=== PATIENT | female | born 1945 | race Caucasian/White ===

== ENCOUNTER 2019-07-16 14:45 | Outpatient (CLI) | payer MEDICARE, OTHER, SELFPAY ==
--- NOTE | 2019-07-16 14:48 | MM_ITS ---
WS: [id number] BILATERAL SCREENING DIGITAL MAMMOGRAM WITH CAD HISTORY: SCREENING COMPARISON: 05/27/2018 and 12/17/2008 Bilateral CC and MLO views submitted. Computer aided detection analyzed. Breast composition: The breasts are heterogeneously dense, which may obscure small masses. No suspici ous masses, microcalcifications or architectural distortion. Biopsy clip lateral LEFT breast. Benign calcifications in each breast. MM/[place] [id number] IMPRESSION: BI-RADS: 2-Benign FOLLOW UP: 1 Year Follow-up
== END 2019-07-16 14:46 | disposition home or self-care (01) ==
LOC: RADSHAW 14:45
PROVIDERS: Family Provider Family Medicine; PCP Family Medicine; Visit Provider Family Medicine
DX: Z12.31 Encounter for screening mammogram for malignant neoplasm of breast (principal)
CPT/HCPCS: 77067

== ENCOUNTER 2019-09-08 14:31 | Outpatient (CLI) | payer MEDICARE, OTHER, SELFPAY ==
--- NOTE | 2019-09-09 20:02 | ONC CON_ITS ---
Dr. Chand New Patient Note Patient: Shazia Vaca Unit #: [id number]: 1945 Dicatated By: Luke Chand M.D.Date of Visit: Sep 08, 2019 Onc MED New Patient/Consult Referring Physician: Dr. Navid Bourne M.D. Chief Complaint: Anemia. History of Present Illness: This is a 74 year-old woman with iron deficiency anemia. She has been in good general health. She had presented to Dr. Bourne last month with fatigue and shortness of breath. Her CBC on 08/28/2019 showed hemoglobin low at 7.8 g with hematocrit 25%. The red cell indices were mildly macrocytic with MCV 104 and MCH 31. The white blood cell count was 7500 and the platelet count was 407,000. Her comprehensive metabolic profile was unrevealing. Her serum iron studies showed low transferrin saturation of 5% with ferritin low at 8 ng/mL, consistent with iron deficiency. Her B12 level is normal at 375 pg/mL and the folate was greater than 24 ng/mL. S her stool Hemoccult was found to be positive. He began on an oral iron supplement. A repeat CBC on 09/04/2019 showed similar findings with hemoglobin 7.8 g and hematocrit 24.6%. The MCV was slightly higher at 107 with MCH 33. In reviewing her records, she had undergone a left total knee arthroplasty in August 2018. Her preop CBC showed hemoglobin 13.2 g with MCV slightly high at 101. As of 09/25/2018 the postoperative hemoglobin was still low at 9.0 g. She did not require transfusion. Her B12 and folate levels were also normal at that time. She has been feeling pretty good generally. She says her energy has been down for a couple of weeks, but she is still doing light work and most of her activities. Her appetite has been good and her weight has been stable. She has no fever or night sweats. She does get short of breath with activity. She has cough when she lies down and when she first gets up. She has occasional twinges of chest pain. She has nausea off and on, and she does complain of having some heartburn, though generally has been controlled pretty well with medication. Her stools have been black since she started the iron supplement, but she otherwise has not been aware of any blood in the stool. She says she had a colonoscopy 3 years ago. Bladder function has been okay. She has some chronic back pain. She has occasional numbness in her hands, but it is positional. She has no other focal neurologic symptoms. Past Medical History: Her medical history includes degenerative arthritis, gastroesophageal reflux disease, hypercholesterolemia, hypertension, and hypothyroidism. 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 Medications: amLODIPine Besylate 1 Tablet (of 10 mg) Oral daily, Aspirin 1 Tablet (of 81 mg) Oral daily, Atorvastatin Calcium 1 Tablet (of 20 mg) Oral daily, Calcium Citrate + D 1 Tablet (of 600-400 mg - Units) Oral b.i.d., D-1000 Extra Strength 1 Tablet (of 400 Units) Oral daily, Donepezil HCl 1 Tablet (of 10 mg) Oral daily, Ferrous Sulfate 1 Tablet (of 325 (65 fe) mg) Oral daily, Glucosamine Sulfate 1 Capsule (of 1000 mg) Oral daily, Levothyroxine Sodium 1 Tablet (of 125 mcg) Oral daily, Omeprazole 1 Tablet (of 20 mg) Tablet, enteric coated Oral daily, traMADol HCl 1 Tablet (of 50 mg) Oral daily, Vitamin C 1 Capsule (of 500 mg) Oral daily, Vitamin E Blend 1 Capsule (of 200 Units) Oral daily Allergies: Adhesive Tape, Metals, and Penicillins. Social History: Ms. Vaca is . She has a history of smoking 1 pack of cigarettes daily for 50 years. She quit smoking in 2012. She does not drink alcohol. Family History: She does not know what happened to her father. Her mother at age 75 with emphysema. She also had bladder cancer. She has a total of 11 siblings, at least 6 of whom also had lung problems, but they were all smokers. In addition, 1 sister had lung and bladder cancer and a brother had throat cancer. Review Of Symptoms: Constitutional - Her energy is good. She is able to do all her normal activities. Her appetite is good and weight is stable. No fever, chills, hot flashes, or night sweats. ECOG score is 0, Eyes - No change in vision, ENMT - No hearing loss or tinnitus. She does complain that her nose runs. No mouth sores. No sore throat or difficulty swallowing, Hematologic/Lymphatic - She bruises easily, Respiratory - At times she has shortness of breath during activity. She has an occasional cough. No pleuritic pain or hemoptysis, Cardiovascular - No angina pain. No palpitations, Gastrointestinal - No nausea or vomiting. She heartburn, but it is well controlled with Prilosec. No diarrhea or constipation. A recent stool hemoccult was reportedly positive. She denies seeing any blood in the stool. She has had black stools after starting an oral iron supplement, Genitourinary (F) - No dysuria or hematuria. No urinary frequency. No urgency or incontinence, Musculoskeletal - She has lower back pain, Integumentary - No skin complications, Neurologic - No headache. She gets dizzy at time. No numbness/paresthesias or other focal neurologic symptoms, Psychiatric - No anxiety or depression. She has difficulty sleeping. She states that she is only able to sleep a few hours at night. Vital Signs: Performed on Sep 08, 2019 15:58: 6, 30.58 (HIGH), 1.77 sq.m, 62.00 in, 99 %, 79 /min, 18 /min, 131/54 mm(hg), 98.2 F (LOW), and 167.2 lbs (HIGH). Physical Examination: Constitutional - She appears to be in good general health, Eyes - Sclerae nonicteric. Conjunctivae clear, ENMT - No lesions noted in the oral cavity, Neck - No mass or thyromegaly, Hematologic/Lymphatic - No cervical, clavicular, or axillary adenopathy, Respiratory - Lungs sound clear, Cardiovascular - Heart rhythm is regular. There is no murmur, gallop, or rub noted, Abdomen - Soft and non-tender. Liver and spleen are not enlarged. There is no abdominal mass or ascites noted and there is no inguinal adenopathy, Back/Spine - No spine or CVA tenderness noted, Extremities - No edema. Pedal pulses are palpable bilaterally, Integumentary - No rashes. No suspicious skin lesions noted, Neurologic - No focal neurologic deficits noted. Impression: 1. Patient with moderately severe anemia. Her serum iron studies and ferritin are clearly consistent with iron deficiency, though her red cell indices are macrocytic. 2. She had positive stool hemoccult. Her other medical illnesses include: 3. Hypertension. 4. Hyperlipidemia. 5. Hypothyroidism. 6. GERD. 7. Degenerative arthritis. Plan: The laboratory studies were reviewed and we discussed the clinical implications. She has iron deficiency anemia, though with macrocytic red cell indices. At least some component is due to GI blood loss, as she does have a positive stool hemoccult. It is uncertain to what extent inadequate oral iron absorption may also be contributing. At least for now she will just continue her oral iron supplement. She will have a follow CBC with Dr. Bourne in 2 weeks, and I will plan a followup visit with additional lab studies in 4 weeks. If the iron deficiency is not correcting with oral iron or she is not able to tolerate it, she will be given parenteral iron replacement with Injectafer. In the meantime, she also will be having further evaluation with EGD. Signed By: Luke Chand M.D. <<Signature on File>>
== END 2019-09-08 14:32 | disposition home or self-care (01) ==
LOC: ONCMED 14:31
PROVIDERS: Family Provider Family Medicine; PCP Family Medicine; Visit Provider Internal Medicine Medical Oncology
DX: D50.0 Iron deficiency anemia secondary to blood loss (chronic) (principal); G89.29 Other chronic pain; M54.9 Dorsalgia, unspecified; M19.90 Unspecified osteoarthritis, unspecified site; K21.9 Gastro-esophageal reflux disease without esophagitis; E78.00 Pure hypercholesterolemia, unspecified; I10 Essential (primary) hypertension; E03.9 Hypothyroidism, unspecified; Z79.82 Long term (current) use of aspirin; Z79.891 Long term (current) use of opiate analgesic; Z96.652 Presence of left artificial knee joint; Z87.891 Personal history of nicotine dependence; Z80.1 Family history of malignant neoplasm of trachea, bronchus and lung; Z80.52 Family history of malignant neoplasm of bladder; Z80.8 Family history of malignant neoplasm of other organs or systems
CPT/HCPCS: 99204

== ENCOUNTER 2019-10-13 08:31 | Outpatient (CLI) | payer MEDICARE, OTHER, SELFPAY ==
--- NOTE | 2019-10-13 18:56 | ONC FU_ITS ---
Dr. Chand Patient Follow-Up Note Patient: Shazia Vaca Unit #: [id number]: 1945 Dicatated By: Luke Chand M.D.Date of Visit:Oct 13, 2019 Telehealth Progress Note The patient has been informed that the visit may not be secure and acknowledged the information. I have explained the option of participating in a telephone or video visit during the [facility] emergency to the patient. After being given an opportunity to ask questions about and discuss this type of visit, the patient verbally consented to proceeding with the telephone/video visit. the patient understands that this service replaces an office visit and they may be billed and /or responsible for any applicable copayments Chief Complaint: Anemia. History of Present Illness: This is a 74 year-old woman with macrocytic anemia. She had presented to Dr. Bourne in August with fatigue and shortness of breath. Her CBC on 08/28/2019 showed hemoglobin low at 7.8 g with hematocrit 25%. The red cell indices were mildly macrocytic with MCV 104 and MCH 31. The white blood cell count was 7500 and the platelet count was 407,000. Her comprehensive metabolic profile was unrevealing. Her serum iron studies showed low transferrin saturation of 5% with ferritin low at 8 ng/mL, consistent with iron deficiency. Her B12 level is normal at 375 pg/mL and the folate was greater than 24 ng/mL. Her stool Hemoccult was found to be positive. She was started on an oral iron supplement. A repeat CBC on 09/04/2019 showed similar findings with hemoglobin 7.8 g and hematocrit 24.6%. The MCV was slightly higher at 107 with MCH 33. I had seen her initially on 09/08/2019. In reviewing her records, she had undergone a left total knee arthroplasty in August 2018. Her preop CBC showed hemoglobin 13.2 g with MCV slightly high at 101. As of 09/25/2018 the postoperative hemoglobin was still low at 9.0 g. She did not require transfusion. Her B12 and folate levels were also normal at that time. As her laboratory studies were consistent with iron deficiency, I had recommended that she continue with a trial of oral iron replacement. With her stool Hemoccult having been reported positive, I also recommended that she have a repeat EGD. She had undergone colonoscopy 3 years earlier. Her other medical illnesses include hypertension, hyperlipidemia, hypothyroidism, GERD, and degenerative arthritis. She has a history of smoking 1 pack of cigarettes daily for 50 years. She quit smoking in 2012. INTERIM HISTORY: Her repeat laboratory studies on 10/08/2019 included CBC showing hemoglobin 10.9 g with hematocrit 35.9%. The red cell indices were macrocytic with MCV 109 and MCH 33. The white blood cell count was 7100 and the platelet count was 418,000. The uncorrected reticulocyte count was 2.6%. LDH was normal at 180 2U/L and the haptoglobin was normal at 163 mg/dL. Comprehensive metabolic profile was unremarkable. The serum iron studies showed low normal transferrin saturation at 22% with ferritin relatively low at 21 ng/mL. The B12 level was normal at 323 pg/mL. The homocystine level was slightly elevated at 11.7 ???mol/L and the methylmalonic acid level was normal at 227 nmol/L. In the interim she did have a repeat EGD which reportedly was unrevealing. She is seen for a follow-up visit by Telehealth. She says she is feeling good. She has good energy and she has normal activity. ECOG score 0. She has good appetite. She has no fever or night sweats. She reports having some sinus drainage and she has cough off and on. She has some shortness of breath. She is on Symbicort, which she uses at night. She does not complain of chest pain. She has had some nausea with the iron supplement. Her acid reflux symptoms have been adequately managed after increasing her omeprazole dosage to 40 mg daily. She has no complaints with bowel or bladder function. She has some joint pain, mainly in the shoulders. She has no focal neurologic symptoms. Medications: amLODIPine Besylate 1 Tablet (of 10 mg) Oral daily, Aspirin 1 Tablet (of 81 mg) Oral daily, Atorvastatin Calcium 1 Tablet (of 20 mg) Oral daily, Calcium Citrate + D 1 Tablet (of 600-400 mg - Units) Oral b.i.d., D-1000 Extra Strength 1 Tablet (of 400 Units) Oral daily, Donepezil HCl 1 Tablet (of 10 mg) Oral daily, Ferrous Sulfate 1 Tablet (of 325 (65 fe) mg) Oral daily, Glucosamine Sulfate 1 Capsule (of 1000 mg) Oral daily, Levothyroxine Sodium 1 Tablet (of 125 mcg) Oral daily, Omeprazole 1 Tablet (of 20 mg) Tablet, enteric coated Oral daily, traMADol HCl 1 Tablet (of 50 mg) Oral daily, Vitamin C 1 Capsule (of 500 mg) Oral daily, Vitamin E Blend 1 Capsule (of 200 Units) Oral daily Allergies: Adhesive Tape, Metals, and Penicillins. Review of Systems: Constitutional - Her energy level is generally good. She is doing all her normal activities. Her appetite is very good and weight is stable. No fever, chills, hot flashes, or night sweats. ECOG score is 0, ENMT - She has chronic sinus drainage. No mouth sores. No sore throat or difficulty swallowing, Hematologic/Lymphatic - She bruises easily, Respiratory - She has some shortness of breath. She is using Symbicort. She has a cough, mainly at night. No pleuritic pain or hemoptysis, Cardiovascular - No angina pain. No palpitations, Gastrointestinal - No nausea or vomiting. She has acid reflux that has improved after increasing to 40mg of Prilosec. No diarrhea or constipation. No blood in the stool or black stools, Genitourinary (F) - No dysuria or hematuria. No urinary frequency. No urgency or incontinence, Musculoskeletal - She has some joint pain at times, mainly in the shoulders, Integumentary - No skin complications, Neurologic - No headache or dizziness. No numbness/paresthesias or other focal neurologic symptoms, Psychiatric - No anxiety or depression. She does not sleep well at night. Physical Examination: Constitutional - She looks good generally. Lab/Imaging: Test performed on Oct 08, 2019 09:21 Ferritin 21 ng/mL Homocysteine 11.7 umol/L Methylmalonic Acid 227 nmol/L Vitamin B12 323 pg/mL % Iron Saturation 22 % LDH, Total 182 IU/L Iron, Total 93 mcg/dL TIBC 428 mcg/dL Haptoglobin 163 mg/dL Reticulocyte Count 2.6 % Test performed on Oct 08, 2019 09:17 Glucose 97 mg/dL BUN 19 mg/dL Creatinine 0.9 mg/dL Cr Clearance (Est) 66.65 mL/min Sodium 139 mmol/L Potassium 4.2 mmol/L Chloride 103 mmol/L CO2 28 mmol/L Calcium 10.3 mg/dL Protein, Total 7.8 g/dL Albumin 4.2 g/dL Globulin 3.6 g/dL A/G Ratio 1.2 Absolute Value Bilirubin, Total 0.4 mg/dL Alkaline Phosphatase 88 IU/L AST (SGOT) 37 IU/L ALT (SGPT) 12 IU/L WBC 7.1 10^9/L RBC 3.29 10^12/L HGB 10.9 g/dL HCT 35.9 % MCV 109.1 fl MCH 33.3 pg MCHC 30.5 g/dL RDW 19.8 % Platelet Count 418 10^9/L Lymphocytes 2.4637 10^9/L Monocytes 0.497 10^9/L Impression: 1. Patient with macrocytic anemia. Her initial studies were consistent with iron deficiency. She appears to have had some response to oral iron supplementation, but she remains mildly anemic with significantly macrocytic red blood cell indices. In the absence of any evidence of B12 deficiency, this is suggestive of underlying myelodysplasia. 2. She had positive stool hemoccult. A specific source of GI blood loss has not been determined, but it appears very unlikely that she would have any associated GI malignancy. Her other medical illnesses include: 3. Hypertension. 4. Hyperlipidemia. 5. Hypothyroidism. 6. GERD. 7. Degenerative arthritis. Plan: As her transferrin saturation and ferritin are both still relatively low and she is having GI side effects with the ferrous sulfate, I am going to schedule her to come in for parenteral iron replacement with a single infusion of Injectafer. She will have 1-month interval follow-up lab studies. If she remains anemic, I will recommend that she undergo bone marrow aspiration/biopsy. Signed By: Luke Chand M.D. <<Signature on File>>
== END 2019-10-13 08:32 | disposition home or self-care (01) ==
LOC: ONCMED 08:31
PROVIDERS: Family Provider Family Medicine; PCP Family Medicine; Visit Provider Internal Medicine Medical Oncology
DX: D50.8 Other iron deficiency anemias (principal)

== ENCOUNTER 2019-10-27 08:21 | Outpatient (CLI) | payer MEDICARE, OTHER, SELFPAY ==
[2019-10-27] MEDS: sodium chloride 0.9% 100 ML 400 ML (08:35)
== END 2019-10-27 08:22 | disposition home or self-care (01) ==
LOC: ONCMED 08:22
PROVIDERS: Family Provider Family Medicine; PCP Family Medicine; Visit Provider Internal Medicine Medical Oncology
DX: D50.8 Other iron deficiency anemias (principal)
CPT/HCPCS: 96365; J1439

== ENCOUNTER → 2019-12-21 11:13 | Outpatient (BNVA) | payer MEDICARE, OTHER, SELFPAY | PROVIDERS: Family Provider Family Medicine; PCP Family Medicine; Visit Provider Specialist | DX: M25.511 Pain in right shoulder (principal) | CPT/HCPCS: 73030 ==

== ENCOUNTER → 2019-12-31 09:53 | Outpatient (BNVA) | payer MEDICARE, OTHER, SELFPAY | PROVIDERS: Family Provider Family Medicine; PCP Family Medicine; Visit Provider Specialist | DX: M19.011 Primary osteoarthritis, right shoulder (principal); M75.81 Other shoulder lesions, right shoulder; Z96.652 Presence of left artificial knee joint | CPT/HCPCS: 73560; 73565 ==

== ENCOUNTER → 2020-11-30 11:04 | Outpatient (BNVA) | payer MEDICARE, OTHER, SELFPAY | PROVIDERS: Family Provider Family Medicine; PCP Family Medicine; Visit Provider Specialist | DX: Z47.1 Aftercare following joint replacement surgery (principal); Z96.652 Presence of left artificial knee joint | CPT/HCPCS: 73560; 73565 ==

== ENCOUNTER 2020-12-19 14:28 | Emergency (ER) | payer MEDICARE, OTHER, SELFPAY ==
[2020-12-19 14:30] VITALS: BP 125/55; PULSE 75; RESP 18; O2SAT 93; BMI 28.9
--- NOTE | 2020-12-19 14:47 | CTR_ITS ---
PROCEDURE INFORMATION: Exam: CT Head Without Contrast Exam date and time: 12/19/2020 2:47 PM Age: 75 years old Clinical indication: Injury or trauma; Fall; Blunt trauma (contusions or hematomas); With loss of consciousness; Not specified; Additional info: Fall/loc TECHNIQUE: Imaging protocol: Computed tomography of the head without contrast. Radiation optimization: All CT scans at this facility use at least one of these dose optimization techniques: automated exposure control; mA and/or kV adjustment per patient size (includes targeted exams where dose is matched to clinical indication); or iterative reconstruction. COMPARISON: CT head wo con* [id number] 11/15/2015 8:14 AM RADIATION DOSE METRICS: Total DLP (mGy-cm): 746.27 FINDINGS: Brain: Normal. No hemorrhage. Unremarkable white matter. No mass effect. Cerebral ventricles: No ventriculomegaly. Paranasal sinuses: Visualized sinuses are unremarkable. No fluid levels. Mastoid air cells: Visualized mastoid air cells are well aerated. Bones/joints: Unremarkable. No acute fracture. Soft tissues: Unremarkable. CT/CT head wo con* [id number] IMPRESSION: Negative for intracranial hemorrhage or mass effect. Radiation Dose CTDIVOL = (mGy): DLP = 746.27 (mGy-cm)
--- NOTE | 2020-12-19 14:47 | XR_ITS ---
WS: [id number] PORTABLE CHEST HISTORY: dyspnea/cough COMPARISON: 09/09/2018 Mild pulmonary hyperexpansion with mild interstitial thickening. Similar to the study of 09/28/2015. N o dense consolidation or pneumonia. No pleural effusion or pneumothorax. Cardiac size: Normal. Mediastinum/Aorta: Mild atherosclerosis aorta. No osseous abnormality seen. XR/XR chest 1V portable [id number] IMPRESSION: No acute cardiopulmonary disease.
--- NOTE | 2020-12-19 14:47 | ECG_ITS ---
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 Measurements Intervals Tofte Rate: 84 P: 73 NM: 163 QRS: 16 QRSD: 90 T: 54 QT: 360 QTc: 427 Interpretive Statements SINUS RHYTHM Compared to ECG 09/09/2018 13:47:27 No significant changes Electronically Signed On 12-19-2020 18:51:39 CDT by Anisa Landry M.D. [id number]
--- NOTE | 2020-12-19 14:49 | W.ED.SYNCOPE ---
HPI - Syncope General: Chief Complaint: Syncope Stated Complaint: SYNCOPE, WEAKNESS Time Seen by Provider: 12/19/20 14:30 History of Present Illness: HPI narrative: 75-year-old female presents emergency room with complaints of syncopal episode while at shopping at [employer]. He has had similar episodes in the past once while she was cutting her son's hair in her kitchen. Today she was standing her son was loading some things into the cart she got lightheaded and dizzy she had the sense that she was about to passed out and said she needed to set she passed out 2 more times after that episode she denies striking her head but did lose consciousness for a brief period of time there was no seizure-like activity she denies any chest pain. She has not had any postevent confusion she did not have any nausea vomiting afterwards no loss of bowel or bladder control. MD complaint: loss of consciousness, felt faint and collapsed Onset (ago): minute(s) Prodromal symptoms: lightheaded and other (Flushing sensation) Witnessed: Yes - by Bystander Injuries sustained associated with event: back Associated symptoms: Reports weakness; Deny abdominal pain, chest pain, fever(s), headache(s), lightheadedness, nausea, short of breath or vertigo History: previous syncopal episode Treatments prior to arrival: none Review of Systems Const: Denies: fever(s) ENMT: Denies: throat pain, ear or mastoid pain, nasal discharge or nasal congestion Card: Denies: chest pain or lightheadedness Resp: Denies: dyspnea, productive cough or non-productive cough GI: Denies: abdominal pain or nausea : Denies: flank pain, difficulty voiding, dysuria, urinary frequency or urinary urgency Skin/Breast: Denies: rash or pruritus Neuro: Denies: headache(s) or vertigo PFSH ED PFSH: Medical History Chronic radicular low back pain Hypercholesterolemia Hypertension Primary osteoarthritis of left knee Primary osteoarthritis of right knee Primary osteoarthritis of right shoulder Surgical History Status post total knee replacement, left Social History Smoking and tobacco status: never smoked Alcohol intake: never Physical Exam Const: COMMON NORMALS: no acute distress GENERAL APPEARANCE: cooperative and comfortable ORIENTATION/CONSCIOUSNESS: Yes awake, Yes oriented to person, Yes oriented to place and Yes oriented to time HENMT: COMMON NORMALS: normocephalic, atraumatic, hearing grossly normal bilaterally and external ears normal HEAD & SCALP: normocephalic and atraumatic EXTERNAL EAR: Yes external ears normal Neck/C-Spine: COMMON NORMALS: no JVD Resp: COMMON NORMALS: normal respiratory effort, No retractions, No use of accessory muscles and clear to auscultation bilaterally AUSCULTATION: clear to auscultation bilaterally Cardio: COMMON NORMALS: no JVD, regular rate, regular rhythm and No murmurs present (Cardio) RATE: regular rate RHYTHM: regular rhythm GI: COMMON NORMALS: Soft to palpation and No hepatosplenomegaly present AUSCULTATION: Yes normoactive bowel sounds PALPATION: Yes Soft to palpation, No Tenderness to palpation present (GI), No Guarding due to palpation present (GI) and Yes No hepatosplenomegaly present Extremity: COMMON NORMALS: normal to inspection, capillary refill normal, no clubbing, cyanosis or edema, no calf tenderness and no pedal edema Neuro: SENSORIUM/ORIENTATION: Yes oriented to person, Yes oriented to place and Yes oriented to time Skin: COMMON NORMALS: no rashes or lesions noted GENERAL SKIN EXAM: no rashes or lesions noted Course Vital Signs: Vital signs: Vital Signs Pulse Rate 82 12/19/20 17:38 Respiratory Rate 18 12/19/20 14:30 Blood Pressure 135/66 12/19/20 17:38 Pulse Oximetry 94 12/19/20 17:38 MDM - Syncope MDM Narrative: Medical decision making narrative: Patient was orthostatic on arrival here we did decrease her amlodipine to 5mg daily she is feeling much better after the fluids we will discharge her home. Asked her to follow-up with her primary care doctor within the week. We will also get a get her set up for a Lexiscan sestamibi stress test. Lab Data: Labs: Lab Results 12/19/20 12/19/20 12/19/20 Range/Units 14:47 14:47 14:47 WBC 6.1 (4.0-10.0) 10^3/ uL RBC 2.89 L (4.1-5.3) 10^6/u L Hgb 11.1 L (11.5-15.3) g/dL Hct 34.0 L (37.0-47.0) % MCV 117.6 H (81-99) fL MCH 38.4 H (28.0-34.0) pg MCHC 32.6 (30.0-36.0) g/dL RDW 17.9 H (12.1-15.1) % Plt Count 312 (130-400) 10^3/c mm MPV 12.4 H (7.4-10.4) fL Neut % (Auto) 56.4 % Lymph % (Auto) 31.4 % [place] % (Auto) 6.1 % Eos % (Auto) 1.3 % Baso % (Auto) 0.3 % Neut # (Auto) 3.41 (1.8-7.7) 10^3/u L Lymph # (Auto) 1.9 (0.8-4.8) 10^3/u L [place] # (Auto) 0.4 (0.2-0.9) 10^3/u L Eos # (Auto) 0.1 (0.0-0.8) 10^3/u L Baso # (Auto) 0.0 (0.0-0.1) 10^3/u L Nucleated RBC % (a uto) 0 % Nucleated RBCs # 0.0 /100WBC Sodium 136 (136-145) mmol/L Potassium 4.3 (3.5-5.1) mmol/L Chloride 100 (98-107) mmol/L Carbon Dioxide 24 (22-29) mmol/L Anion Gap 16.3 (5-19) BUN 18 (8-23) mg/dL Creatinine 1.2 H (0.5-0.9) mg/dL GFR Calculation Not Reportable Glucose 139 H (65-115) mg/dL Calculated Osmolal ity 286 (285-295) mOsm/k g Calcium 9.7 (8.5-10.5) mg/dL Total Bilirubin 0.3 (0.15-1.2) mg/dL AST 13 (0-32) U/L ALT 8 (0-33) U/L Alkaline Phosphata se 66 (35-105) IU/L Creatine Kinase 58 (26-192) U/L Troponin T Baselin e 14 H (0-10) ng/L Troponin T 120 [address] [place] (0-10) ng/L Delta Troponin T (0-10) ABS# Total Protein 6.6 (6.6-8.7) g/dL Albumin 4.2 (3.5-5.2) g/dL Globulin 2.4 (1.3-4.6) g/dL Urine Color (Yellow) Urine Appearance (CLEAR) Urine pH (5-7) Ur Specific Gravit y (1.005-1.030) Urine Protein (Negative) Urine Glucose (UA) (Normal) Urine Ketones (Negative) Urine Blood (Negative) Urine Nitrate (Negative) Urine Bilirubin (Negative) Prot Sulfosalicyli c Acd (Negative) Urine Urobilinogen (Negative) mg/dL Ur Leukocyte Belia ase (Negative) 12/19/20 12/19/20 Range/Units 17:20 17:23 WBC (4.0-10.0) 10^3/ uL RBC (4.1-5.3) 10^6/u L Hgb (11.5-15.3) g/dL Hct (37.0-47.0) % MCV (81-99) fL MCH (28.0-34.0) pg MCHC (30.0-36.0) g/dL RDW (12.1-15.1) % Plt Count (130-400) 10^3/c mm MPV (7.4-10.4) fL Neut % (Auto) % Lymph % (Auto) % [place] % (Auto) % Eos % (Auto) % Baso % (Auto) % Neut # (Auto) (1.8-7.7) 10^3/u L Lymph # (Auto) (0.8-4.8) 10^3/u L [place] # (Auto) (0.2-0.9) 10^3/u L Eos # (Auto) (0.0-0.8) 10^3/u L Baso # (Auto) (0.0-0.1) 10^3/u L Nucleated RBC % (a uto) % Nucleated RBCs # /100WBC Sodium (136-145) mmol/L Potassium (3.5-5.1) mmol/L Chloride (98-107) mmol/L Carbon Dioxide (22-29) mmol/L Anion Gap (5-19) BUN (8-23) mg/dL Creatinine (0.5-0.9) mg/dL GFR Calculation Glucose (65-115) mg/dL Calculated Osmolal ity (285-295) mOsm/k g Calcium (8.5-10.5) mg/dL Total Bilirubin (0.15-1.2) mg/dL AST (0-32) U/L ALT (0-33) U/L Alkaline Phosphata se (35-105) IU/L Creatine Kinase (26-192) U/L Troponin T Baselin e (0-10) ng/L Troponin T 120 [address] [place] 10.70 H (0-10) ng/L Delta Troponin T -3.30 L (0-10) ABS# Total Protein (6.6-8.7) g/dL Albumin (3.5-5.2) g/dL Globulin (1.3-4.6) g/dL Urine Color Straw (Yellow) Urine Appearance Clear (CLEAR) Urine pH 8 H (5-7) Ur Specific Gravit y 1.010 (1.005-1.030) Urine Protein Neg (Negative) Urine Glucose (UA) Norm (Normal) Urine Ketones Negative (Negative) Urine Blood Neg (Negative) Urine Nitrate Negative (Negative) Urine Bilirubin Neg (Negative) Prot Sulfosalicyli c Acd Negative (Negative) Urine Urobilinogen Norm (Negative) mg/dL Ur Leukocyte Belia ase Negative (Negative) Discharge Plan Discharge Patient Disposition: Home Clinical Impression: Syncope due to orthostatic hypotension Condition: Stable Prescriptions: Changed amlodipine 10 mg tablet 5 mg PO DAILY Qty: 0 RF: 0 No Action tramadol 50 mg tablet 50 mg PO Q8H PRNRF: 0 multivitamin [Multiple Vitamins] Tablet 1 tab PO DAILY RF: 0 ascorbate calcium (vitamin C) 500 mg tablet 500 mg PO DAILY RF: 0 aspirin 81 mg tablet,delayed release (DR/EC) 81 mg PO DAILY RF: 0 triamcinolone acetonide 0.025 % cream 1 applic TOPICAL DAILY RF: 0 levothyroxine 112 mcg capsule 112 mcg PO DAILY RF: 0 omeprazole 20 mg capsule,delayed release(DR/EC) 20 mg PO DAILY RF: 0 atorvastatin 20 mg tablet 20 mg PO DAILY RF: 0 Discharge Orders: Discharge ED (Routine); Ordered 12/19/20 Ordered By: Ariel Frances Referrals: Navid Bourne MD [Primary Care Provider] - Discharge Diet: Usual diet Discharge Activity: Limit activity as instructed Patient Instructions: Opioid Safety Activity Restrictions/Additional Instructions: Case management will call to set you up for a cardiac stress test. Coding Level of Care Code ED Liquid Flavor Compounder for Xi Fwd Exam Comprehensive
[2020-12-19 14:57] LABS: Basophils % 0.3 %; Eosinophils # 0.1 10^3/uL (0.0-0.8); Eosinophils % 1.3 %; Hemoglobin 11.1 g/dL (11.5-15.3); Lymphocytes # 1.9 10^3/uL (0.8-4.8); Lymphocytes % 31.4 %; Mean Corpuscular HGB Conc 32.6 g/dL (30.0-36.0); Mean Corpuscular Hemoglobin 38.4 pg (28.0-34.0); Mean Corpuscular Volume 117.6 fL (81-99); Mean Platelet Volume 12.4 fL (7.4-10.4); Monocytes # 0.4 10^3/uL (0.2-0.9); Monocytes % 6.1 %; Neutrophils # 3.41 10^3/uL (1.8-7.7); Neutrophils % 56.4 %; Nucleated Red Blood Cells % 0 %; Platelet Count 312 10^3/cmm (130-400); Red Blood Count 2.89 10^6/uL (4.1-5.3); Red Cell Distribution Width 17.9 % (12.1-15.1); White Blood Count 6.1 10^3/uL (4.0-10.0)
[2020-12-19 15:13] LABS: Troponin(5th) Baseline 14 ng/L (0-10)
[2020-12-19 15:14] LABS: Alanine Aminotransferase 8 U/L (0-33); Albumin Level 4.2 g/dL (3.5-5.2); Alkaline Phosphatase 66 IU/L (35-105); Anion Gap 16.3 (5-19); Aspartate Amino Transferase 13 U/L (0-32); Blood Urea Nitrogen 18 mg/dL (8-23); Calcium 9.7 mg/dL (8.5-10.5); Carbon Dioxide 24 mmol/L (22-29); Chloride 100 mmol/L (98-107); Creatine Phosphokinase 58 U/L (26-192); Creatinine Clr Calc Pharmacy 38.1319; Globulin 2.4 g/dL (1.3-4.6); Glucose 139 mg/dL (65-115); Osmolality Calculated 286 mOsm/kg (285-295); Potassium 4.3 mmol/L (3.5-5.1); Sodium 136 mmol/L (136-145); Total Bilirubin 0.3 mg/dL (0.15-1.2); Total Protein 6.6 g/dL (6.6-8.7)
[2020-12-19 15:36] VITALS: BP 102/50; BP 118/79; BP 124/56; PULSE 86; PULSE 88; PULSE 93
[2020-12-19 15:37] VITALS: BP 118/79; PULSE 86; O2SAT 93
[2020-12-19 15:38] VITALS: PULSE 84
--- NOTE | 2020-12-19 16:47 | ECG_ITS ---
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 Measurements Intervals [place] Rate: 85 P: 69 [place]: 168 QRS: 7 QRSD: 90 T: 55 QT: 361 QTc: 430 Interpretive Statements SINUS RHYTHM Compared to ECG 12/19/2020 15:22:56 No significant changes Electronically Signed On 12-19-2020 18:59:49 CDT by Anisa Landry M.D. [id number]
[2020-12-19 17:38] VITALS: BP 135/66; PULSE 82; O2SAT 94
[2020-12-19 17:42] LABS: Add Urine Microscopic? NO; Charge for UA Resulting for Rev
[2020-12-19 17:55] LABS: Bilirubin Urine Neg (Negative); Blood Urine Neg (Negative); Glucose Urine UA Norm (Normal); Ketones Urine Negative (Negative); Leukocyte Esterase Urine Negative (Negative); Nitrate Urine Negative (Negative); Protein Urine Neg (Negative); Sulfosalicylic Acid Urine Negative (Negative); Urine Appearance Clear (CLEAR); Urine Color Straw (Yellow); Urobilinogen Urine Norm (Negative); pH Urine 8 (5-7)
--- NOTE | 2020-12-20 12:27 | PC.SOCIAL ---
Faxed stress test order form with facesheet to [facility] and verified with Makenzie in [facility] scheduling this was received.
--- NOTE | 2021-01-04 15:09 | DCPLANNER ---
Patient had a stress test scheduled for 12.26.21 - patient did attend appointment.
== END 2020-12-19 18:45 | disposition home or self-care (01) ==
PROVIDERS: Emergency Provider Family Medicine; PCP Family Medicine
DX: I95.1 Orthostatic hypotension (principal); Z79.82 Long term (current) use of aspirin; I10 Essential (primary) hypertension
CPT/HCPCS: 36415; 70450; 71045; 80053; 81003; 82550; 84484; 85025; 93005; 99284

== ENCOUNTER 2020-12-26 06:43 | Outpatient (CLI) | payer MEDICARE, OTHER, SELFPAY ==
[2020-12-26 07:08] VITALS: BMI 30.2
--- NOTE | 2020-12-26 07:12 | NMCV_ITS ---
NM devin perf SPECT r/s* [id number] Shazia Vaca Age: 75 Gender: F : 1945 Exam Date: 12/26/2020 07:59 Ordering Phys: Ariel Frances DO Technologist: ESTELA Arambula Exam Location: [facility] Indications: CHEST PAIN STRESS TEST Please see separate stress test report in [facility] for full findings IMAGE PROTOCOL Rest/Stress 1 Lexiscan Day Radiopharmaceutical Dose (mCi) Administration Site Administered by Rest: Tc-99m 10.9 IV ESTELA Manuel Sestamibi Stress:Tc-99m 32.8 IV ESTELA Manuel Sestamibi Rest: 60 Discovery 630 Stress: 30 Discovery 630 0.4mg Lexiscan. Images obtained in supine and prone position. SPECT RESULTS Technical Quality: Excellent Raw Data Analysis: Normal Image Corrections: No attenuation or motion correction applied Summed Stress Score: 0 Summed Rest Score: 0 Summed Difference Score: 0 PERFUSION FINDINGS Fairly uniform myocardial tracer uptake with no significant perfusion abnormalities FUNCTIONAL RESULTS (calculated via Gated SPECT) Stress Image LV EF (%): 73 Stress EDV (mL):82 TID: 1.15 Stress ESV (mL):22 FUNCTIONAL FINDINGS: Segmental wall motion analysis revealing no gross wall motion normalities IMPRESSIONS 1. Unremarkable myocardial perfusion imaging 2. LV ejection fraction estimated to be 73%. 3. Segmental wall motion analysis revealing no gross wall motion normalities. 4. Normal LV volume. 5. Elevated transient ischemic dilatation ratio, may suggest endocardial ischemia. Positive predictive value of this finding is limited. Clinical correlation is recommended. Dr Anisa Landry MD FACC (Electronically Signed) Final Date: 26 December 2020 17:14 S
--- NOTE | 2020-12-26 07:12 | ECG_ITS ---
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 Interpretive Statements NAME OF STUDY: LEXISCAN SESTAMIBI STRESS TEST INDICATION: Chest Pain, PROCEDURE: At the baseline, the EKG revealed normal sinus rhythm with a normal ST-T's. The baseline blood pressure was 131/56 mm Hg with a heart rate of 81 beats/min. Lexiscan was infused over a period of 20 seconds. A total of 0.4 milligrams of Lexiscan was infused. The stress phase was continued for a total of 5 minutes. Heart rate at the end of the stress phase was 92 with a blood pressure 135/45. The EKG at the peak infusion revealed no significant changes. Sestamibi was injected 20 seconds after the Lexiscan infusion. Blood pressure at the end of the recovery phase was 134/46 with a heart rate of 91 per minute. CONCLUSION: 1. No significant EKG changes with the LexiScan infusion 2. No LexiScan induced chest pain or cardiac arrhythmia 3. Normal blood pressure and heart rate response 4. Sestamibi/sestamibi perfusion scan pending; see separate report. Electronically Signed On 12-30-2020 10:02:42 CDT by Anisa Landry M.D. [id number]
[2020-12-26 08:39] VITALS: BP 149/65; PULSE 96
[2020-12-26] MEDS: regadenoson 0.4 Mg/5 ml Syringe IVP (08:39)
== END 2020-12-26 06:44 | disposition home or self-care (01) ==
LOC: CDL 06:45
PROVIDERS: PCP Family Medicine; Visit Provider Family Medicine
DX: R07.9 Chest pain, unspecified (principal)
CPT/HCPCS: 78452; 93017; A9500; J2785

== ENCOUNTER 2021-03-16 08:13 | Outpatient (CLI) | payer MEDICARE, OTHER, SELFPAY ==
[2021-03-16 10:01] LABS: Basophils % 0.3 %; Eosinophils # 0.1 10^3/uL (0.0-0.8); Eosinophils % 1.6 %; Hematocrit 27.9 % (37.0-47.0); Hemoglobin 9.1 g/dL (11.5-15.3); Lymphocytes # 1.5 10^3/uL (0.8-4.8); Lymphocytes % 23.8 %; Mean Corpuscular HGB Conc 32.6 g/dL (30.0-36.0); Mean Corpuscular Hemoglobin 40.6 pg (28.0-34.0); Mean Corpuscular Volume 124.6 fl (81-99); Mean Platelet Volume 12.2 fL (7.4-10.4); Monocytes # 0.4 10^3/uL (0.2-0.9); Monocytes % 6.1 %; Neutrophils # 4.17 10^3/uL (1.8-7.7); Neutrophils % 67.2 %; Nucleated Red Blood Cells % 0 %; Platelet Count 362 10^3/cmm (130-400); Red Blood Count 2.24 10^6/uL (4.1-5.3); Red Cell Distribution Width 15.7 % (12.1-15.1); White Blood Count 6.2 10^3/uL (4.0-10.0)
[2021-03-16 10:13] LABS: LAB Peripheral Smear Sent for Review
[2021-03-16 10:39] LABS: Alanine Aminotransferase 6 U/L (0-33); Alkaline Phosphatase 72 IU/L (35-105); Anion Gap 14.2 (5-19); Aspartate Amino Transferase 11 U/L (0-32); Blood Urea Nitrogen 10 mg/dL (8-23); Calcium 9.3 mg/dL (8.5-10.5); Carbon Dioxide 24 mmol/L (22-29); Chloride 103 mmol/L (98-107); Ferritin 61 ng/mL (15-150); Globulin 2.9 g/dL (1.3-4.6); Glucose 95 mg/dL (65-115); Iron 147 ug/dL (37-145); Lactate Dehydrogenase 261 U/L (135-214); Osmolality Calculated 283 mOsm/kg (285-295); Percent Saturation 44.9 % (20-50); Potassium 4.2 mmol/L (3.5-5.1); Sodium 137 mmol/L (136-145); Total Bilirubin 0.2 mg/dL (0.15-1.2); Total Iron Binding Capacity 327 mcg/dl; Total Protein 6.9 g/dL (6.6-8.7); Unsaturated Iron Binding 180 ug/dL (112-347)
[2021-03-16 10:53] LABS: Vitamin B12 262 pg/mL (232-1245)
[2021-03-16 11:05] LABS: Erythrocyte Sedimentation Rate 68 mm/hr (0-15)
--- NOTE | 2021-03-16 16:16 | ONC FU_ITS ---
Dr. Chand Patient Follow-Up Note Patient: Shazia Vaca Unit #: [id number]: 1945 Dicatated By: Luke Chand M.D.Date of Visit:Mar 16, 2021 Onc Med Follow-up/Prog Note Chief Complaint: Anemia. History of Present Illness: This is a 75 year-old woman with macrocytic anemia. She had presented to Dr. Bourne in August 2019 with fatigue and shortness of breath. Her CBC on 08/28/2019 showed hemoglobin low at 7.8 g with hematocrit 25%. The red cell indices were mildly macrocytic with MCV 104 and MCH 31. The white blood cell count was 7500 and the platelet count was 407,000. Her comprehensive metabolic profile was unrevealing. Her serum iron studies showed low transferrin saturation of 5% with ferritin low at 8 ng/mL, consistent with iron deficiency. Her B12 level is normal at 375 pg/mL and the folate was greater than 24 ng/mL. Her stool Hemoccult was found to be positive. She was started on an oral iron supplement. A repeat CBC on 09/04/2019 showed similar findings with hemoglobin 7.8 g and hematocrit 24.6%. The MCV was slightly higher at 107 with MCH 33. I had seen her initially on 09/08/2019. In reviewing her records, she had undergone a left total knee arthroplasty in August 2018. Her preop CBC showed hemoglobin 13.2 g with MCV slightly high at 101. As of 09/25/2018 the postoperative hemoglobin was still low at 9.0 g. She did not require transfusion. Her B12 and folate levels were also normal at that time. As her laboratory studies were consistent with iron deficiency, I had recommended that she continue with a trial of oral iron replacement. With her stool Hemoccult having been reported positive, I also recommended that she have a repeat EGD. She had undergone colonoscopy 3 years earlier. Her repeat laboratory studies on 10/08/2019 included CBC showing hemoglobin 10.9 g with hematocrit 35.9%. The red cell indices were macrocytic with MCV 109 and MCH 33. The white blood cell count was 7100 and the platelet count was 418,000. The uncorrected reticulocyte count was 2.6%. LDH was normal at 180 2U/L and the haptoglobin was normal at 163 mg/dL. Comprehensive metabolic profile was unremarkable. The serum iron studies showed low normal transferrin saturation at 22% with ferritin relatively low at 21 ng/mL. The B12 level was normal at 323 pg/mL. The homocystine level was slightly elevated at 11.7 ???mol/L and the methylmalonic acid level was normal at 227 nmol/L. In the interim she did have a repeat EGD which reportedly was unrevealing. With continued evidence of iron deficiency despite oral iron supplementation, I had recommended parenteral iron replacement, but she apparently did not follow through with that, and she then continued follow-up with Dr. Bourne. Her other medical illnesses include hypertension, hyperlipidemia, hypothyroidism, GERD, and degenerative arthritis. She has a history of smoking 1 pack of cigarettes daily for 50 years. She quit smoking in 2012. INTERIM HISTORY: On 12/19/2020 she was seen in the emergency room after she had passed out at [facility] 3 times. Her evaluation at that time was unrevealing. Her CBC showed hemoglobin just mildly decreased at 11.1 g, but she was significantly more macrocytic with MCV 117. The white blood cell count was 6100 and the platelet count was 312,000. A subsequent sestamibi stress test on 12/26/2020 showed no evidence of cardiac ischemia. The myocardial perfusion scan was unremarkable. Her ejection fraction was estimated at 73%. On her follow-up with Dr. Bourne on on 03/01/2021 her CBC showed hemoglobin down to 9.9 g with hematocrit 29.8%. The red cell indices were significantly macrocytic with MCV 125 and MCH 41. The white blood cell count was 7200 and the platelet count was 381,000. She is seen for a follow-up visit. She has been feeling good generally. Her energy is somewhat variable, but she has normal activity. ECOG score is 0. She has had good appetite. She says she has been losing a little weight, but that is attributable to dietary changes. She has not had fever. She sometimes has a little sweating in the evening. She sometimes has cough which is productive of yellowish sputum. She does not complain of shortness of breath or chest pain. She has no GI/ complaints other than some mild constipation. She has not been aware of any blood in the stool. She has some back pain, which is chronic. She does not complain of headache. She has just occasional lightheadedness. She has no numbness/paresthesia or other focal neurologic symptoms. She does bruise easily. She has no other bleeding manifestations. Medications: amLODIPine Besylate 1 Tablet (of 2.5 mg) Oral daily, Atorvastatin Calcium 1 Tablet (of 20 mg) Oral daily, Calcium Citrate + D 1 Tablet (of 600-400 mg - Units) Oral b.i.d., D-1000 Extra Strength 1 Tablet (of 400 Units) Oral daily, Donepezil HCl 1 Tablet (of 10 mg) Oral daily, Ferrous Sulfate 1 Tablet (of 325 (65 fe) mg) Oral daily, Glucosamine Sulfate 1 Capsule (of 1000 mg) Oral daily, Levothyroxine Sodium 1 Tablet (of 125 mcg) Oral daily, Omeprazole 1 (20 mg) Capsule Delayed Release Oral daily, traMADol HCl 1 Tablet (of 50 mg) Oral daily, Vitamin C 1 Capsule (of 500 mg) Oral daily, Vitamin E Blend 1 Capsule (of 200 Units) Oral daily Allergies: Adhesive Tape, Metals, and Penicillins. Vital Signs: Performed on Mar 16, 2021 08:46 Height - 62.00 in Weight - 149.6 lbs (LOW) BSA - 1.69 sq.m BMI - 27.36 Temperature - 97.9 F (LOW) Pulse - 91 /min Respiration - 18 /min BP - 118/62 mm(hg) O2 Sat - 93 % (LOW) Pain - 0 Fatigue - 0 Physical Examination: Constitutional - She looks pretty good generally, Eyes - Sclerae nonicteric. Conjunctivae clear, ENMT - No lesions noted in the oral cavity, Hematologic/Lymphatic - No cervical, clavicular, or axillary adenopathy, Respiratory - Lungs sound clear, Cardiovascular - Heart rhythm is regular. There is a II/ systolic murmur. There is no gallop or rub noted, Abdomen - Soft. Liver and spleen are not enlarged. There is no abdominal mass or ascites noted and there is no inguinal adenopathy, Extremities - No edema, Neurologic - No focal neurologic deficits noted. Problem List: 1. Macrocytic anemia. 2. Hypertension. 3. Hyperlipidemia. 4. Hypothyroidism. 5. GERD. 6. Degenerative arthritis. Problems Addressed with this Encounter and Plan: Patient with macrocytic anemia. Her initial studies were consistent with iron deficiency. She appeared to have had some response to oral iron supplementation, but she remained mildly anemic. During subsequent follow-up, the anemia has persisted and she has had increasing red blood cell macrocytosis. The findings are highly suspicious for myelodysplastic syndrome, though she does not appear to be overtly symptomatic. At this point I will obtain additional laboratory studies including CBC, comprehensive metabolic profile, reticulocyte count, LDH level, and sed rate. I will repeat B12 and folate levels along with methylmalonic acid and homocystine levels. I also will repeat her serum iron studies and I will review the blood smear. In all likelihood, she will need to undergo bone marrow aspiration/biopsy. Signed By: Luke Chand M.D. <<Signature on File>>
[2021-03-21 07:02] LABS: Methylmalonic Acid 241 nmol/L (87-318)
[2021-03-25 22:13] LABS: Copper Level 163 mcg/dL (70-175)
== END 2021-03-16 08:14 | disposition home or self-care (01) ==
LOC: ONCMED 08:19
PROVIDERS: PCP Family Medicine; Visit Provider Internal Medicine Medical Oncology
DX: D53.9 Nutritional anemia, unspecified (principal); I10 Essential (primary) hypertension; E78.5 Hyperlipidemia, unspecified; E03.9 Hypothyroidism, unspecified; K21.9 Gastro-esophageal reflux disease without esophagitis; M19.90 Unspecified osteoarthritis, unspecified site; Z79.899 Other long term (current) drug therapy; Z79.890 Hormone replacement therapy
CPT/HCPCS: 36415; 80053; 82525; 82607; 82728; 82746; 83010; 83090; 83540; 83550; 83615; 83921; 85025; 85045; 85651; 99215

== ENCOUNTER → 2021-03-30 12:11 | Outpatient (BNVA) | payer MEDICARE, OTHER, SELFPAY | PROVIDERS: PCP Family Medicine; Visit Provider Internal Medicine Medical Oncology | DX: Z01.812 Encounter for preprocedural laboratory examination (principal); Z20.822 Contact with and (suspected) exposure to COVID-19 | CPT/HCPCS: 87635 ==

== ENCOUNTER 2021-04-04 09:18 | Day surgery (SDC) | payer MEDICARE, OTHER, SELFPAY ==
[2021-03-31 14:44] VITALS: BMI 27.1
--- NOTE | 2021-04-04 09:48 | ANES.PREANE2 ---
Pre-Anesthetic Assessment Pre-Anesthetic Assessment: Height/Weight: Height 1.57 m Weight 67.132 kg Proposed Procedure: Operation Date: 04/04/21 11:00 Proposed Procedures p Bone Marrow Biospy With Aspiration(Not Applicable) - Sussy Mcfarlane MD Was Beta Toby taken within 24 hours: N/A Was Clonidine taken within 24 hours: N/A Social: Social History: Tobacco and No alcohol Exam: Pre-Anes Outpt Exam: alert, oriented x 3 and regular rate & rhythm Additional Exam Findings (including area of procedure): rhonchi Airway: Submandibular: WNL Cervical ROM: WNL MP: 2 Dentition: False Pulmonary: Pulmonary: COPD CV/HEM: CV/HEM: Anemia and HTN GI: GI: GERD Metabolic: Metabolic: Hyperlipidemia and Thyroid Anesthetic Plan: ASA status: 3 Anesthesia: MAC Risk of > 500 ml blood loss (7ml/kg in children): No PFSH Anesthesia PFSH: Medical History Chronic radicular low back pain Hypercholesterolemia Hypertension Primary osteoarthritis of left knee Primary osteoarthritis of right knee Primary osteoarthritis of right shoulder Surgical History Status post total knee replacement, left Social History Smoking and tobacco status: never smoked Alcohol intake: never Data Anesthesia Cardiac Studies: No Data to Display
[2021-04-04 10:07] VITALS: BP 125/62; PULSE 85; RESP 18; TEMP 37; O2SAT 94
[2021-04-04] MEDS: sodium chloride 0.9% 1,000 ML 30 ML IV (10:23)
[2021-04-04 10:40] LABS: Basophils % 0.4 %; Eosinophils # 0.1 10^3/uL (0.0-0.8); Eosinophils % 1.6 %; Hematocrit 28.5 % (37.0-47.0); Hemoglobin 9.3 g/dL (11.5-15.3); Lymphocytes # 1.9 10^3/uL (0.8-4.8); Lymphocytes % 27.8 %; Mean Corpuscular HGB Conc 32.6 g/dL (30.0-36.0); Mean Corpuscular Hemoglobin 41.3 pg (28.0-34.0); Mean Corpuscular Volume 126.7 fl (81-99); Mean Platelet Volume 12.6 fL (7.4-10.4); Monocytes # 0.4 10^3/uL (0.2-0.9); Monocytes % 5.5 %; Neutrophils # 4.37 10^3/uL (1.8-7.7); Neutrophils % 63.4 %; Nucleated Red Blood Cells % 0 %; Platelet Count 413 10^3/cmm (130-400); Red Blood Count 2.25 10^6/uL (4.1-5.3); Red Cell Distribution Width 15.9 % (12.1-15.1); White Blood Count 6.9 10^3/uL (4.0-10.0)
--- NOTE | 2021-04-04 11:28 | SUR.OPER ---
10 mL 1% Lidocaine used for local to right hip biopsy site.
--- NOTE | 2021-04-04 11:40 | PM.BMB ---
Bone Marrow Biopsy Bone Marrow Biopsy: I was consulted by [] office regarding bone marrow biopsy on [Shazia Kidd]. Briefly, the patient is a [76] year old [female] with [macrocytic anemia]. In the Outpatient Services Department, with nursing staff and laboratory technologists in attendance, the procedure was discussed with the patient. Appropriate consent form had been signed. Appropriate alternatives, benefits and risks of procedure were discussed with the patient and she was pre-operatively assessed with a history and physical by myself and cleared for the biopsy procedure. The patient did request IV sedation and that was provided by the Anesthesia Department. Right posterior iliac area was cleaned and prepped, local anesthesia was given about 15 cc of bone marrow aspirate and core biopsy was obtained, hemostasis obtained, patient tolerated procedure well and specimen was sent for routine histopathology, and MDS panel. Postprocedure nursing instructions were given Thank you for allowing me to participate in this patient's care and diagnosis. Coding Level of Care Code Acute Flight Attendant Inflight Services for Xi Kline
--- NOTE | 2021-04-04 11:42 | ANE.PACU2 ---
Inpatient post-anesthesia follow up: Airway intact: Yes Vital signs: Temperature 98.6 F Pulse Rate 85 Respiratory Rate 18 Blood Pressure 125/62 Pulse Oximetry 94 Oxygen Delivery Me thod Room Air Oxygen Flow Rate Fraction of Inspir ed Oxygen Hydration adequate: Yes Nausea and vomiting: No Pain level: 1 Mental status: Baseline
[2021-04-04 11:43] VITALS: BP 115/70; PULSE 80; RESP 16; TEMP 36.4; O2SAT 96
--- NOTE | 2021-04-04 11:45 | W.PM.OPSUD ---
Surgery/Procedure H&P Update DATE OF PROCEDURE: April 04, 2021 DATE H&P PERFORMED: 03/16/21 PLANNED PROCEDURE: Operation Date: 04/04/21 11:00 Proposed Procedures p Bone Marrow Biospy With Aspiration(Not Applicable) - MD Dr. Mannie Nunez's note was reviewed prior to the procedure and agreed and and discussed with the patient and patient agreed, proceeding with bone marrow aspiration and biopsy
[2021-04-04 11:54] VITALS: BP 126/60; PULSE 77; RESP 16; O2SAT 97
[2021-04-06 12:37] LABS: Miscellaneous Test See Scanned Lab Rpt
[2021-04-17 13:15] LABS: Miscellaneous Test See Scanned Lab Rpt
== END 2021-04-04 12:10 | disposition home or self-care (01) ==
PROVIDERS: PCP Family Medicine; Visit Provider Internal Medicine Hematology & Oncology
PROC: 07DT3ZX Extraction of Bone Marrow, Percutaneous Approach, Diagnostic (ICD-10-PCS; CPT 38222; principal; 2021-04-04 11:00)
DX: D64.9 Anemia, unspecified (principal); J44.9 Chronic obstructive pulmonary disease, unspecified; I10 Essential (primary) hypertension; K21.9 Gastro-esophageal reflux disease without esophagitis; E78.5 Hyperlipidemia, unspecified; E78.00 Pure hypercholesterolemia, unspecified; Z12.89 Encounter for screening for malignant neoplasm of other sites
CPT/HCPCS: 36415; 85025; 88237; 88264; 88305; 88311; 88367; 88374; 96360; 96361; J2704; J7030

== ENCOUNTER 2021-04-21 08:49 | Outpatient (CLI) | payer MEDICARE, OTHER, SELFPAY ==
--- NOTE | 2021-04-22 07:33 | ONC FU_ITS ---
Dr. Chand Patient Follow-Up Note Patient: Shazia Vaca Unit #: [id number]: 1945 Dicatated By: Luke Chand M.D.Date of Visit:Apr 21, 2021 Onc Med Follow-up/Prog Note Chief Complaint: Anemia. History of Present Illness: This is a 76 year-old woman with macrocytic anemia. She had presented to Dr. Bourne in August 2019 with fatigue and shortness of breath. Her CBC on 08/28/2019 showed hemoglobin low at 7.8 g with hematocrit 25%. The red cell indices were mildly macrocytic with MCV 104 and MCH 31. The white blood cell count was 7500 and the platelet count was 407,000. Her comprehensive metabolic profile was unrevealing. Her serum iron studies showed low transferrin saturation of 5% with ferritin low at 8 ng/mL, consistent with iron deficiency. Her B12 level is normal at 375 pg/mL and the folate was greater than 24 ng/mL. Her stool Hemoccult was found to be positive. She was started on an oral iron supplement. A repeat CBC on 09/04/2019 showed similar findings with hemoglobin 7.8 g and hematocrit 24.6%. The MCV was slightly higher at 107 with MCH 33. I had seen her initially on 09/08/2019. In reviewing her records, she had undergone a left total knee arthroplasty in August 2018. Her preop CBC showed hemoglobin 13.2 g with MCV slightly high at 101. As of 09/25/2018 the postoperative hemoglobin was still low at 9.0 g. She did not require transfusion. Her B12 and folate levels were also normal at that time. As her laboratory studies were consistent with iron deficiency, I had recommended that she continue with a trial of oral iron replacement. With her stool Hemoccult having been reported positive, I also recommended that she have a repeat EGD. She had undergone colonoscopy 3 years earlier. Her repeat laboratory studies on 10/08/2019 included CBC showing hemoglobin 10.9 g with hematocrit 35.9%. The red cell indices were macrocytic with MCV 109 and MCH 33. The white blood cell count was 7100 and the platelet count was 418,000. The uncorrected reticulocyte count was 2.6%. LDH was normal at 180 2U/L and the haptoglobin was normal at 163 mg/dL. Comprehensive metabolic profile was unremarkable. The serum iron studies showed low normal transferrin saturation at 22% with ferritin relatively low at 21 ng/mL. The B12 level was normal at 323 pg/mL. The homocystine level was slightly elevated at 11.7 ???mol/L and the methylmalonic acid level was normal at 227 nmol/L. In the interim she did have a repeat EGD which reportedly was unrevealing. With continued evidence of iron deficiency despite oral iron supplementation, I had recommended parenteral iron replacement, but she apparently did not follow through with that, and she then continued follow-up with Dr. Bourne. Her other medical illnesses include hypertension, hyperlipidemia, hypothyroidism, GERD, and degenerative arthritis. She has a history of smoking 1 pack of cigarettes daily for 50 years. She quit smoking in 2012. INTERIM HISTORY: On 12/19/2020 she was seen in the emergency room after she had passed out at [facility] 3 times. Her evaluation at that time was unrevealing. Her CBC showed hemoglobin just mildly decreased at 11.1 g, but she was significantly more macrocytic with MCV 117. The white blood cell count was 6100 and the platelet count was 312,000. A subsequent sestamibi stress test on 12/26/2020 showed no evidence of cardiac ischemia. The myocardial perfusion scan was unremarkable. Her ejection fraction was estimated at 73%. On her follow-up with Dr. Bourne on on 03/01/2021 her CBC showed hemoglobin down to 9.9 g with hematocrit 29.8%. The red cell indices were significantly macrocytic with MCV 125 and MCH 41. The white blood cell count was 7200 and the platelet count was 381,000. I had been seen her for a follow-up visit on 03/16/2021. Given the CBC findings, she did underwent bone marrow aspiration/biopsy on 04/04/2021. The bone marrow was mildly hypercellular estimated at 30 to 50%. Numerous abnormal megakaryocyte forms were noted. Blasts did not appear to be increased, but assessment was limited due to the bone marrow aspirate being aspicular. By flow cytometry blasts were estimated at 1% of the cellularity. Stainable iron was present with no ring sideroblasts identified. 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 Overall, these findings were consistent with myelodysplastic syndrome with isolated 5q deletion. She is seen today for review of the bone marrow results and to discuss further management. Medications: amLODIPine Besylate 1 Tablet (of 2.5 mg) Oral daily, Atorvastatin Calcium 1 Tablet (of 20 mg) Oral daily, Calcium Citrate + D 1 Tablet (of 600-400 mg - Units) Oral b.i.d., D-1000 Extra Strength 1 Tablet (of 400 Units) Oral daily, Donepezil HCl 1 Tablet (of 10 mg) Oral daily, Ferrous Sulfate 1 Tablet (of 325 (65 fe) mg) Oral daily, Glucosamine Sulfate 1 Capsule (of 1000 mg) Oral daily, Levothyroxine Sodium 1 Tablet (of 125 mcg) Oral daily, Omeprazole 1 (20 mg) Capsule Delayed Release Oral daily, traMADol HCl 1 Tablet (of 50 mg) Oral daily, Vitamin C 1 Capsule (of 500 mg) Oral daily, Vitamin E Blend 1 Capsule (of 200 Units) Oral daily Allergies: Adhesive Tape, Metals, and Penicillins. Vital Signs: Performed on Apr 21, 2021 08:59 Height - 62.00 in Weight - 147 lbs (LOW) BSA - 1.68 sq.m BMI - 26.89 Temperature - 98.8 F Pulse - 98 /min Respiration - 2 /min (LOW) BP - 125/72 mm(hg) O2 Sat - 92 % (LOW) Pain - 0 Fatigue - 0 Lab/Imaging: Test performed on Mar 16, 2021 09:24 Copper 163 mcg/dL Ferritin 61 ng/mL Folate, Serum 9.0 ng/mL Homocysteine 14.50 umol/L Iron 147 mcg/dL LDH (Total) 261 U/L Methylmalonic Acid 241 nmol/L Sodium 137 mmol/L Vitamin B12 262 pg/mL Iron Binding Capacity (TIBC) 327 mcg/dl Potassium 4.2 mmol/L % Iron Saturation 44.9 % Chloride 103 mmol/L CO2 24 mmol/L UIBC 180 mcg/dL Anion Gap 14.2 BUN 10 mg/dL Creatinine 0.6 mg/dL Cr Clearance (Est) 88.1200 mL/min Glucose 95 mg/dL Osmolality - Calculated 283 mOsm/kg Calcium 9.3 mg/dL Protein, Total 6.9 g/dL Albumin 4.0 g/dL Globulin 2.9 g/dL Bilirubin, Total 0.2 mg/dL ALT (SGPT) 6 U/L AST (SGOT) 11 U/L Alkaline Phosphatase 72 IU/L ESR (Sed Rate) 68 mm/hr Retic Count % 3.0 % WBC 6.2 10 3/uL RBC 2.24 10 6/uL HGB 9.1 g/dL HCT 27.9 % MCV 124.6 fl MCH 40.6 pg MCHC 32.6 g/dL RDW 15.7 % Platelet Count 362 10 3/cmm MPV 12.2 fL Neutrophils 4.17 10 3/uL Lymphocytes 1.5 10 3/uL Monocytes 0.4 10 3/uL Eosinophils 0.1 10 3/uL Basophils 0.0 10 3/uL Neutrophil % 67.2 % Lymphocyte % 23.8 % Monocyte % 6.1 % Eosinophil % 1.6 % Basophils % 0.3 % NRBC % 0 % Problem List: 1. 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 2. Hypertension. 3. Hyperlipidemia. 4. Hypothyroidism. 5. GERD. 6. Degenerative arthritis. Problems Addressed with this Encounter and Plan: Patient with myelodysplastic syndrome with isolated del(5q) chromosome abnormality, presenting with macrocytic anemia. Based on her hemoglobin less than 10 g and good cytogenetics, her IPSS-R calculates to 2.0, low risk. The bone marrow findings were reviewed with the patient and we discussed the clinic complications. She has myelodysplastic syndrome, low risk by IPSS-R. With the isolated 5q deletion, her disease is potentially responsive to treatment with lenalidomide. I reviewed anticipated side effects with lenalidomide which may include fatigue, nausea, diarrhea, and low blood counts, among others. We also discussed the fact that there is an associated risk of thromboembolism, for which she will need to be on prophylaxis with aspirin. Treatment will be initiated at a standard dosage of 10 mg daily for 28 days each month, pending verification of insurance coverage. Signed By: Luke Chand M.D. <<Signature on File>>
== END 2021-04-21 08:50 | disposition home or self-care (01) ==
LOC: ONCMED 08:51
PROVIDERS: PCP Family Medicine; Visit Provider Internal Medicine Medical Oncology
DX: D46.C 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 (principal); I10 Essential (primary) hypertension; E78.5 Hyperlipidemia, unspecified; E03.9 Hypothyroidism, unspecified; K21.9 Gastro-esophageal reflux disease without esophagitis; M19.90 Unspecified osteoarthritis, unspecified site; Z79.899 Other long term (current) drug therapy
CPT/HCPCS: 99214

== ENCOUNTER 2021-05-08 08:45 | Outpatient (CLI) | payer MEDICARE, OTHER, SELFPAY ==
[2021-05-08 10:24] LABS: Basophils % 0.4 %; Eosinophils # 0.1 10^3/uL (0.0-0.8); Eosinophils % 2.1 %; Lymphocytes # 1.8 10^3/uL (0.8-4.8); Lymphocytes % 34.8 %; Mean Corpuscular HGB Conc 31.6 g/dL (30.0-36.0); Mean Corpuscular Hemoglobin 40.9 pg (28.0-34.0); Mean Corpuscular Volume 129.6 fl (81-99); Mean Platelet Volume 12.4 fL (7.4-10.4); Monocytes # 0.3 10^3/uL (0.2-0.9); Monocytes % 6.2 %; Neutrophils # 2.87 10^3/uL (1.8-7.7); Neutrophils % 55.2 %; Nucleated Red Blood Cells % 0 %; Platelet Count 362 10^3/cmm (130-400); Red Blood Count 1.59 10^6/uL (4.1-5.3); Red Cell Distribution Width 17.1 % (12.1-15.1); White Blood Count 5.2 10^3/uL (4.0-10.0)
[2021-05-08 11:00] LABS: Alanine Aminotransferase 8 U/L (0-33); Alkaline Phosphatase 72 IU/L (35-105); Aspartate Amino Transferase 10 U/L (0-32); Blood Urea Nitrogen 13 mg/dL (8-23); Calcium 9.3 mg/dL (8.5-10.5); Carbon Dioxide 24 mmol/L (22-29); Chloride 103 mmol/L (98-107); Globulin 2.9 g/dL (1.3-4.6); Glucose 98 mg/dL (65-115); Osmolality Calculated 282 mOsm/kg (285-295); Sodium 136 mmol/L (136-145); Thyroid Stimulating Hormone 1.93 uIU/mL (0.27-4.20); Total Bilirubin 0.2 mg/dL (0.15-1.2); Total Protein 6.9 g/dL (6.6-8.7)
[2021-05-08 11:08] LABS: Hepatitis A Antibody IgM Non-Reactive (Nonreactive); Hepatitis B Core AB, Total Non-Reactive (Nonreactive); Hepatitis B Surface Antigen Non-Reactive (Nonreactive); Hepatitis C Virus Antibody Non-Reactive (Nonreactive)
[2021-05-08 11:13] LABS: Hepatitis B Surface AB < 3.5 (11.5-1000)
[2021-05-08 11:20] LABS: Hematocrit 20.6 % (37.0-47.0); Hemoglobin 6.5 g/dL (11.5-15.3)
== END 2021-05-08 08:46 | disposition home or self-care (01) ==
LOC: ONCMED 08:47
PROVIDERS: PCP Family Medicine; Visit Provider Nurse Practitioner Family
DX: D46.C 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 (principal); I10 Essential (primary) hypertension; E78.5 Hyperlipidemia, unspecified; E03.9 Hypothyroidism, unspecified; K21.9 Gastro-esophageal reflux disease without esophagitis; M19.90 Unspecified osteoarthritis, unspecified site; Z79.899 Other long term (current) drug therapy
CPT/HCPCS: 36415; 80053; 84443; 85025; 86705; 86706; 86709; 86803; 86850; 86900; 86920; 87340; 99211

== ENCOUNTER 2021-05-09 06:32 | Outpatient (CLI) | payer MEDICARE, OTHER, SELFPAY ==
[2021-05-09] MEDS: acetaminophen 325 mg Tablet 650 MG PO (08:45)
[2021-05-09] MEDS: sodium chloride 0.9% 250 ML 999 ML IV (08:45)
[2021-05-09] MEDS: diphenhydrAMINE 25 mg Capsule PO (08:45)
[2021-05-09] MEDS: FUROsemide 10 mg/mL SDV 2mL 20 MG IV (11:50)
== END 2021-05-09 06:33 | disposition home or self-care (01) ==
LOC: ONCMED 06:32
PROVIDERS: PCP Family Medicine; Visit Provider Internal Medicine Hematology & Oncology
DX: D46.C 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 (principal)
CPT/HCPCS: 86850; 86900; 86920; J1940; J7050; P9040

== ENCOUNTER 2021-05-29 06:34 | Outpatient (RCR) | payer MEDICARE, OTHER, SELFPAY ==
[2021-05-15 11:09] LABS: Basophils % 0.4 %; Eosinophils # 0.3 10^3/uL (0.0-0.8); Eosinophils % 5.8 %; Hematocrit 26.2 % (37.0-47.0); Hemoglobin 8.4 g/dL (11.5-15.3); Lymphocytes # 1.4 10^3/uL (0.8-4.8); Lymphocytes % 29.3 %; Mean Corpuscular HGB Conc 32.1 g/dL (30.0-36.0); Mean Corpuscular Hemoglobin 36.1 pg (28.0-34.0); Mean Corpuscular Volume 112.4 fl (81-99); Mean Platelet Volume 12.9 fL (7.4-10.4); Monocytes # 0.2 10^3/uL (0.2-0.9); Monocytes % 4.9 %; Neutrophils # 2.81 10^3/uL (1.8-7.7); Nucleated Red Blood Cells % 0 %; Platelet Count 287 10^3/cmm (130-400); Red Blood Count 2.33 10^6/uL (4.1-5.3); Red Cell Distribution Width 21.9 % (12.1-15.1); White Blood Count 4.9 10^3/uL (4.0-10.0)
[2021-05-15 11:31] LABS: Alanine Aminotransferase 7 U/L (0-33); Alkaline Phosphatase 68 IU/L (35-105); Aspartate Amino Transferase 10 U/L (0-32); Blood Urea Nitrogen 11 mg/dL (8-23); Calcium 9.7 mg/dL (8.5-10.5); Carbon Dioxide 25 mmol/L (22-29); Chloride 101 mmol/L (98-107); Globulin 2.7 g/dL (1.3-4.6); Glucose 81 mg/dL (65-115); Osmolality Calculated 278 mOsm/kg (285-295); Sodium 135 mmol/L (136-145); Total Bilirubin 0.2 mg/dL (0.15-1.2); Total Protein 6.7 g/dL (6.6-8.7)
[2021-05-22 11:11] LABS: Basophils % 0.3 %; Eosinophils # 0.3 10^3/uL (0.0-0.8); Eosinophils % 4.5 %; Hemoglobin 6.7 g/dL (11.5-15.3); Lymphocytes # 1.8 10^3/uL (0.8-4.8); Lymphocytes % 25.7 %; Mean Corpuscular HGB Conc 33.7 g/dL (30.0-36.0); Mean Corpuscular Hemoglobin 37.4 pg (28.0-34.0); Mean Corpuscular Volume 111.2 fl (81-99); Mean Platelet Volume 13.2 fL (7.4-10.4); Monocytes # 0.6 10^3/uL (0.2-0.9); Monocytes % 9.4 %; Neutrophils # 3.93 10^3/uL (1.8-7.7); Neutrophils % 57.5 %; Nucleated Red Blood Cells % 0.3 %; Platelet Count 364 10^3/cmm (130-400); Red Blood Count 1.79 10^6/uL (4.1-5.3); Red Cell Distribution Width 22.7 % (12.1-15.1); White Blood Count 6.8 10^3/uL (4.0-10.0)
[2021-05-22 11:15] LABS: Hematocrit 19.9 % (37.0-47.0)
[2021-05-22 11:44] LABS: Alanine Aminotransferase < 5 U/L (0-33); Albumin Level 3.9 g/dL (3.5-5.2); Alkaline Phosphatase 70 IU/L (35-105); Anion Gap 16.6 (5-19); Aspartate Amino Transferase 14 U/L (0-32); Blood Urea Nitrogen 11 mg/dL (8-23); Calcium 8.5 mg/dL (8.5-10.5); Carbon Dioxide 21 mmol/L (22-29); Chloride 97 mmol/L (98-107); Globulin 2.6 g/dL (1.3-4.6); Glucose 107 mg/dL (65-115); Osmolality Calculated 272 mOsm/kg (285-295); Potassium 3.6 mmol/L (3.5-5.1); Sodium 131 mmol/L (136-145); Total Bilirubin 0.2 mg/dL (0.15-1.2); Total Protein 6.5 g/dL (6.6-8.7)
[2021-05-23] MEDS: diphenhydrAMINE 25 mg Capsule PO (08:20)
[2021-05-23] MEDS: acetaminophen 325 mg Tablet 650 MG PO (08:20)
[2021-05-23] MEDS: sodium chloride 0.9% 250 ML 999 ML IV (08:20)
[2021-05-23] MEDS: FUROsemide 10 mg/mL SDV 2mL 20 MG IV (10:40)
--- NOTE | 2021-05-26 08:36 | ONC FU_ITS ---
Dr. Chand Patient Follow-Up Note Patient: Shazia Vaca Unit #: [id number]: 1945 Dicatated By: Luke Chand M.D.Date of Visit:May 22, 2021 Onc Med Follow-up/Prog Note Chief Complaint: Anemia. History of Present Illness: This is a 76 year-old woman with macrocytic anemia. She had presented to Dr. Bourne in August 2019 with fatigue and shortness of breath. Her CBC on 08/28/2019 showed hemoglobin low at 7.8 g with hematocrit 25%. The red cell indices were mildly macrocytic with MCV 104 and MCH 31. The white blood cell count was 7500 and the platelet count was 407,000. Her comprehensive metabolic profile was unrevealing. Her serum iron studies showed low transferrin saturation of 5% with ferritin low at 8 ng/mL, consistent with iron deficiency. Her B12 level is normal at 375 pg/mL and the folate was greater than 24 ng/mL. Her stool Hemoccult was found to be positive. She was started on an oral iron supplement. A repeat CBC on 09/04/2019 showed similar findings with hemoglobin 7.8 g and hematocrit 24.6%. The MCV was slightly higher at 107 with MCH 33. I had seen her initially on 09/08/2019. In reviewing her records, she had undergone a left total knee arthroplasty in August 2018. Her preop CBC showed hemoglobin 13.2 g with MCV slightly high at 101. As of 09/25/2018 the postoperative hemoglobin was still low at 9.0 g. She did not require transfusion. Her B12 and folate levels were also normal at that time. As her laboratory studies were consistent with iron deficiency, I had recommended that she continue with a trial of oral iron replacement. With her stool Hemoccult having been reported positive, I also recommended that she have a repeat EGD. She had undergone colonoscopy 3 years earlier. Her repeat laboratory studies on 10/08/2019 included CBC showing hemoglobin 10.9 g with hematocrit 35.9%. The red cell indices were macrocytic with MCV 109 and MCH 33. The white blood cell count was 7100 and the platelet count was 418,000. The uncorrected reticulocyte count was 2.6%. LDH was normal at 180 2U/L and the haptoglobin was normal at 163 mg/dL. Comprehensive metabolic profile was unremarkable. The serum iron studies showed low normal transferrin saturation at 22% with ferritin relatively low at 21 ng/mL. The B12 level was normal at 323 pg/mL. The homocystine level was slightly elevated at 11.7 ???mol/L and the methylmalonic acid level was normal at 227 nmol/L. In the interim she did have a repeat EGD which reportedly was unrevealing. With continued evidence of iron deficiency despite oral iron supplementation, I had recommended parenteral iron replacement, but she apparently did not follow through with that, and she then continued follow-up with Dr. Bourne. On 12/19/2020 she was seen in the emergency room after she had passed out at [facility] 3 times. Her evaluation at that time was unrevealing. Her CBC showed hemoglobin just mildly decreased at 11.1 g, but she was significantly more macrocytic with MCV 117. The white blood cell count was 6100 and the platelet count was 312,000. A subsequent sestamibi stress test on 12/26/2020 showed no evidence of cardiac ischemia. The myocardial perfusion scan was unremarkable. Her ejection fraction was estimated at 73%. On her follow-up with Dr. Bourne on on 03/01/2021 her CBC showed hemoglobin down to 9.9 g with hematocrit 29.8%. The red cell indices were significantly macrocytic with MCV 125 and MCH 41. The white blood cell count was 7200 and the platelet count was 381,000. She underwent bone marrow aspiration/biopsy on 04/04/2021. The bone marrow was mildly hypercellular estimated at 30 to 50%. Numerous abnormal megakaryocyte forms were noted. Blasts did not appear to be increased, but assessment was limited due to the bone marrow aspirate being aspicular. By flow cytometry blasts were estimated at 1% of the cellularity. Stainable iron was present with no ring sideroblasts identified. 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 Overall, these findings were consistent with myelodysplastic syndrome with isolated 5q deletion. With those findings, she was recommended to begin a trial of therapy with lenalidomide. Her other medical illnesses include hypertension, hyperlipidemia, hypothyroidism, GERD, and degenerative arthritis. She has a history of smoking 1 pack of cigarettes daily for 50 years. She quit smoking in 2012. INTERIM HISTORY: On 05/10/2021 she began treatment with lenalidomide 10 mg daily for 28 days each month. She also was recommended to take aspirin prophylaxis. She is seen for a follow-up visit. She has been feeling generally weaker, she has a decrease in her activity tolerance, though she is still able to do light work. ECOG score is 1. Her appetite is off and on. She says she is making herself eat. She has not had fever. She sometimes has a little bit of sweating at night. She has sinus drainage and cough, that has been going on for years. She does not complain of shortness of breath or chest pain. She has a little bit of nausea. She has been having acid reflux symptoms despite taking omeprazole 20 mg daily. She has had some constipation. Bladder function remains adequate. She has no significant joint or bone pain. She occasionally has dull headache and she sometimes gets lightheaded. She has no numbness/paresthesia or other focal neurologic symptoms. She has not had abnormal bruising or other bleeding manifestations. Medications: amLODIPine Besylate 1 Tablet (of 2.5 mg) Oral daily, Atorvastatin Calcium 1 Tablet (of 20 mg) Oral daily, Calcium Citrate + D 1 Tablet (of 600-400 mg - Units) Oral b.i.d., D-1000 Extra Strength 1 Tablet (of 400 Units) Oral daily, Donepezil HCl 1 Tablet (of 10 mg) Oral daily, Ferrous Sulfate 1 Tablet (of 325 (65 fe) mg) Oral daily, Glucosamine Sulfate 1 Capsule (of 1000 mg) Oral daily, Levothyroxine Sodium 1 Tablet (of 125 mcg) Oral daily, Omeprazole 1 (40 mg) Capsule Delayed Release Oral daily, traMADol HCl 1 Tablet (of 50 mg) Oral daily, Vitamin C 1 Capsule (of 500 mg) Oral daily, Vitamin E Blend 1 Capsule (of 200 Units) Oral daily Allergies: Adhesive Tape, Metals, and Penicillins. Vital Signs: Performed on May 22, 2021 12:41 Height - 62.00 in Weight - 145.8 lbs (LOW) BSA - 1.67 sq.m BMI - 26.67 Temperature - 97.4 F (LOW) Pulse - 96 /min Respiration - 18 /min BP - 140/69 mm(hg) O2 Sat - 92 % (LOW) Pain - 0 Fatigue - 6 Physical Examination: Constitutional - She looks pretty good generally, Eyes - Sclerae nonicteric. Conjunctivae clear, ENMT - No lesions noted in the oral cavity, Hematologic/Lymphatic - No cervical, clavicular, or axillary adenopathy, Respiratory - Lungs sound clear, Cardiovascular - Heart rhythm is regular. There is a II/ systolic murmur. There is no gallop or rub noted, Abdomen - Soft. Liver and spleen are not enlarged. There is no abdominal mass or ascites noted and there is no inguinal adenopathy, Extremities - No edema, Neurologic - No focal neurologic deficits noted. Lab/Imaging: Test performed on May 22, 2021 11:01 Sodium 131 mmol/L Potassium 3.6 mmol/L Chloride 97 mmol/L CO2 21 mmol/L Anion Gap 16.6 BUN 11 mg/dL Creatinine 0.7 mg/dL Cr Clearance (Est) 72.50 mL/min Glucose 107 mg/dL Osmolality - Calculated 272 mOsm/kg Calcium 8.5 mg/dL Protein, Total 6.5 g/dL Albumin 3.9 g/dL Globulin 2.6 g/dL Bilirubin, Total 0.2 mg/dL ALT (SGPT) < 5 U/L AST (SGOT) 14 U/L Alkaline Phosphatase 70 IU/L WBC 6.8 10 3/uL RBC 1.79 10 6/uL HGB 6.7 g/dL HCT 19.9 % MCV 111.2 fl MCH 37.4 pg MCHC 33.7 g/dL RDW 22.7 % Platelet Count 364 10 3/cmm MPV 13.2 fL Neutrophils 3.93 10 3/uL Lymphocytes 1.8 10 3/uL Monocytes 0.6 10 3/uL Eosinophils 0.3 10 3/uL Basophils 0.0 10 3/uL Neutrophil % 57.5 % Lymphocyte % 25.7 % Monocyte % 9.4 % Eosinophil % 4.5 % Basophils % 0.3 % NRBC % 0.3 % Problem List: 1. 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 2. Hypertension. 3. Hyperlipidemia. 4. Hypothyroidism. 5. GERD. 6. Degenerative arthritis. Problems Addressed with this Encounter and Plan: Patient with myelodysplastic syndrome with isolated del(5q) chromosome abnormality, presenting with macrocytic anemia. Based on her hemoglobin less than 10 g and good cytogenetics, her IPSS-R calculated to 2.0, low risk. With those findings, she was recommended to begin a trial of therapy with lenalidomide. On 05/10/2021 she began cycle 1 of lenalidomide 10 mg daily for 28 days each month. She also began on aspirin prophylaxis. At this point she appears to be tolerating it without significant side effects, but there has been a decline in her hemoglobin to 6.7 g. As such, she will be transfused 2 units PRBC. For now she will continue the lenalidomide at the same dosage. Her blood counts will be monitored weekly. In the meantime, her omeprazole dosage will be increased to 40 mg daily. Signed By: Luke Chand M.D. <<Signature on File>>
[2021-05-29 11:03] LABS: Basophils # 0.1 10^3/uL (0.0-0.1); Basophils % 1.5 %; Eosinophils # 0.3 10^3/uL (0.0-0.8); Eosinophils % 8.2 %; Hematocrit 25.3 % (37.0-47.0); Hemoglobin 8.1 g/dL (11.5-15.3); Lymphocytes # 1.4 10^3/uL (0.8-4.8); Lymphocytes % 42.1 %; Mean Corpuscular Hemoglobin 33.5 pg (28.0-34.0); Mean Corpuscular Volume 104.5 fl (81-99); Mean Platelet Volume 13.8 fL (7.4-10.4); Monocytes # 0.3 10^3/uL (0.2-0.9); Monocytes % 8.2 %; Neutrophils % 39.7 %; Nucleated Red Blood Cells % 0 %; Platelet Count 162 10^3/cmm (130-400); Red Blood Count 2.42 10^6/uL (4.1-5.3); Red Cell Distribution Width 26.7 % (12.1-15.1); White Blood Count 3.3 10^3/uL (4.0-10.0)
[2021-05-29 11:17] LABS: Alanine Aminotransferase 7 U/L (0-33); Albumin Level 3.7 g/dL (3.5-5.2); Alkaline Phosphatase 76 IU/L (35-105); Anion Gap 15.3 (5-19); Aspartate Amino Transferase 9 U/L (0-32); Blood Urea Nitrogen 9 mg/dL (8-23); Calcium 8.5 mg/dL (8.5-10.5); Carbon Dioxide 21 mmol/L (22-29); Chloride 103 mmol/L (98-107); Globulin 2.7 g/dL (1.3-4.6); Glucose 100 mg/dL (65-115); Osmolality Calculated 281 mOsm/kg (285-295); Potassium 3.3 mmol/L (3.5-5.1); Sodium 136 mmol/L (136-145); Total Bilirubin 0.2 mg/dL (0.15-1.2); Total Protein 6.4 g/dL (6.6-8.7)
[2021-05-29 11:33] LABS: Slide Review Slide Review Perform
== END 2021-05-30 23:59 | disposition home or self-care (01) ==
LOC: ONCMED 06:34
PROVIDERS: PCP Family Medicine; Visit Provider Internal Medicine Medical Oncology
DX: D46.C 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 (principal); I10 Essential (primary) hypertension; E78.5 Hyperlipidemia, unspecified; E03.9 Hypothyroidism, unspecified; K21.9 Gastro-esophageal reflux disease without esophagitis; M19.90 Unspecified osteoarthritis, unspecified site; Z79.899 Other long term (current) drug therapy
CPT/HCPCS: 36415; 80053; 85025; 86850; 86900; 86920; 99214; J1940; J7050; P9040

== ENCOUNTER 2021-06-26 06:28 | Outpatient (RCR) | payer MEDICARE, OTHER, SELFPAY ==
[2021-06-01 09:19] LABS: Basophils % 1.2 %; Eosinophils # 0.3 10^3/uL (0.0-0.8); Eosinophils % 11.5 %; Hematocrit 26.5 % (37.0-47.0); Hemoglobin 8.1 g/dL (11.5-15.3); Lymphocytes % 37.3 %; Mean Corpuscular HGB Conc 30.6 g/dL (30.0-36.0); Mean Corpuscular Hemoglobin 32.8 pg (28.0-34.0); Mean Corpuscular Volume 107.3 fl (81-99); Mean Platelet Volume 13.5 fL (7.4-10.4); Monocytes # 0.2 10^3/uL (0.2-0.9); Monocytes % 8.5 %; Neutrophils # 1.07 10^3/uL (1.8-7.7); Neutrophils % 41.1 %; Nucleated Red Blood Cells % 0 %; Platelet Count 118 10^3/cmm (130-400); Red Blood Count 2.47 10^6/uL (4.1-5.3); Red Cell Distribution Width 26.3 % (12.1-15.1); White Blood Count 2.6 10^3/uL (4.0-10.0)
[2021-06-01 09:54] LABS: Slide Review Slide Review Perform
[2021-06-05 08:48] LABS: Basophils # 0.1 10^3/uL (0.0-0.1); Basophils % 1.3 %; Eosinophils # 0.1 10^3/uL (0.0-0.8); Eosinophils % 2.9 %; Hemoglobin 8.2 g/dL (11.5-15.3); Lymphocytes # 1.5 10^3/uL (0.8-4.8); Lymphocytes % 39.8 %; Mean Corpuscular HGB Conc 30.4 g/dL (30.0-36.0); Mean Platelet Volume 13.3 fL (7.4-10.4); Monocytes # 0.3 10^3/uL (0.2-0.9); Monocytes % 8.6 %; Neutrophils % 47.1 %; Nucleated Red Blood Cells % 0 %; Platelet Count 120 10^3/cmm (130-400); Red Blood Count 2.41 10^6/uL (4.1-5.3); Red Cell Distribution Width 26.7 % (12.1-15.1); White Blood Count 3.8 10^3/uL (4.0-10.0)
[2021-06-05 09:08] LABS: Alanine Aminotransferase 10 U/L (0-33); Albumin Level 3.5 g/dL (3.5-5.2); Alkaline Phosphatase 88 IU/L (35-105); Anion Gap 18.1 (5-19); Aspartate Amino Transferase 13 U/L (0-32); Blood Urea Nitrogen 7 mg/dL (8-23); Carbon Dioxide 18 mmol/L (22-29); Chloride 106 mmol/L (98-107); Globulin 2.6 g/dL (1.3-4.6); Glucose 86 mg/dL (65-115); Osmolality Calculated 285 mOsm/kg (285-295); Potassium 3.1 mmol/L (3.5-5.1); Sodium 139 mmol/L (136-145); Total Bilirubin 0.2 mg/dL (0.15-1.2); Total Protein 6.1 g/dL (6.6-8.7)
[2021-06-05 09:57] LABS: Slide Review Slide Review Perform
[2021-06-12] VITALS (10 sets, daily range): BP systolic 126–169; BP diastolic 53–87; PULSE 66–85; RESP 18; TEMP 36.2–36.7; O2SAT 92–95
[2021-06-12 08:27] LABS: Basophils # 0.1 10^3/uL (0.0-0.1); Basophils % 1.7 %; Eosinophils # 0.2 10^3/uL (0.0-0.8); Eosinophils % 5.3 %; Hematocrit 23.4 % (37.0-47.0); Hemoglobin 7.2 g/dL (11.5-15.3); Lymphocytes # 1.4 10^3/uL (0.8-4.8); Lymphocytes % 32.6 %; Mean Corpuscular HGB Conc 30.8 g/dL (30.0-36.0); Mean Corpuscular Hemoglobin 34.6 pg (28.0-34.0); Mean Corpuscular Volume 112.5 fl (81-99); Mean Platelet Volume 12.7 fL (7.4-10.4); Monocytes # 0.3 10^3/uL (0.2-0.9); Neutrophils % 52.7 %; Nucleated Red Blood Cells % 0 %; Platelet Count 131 10^3/cmm (130-400); Red Blood Count 2.08 10^6/uL (4.1-5.3); White Blood Count 4.2 10^3/uL (4.0-10.0)
[2021-06-12 08:41] LABS: Alanine Aminotransferase 8 U/L (0-33); Albumin Level 3.6 g/dL (3.5-5.2); Alkaline Phosphatase 89 IU/L (35-105); Aspartate Amino Transferase 9 U/L (0-32); Blood Urea Nitrogen 10 mg/dL (8-23); Calcium 8.5 mg/dL (8.5-10.5); Carbon Dioxide 25 mmol/L (22-29); Chloride 100 mmol/L (98-107); Globulin 2.8 g/dL (1.3-4.6); Glucose 96 mg/dL (65-115); Osmolality Calculated 275 mOsm/kg (285-295); Sodium 133 mmol/L (136-145); Total Bilirubin 0.2 mg/dL (0.15-1.2); Total Protein 6.4 g/dL (6.6-8.7)
[2021-06-12 09:22] LABS: Slide Review Slide Review Perform
[2021-06-12] MEDS: diphenhydrAMINE 25 mg Capsule PO (10:40)
[2021-06-12] MEDS: acetaminophen 325 mg Tablet 650 MG PO (10:40)
[2021-06-12] MEDS: sodium chloride 0.9% 250 ML 999 ML IV (10:40)
[2021-06-12] MEDS: FUROsemide 10 mg/mL SDV 2mL 20 MG IV (12:50)
[2021-06-20 08:58] LABS: Basophils # 0.1 10^3/uL (0.0-0.1); Basophils % 1.4 %; Eosinophils # 0.4 10^3/uL (0.0-0.8); Eosinophils % 10.3 %; Hemoglobin 10.6 g/dL (11.5-15.3); Lymphocytes # 1.1 10^3/uL (0.8-4.8); Lymphocytes % 25.9 %; Mean Corpuscular HGB Conc 31.2 g/dL (30.0-36.0); Mean Corpuscular Hemoglobin 32.3 pg (28.0-34.0); Mean Corpuscular Volume 103.7 fl (81-99); Mean Platelet Volume 11.5 fL (7.4-10.4); Monocytes # 0.4 10^3/uL (0.2-0.9); Monocytes % 8.6 %; Neutrophils # 2.29 10^3/uL (1.8-7.7); Neutrophils % 53.6 %; Nucleated Red Blood Cells % 0 %; Platelet Count 126 10^3/cmm (130-400); Red Blood Count 3.28 10^6/uL (4.1-5.3); Red Cell Distribution Width 26.2 % (12.1-15.1); White Blood Count 4.3 10^3/uL (4.0-10.0)
[2021-06-26 13:04] LABS: Basophils # 0.1 10^3/uL (0.0-0.1); Basophils % 1.4 %; Eosinophils # 0.4 10^3/uL (0.0-0.8); Eosinophils % 11.3 %; Hematocrit 33.3 % (37.0-47.0); Hemoglobin 10.3 g/dL (11.5-15.3); Lymphocytes # 1.7 10^3/uL (0.8-4.8); Lymphocytes % 47.2 %; Mean Corpuscular HGB Conc 30.9 g/dL (30.0-36.0); Mean Corpuscular Hemoglobin 32.8 pg (28.0-34.0); Mean Corpuscular Volume 106.1 fl (81-99); Mean Platelet Volume 10.8 fL (7.4-10.4); Monocytes # 0.3 10^3/uL (0.2-0.9); Monocytes % 8.2 %; Neutrophils # 1.12 10^3/uL (1.8-7.7); Neutrophils % 31.6 %; Nucleated Red Blood Cells % 0 %; Platelet Count 131 10^3/cmm (130-400); Red Blood Count 3.14 10^6/uL (4.1-5.3); Red Cell Distribution Width 25.4 % (12.1-15.1); White Blood Count 3.5 10^3/uL (4.0-10.0)
[2021-06-26 13:23] LABS: Alanine Aminotransferase 10 U/L (0-33); Albumin Level 3.8 g/dL (3.5-5.2); Alkaline Phosphatase 93 IU/L (35-105); Anion Gap 14.2 (5-19); Aspartate Amino Transferase 14 U/L (0-32); Blood Urea Nitrogen 8 mg/dL (8-23); Calcium 8.7 mg/dL (8.5-10.5); Carbon Dioxide 24 mmol/L (22-29); Chloride 103 mmol/L (98-107); Globulin 3.3 g/dL (1.3-4.6); Glucose 98 mg/dL (65-115); Osmolality Calculated 282 mOsm/kg (285-295); Potassium 4.2 mmol/L (3.5-5.1); Sodium 137 mmol/L (136-145); Total Bilirubin 0.2 mg/dL (0.15-1.2); Total Protein 7.1 g/dL (6.6-8.7)
[2021-06-26 13:26] LABS: Slide Review Slide Review Perform
== END 2021-06-30 23:59 | disposition home or self-care (01) ==
LOC: ONCMED 06:28
PROVIDERS: PCP Family Medicine; Visit Provider Internal Medicine Medical Oncology
DX: D46.C 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 (principal); D50.9 Iron deficiency anemia, unspecified
CPT/HCPCS: 36415; 36430; 80053; 85025; 86850; 86900; 86920; J1940; J7050; P9016

== ENCOUNTER 2021-07-05 11:31 | Outpatient (RCR) | payer MEDICARE, OTHER, SELFPAY ==
[2021-07-05 12:00] LABS: Basophils # 0.1 10^3/uL (0.0-0.1); Basophils % 1.6 %; Eosinophils # 0.2 10^3/uL (0.0-0.8); Eosinophils % 3.6 %; Hematocrit 35.2 % (37.0-47.0); Lymphocytes # 1.9 10^3/uL (0.8-4.8); Lymphocytes % 43.2 %; Mean Corpuscular HGB Conc 31.3 g/dL (30.0-36.0); Mean Corpuscular Hemoglobin 32.4 pg (28.0-34.0); Mean Corpuscular Volume 103.8 fl (81-99); Mean Platelet Volume 9.8 fL (7.4-10.4); Monocytes # 0.6 10^3/uL (0.2-0.9); Monocytes % 13.9 %; Neutrophils # 1.68 10^3/uL (1.8-7.7); Neutrophils % 37.5 %; Nucleated Red Blood Cells % 0 %; Platelet Count 173 10^3/cmm (130-400); Red Blood Count 3.39 10^6/uL (4.1-5.3); Red Cell Distribution Width 22.5 % (12.1-15.1); White Blood Count 4.5 10^3/uL (4.0-10.0)
[2021-07-05 12:13] LABS: Alanine Aminotransferase 10 U/L (0-33); Albumin Level 3.8 g/dL (3.5-5.2); Alkaline Phosphatase 104 IU/L (35-105); Anion Gap 15.2 (5-19); Aspartate Amino Transferase 15 U/L (0-32); Blood Urea Nitrogen 12 mg/dL (8-23); Calcium 8.8 mg/dL (8.5-10.5); Carbon Dioxide 21 mmol/L (22-29); Chloride 100 mmol/L (98-107); Globulin 3.2 g/dL (1.3-4.6); Glucose 90 mg/dL (65-115); Osmolality Calculated 273 mOsm/kg (285-295); Potassium 4.2 mmol/L (3.5-5.1); Sodium 132 mmol/L (136-145); Total Bilirubin 0.2 mg/dL (0.15-1.2)
--- NOTE | 2021-07-06 13:30 | ONC FU_ITS ---
Dr. Chand Patient Follow-Up Note Patient: Shazia Vaca Unit #: [id number]: 1945 Dicatated By: Luke Chand M.D.Date of Visit:Jul 05, 2021 Onc Med Follow-up/Prog Note Chief Complaint: Myelodysplastic syndrome. 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 She had presented with macrocytic anemia. Her CBC on 08/28/2019 showed hemoglobin low at 7.8 g with hematocrit 25%. The red cell indices were mildly macrocytic with MCV 104 and MCH 31. The white blood cell count was 7500 and the platelet count was 407,000. Her comprehensive metabolic profile was unrevealing. Her serum iron studies showed low transferrin saturation of 5% with ferritin low at 8 ng/mL, consistent with iron deficiency. Her B12 level is normal at 375 pg/mL and the folate was greater than 24 ng/mL. Her stool Hemoccult was found to be positive. She was started on an oral iron supplement. A repeat CBC on 09/04/2019 showed similar findings with hemoglobin 7.8 g and hematocrit 24.6%. The MCV was slightly higher at 107 with MCH 33. I had seen her initially on 09/08/2019. In reviewing her records, she had undergone a left total knee arthroplasty in August 2018. Her preop CBC showed hemoglobin 13.2 g with MCV slightly high at 101. As of 09/25/2018 the postoperative hemoglobin was still low at 9.0 g. She did not require transfusion. Her B12 and folate levels were also normal at that time. As her laboratory studies were consistent with iron deficiency, I had recommended that she continue with a trial of oral iron replacement. Her repeat laboratory studies on 10/08/2019 included CBC showing hemoglobin 10.9 g with hematocrit 35.9%. The red cell indices were macrocytic with MCV 109 and MCH 33. The white blood cell count was 7100 and the platelet count was 418,000. The uncorrected reticulocyte count was 2.6%. LDH was normal at 180 2U/L and the haptoglobin was normal at 163 mg/dL. Comprehensive metabolic profile was unremarkable. The serum iron studies showed low normal transferrin saturation at 22% with ferritin relatively low at 21 ng/mL. The B12 level was normal at 323 pg/mL. The homocystine level was slightly elevated at 11.7 ???mol/L and the methylmalonic acid level was normal at 227 nmol/L. With continued evidence of iron deficiency despite oral iron supplementation, I had recommended parenteral iron replacement, but she apparently did not follow through with that, and she then continued follow-up with Dr. Bourne. On 12/19/2020 she was seen in the emergency room after she had passed out at [facility] 3 times. Her evaluation at that time was unrevealing. Her CBC showed hemoglobin just mildly decreased at 11.1 g, but she was significantly more macrocytic with MCV 117. The white blood cell count was 6100 and the platelet count was 312,000. A subsequent sestamibi stress test on 12/26/2020 showed no evidence of cardiac ischemia. The myocardial perfusion scan was unremarkable. Her ejection fraction was estimated at 73%. On her follow-up with Dr. Bourne on on 03/01/2021 her CBC showed hemoglobin down to 9.9 g with hematocrit 29.8%. The red cell indices were significantly macrocytic with MCV 125 and MCH 41. The white blood cell count was 7200 and the platelet count was 381,000. She underwent bone marrow aspiration/biopsy on 04/04/2021. The bone marrow was mildly hypercellular estimated at 30 to 50%. Numerous abnormal megakaryocyte forms were noted. Blasts did not appear to be increased, but assessment was limited due to the bone marrow aspirate being aspicular. By flow cytometry blasts were estimated at 1% of the cellularity. Stainable iron was present with no ring sideroblasts identified. 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 Overall, these findings were consistent with myelodysplastic syndrome with isolated 5q deletion. With those findings, she was recommended to begin a trial of therapy with lenalidomide. Her other medical illnesses include hypertension, hyperlipidemia, hypothyroidism, GERD, and degenerative arthritis. She has a history of smoking 1 pack of cigarettes daily for 50 years. She quit smoking in 2012. INTERIM HISTORY: On 05/10/2021 she began treatment with lenalidomide 10 mg daily for 28 days each month. She also was recommended to take aspirin prophylaxis. During initial follow-up she remained anemic, requiring PRBC transfusions again on 05/22/2021 and on 06/12/2021. At that point her lenalidomide dosage had been decreased to 5 mg daily on a 21/28-day schedule. She is seen for a follow-up visit. She has just completed her first 28-day cycle of lenalidomide at the reduced dosage. She has been feeling good generally. She has pretty good energy. She is able to do light work. ECOG score is 1. Her appetite is good. She has not had fever. She occasionally has sweating in the evening. She has had a lot of nasal drainage. She has not had sore mouth or throat. She has had some cough, especially when she is lying down at night. She does not complain of shortness of breath or chest pain. She has had some constipation with the lenalidomide. She has no other GI or complaints. She has no significant joint or bone pain. She does not complain of headache or dizziness, and she has no focal neurologic symptoms. Medications: Aspirin 1 Tablet (of 325 mg) Oral daily, Atorvastatin Calcium 1 Tablet (of 20 mg) Oral daily, Calcium Citrate + D 1 Tablet (of 600-400 mg - Units) Oral b.i.d., D-1000 Extra Strength 1 Tablet (of 400 Units) Oral daily, Donepezil HCl 1 Tablet (of 10 mg) Oral daily, Glucosamine Sulfate 1 Capsule (of 1000 mg) Oral daily, Levothyroxine Sodium 1 Tablet (of 125 mcg) Oral daily, Omeprazole 1 (40 mg) Capsule Delayed Release Oral daily, Revlimid (5 mg) Capsule Oral Take as Directed, traMADol HCl 1 Tablet (of 50 mg) Oral daily, Vitamin C 1 Capsule (of 500 mg) Oral daily, Vitamin E Blend 1 Capsule (of 200 Units) Oral daily Allergies: Adhesive Tape, Metals, and Penicillins. Vital Signs: Performed on Jul 05, 2021 14:30 Height - 62.00 in Weight - 143.0 lbs (LOW) BSA - 1.66 sq.m BMI - 26.16 Temperature - 97.7 F (LOW) Pulse - 78 /min Respiration - 18 /min BP - 146/66 mm(hg) (HIGH) O2 Sat - 98 % Pain - 0 Fatigue - 7 Physical Examination: Constitutional - She looks pretty good generally, Eyes - Sclerae nonicteric. Conjunctivae clear, ENMT - No lesions noted in the oral cavity, Hematologic/Lymphatic - No cervical, clavicular, or axillary adenopathy, Respiratory - Lungs sound clear, Cardiovascular - Heart rhythm is regular. There is a II/ systolic murmur. There is no gallop or rub noted, Abdomen - Soft. Liver and spleen are not enlarged. There is no abdominal mass or ascites noted and there is no inguinal adenopathy, Extremities - No edema, Neurologic - No focal neurologic deficits noted. Lab/Imaging: Test performed on Jul 05, 2021 11:45 Sodium 132 mmol/L Potassium 4.2 mmol/L Chloride 100 mmol/L CO2 21 mmol/L Anion Gap 15.2 BUN 12 mg/dL Creatinine 0.7 mg/dL Cr Clearance (Est) 71.11 mL/min Glucose 90 mg/dL Osmolality - Calculated 273 mOsm/kg Calcium 8.8 mg/dL Protein, Total 7.0 g/dL Albumin 3.8 g/dL Globulin 3.2 g/dL Bilirubin, Total 0.2 mg/dL ALT (SGPT) 10 U/L AST (SGOT) 15 U/L Alkaline Phosphatase 104 IU/L WBC 4.5 10 3/uL RBC 3.39 10 6/uL HGB 11.0 g/dL HCT 35.2 % MCV 103.8 fl MCH 32.4 pg MCHC 31.3 g/dL RDW 22.5 % Platelet Count 173 10 3/cmm MPV 9.8 fL Neutrophils 1.68 10 3/uL Lymphocytes 1.9 10 3/uL Monocytes 0.6 10 3/uL Eosinophils 0.2 10 3/uL Basophils 0.1 10 3/uL Neutrophil % 37.5 % Lymphocyte % 43.2 % Monocyte % 13.9 % Eosinophil % 3.6 % Basophils % 1.6 % NRBC % 0 % Problem List: 1. 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 2. Hypertension. 3. Hyperlipidemia. 4. Hypothyroidism. 5. GERD. 6. Degenerative arthritis. Problems Addressed with this Encounter and Plan: Patient with myelodysplastic syndrome with isolated del(5q) chromosome abnormality, presenting with macrocytic anemia. Based on her hemoglobin less than 10 g and good cytogenetics, her IPSS-R calculated to 2.0, low risk. With those findings, she was recommended to begin a trial of therapy with lenalidomide. On 05/10/2021 she began cycle 1 of lenalidomide 10 mg daily for 28 days each month. She also began on aspirin prophylaxis. During her initial follow-up she remained anemic, requiring PRBC transfusions again on 05/22/2021 and on 06/12/2021. At that point her lenalidomide dosage was decreased to 5 mg daily on a 21/28-day schedule. She has completed 1 cycle of treatment at the reduced dosage. She appears to be tolerating it well, and her hemoglobin has stabilized at 11 g. She will proceed with cycle 2 of lenalidomide. The dosage and schedule remains the same. She continues her aspirin prophylaxis. I will see her again in 1 month. Signed By: Luke Chand M.D. <<Signature on File>>
== END 2021-07-31 23:59 | disposition home or self-care (01) ==
LOC: ONCMED 11:31
PROVIDERS: PCP Family Medicine; Visit Provider Internal Medicine Medical Oncology
DX: D46.C 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 (principal); I10 Essential (primary) hypertension; E78.5 Hyperlipidemia, unspecified; E03.9 Hypothyroidism, unspecified; K21.9 Gastro-esophageal reflux disease without esophagitis; M19.90 Unspecified osteoarthritis, unspecified site; Z79.82 Long term (current) use of aspirin; Z79.899 Other long term (current) drug therapy
CPT/HCPCS: 36415; 80053; 85025; 99214

== ENCOUNTER 2021-08-08 06:50 | Outpatient (RCR) | payer MEDICARE, OTHER, SELFPAY ==
[2021-08-08 08:30] LABS: Basophils # 0.1 10^3/uL (0.0-0.1); Basophils % 1.6 %; Eosinophils # 0.2 10^3/uL (0.0-0.8); Eosinophils % 2.8 %; Hematocrit 38.5 % (37.0-47.0); Hemoglobin 11.9 g/dL (11.5-15.3); Lymphocytes # 1.6 10^3/uL (0.8-4.8); Lymphocytes % 24.6 %; Mean Corpuscular HGB Conc 30.9 g/dL (30.0-36.0); Mean Corpuscular Hemoglobin 30.5 pg (28.0-34.0); Mean Corpuscular Volume 98.7 fl (81-99); Mean Platelet Volume 8.8 fL (7.4-10.4); Monocytes # 0.7 10^3/uL (0.2-0.9); Monocytes % 10.6 %; Neutrophils # 3.85 10^3/uL (1.8-7.7); Neutrophils % 60.2 %; Nucleated Red Blood Cells % 0 %; Platelet Count 298 10^3/cmm (130-400); Red Cell Distribution Width 17.7 % (12.1-15.1); White Blood Count 6.4 10^3/uL (4.0-10.0)
[2021-08-08 08:59] LABS: Alanine Aminotransferase 7 U/L (0-33); Albumin Level 3.9 g/dL (3.5-5.2); Alkaline Phosphatase 117 IU/L (35-105); Anion Gap 15.3 (5-19); Aspartate Amino Transferase 15 U/L (0-32); Blood Urea Nitrogen 12 mg/dL (8-23); Carbon Dioxide 23 mmol/L (22-29); Chloride 103 mmol/L (98-107); Globulin 3.3 g/dL (1.3-4.6); Glucose 85 mg/dL (65-115); Lactate Dehydrogenase 277 U/L (135-214); Osmolality Calculated 283 mOsm/kg (285-295); Potassium 4.3 mmol/L (3.5-5.1); Sodium 137 mmol/L (136-145); Total Bilirubin 0.2 mg/dL (0.15-1.2); Total Protein 7.2 g/dL (6.6-8.7)
--- NOTE | 2021-08-12 10:18 | ONC FU_ITS ---
Dr. Chand Patient Follow-Up Note Patient: Shazia Vaca Unit #: [id number]: 1945 Dicatated By: Luke Chand M.D.Date of Visit:Aug 08, 2021 Onc Med Follow-up/Prog Note Chief Complaint: Myelodysplastic syndrome. 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 She had presented with macrocytic anemia. Her CBC on 08/28/2019 showed hemoglobin low at 7.8 g with hematocrit 25%. The red cell indices were mildly macrocytic with MCV 104 and MCH 31. The white blood cell count was 7500 and the platelet count was 407,000. Her comprehensive metabolic profile was unrevealing. Her serum iron studies showed low transferrin saturation of 5% with ferritin low at 8 ng/mL, consistent with iron deficiency. Her B12 level is normal at 375 pg/mL and the folate was greater than 24 ng/mL. Her stool Hemoccult was found to be positive. She was started on an oral iron supplement. A repeat CBC on 09/04/2019 showed similar findings with hemoglobin 7.8 g and hematocrit 24.6%. The MCV was slightly higher at 107 with MCH 33. I had seen her initially on 09/08/2019. In reviewing her records, she had undergone a left total knee arthroplasty in August 2018. Her preop CBC showed hemoglobin 13.2 g with MCV slightly high at 101. As of 09/25/2018 the postoperative hemoglobin was still low at 9.0 g. She did not require transfusion. Her B12 and folate levels were also normal at that time. As her laboratory studies were consistent with iron deficiency, I had recommended that she continue with a trial of oral iron replacement. Her repeat laboratory studies on 10/08/2019 included CBC showing hemoglobin 10.9 g with hematocrit 35.9%. The red cell indices were macrocytic with MCV 109 and MCH 33. The white blood cell count was 7100 and the platelet count was 418,000. The uncorrected reticulocyte count was 2.6%. LDH was normal at 180 2U/L and the haptoglobin was normal at 163 mg/dL. Comprehensive metabolic profile was unremarkable. The serum iron studies showed low normal transferrin saturation at 22% with ferritin relatively low at 21 ng/mL. The B12 level was normal at 323 pg/mL. The homocystine level was slightly elevated at 11.7 ???mol/L and the methylmalonic acid level was normal at 227 nmol/L. With continued evidence of iron deficiency despite oral iron supplementation, I had recommended parenteral iron replacement, but she apparently did not follow through with that, and she then continued follow-up with Dr. Bourne. On 12/19/2020 she was seen in the emergency room after she had passed out at [facility] 3 times. Her evaluation at that time was unrevealing. Her CBC showed hemoglobin just mildly decreased at 11.1 g, but she was significantly more macrocytic with MCV 117. The white blood cell count was 6100 and the platelet count was 312,000. A subsequent sestamibi stress test on 12/26/2020 showed no evidence of cardiac ischemia. The myocardial perfusion scan was unremarkable. Her ejection fraction was estimated at 73%. On her follow-up with Dr. Bourne on on 03/01/2021 her CBC showed hemoglobin down to 9.9 g with hematocrit 29.8%. The red cell indices were significantly macrocytic with MCV 125 and MCH 41. The white blood cell count was 7200 and the platelet count was 381,000. She underwent bone marrow aspiration/biopsy on 04/04/2021. The bone marrow was mildly hypercellular estimated at 30 to 50%. Numerous abnormal megakaryocyte forms were noted. Blasts did not appear to be increased, but assessment was limited due to the bone marrow aspirate being aspicular. By flow cytometry blasts were estimated at 1% of the cellularity. Stainable iron was present with no ring sideroblasts identified. 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 Overall, these findings were consistent with myelodysplastic syndrome with isolated 5q deletion. With those findings, she was recommended to begin a trial of therapy with lenalidomide. Her other medical illnesses include hypertension, hyperlipidemia, hypothyroidism, GERD, and degenerative arthritis. She has a history of smoking 1 pack of cigarettes daily for 50 years. She quit smoking in 2012. INTERIM HISTORY: On 05/10/2021 she began treatment with lenalidomide 10 mg daily for 28 days each month. She also was recommended to take aspirin prophylaxis. During initial follow-up she remained anemic, requiring PRBC transfusions again on 05/22/2021 and on 06/12/2021. Her lenalidomide dosage was decreased to 5 mg. Her hemoglobin then stabilized to 10 g, and as of 07/05/2021 it increased to 11.0 g. She continued treatment with lenalidomide 5 mg daily on a -day schedule. She is seen for a follow-up visit. She has been feeling pretty good generally. She has pretty good energy now, and she is pretty much back to normal activity. ECOG score is 0. She has good appetite. She has not had fever or night sweats. However, she has now developed generalized itching. She has been taking Benadryl with no significant benefit. She has some sinus drainage and she occasionally has cough at night. She does not complain of shortness of breath or chest pain. She has no GI complaints other than some mild constipation, but bowel function has been adequate with a stool softener and laxative. She has frequent urination. She has no significant joint or bone pain. She does not complain of headache or dizziness, and she has no focal neurologic symptoms. Medications: Aspirin 1 Tablet (of 325 mg) Oral daily, Atorvastatin Calcium 1 Tablet (of 20 mg) Oral daily, Calcium Citrate + D 1 Tablet (of 600-400 mg - Units) Oral b.i.d., D-1000 Extra Strength 1 Tablet (of 400 Units) Oral daily, Donepezil HCl 1 Tablet (of 10 mg) Oral daily, Glucosamine Sulfate 1 Capsule (of 1000 mg) Oral daily, Levothyroxine Sodium 1 Tablet (of 125 mcg) Oral daily, Omeprazole 1 (40 mg) Capsule Delayed Release Oral daily, Revlimid (5 mg) Capsule Oral Take as Directed, traMADol HCl 1 Tablet (of 50 mg) Oral daily, Vitamin C 1 Capsule (of 500 mg) Oral daily, Vitamin E Blend 1 Capsule (of 200 Units) Oral daily Allergies: Adhesive Tape, Metals, and Penicillins. Vital Signs: Performed on Aug 08, 2021 09:33 Height - 62.00 in Weight - 141.2 lbs (LOW) BSA - 1.65 sq.m BMI - 25.83 Temperature - 97.7 F (LOW) Pulse - 86 /min Respiration - 16 /min BP - 131/74 mm(hg) O2 Sat - 93 % (LOW) Pain - 0 Fatigue - 4 Physical Examination: Constitutional - She looks good generally, Eyes - Sclerae nonicteric. Conjunctivae clear, ENMT - No lesions noted in the oral cavity, Hematologic/Lymphatic - No cervical, clavicular, or axillary adenopathy, Respiratory - Lungs sound clear, Cardiovascular - Heart rhythm is regular. There is a II/ systolic murmur. There is no gallop or rub noted, Abdomen - Soft. Liver and spleen are not enlarged. There is no abdominal mass or ascites noted and there is no inguinal adenopathy, Extremities - No edema, Integumentary - There is faint erythema on her back and arms, Neurologic - No focal neurologic deficits noted. Lab/Imaging: Test performed on Aug 08, 2021 08:15 LDH (Total) 277 U/L Sodium 137 mmol/L Potassium 4.3 mmol/L Chloride 103 mmol/L CO2 23 mmol/L Anion Gap 15.3 BUN 12 mg/dL Creatinine 0.7 mg/dL Cr Clearance (Est) 70.21 mL/min Glucose 85 mg/dL Osmolality - Calculated 283 mOsm/kg Calcium 10.0 mg/dL Protein, Total 7.2 g/dL Albumin 3.9 g/dL Globulin 3.3 g/dL Bilirubin, Total 0.2 mg/dL ALT (SGPT) 7 U/L AST (SGOT) 15 U/L Alkaline Phosphatase 117 IU/L WBC 6.4 10 3/uL RBC 3.90 10 6/uL HGB 11.9 g/dL HCT 38.5 % MCV 98.7 fl MCH 30.5 pg MCHC 30.9 g/dL RDW 17.7 % Platelet Count 298 10 3/cmm MPV 8.8 fL Neutrophils 3.85 10 3/uL Lymphocytes 1.6 10 3/uL Monocytes 0.7 10 3/uL Eosinophils 0.2 10 3/uL Basophils 0.1 10 3/uL Neutrophil % 60.2 % Lymphocyte % 24.6 % Monocyte % 10.6 % Eosinophil % 2.8 % Basophils % 1.6 % NRBC % 0 % Problem List: 1. 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 2. Hypertension. 3. Hyperlipidemia. 4. Hypothyroidism. 5. GERD. 6. Degenerative arthritis. Problems Addressed with this Encounter and Plan: Patient with myelodysplastic syndrome with isolated del(5q) chromosome abnormality, presenting with macrocytic anemia. Based on her hemoglobin less than 10 g and good cytogenetics, her IPSS-R calculated to 2.0, low risk. With those findings, she was recommended to begin a trial of therapy with lenalidomide. On 05/10/2021 she began cycle 1 of lenalidomide 10 mg daily for 28 days each month. She also began on aspirin prophylaxis. During her initial follow-up she remained anemic, requiring PRBC transfusions again on 05/22/2021 and on 06/12/2021. At that point her lenalidomide dosage was decreased to 5 mg daily on a 21/28-day schedule. Her hemoglobin then stabilized at 10 g, and it has since then further increased, now to 11.9 g. During this time she has been showing improvement in her performance status, but she has now developed generalized itching, which I suspect is treatment related. As such, I will have her stop the lenalidomide, at least temporarily. She is advised to start cetirizine 10 mg daily in the morning, and I will have her try taking doxepin 25 mg at bedtime. She will be scheduled for a follow-up visit in 1 month. Signed By: Luke Chand M.D. <<Signature on File>>
== END 2021-08-28 23:59 | disposition home or self-care (01) ==
LOC: ONCMED 06:50
PROVIDERS: PCP Family Medicine; Visit Provider Internal Medicine Medical Oncology
DX: D46.C 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 (principal); D50.9 Iron deficiency anemia, unspecified; I10 Essential (primary) hypertension; E78.5 Hyperlipidemia, unspecified; E03.9 Hypothyroidism, unspecified; K21.9 Gastro-esophageal reflux disease without esophagitis; M19.90 Unspecified osteoarthritis, unspecified site; Z79.899 Other long term (current) drug therapy
CPT/HCPCS: 36415; 80053; 83615; 85025; 99214

== ENCOUNTER 2021-09-04 09:11 | Outpatient (RCR) | payer MEDICARE, OTHER, SELFPAY ==
[2021-09-04 09:48] LABS: Basophils % 0.3 %; Eosinophils # 0.2 10^3/uL (0.0-0.8); Eosinophils % 2.6 %; Hematocrit 40.2 % (37.0-47.0); Hemoglobin 12.4 g/dL (11.5-15.3); Lymphocytes % 29.8 %; Mean Corpuscular HGB Conc 30.8 g/dL (30.0-36.0); Mean Corpuscular Hemoglobin 28.9 pg (28.0-34.0); Mean Corpuscular Volume 93.7 fl (81-99); Mean Platelet Volume 8.7 fL (7.4-10.4); Monocytes # 0.5 10^3/uL (0.2-0.9); Monocytes % 7.6 %; Neutrophils # 4.07 10^3/uL (1.8-7.7); Neutrophils % 59.4 %; Nucleated Red Blood Cells % 0 %; Platelet Count 280 10^3/cmm (130-400); Red Blood Count 4.29 10^6/uL (4.1-5.3); Red Cell Distribution Width 17.3 % (12.1-15.1); White Blood Count 6.9 10^3/uL (4.0-10.0)
[2021-09-04 10:14] LABS: Alanine Aminotransferase 12 U/L (0-33); Alkaline Phosphatase 138 IU/L (35-105); Aspartate Amino Transferase 25 U/L (0-32); Blood Urea Nitrogen 14 mg/dL (8-23); Calcium 10.1 mg/dL (8.5-10.5); Carbon Dioxide 26 mmol/L (22-29); Chloride 101 mmol/L (98-107); Globulin 3.6 g/dL (1.3-4.6); Glucose 83 mg/dL (65-115); Osmolality Calculated 284 mOsm/kg (285-295); Sodium 137 mmol/L (136-145); Total Bilirubin 0.2 mg/dL (0.15-1.2); Total Protein 7.6 g/dL (6.6-8.7)
[2021-09-04 10:18] LABS: Anion Gap 14.5 (5-19); Potassium 4.5 mmol/L (3.5-5.1)
[2021-09-04 10:19] LABS: Lactate Dehydrogenase 349 U/L (135-214)
--- NOTE | 2021-09-04 11:58 | ONC FU_ITS ---
Dr. Chand Patient Follow-Up Note Patient: Shazia Vaca Unit #: [id number]: 1945 Dicatated By: Luke Chand M.D.Date of Visit:Sep 04, 2021 Onc Med Follow-up/Prog Note Chief Complaint: Myelodysplastic syndrome. 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 She had presented with macrocytic anemia. Her CBC on 08/28/2019 showed hemoglobin low at 7.8 g with hematocrit 25%. The red cell indices were mildly macrocytic with MCV 104 and MCH 31. The white blood cell count was 7500 and the platelet count was 407,000. Her comprehensive metabolic profile was unrevealing. Her serum iron studies showed low transferrin saturation of 5% with ferritin low at 8 ng/mL, consistent with iron deficiency. Her B12 level is normal at 375 pg/mL and the folate was greater than 24 ng/mL. Her stool Hemoccult was found to be positive. She was started on an oral iron supplement. A repeat CBC on 09/04/2019 showed similar findings with hemoglobin 7.8 g and hematocrit 24.6%. The MCV was slightly higher at 107 with MCH 33. I had seen her initially on 09/08/2019. In reviewing her records, she had undergone a left total knee arthroplasty in August 2018. Her preop CBC showed hemoglobin 13.2 g with MCV slightly high at 101. As of 09/25/2018 the postoperative hemoglobin was still low at 9.0 g. She did not require transfusion. Her B12 and folate levels were also normal at that time. As her laboratory studies were consistent with iron deficiency, I had recommended that she continue with a trial of oral iron replacement. Her repeat laboratory studies on 10/08/2019 included CBC showing hemoglobin 10.9 g with hematocrit 35.9%. The red cell indices were macrocytic with MCV 109 and MCH 33. The white blood cell count was 7100 and the platelet count was 418,000. The uncorrected reticulocyte count was 2.6%. LDH was normal at 180 2U/L and the haptoglobin was normal at 163 mg/dL. Comprehensive metabolic profile was unremarkable. The serum iron studies showed low normal transferrin saturation at 22% with ferritin relatively low at 21 ng/mL. The B12 level was normal at 323 pg/mL. The homocystine level was slightly elevated at 11.7 ???mol/L and the methylmalonic acid level was normal at 227 nmol/L. With continued evidence of iron deficiency despite oral iron supplementation, I had recommended parenteral iron replacement, but she apparently did not follow through with that, and she then continued follow-up with Dr. Bourne. On 12/19/2020 she was seen in the emergency room after she had passed out at [facility] 3 times. Her evaluation at that time was unrevealing. Her CBC showed hemoglobin just mildly decreased at 11.1 g, but she was significantly more macrocytic with MCV 117. The white blood cell count was 6100 and the platelet count was 312,000. A subsequent sestamibi stress test on 12/26/2020 showed no evidence of cardiac ischemia. The myocardial perfusion scan was unremarkable. Her ejection fraction was estimated at 73%. On her follow-up with Dr. Bourne on on 03/01/2021 her CBC showed hemoglobin down to 9.9 g with hematocrit 29.8%. The red cell indices were significantly macrocytic with MCV 125 and MCH 41. The white blood cell count was 7200 and the platelet count was 381,000. She underwent bone marrow aspiration/biopsy on 04/04/2021. The bone marrow was mildly hypercellular estimated at 30 to 50%. Numerous abnormal megakaryocyte forms were noted. Blasts did not appear to be increased, but assessment was limited due to the bone marrow aspirate being aspicular. By flow cytometry blasts were estimated at 1% of the cellularity. Stainable iron was present with no ring sideroblasts identified. 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 Overall, these findings were consistent with myelodysplastic syndrome with isolated 5q deletion. With those findings, she was recommended to begin a trial of therapy with lenalidomide. Her other medical illnesses include hypertension, hyperlipidemia, hypothyroidism, GERD, and degenerative arthritis. She has a history of smoking 1 pack of cigarettes daily for 50 years. She quit smoking in 2012. INTERIM HISTORY: On 05/10/2021 she began treatment with lenalidomide 10 mg daily for 28 days each month. She also was recommended to take aspirin prophylaxis. During initial follow-up she remained anemic, requiring PRBC transfusions again on 05/22/2021 and on 06/12/2021. Her lenalidomide dosage was decreased to 5 mg. Her hemoglobin then stabilized to 10 g, and as of 07/05/2021 it increased to 11.0 g. She continued treatment with lenalidomide 5 mg daily on a 21/-day schedule. As of her follow-up visit on 08/08/2021 she was showing significant response with hemoglobin up to 11.9 g. The MCV was down to 98.7. The white blood cell count was normal at 6400 and the platelet count was normal at 298,000. However, she had developed severe generalized itching, which I had assumed was treatment related, and I had her stop the lenalidomide. She was also treated symptomatically with cetirizine and doxepin, but within 1 week there was no improvement, and at that point she was given a Medrol dose pack. She is seen for a follow-up visit. She had significant improvement, though not complete resolution of the itching with the methylprednisolone, which she took for 6 days. Within the last few days the itching has started to get worse again, but it is still not nearly as bad as it had been. She has otherwise been feeling really good. She has been able to sleep better with the doxepin. Medications: Aspirin 1 Tablet (of 325 mg) Oral daily, Atorvastatin Calcium 1 Tablet (of 20 mg) Oral daily, Calcium Citrate + D 1 Tablet (of 600-400 mg - Units) Oral b.i.d., D-1000 Extra Strength 1 Tablet (of 400 Units) Oral daily, Donepezil HCl 1 Tablet (of 10 mg) Oral daily, Glucosamine Sulfate 1 Capsule (of 1000 mg) Oral daily, Levothyroxine Sodium 1 Tablet (of 125 mcg) Oral daily, Omeprazole 1 (40 mg) Capsule Delayed Release Oral daily, Revlimid (5 mg) Capsule Oral Take as Directed, traMADol HCl 1 Tablet (of 50 mg) Oral daily, Vitamin C 1 Capsule (of 500 mg) Oral daily, Vitamin E Blend 1 Capsule (of 200 Units) Oral daily Allergies: Adhesive Tape, Metals, and Penicillins. Vital Signs: Performed on Sep 04, 2021 11:37 Height - 62.00 in Weight - 143.8 lbs (HIGH) BSA - 1.66 sq.m BMI - 26.30 Temperature - 97.0 F (LOW) Pulse - 80 /min Respiration - 16 /min BP - 148/77 mm(hg) (HIGH) O2 Sat - 96 % Pain - 0 Fatigue - 3 Physical Examination: Constitutional - She looks good generally, Eyes - Sclerae nonicteric. Conjunctivae clear, ENMT - No lesions noted in the oral cavity, Hematologic/Lymphatic - No cervical, clavicular, or axillary adenopathy, Respiratory - Lungs sound clear, Cardiovascular - Heart rhythm is regular. There is a II/ systolic murmur. There is no gallop or rub noted, Abdomen - Soft. Liver and spleen are not enlarged. There is no abdominal mass or ascites noted and there is no inguinal adenopathy, Extremities - No edema, Integumentary - There is no apparent skin eruption, Neurologic - No focal neurologic deficits noted. Lab/Imaging: Test performed on Sep 04, 2021 09:33 LDH (Total) 349 U/L Sodium 137 mmol/L Potassium 4.5 mmol/L Chloride 101 mmol/L CO2 26 mmol/L Anion Gap 14.5 BUN 14 mg/dL Creatinine 0.9 mg/dL Cr Clearance (Est) 55.6100 mL/min Glucose 83 mg/dL Osmolality - Calculated 284 mOsm/kg Calcium 10.1 mg/dL Protein, Total 7.6 g/dL Albumin 4.0 g/dL Globulin 3.6 g/dL Bilirubin, Total 0.2 mg/dL ALT (SGPT) 12 U/L AST (SGOT) 25 U/L Alkaline Phosphatase 138 IU/L WBC 6.9 10 3/uL RBC 4.29 10 6/uL HGB 12.4 g/dL HCT 40.2 % MCV 93.7 fl MCH 28.9 pg MCHC 30.8 g/dL RDW 17.3 % Platelet Count 280 10 3/cmm MPV 8.7 fL Neutrophils 4.07 10 3/uL Lymphocytes 2.0 10 3/uL Monocytes 0.5 10 3/uL Eosinophils 0.2 10 3/uL Basophils 0.0 10 3/uL Neutrophil % 59.4 % Lymphocyte % 29.8 % Monocyte % 7.6 % Eosinophil % 2.6 % Basophils % 0.3 % NRBC % 0 % Problem List: 1. 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 2. Hypertension. 3. Hyperlipidemia. 4. Hypothyroidism. 5. GERD. 6. Degenerative arthritis. Problems Addressed with this Encounter and Plan: Patient with myelodysplastic syndrome with isolated del(5q) chromosome abnormality, presenting with macrocytic anemia. Based on her hemoglobin less than 10 g and good cytogenetics, her IPSS-R calculated to 2.0, low risk. With those findings, she was recommended to begin a trial of therapy with lenalidomide. On 05/10/2021 she began cycle 1 of lenalidomide 10 mg daily for 28 days each month. She also began on aspirin prophylaxis. During her initial follow-up she remained anemic, requiring PRBC transfusions again on 05/22/2021 and on 06/12/2021. At that point her lenalidomide dosage was decreased to 5 mg daily on a 21/28-day schedule, and during subsequent follow-up she did show evidence of response. As of 08/08/2021 the hemoglobin had increased to 11.9 g. However, at that point I did have her stop treatment due to development of severe generalized itching. The itching improved on steroid therapy, but it did not completely resolve, and it is starting to get worse again since completing the Medrol Dosepak. Since then, there has been further increase in the hemoglobin to 12.4 g. At least for now she will remain off the lenalidomide. I am going to resume steroid therapy with prednisone 10 mg twice daily for 7 days then continuing 10 mg daily. She will continue the doxepin at bedtime. I will see her again in 1 month. Signed By: Luke Chand M.D. <<Signature on File>>
== END 2021-09-28 23:59 | disposition home or self-care (01) ==
LOC: ONCMED 09:11
PROVIDERS: PCP Family Medicine; Visit Provider Internal Medicine Medical Oncology
DX: D46.C 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 (principal); D53.9 Nutritional anemia, unspecified; I10 Essential (primary) hypertension; E78.5 Hyperlipidemia, unspecified; E03.9 Hypothyroidism, unspecified; K21.9 Gastro-esophageal reflux disease without esophagitis; M19.90 Unspecified osteoarthritis, unspecified site; Z79.899 Other long term (current) drug therapy
CPT/HCPCS: 36415; 80053; 83615; 85025; 99214

== ENCOUNTER 2021-10-18 06:54 | Outpatient (RCR) | payer MEDICARE, OTHER, SELFPAY ==
[2021-10-05 09:58] LABS: Basophils % 0.5 %; Eosinophils # 0.1 10^3/uL (0.0-0.8); Eosinophils % 1.2 %; Hematocrit 38.8 % (37.0-47.0); Hemoglobin 12.3 g/dL (11.5-15.3); Lymphocytes % 30.7 %; Mean Corpuscular HGB Conc 31.7 g/dL (30.0-36.0); Mean Corpuscular Hemoglobin 28.7 pg (28.0-34.0); Mean Corpuscular Volume 90.4 fl (81-99); Mean Platelet Volume 8.8 fL (7.4-10.4); Monocytes # 0.7 10^3/uL (0.2-0.9); Monocytes % 10.3 %; Neutrophils # 3.72 10^3/uL (1.8-7.7); Nucleated Red Blood Cells % 0 %; Platelet Count 267 10^3/cmm (130-400); Red Blood Count 4.29 10^6/uL (4.1-5.3); Red Cell Distribution Width 18.2 % (12.1-15.1); White Blood Count 6.5 10^3/uL (4.0-10.0)
[2021-10-05 10:21] LABS: Alanine Aminotransferase 9 U/L (0-33); Albumin Level 3.9 g/dL (3.5-5.2); Alkaline Phosphatase 94 IU/L (35-105); Anion Gap 11.3 (5-19); Aspartate Amino Transferase 16 U/L (0-32); Blood Urea Nitrogen 12 mg/dL (8-23); Carbon Dioxide 27 mmol/L (22-29); Chloride 102 mmol/L (98-107); Globulin 3.4 g/dL (1.3-4.6); Glucose 65 mg/dL (65-115); Lactate Dehydrogenase 221 U/L (135-214); Osmolality Calculated 280 mOsm/kg (285-295); Potassium 4.3 mmol/L (3.5-5.1); Sodium 136 mmol/L (136-145); Total Bilirubin 0.2 mg/dL (0.15-1.2); Total Protein 7.3 g/dL (6.6-8.7)
--- NOTE | 2021-10-09 16:36 | ONC FU_ITS ---
Gwen Casiano Progress Note Patient: Shazai Vaca Unit #: [id number]: 1945 Dicatated By: Gwen Casiano N.P.Date of Visit:Oct 05, 2021 Onc MED Follow-up/Prog Note Chief Complaint: Myelodysplastic syndrome. 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 She had presented with macrocytic anemia. Her CBC on 08/28/2019 showed hemoglobin low at 7.8 g with hematocrit 25%. The red cell indices were mildly macrocytic with MCV 104 and MCH 31. The white blood cell count was 7500 and the platelet count was 407,000. Her comprehensive metabolic profile was unrevealing. Her serum iron studies showed low transferrin saturation of 5% with ferritin low at 8 ng/mL, consistent with iron deficiency. Her B12 level is normal at 375 pg/mL and the folate was greater than 24 ng/mL. Her stool Hemoccult was found to be positive. She was started on an oral iron supplement. A repeat CBC on 09/04/2019 showed similar findings with hemoglobin 7.8 g and hematocrit 24.6%. The MCV was slightly higher at 107 with MCH 33. I had seen her initially on 09/08/2019. In reviewing her records, she had undergone a left total knee arthroplasty in August 2018. Her preop CBC showed hemoglobin 13.2 g with MCV slightly high at 101. As of 09/25/2018 the postoperative hemoglobin was still low at 9.0 g. She did not require transfusion. Her B12 and folate levels were also normal at that time. As her laboratory studies were consistent with iron deficiency, I had recommended that she continue with a trial of oral iron replacement. Her repeat laboratory studies on 10/08/2019 included CBC showing hemoglobin 10.9 g with hematocrit 35.9%. The red cell indices were macrocytic with MCV 109 and MCH 33. The white blood cell count was 7100 and the platelet count was 418,000. The uncorrected reticulocyte count was 2.6%. LDH was normal at 180 2U/L and the haptoglobin was normal at 163 mg/dL. Comprehensive metabolic profile was unremarkable. The serum iron studies showed low normal transferrin saturation at 22% with ferritin relatively low at 21 ng/mL. The B12 level was normal at 323 pg/mL. The homocystine level was slightly elevated at 11.7 ???mol/L and the methylmalonic acid level was normal at 227 nmol/L. With continued evidence of iron deficiency despite oral iron supplementation, I had recommended parenteral iron replacement, but she apparently did not follow through with that, and she then continued follow-up with Dr. Bourne. On 12/19/2020 she was seen in the emergency room after she had passed out at [facility] 3 times. Her evaluation at that time was unrevealing. Her CBC showed hemoglobin just mildly decreased at 11.1 g, but she was significantly more macrocytic with MCV 117. The white blood cell count was 6100 and the platelet count was 312,000. A subsequent sestamibi stress test on 12/26/2020 showed no evidence of cardiac ischemia. The myocardial perfusion scan was unremarkable. Her ejection fraction was estimated at 73%. On her follow-up with Dr. Bourne on on 03/01/2021 her CBC showed hemoglobin down to 9.9 g with hematocrit 29.8%. The red cell indices were significantly macrocytic with MCV 125 and MCH 41. The white blood cell count was 7200 and the platelet count was 381,000. She underwent bone marrow aspiration/biopsy on 04/04/2021. The bone marrow was mildly hypercellular estimated at 30 to 50%. Numerous abnormal megakaryocyte forms were noted. Blasts did not appear to be increased, but assessment was limited due to the bone marrow aspirate being aspicular. By flow cytometry blasts were estimated at 1% of the cellularity. Stainable iron was present with no ring sideroblasts identified. 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 Overall, these findings were consistent with myelodysplastic syndrome with isolated 5q deletion. With those findings, she was recommended to begin a trial of therapy with lenalidomide. Her other medical illnesses include hypertension, hyperlipidemia, hypothyroidism, GERD, and degenerative arthritis. She has a history of smoking 1 pack of cigarettes daily for 50 years. She quit smoking in 2012. INTERIM HISTORY: On 05/10/2021 she began treatment with lenalidomide 10 mg daily for 28 days each month. She also was recommended to take aspirin prophylaxis. During initial follow-up she remained anemic, requiring PRBC transfusions again on 05/22/2021 and on 06/12/2021. Her lenalidomide dosage was decreased to 5 mg. Her hemoglobin then stabilized to 10 g, and as of 07/05/2021 it increased to 11.0 g. She continued treatment with lenalidomide 5 mg daily on a 21/28-day schedule. As of her follow-up visit on 08/08/2021 she was showing significant response with hemoglobin up to 11.9 g. The MCV was down to 98.7. The white blood cell count was normal at 6400 and the platelet count was normal at 298,000. However, she had developed severe generalized itching, which I had assumed was treatment related, and I had her stop the lenalidomide. She was also treated symptomatically with cetirizine and doxepin, but within 1 week there was no improvement, and at that point she was given a Medrol dose pack. Patient presents today for follow-up. She had a rash develop so her Revlimid was put on hold. She is doing much better today her rash is gone. She denies weakness or fatigue. No appetite problems. No fever, chills, night sweats. No sinus drainage or mouth sores. No shortness of breath, cough, chest pain. No nausea or vomiting. No diarrhea or constipation. No urinary symptoms. No joint or bone pain. No headache or dizziness. 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 Medications: Atorvastatin Calcium 1 Tablet (of 20 mg) Oral daily Calcium Citrate + D 1 Tablet (of 600-400 mg - Units) Oral b.i.d. D-1000 Extra Strength 1 Tablet (of 400 Units) Oral daily Donepezil HCl 1 Tablet (of 10 mg) Oral daily Glucosamine Sulfate 1 Capsule (of 1000 mg) Oral daily Levothyroxine Sodium 1 Tablet (of 125 mcg) Oral daily Omeprazole 1 (40 mg) Capsule Delayed Release Oral daily traMADol HCl 1 Tablet (of 50 mg) Oral daily Vitamin E Blend 1 Capsule (of 200 Units) Oral daily Family History: Ms. Vaca's mother at age 67: emphysema, and cervical cancer, and heart disease. Ms. Vaca does not know if her father is alive. Ms. Vaca's maternal grandmother is alive. Ms. Vaca has 1 brother who is alive: throat cancer. She has 2 sisters: 2 alive. Ms. Vaca's first sister's bladder cancer, and lung cancer. Another sister's colon cancer. She does not know what happened to her father. Her mother at age 75 with emphysema. She also had bladder cancer. She has a total of 11 siblings, at least 6 of whom also had lung problems, but they were all smokers. In addition, 1 sister had lung and bladder cancer and a brother had throat cancer. Social History: Ms. Vaca is . Ms. Vaca quit smoking 8 years ago but had smoked 1.0 pack/day for 50 years. She has no history of drinking. She has a history of smoking 1 pack of cigarettes daily for 50 years. She quit smoking in 2012. She does not drink alcohol. Physical Examination: Performed on Oct 05, 2021 11:44: Height - 62.00 in, BP - 137/72 mm(hg), Performed on Oct 05, 2021 11:43: Height - 62.00 in, Weight - 144.6 lbs (HIGH), BSA - 1.67 sq.m, BMI - 26.45, Temperature - 97.8 F (LOW), Pulse - 72 /min, Respiration - 16 /min, BP - 170/62 mm(hg) (HIGH), O2 Sat - 92 % (LOW), Pain - 0, and Fatigue - 5. Performance Status: 0 - Fully active, able to carry on all predisease activities without restrictions. (ECOG) Constitutional Alert, cooperative, oriented. Mood and affect appropriate. Appears close to chronological age. Well nourished. Well developed. Head Normocephalic; no scars. Hematologic/Lymphatic No petechiae or purpura. No tender or palpable lymph nodes in the cervical, supraclavicular, axillary or inguinal area. Respiratory Lungs are clear to auscultation without rhonchi or wheezing. Cardiovascular Regular rate and rhythm of heart without murmurs, gallops or rubs. Abdomen Non-tender, non-distended, no masses, ascites or hepatosplenomegaly. Good bowel sounds. No guarding or rebound tenderness. Musculoskeletal No tenderness or swelling, normal range of motion without obvious weakness. Psychiatric Alert and oriented times three. Coherent speech. Verbalizes understanding of our discussions today. Laboratory: Test performed on Oct 05, 2021 09:40 LDH (Total) 221 U/L Sodium 136 mmol/L Potassium 4.3 mmol/L Chloride 102 mmol/L CO2 27 mmol/L Anion Gap 11.3 BUN 12 mg/dL Creatinine 0.6 mg/dL Cr Clearance (Est) 83.89 mL/min Glucose 65 mg/dL Osmolality - Calculated 280 mOsm/kg Calcium 10.0 mg/dL Protein, Total 7.3 g/dL Albumin 3.9 g/dL Globulin 3.4 g/dL Bilirubin, Total 0.2 mg/dL ALT (SGPT) 9 U/L AST (SGOT) 16 U/L Alkaline Phosphatase 94 IU/L WBC 6.5 10 3/uL RBC 4.29 10 6/uL HGB 12.3 g/dL HCT 38.8 % MCV 90.4 fl MCH 28.7 pg MCHC 31.7 g/dL RDW 18.2 % Platelet Count 267 10 3/cmm MPV 8.8 fL Neutrophils 3.72 10 3/uL Lymphocytes 2.0 10 3/uL Monocytes 0.7 10 3/uL Eosinophils 0.1 10 3/uL Basophils 0.0 10 3/uL Neutrophil % 57.0 % Lymphocyte % 30.7 % Monocyte % 10.3 % Eosinophil % 1.2 % Basophils % 0.5 % NRBC % 0 % Test performed on Jun 26, 2021 12:50 CBC Slide Review Slide Review Perform REVIEW AGREES WITH AUTOMATED RESULTS Test performed on Jun 12, 2021 08:14 Anti-D Negative Blood Type ON Antibody Screen (Gel) NEGATIVE Test performed on May 22, 2021 12:50 Leukocyte Reduced RBC [id number] ON RCLR XM COMPATIBLE Impression: 1. 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 2. Hypertension. 3. Hyperlipidemia. 4. Hypothyroidism. 5. GERD. 6. Degenerative arthritis. Plan: Patient with myelodysplastic syndrome with isolated del(5q) chromosome abnormality, presenting with macrocytic anemia. Based on her hemoglobin less than 10 g and good cytogenetics, her IPSS-R calculated to 2.0, low risk. With those findings, she was recommended to begin a trial of therapy with lenalidomide. On 05/10/2021 she began cycle 1 of lenalidomide 10 mg daily for 28 days each month. She also began on aspirin prophylaxis. During her initial follow-up she remained anemic, requiring PRBC transfusions again on 05/22/2021 and on 06/12/2021. At that point her lenalidomide dosage was decreased to 5 mg daily on a 21/28-day schedule, and during subsequent follow-up she did show evidence of response. As of 08/08/2021 the hemoglobin had increased to 11.9 g. However, at that point I did have her stop treatment due to development of severe generalized itching. The itching improved on steroid therapy, but it did not completely resolve, and it is starting to get worse again since completing the Medrol Dosepak. Since then, there has been further increase in the hemoglobin to 12.4 g. Patient presents today for reevaluation. Her rash is completely resolved. She is on prednisone 10 mg p.o. daily. We will restart Revlimid at 2.5 mg p.o. daily. Patient to follow-up in 2 weeks with CBC and CMP. Signed By: Gwen Casiano N.P. <<Signature on File>>
[2021-10-18 10:38] LABS: Basophils % 0.4 %; Eosinophils # 0.1 10^3/uL (0.0-0.8); Eosinophils % 1.3 %; Hematocrit 39.7 % (37.0-47.0); Hemoglobin 12.3 g/dL (11.5-15.3); Lymphocytes # 1.4 10^3/uL (0.8-4.8); Lymphocytes % 20.6 %; Mean Corpuscular Hemoglobin 27.8 pg (28.0-34.0); Mean Corpuscular Volume 89.6 fl (81-99); Mean Platelet Volume 8.7 fL (7.4-10.4); Monocytes # 0.6 10^3/uL (0.2-0.9); Neutrophils # 4.78 10^3/uL (1.8-7.7); Neutrophils % 69.4 %; Nucleated Red Blood Cells % 0 %; Platelet Count 321 10^3/cmm (130-400); Red Blood Count 4.43 10^6/uL (4.1-5.3); Red Cell Distribution Width 19.2 % (12.1-15.1); White Blood Count 6.9 10^3/uL (4.0-10.0)
[2021-10-18 11:07] LABS: Alanine Aminotransferase 9 U/L (0-33); Albumin Level 3.8 g/dL (3.5-5.2); Alkaline Phosphatase 96 IU/L (35-105); Anion Gap 15.9 (5-19); Aspartate Amino Transferase 16 U/L (0-32); Blood Urea Nitrogen 11 mg/dL (8-23); Carbon Dioxide 24 mmol/L (22-29); Chloride 103 mmol/L (98-107); Globulin 3.5 g/dL (1.3-4.6); Glucose 77 mg/dL (65-115); Osmolality Calculated 286 mOsm/kg (285-295); Potassium 3.9 mmol/L (3.5-5.1); Sodium 139 mmol/L (136-145); Total Bilirubin 0.2 mg/dL (0.15-1.2); Total Protein 7.3 g/dL (6.6-8.7)
[2021-10-18 11:58] LABS: Lactate Dehydrogenase 205 U/L (135-214)
--- NOTE | 2021-10-24 12:59 | ONC FU_ITS ---
Gwen Casiano Progress Note Patient: Shazia Vcaa Unit #: [id number]: 1945 Dicatated By: Gwen Casiano N.P.Date of Visit:Oct 18, 2021 Onc MED Follow-up/Prog Note Chief Complaint: Myelodysplastic syndrome. 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 She had presented with macrocytic anemia. Her CBC on 08/28/2019 showed hemoglobin low at 7.8 g with hematocrit 25%. The red cell indices were mildly macrocytic with MCV 104 and MCH 31. The white blood cell count was 7500 and the platelet count was 407,000. Her comprehensive metabolic profile was unrevealing. Her serum iron studies showed low transferrin saturation of 5% with ferritin low at 8 ng/mL, consistent with iron deficiency. Her B12 level is normal at 375 pg/mL and the folate was greater than 24 ng/mL. Her stool Hemoccult was found to be positive. She was started on an oral iron supplement. A repeat CBC on 09/04/2019 showed similar findings with hemoglobin 7.8 g and hematocrit 24.6%. The MCV was slightly higher at 107 with MCH 33. I had seen her initially on 09/08/2019. In reviewing her records, she had undergone a left total knee arthroplasty in August 2018. Her preop CBC showed hemoglobin 13.2 g with MCV slightly high at 101. As of 09/25/2018 the postoperative hemoglobin was still low at 9.0 g. She did not require transfusion. Her B12 and folate levels were also normal at that time. As her laboratory studies were consistent with iron deficiency, I had recommended that she continue with a trial of oral iron replacement. Her repeat laboratory studies on 10/08/2019 included CBC showing hemoglobin 10.9 g with hematocrit 35.9%. The red cell indices were macrocytic with MCV 109 and MCH 33. The white blood cell count was 7100 and the platelet count was 418,000. The uncorrected reticulocyte count was 2.6%. LDH was normal at 180 2U/L and the haptoglobin was normal at 163 mg/dL. Comprehensive metabolic profile was unremarkable. The serum iron studies showed low normal transferrin saturation at 22% with ferritin relatively low at 21 ng/mL. The B12 level was normal at 323 pg/mL. The homocystine level was slightly elevated at 11.7 ???mol/L and the methylmalonic acid level was normal at 227 nmol/L. With continued evidence of iron deficiency despite oral iron supplementation, I had recommended parenteral iron replacement, but she apparently did not follow through with that, and she then continued follow-up with Dr. Bourne. On 12/19/2020 she was seen in the emergency room after she had passed out at [facility] 3 times. Her evaluation at that time was unrevealing. Her CBC showed hemoglobin just mildly decreased at 11.1 g, but she was significantly more macrocytic with MCV 117. The white blood cell count was 6100 and the platelet count was 312,000. A subsequent sestamibi stress test on 12/26/2020 showed no evidence of cardiac ischemia. The myocardial perfusion scan was unremarkable. Her ejection fraction was estimated at 73%. On her follow-up with Dr. Bourne on on 03/01/2021 her CBC showed hemoglobin down to 9.9 g with hematocrit 29.8%. The red cell indices were significantly macrocytic with MCV 125 and MCH 41. The white blood cell count was 7200 and the platelet count was 381,000. She underwent bone marrow aspiration/biopsy on 04/04/2021. The bone marrow was mildly hypercellular estimated at 30 to 50%. Numerous abnormal megakaryocyte forms were noted. Blasts did not appear to be increased, but assessment was limited due to the bone marrow aspirate being aspicular. By flow cytometry blasts were estimated at 1% of the cellularity. Stainable iron was present with no ring sideroblasts identified. 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 Overall, these findings were consistent with myelodysplastic syndrome with isolated 5q deletion. With those findings, she was recommended to begin a trial of therapy with lenalidomide. Her other medical illnesses include hypertension, hyperlipidemia, hypothyroidism, GERD, and degenerative arthritis. She has a history of smoking 1 pack of cigarettes daily for 50 years. She quit smoking in 2012. INTERIM HISTORY: On 05/10/2021 she began treatment with lenalidomide 10 mg daily for 28 days each month. She also was recommended to take aspirin prophylaxis. During initial follow-up she remained anemic, requiring PRBC transfusions again on 05/22/2021 and on 06/12/2021. Her lenalidomide dosage was decreased to 5 mg. Her hemoglobin then stabilized to 10 g, and as of 07/05/2021 it increased to 11.0 g. She continued treatment with lenalidomide 5 mg daily on a 21/28-day schedule. As of her follow-up visit on 08/08/2021 she was showing significant response with hemoglobin up to 11.9 g. The MCV was down to 98.7. The white blood cell count was normal at 6400 and the platelet count was normal at 298,000. However, she had developed severe generalized itching, which I had assumed was treatment related, and I had her stop the lenalidomide. She was also treated symptomatically with cetirizine and doxepin, but within 1 week there was no improvement, and at that point she was given a Medrol dose pack. Patient presents today for follow-up. She was taking Revlimid 5 mg and she developed a rash. So it was put on hold. The rash is resolved and she was restarted on Revlimid 2.5 mg while continuing prednisone 10 mg daily. She presents today for follow-up. She states that she has some moderate fatigue but still able to perform all activities. Her appetite has been good. No fever, chills, night sweats. No sinus drainage or mouth sores. No shortness of breath cough or chest pain. No GI or problems. No joint or bone pain. No rash or itching. Review Of Symptoms: See above. 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 Medications: Atorvastatin Calcium 1 Tablet (of 20 mg) Oral daily Calcium Citrate + D 1 Tablet (of 600-400 mg - Units) Oral b.i.d. Donepezil HCl 1 Tablet (of 10 mg) Oral daily Glucosamine Sulfate 1 Capsule (of 1000 mg) Oral daily Levothyroxine Sodium 1 Tablet (of 125 mcg) Oral daily Omeprazole 1 (40 mg) Capsule Delayed Release Oral daily traMADol HCl 1 Tablet (of 50 mg) Oral daily Vitamin E Blend 1 Capsule (of 200 Units) Oral daily Family History: Ms. Vaca's mother at age 67: emphysema, and cervical cancer, and heart disease. Ms. Vaca does not know if her father is alive. Ms. Vaca's maternal grandmother is alive. Ms. Vaca has 1 brother who is alive: throat cancer. She has 2 sisters: 2 alive. Ms. Vaca's first sister's bladder cancer, and lung cancer. Another sister's colon cancer. She does not know what happened to her father. Her mother at age 75 with emphysema. She also had bladder cancer. She has a total of 11 siblings, at least 6 of whom also had lung problems, but they were all smokers. In addition, 1 sister had lung and bladder cancer and a brother had throat cancer. Social History: Ms. Vaca is . Ms. Vaca quit smoking 8 years ago but had smoked 1.0 pack/day for 50 years. She has no history of drinking. She has a history of smoking 1 pack of cigarettes daily for 50 years. She quit smoking in 2012. She does not drink alcohol. Physical Examination: Performed on Oct 18, 2021 11:42: Height - 62.00 in, Weight - 144.2 lbs (LOW), BSA - 1.66 sq.m, BMI - 26.37, Temperature - 98.3 F (LOW), Pulse - 82 /min, Respiration - 18 /min, BP - 137/74 mm(hg), O2 Sat - 96 %, Pain - 0, and Fatigue - 7. Performance Status: 0 - Fully active, able to carry on all predisease activities without restrictions. (ECOG) Constitutional Alert, cooperative, oriented. Mood and affect appropriate. Appears close to chronological age. Well nourished. Well developed. Head Normocephalic; no scars. Eyes Conjunctivae and sclerae are clear and without icterus. Pupils are reactive and equal. Respiratory Lungs are clear to auscultation without rhonchi or wheezing. Cardiovascular Regular rate and rhythm of heart without murmurs, gallops or rubs. Abdomen Non-tender, non-distended, no masses, ascites or hepatosplenomegaly. Good bowel sounds. No guarding or rebound tenderness. Integumentary No rashes, scars, or lesions suggestive of malignancy. Psychiatric Alert and oriented times three. Coherent speech. Verbalizes understanding of our discussions today. Laboratory: Test performed on Oct 18, 2021 10:15 LDH (Total) 205 U/L Sodium 139 mmol/L Potassium 3.9 mmol/L Chloride 103 mmol/L CO2 24 mmol/L Anion Gap 15.9 BUN 11 mg/dL Creatinine 0.6 mg/dL Cr Clearance (Est) 83.6500 mL/min Glucose 77 mg/dL Osmolality - Calculated 286 mOsm/kg Calcium 10.0 mg/dL Protein, Total 7.3 g/dL Albumin 3.8 g/dL Globulin 3.5 g/dL Bilirubin, Total 0.2 mg/dL ALT (SGPT) 9 U/L AST (SGOT) 16 U/L Alkaline Phosphatase 96 IU/L WBC 6.9 10 3/uL RBC 4.43 10 6/uL HGB 12.3 g/dL HCT 39.7 % MCV 89.6 fl MCH 27.8 pg MCHC 31.0 g/dL RDW 19.2 % Platelet Count 321 10 3/cmm MPV 8.7 fL Neutrophils 4.78 10 3/uL Lymphocytes 1.4 10 3/uL Monocytes 0.6 10 3/uL Eosinophils 0.1 10 3/uL Basophils 0.0 10 3/uL Neutrophil % 69.4 % Lymphocyte % 20.6 % Monocyte % 8.0 % Eosinophil % 1.3 % Basophils % 0.4 % NRBC % 0 % Test performed on Jun 26, 2021 12:50 CBC Slide Review Slide Review Perform REVIEW AGREES WITH AUTOMATED RESULTS Test performed on Jun 12, 2021 08:14 Anti-D Negative Blood Type ON Antibody Screen (Gel) NEGATIVE Test performed on May 22, 2021 12:50 Leukocyte Reduced RBC [id number] ON RCLR XM COMPATIBLE Impression: 1. 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 2. Hypertension. 3. Hyperlipidemia. 4. Hypothyroidism. 5. GERD. 6. Degenerative arthritis. Plan: Patient with myelodysplastic syndrome with isolated del(5q) chromosome abnormality, presenting with macrocytic anemia. Based on her hemoglobin less than 10 g and good cytogenetics, her IPSS-R calculated to 2.0, low risk. With those findings, she was recommended to begin a trial of therapy with lenalidomide. On 05/10/2021 she began cycle 1 of lenalidomide 10 mg daily for 28 days each month. She also began on aspirin prophylaxis. During her initial follow-up she remained anemic, requiring PRBC transfusions again on 05/22/2021 and on 06/12/2021. At that point her lenalidomide dosage was decreased to 5 mg daily on a 21/28-day schedule, and during subsequent follow-up she did show evidence of response. As of 08/08/2021 the hemoglobin had increased to 11.9 g. However, at that point I did have her stop treatment due to development of severe generalized itching. The itching improved on steroid therapy, but it did not completely resolve, and it is starting to get worse again since completing the Medrol Dosepak. Since then, there has been further increase in the hemoglobin to 12.4 g. Patient presents today after restarting Revlimid at 2.5 mg p.o. daily. Thus far she is tolerating it well with no signs or symptoms of rash or itching. Her labs are stable. We will continue Revlimid at 2.5 mg she will follow-up in 3 weeks with labs. Signed By: Gwen Casiano N.P. <<Signature on File>>
== END 2021-10-28 23:59 | disposition home or self-care (01) ==
LOC: ONCMED 06:54
PROVIDERS: PCP Family Medicine; Visit Provider Nurse Practitioner Family
DX: D46.C 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 (principal); I10 Essential (primary) hypertension; E78.5 Hyperlipidemia, unspecified; E03.9 Hypothyroidism, unspecified; K21.9 Gastro-esophageal reflux disease without esophagitis; M19.90 Unspecified osteoarthritis, unspecified site; Z79.899 Other long term (current) drug therapy
CPT/HCPCS: 36415; 80053; 83615; 85025; 99214

== ENCOUNTER 2021-11-09 09:18 | Oncology outpatient (recurring) (ONCR) | payer MEDICARE, OTHER, SELFPAY ==
[2021-11-09 12:46] LABS: Uric Acid 4.7 mg/dL (2.4-5.7)
== END 2021-11-28 23:59 | disposition home or self-care (01) ==
PROVIDERS: PCP Family Medicine; Visit Provider Internal Medicine Medical Oncology
DX: D46.C 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 (principal); M79.671 Pain in right foot; Z79.899 Other long term (current) drug therapy; Z79.82 Long term (current) use of aspirin
CPT/HCPCS: 36415; 80053; 84550; 85025; 99214; 99999

== ENCOUNTER 2022-02-19 11:17 | Oncology outpatient (recurring) (ONCR) | payer MEDICARE, OTHER, SELFPAY ==
[2022-02-19 12:02] LABS: Basophils # 0.1 10^3/uL (0.0-0.1); Basophils % 1.2 %; Eosinophils # 0.1 10^3/uL (0.0-0.8); Eosinophils % 2.2 %; Hematocrit 39.7 % (37.0-47.0); Hemoglobin 12.1 g/dL (11.5-15.3); Lymphocytes # 2.1 10^3/uL (0.8-4.8); Lymphocytes % 34.9 %; Mean Corpuscular HGB Conc 30.5 g/dL (30.0-36.0); Mean Corpuscular Hemoglobin 27.5 pg (28.0-34.0); Mean Corpuscular Volume 90.2 fl (81-99); Mean Platelet Volume 9.3 fL (7.4-10.4); Monocytes # 0.5 10^3/uL (0.2-0.9); Monocytes % 7.8 %; Neutrophils # 3.23 10^3/uL (1.8-7.7); Neutrophils % 53.7 %; Nucleated Red Blood Cells % 0 %; Platelet Count 268 10^3/cmm (130-400)
[2022-02-19 12:38] LABS: Alanine Aminotransferase 9 U/L (0-33); Albumin Level 3.5 g/dL (3.5-5.2); Alkaline Phosphatase 102 U/L (35-105); Aspartate Amino Transferase 15 U/L (0-32); Blood Urea Nitrogen 10 mg/dL (8-23); Calcium 9.2 mg/dL (8.5-10.5); Carbon Dioxide 24 mmol/L (22-29); Chloride 102 mmol/L (98-107); Globulin 3.4 g/dL (1.3-4.6); Glucose 94 mg/dL (65-115); Osmolality Calculated 279 mOsm/kg (285-295); Sodium 135 mmol/L (136-145); Total Bilirubin 0.3 mg/dL (0.15-1.2); Total Protein 6.9 g/dL (6.6-8.7)
[2022-02-19 12:59] LABS: Anion Gap 13.4 (5-19); Lactate Dehydrogenase 223 U/L (135-214); Potassium 4.4 mmol/L (3.5-5.1)
== END 2022-02-28 23:59 | disposition home or self-care (01) ==
PROVIDERS: PCP Family Medicine; Visit Provider Internal Medicine Medical Oncology
DX: D46.C 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 (principal); Z79.899 Other long term (current) drug therapy
CPT/HCPCS: 36415; 80053; 83615; 85025; 99214

== ENCOUNTER 2022-04-20 09:27 | Outpatient (CLI) | payer MEDICARE, OTHER, SELFPAY ==
--- NOTE | 2022-04-20 | CT_ITS ---
WS: [id number] LDCT LUNG CANCER SCREENING HISTORY: TOBACCO USE TECHNIQUE: Axial imaging performed from the apices to 1 cm below the costophrenic angles. Coronal and sagittal reformats are submitted with axial MIP series. All CT scans at [facility] use at least one of these dose optimization techniques: automated exposure control; mA and/or kV adjustment per patient size (includes targeted exams where dose is matched to clinical indication); or iterativ e reconstruction. DLP: 82.19 mGy.cm DIvol: Mean CTDIvol: 1.60 (mGy) COMPARISON: 10/11/2015 Diagnostic quality: Satisfactory Lung Nodules: No nodules are identified. There is mild diffuse peripheral interstitial thickening but no nodularity. No mass. No endobronchial lesions. Lungs: Moderate changes of paraseptal emphysema. Heart: Normal size heart. Coronary artery calcifications. Other findings: Moderate atherosclerosis aorta. Small mediastinal and hilar lymph nodes. CT/CT lung screening [id number] IMPRESSION: LUNG-RADS: 1-Negative FOLLOW UP: 12 Month: Continue annual screening with LDCT OTHER FINDINGS (S MODIFIER): None.
== END 2022-04-20 09:28 | disposition home or self-care (01) ==
LOC: RAD 09:29
PROVIDERS: PCP Family Medicine; Visit Provider Family Medicine
DX: Z12.2 Encounter for screening for malignant neoplasm of respiratory organs (principal); F17.210 Nicotine dependence, cigarettes, uncomplicated
CPT/HCPCS: 71271

== ENCOUNTER 2022-05-30 11:18 | Oncology outpatient (recurring) (ONCR) | payer MEDICARE, OTHER, SELFPAY ==
[2022-05-30 11:48] LABS: Basophils # 0.1 10^3/uL (0.0-0.1); Basophils % 1.3 %; Eosinophils # 0.2 10^3/uL (0.0-0.8); Eosinophils % 2.2 %; Hematocrit 39.7 % (37.0-47.0); Hemoglobin 12.7 g/dL (11.5-15.3); Lymphocytes # 2.5 10^3/uL (0.8-4.8); Lymphocytes % 36.4 %; Mean Corpuscular Hemoglobin 28.2 pg (28.0-34.0); Mean Platelet Volume 8.9 fL (7.4-10.4); Monocytes # 0.6 10^3/uL (0.2-0.9); Neutrophils # 3.45 10^3/uL (1.8-7.7); Neutrophils % 50.8 %; Nucleated Red Blood Cells % 0 %; Platelet Count 279 10^3/cmm (130-400); Red Blood Count 4.51 10^6/uL (4.1-5.3); Red Cell Distribution Width 19.7 % (12.1-15.1); White Blood Count 6.8 10^3/uL (4.0-10.0)
[2022-05-30 12:05] LABS: Alanine Aminotransferase < 5 U/L (0-33); Albumin Level 3.7 g/dL (3.5-5.2); Alkaline Phosphatase 101 U/L (35-105); Anion Gap 11.6 (5-19); Aspartate Amino Transferase 12 U/L (0-32); Blood Urea Nitrogen 13 mg/dL (8-23); Calcium 9.7 mg/dL (8.5-10.5); Carbon Dioxide 27 mmol/L (22-29); Chloride 103 mmol/L (98-107); Globulin 3.6 g/dL (1.3-4.6); Glucose 80 mg/dL (65-115); Osmolality Calculated 285 mOsm/kg (285-295); Potassium 3.6 mmol/L (3.5-5.1); Sodium 138 mmol/L (136-145); Total Bilirubin 0.3 mg/dL (0.15-1.2); Total Protein 7.3 g/dL (6.6-8.7)
== END 2022-05-30 23:59 | disposition home or self-care (01) ==
PROVIDERS: PCP Family Medicine; Visit Provider Internal Medicine Medical Oncology
DX: D46.C 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 (principal); Z79.82 Long term (current) use of aspirin; Z79.52 Long term (current) use of systemic steroids; L29.9 Pruritus, unspecified; Z79.899 Other long term (current) drug therapy
CPT/HCPCS: 36415; 80053; 85025; 99214

== ENCOUNTER 2022-08-27 10:51 | Oncology outpatient (recurring) (ONCR) | payer MEDICARE, OTHER, SELFPAY ==
[2022-08-27 11:51] LABS: Basophils # 0.1 10^3/uL (0.0-0.1); Eosinophils # 0.2 10^3/uL (0.0-0.8); Eosinophils % 2.7 %; Hematocrit 40.9 % (37.0-47.0); Hemoglobin 13.2 g/dL (11.5-15.3); Lymphocytes # 2.4 10^3/uL (0.8-4.8); Lymphocytes % 29.1 %; Mean Corpuscular HGB Conc 32.3 g/dL (30.0-36.0); Mean Corpuscular Hemoglobin 29.3 pg (28.0-34.0); Mean Corpuscular Volume 90.7 fl (81-99); Mean Platelet Volume 9.4 fL (7.4-10.4); Monocytes # 1.1 10^3/uL (0.2-0.9); Monocytes % 13.2 %; Neutrophils # 4.46 10^3/uL (1.8-7.7); Neutrophils % 53.8 %; Nucleated Red Blood Cells % 0 %; Platelet Count 190 10^3/cmm (130-400); Red Blood Count 4.51 10^6/uL (4.1-5.3); Red Cell Distribution Width 19.3 % (12.1-15.1); White Blood Count 8.3 10^3/uL (4.0-10.0)
[2022-08-27 12:00] LABS: Alanine Aminotransferase 7 U/L (0-33); Albumin Level 3.7 g/dL (3.5-5.2); Alkaline Phosphatase 93 U/L (35-105); Anion Gap 15.7 (5-19); Aspartate Amino Transferase 14 U/L (0-32); Blood Urea Nitrogen 14 mg/dL (8-23); Calcium 9.3 mg/dL (8.5-10.5); Carbon Dioxide 24 mmol/L (22-29); Chloride 101 mmol/L (98-107); Globulin 3.5 g/dL (1.3-4.6); Glucose 76 mg/dL (65-115); Lactate Dehydrogenase 230 U/L (135-214); Osmolality Calculated 283 mOsm/kg (285-295); Potassium 3.7 mmol/L (3.5-5.1); Sodium 137 mmol/L (136-145); Total Bilirubin 0.3 mg/dL (0.15-1.2); Total Protein 7.2 g/dL (6.6-8.7)
== END 2022-08-28 23:59 | disposition home or self-care (01) ==
PROVIDERS: PCP Family Medicine; Visit Provider Internal Medicine Medical Oncology
DX: D46.C 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 (principal); Z79.899 Other long term (current) drug therapy; Z79.82 Long term (current) use of aspirin
CPT/HCPCS: 36415; 80053; 83615; 85025; 99214

== ENCOUNTER 2022-11-28 10:36 | Oncology outpatient (recurring) (ONCR) | payer MEDICARE, OTHER, SELFPAY ==
[2022-11-28 10:48] VITALS: BP 119/63; PULSE 65; RESP 18; TEMP 36.3; O2SAT 97
[2022-11-28 10:58] LABS: Basophils # 0.1 10^3/uL (0.0-0.1); Basophils % 1.3 %; Eosinophils # 0.1 10^3/uL (0.0-0.8); Eosinophils % 2.6 %; Hematocrit 40.3 % (37.0-47.0); Lymphocytes # 1.8 10^3/uL (0.8-4.8); Lymphocytes % 40.2 %; Mean Corpuscular HGB Conc 32.3 g/dL (30.0-36.0); Mean Corpuscular Hemoglobin 29.9 pg (28.0-34.0); Mean Corpuscular Volume 92.6 fl (81-99); Monocytes # 0.4 10^3/uL (0.2-0.9); Monocytes % 8.6 %; Neutrophils # 2.12 10^3/uL (1.8-7.7); Neutrophils % 46.9 %; Nucleated Red Blood Cells % 0 %; Platelet Count 155 10^3/cmm (130-400); Red Blood Count 4.35 10^6/uL (4.1-5.3); White Blood Count 4.5 10^3/uL (4.0-10.0)
[2022-11-28 11:23] LABS: Alanine Aminotransferase 7 U/L (0-33); Albumin Level 3.7 g/dL (3.5-5.2); Alkaline Phosphatase 88 U/L (35-105); Anion Gap 12.7 (5-19); Aspartate Amino Transferase 12 U/L (0-32); Blood Urea Nitrogen 10 mg/dL (8-23); Calcium 8.9 mg/dL (8.5-10.5); Carbon Dioxide 25 mmol/L (22-29); Chloride 104 mmol/L (98-107); Globulin 3.4 g/dL (1.3-4.6); Glucose 118 mg/dL (65-115); Lactate Dehydrogenase 207 U/L (135-214); Osmolality Calculated 286 mOsm/kg (285-295); Potassium 3.7 mmol/L (3.5-5.1); Sodium 138 mmol/L (136-145); Total Bilirubin 0.3 mg/dL (0.15-1.2); Total Protein 7.1 g/dL (6.6-8.7)
== END 2022-11-28 23:59 | disposition home or self-care (01) ==
PROVIDERS: PCP Family Medicine; Visit Provider Internal Medicine Medical Oncology
DX: D46.C 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 (principal); Z79.899 Other long term (current) drug therapy; F17.210 Nicotine dependence, cigarettes, uncomplicated; Z79.82 Long term (current) use of aspirin; L29.9 Pruritus, unspecified; Z79.52 Long term (current) use of systemic steroids
CPT/HCPCS: 36415; 80053; 83615; 85025; 99214

== ENCOUNTER → 2023-02-21 08:43 | Outpatient (BNVA) | payer MEDICARE, OTHER, SELFPAY | PROVIDERS: PCP Family Medicine; Visit Provider Podiatrist Foot & Ankle Surgery | DX: M76.821 Posterior tibial tendinitis, right leg; M19.071 Primary osteoarthritis, right ankle and foot; M77.30 Calcaneal spur, unspecified foot | CPT/HCPCS: 73630; 99204 ==

== ENCOUNTER → 2023-03-14 09:58 | Outpatient (BNVA) | payer MEDICARE, OTHER, SELFPAY | PROVIDERS: PCP Family Medicine; Visit Provider Podiatrist Foot & Ankle Surgery | DX: M19.071 Primary osteoarthritis, right ankle and foot; M77.30 Calcaneal spur, unspecified foot; M76.821 Posterior tibial tendinitis, right leg | CPT/HCPCS: 99213 ==

== ENCOUNTER 2023-04-12 09:00 | Oncology outpatient (recurring) (ONCR) | payer MEDICARE, OTHER, SELFPAY ==
[2023-04-01 10:57] VITALS: BP 155/69; PULSE 70; RESP 16; TEMP 36.1; O2SAT 90
[2023-04-01 11:10] LABS: Basophils # 0.1 10^3/uL (0.0-0.1); Basophils % 1.7 %; Eosinophils # 0.2 10^3/uL (0.0-0.8); Hematocrit 35.7 % (36-47); Lymphocytes # 1.7 10^3/uL (0.8-4.8); Lymphocytes % 35.9 %; Mean Corpuscular HGB Conc 30.5 g/dL (30-55); Mean Corpuscular Hemoglobin 28.7 pg (27-33); Mean Corpuscular Volume 93.9 fl (85-98); Mean Platelet Volume 9.6 fL (7.4-10.4); Monocytes # 0.4 10^3/uL (0.2-0.9); Monocytes % 7.6 %; Neutrophils # 2.39 10^3/uL (1.8-7.7); Neutrophils % 50.6 %; Nucleated Red Blood Cells % 0 %; Platelet Count 229 10^3/cmm (157-399); Red Cell Distribution Width 16.4 % (12.1-15.1); White Blood Count 4.73 10^3/uL (3.29-11.43)
[2023-04-01 11:35] LABS: Alanine Aminotransferase 6 U/L (0-33); Albumin Level 3.6 g/dL (3.5-5.2); Alkaline Phosphatase 97 U/L (35-105); Aspartate Amino Transferase 15 U/L (0-32); Blood Urea Nitrogen 12 mg/dL (8-23); Carbon Dioxide 25 mmol/L (22-29); Chloride 105 mmol/L (98-107); Globulin 3.2 g/dL (1.3-4.6); Glucose 117 mg/dL (65-115); Osmolality Calculated 289 mOsm/kg (285-295); Sodium 139 mmol/L (136-145); Total Bilirubin 0.3 mg/dL (0.15-1.2); Total Protein 6.8 g/dL (6.6-8.7)
[2023-04-02 09:41] LABS: Ferritin 8 ng/mL (15-150); Iron 42 ug/dL (37-145); Percent Saturation 10.3 % (20-50); Total Iron Binding Capacity 407 mcg/dl; Unsaturated Iron Binding 365 ug/dL (112-347)
[2023-04-02 09:56] LABS: Vitamin B12 331 pg/mL (232-1245)
[2023-04-05 09:00] VITALS: BP 148/67; PULSE 73; RESP 16; TEMP 36.6; O2SAT 90
[2023-04-05] MEDS: sodium chloride 0.9% 250 ML 75 ML IV (09:18)
[2023-04-05] MEDS: ferric carboxy (IVPB) 750 MG in sodium chloride 0.9% (100 ml) 100 ML 345 MG IV (09:18)
[2023-04-05 09:45] VITALS: BP 130/70; PULSE 65; RESP 16; TEMP 37.1; O2SAT 91
[2023-04-12] MEDS: ferric carboxy (IVPB) 750 MG in sodium chloride 0.9% (100 ml) 100 ML 345 MG IV (09:51)
[2023-04-12 10:46] VITALS: BP 127/64; PULSE 68; TEMP 36.8; O2SAT 93
== END 2023-04-30 23:59 | disposition home or self-care (01) ==
PROVIDERS: Nurse Practitioner Family; PCP Family Medicine; Visit Provider Internal Medicine Medical Oncology
DX: D50.9 Iron deficiency anemia, unspecified (principal)
CPT/HCPCS: 36415; 80053; 82607; 82728; 83540; 83550; 85025; 96365; 99214; J1439; J7050

== ENCOUNTER 2023-05-13 09:19 | Oncology outpatient (recurring) (ONCR) | payer MEDICARE, OTHER, SELFPAY ==
[2023-05-13 09:22] VITALS: BP 129/60; PULSE 77; RESP 16; TEMP 36.2; O2SAT 91
[2023-05-13 09:42] LABS: Basophils # 0.1 10^3/uL (0.0-0.1); Basophils % 1.8 %; Eosinophils # 0.2 10^3/uL (0.0-0.8); Eosinophils % 4.4 %; Hematocrit 40.7 % (36-47); Lymphocytes # 1.5 10^3/uL (0.8-4.8); Lymphocytes % 34.3 %; Mean Corpuscular HGB Conc 31.4 g/dL (30-55); Mean Corpuscular Hemoglobin 31.1 pg (27-33); Mean Platelet Volume 11.1 fL (7.4-10.4); Monocytes # 0.5 10^3/uL (0.2-0.9); Monocytes % 10.3 %; Neutrophils # 2.12 10^3/uL (1.8-7.7); Neutrophils % 48.7 %; Nucleated Red Blood Cells % 0 %; Platelet Count 129 10^3/cmm (157-399); Red Blood Count 4.11 10^6/uL (3.85-5.65); Red Cell Distribution Width 21.1 % (12.1-15.1); White Blood Count 4.35 10^3/uL (3.29-11.43)
[2023-05-13 10:03] LABS: Alanine Aminotransferase 10 U/L (0-33); Albumin Level 3.7 g/dL (3.5-5.2); Alkaline Phosphatase 100 U/L (35-105); Anion Gap 13.8 (5-19); Aspartate Amino Transferase 17 U/L (0-32); Blood Urea Nitrogen 11 mg/dL (8-23); Carbon Dioxide 25 mmol/L (22-29); Chloride 101 mmol/L (98-107); Ferritin 235 ng/mL (15-150); Glucose 134 mg/dL (65-115); Iron 78 ug/dL (37-145); Osmolality Calculated 283 mOsm/kg (285-295); Percent Saturation 30.8 % (20-50); Potassium 3.8 mmol/L (3.5-5.1); Sodium 136 mmol/L (136-145); Total Bilirubin 0.3 mg/dL (0.15-1.2); Total Iron Binding Capacity 253 mcg/dl; Total Protein 6.7 g/dL (6.6-8.7); Unsaturated Iron Binding 175 ug/dL (112-347)
== END 2023-05-30 23:59 | disposition home or self-care (01) ==
PROVIDERS: Internal Medicine; PCP Family Medicine; Visit Provider Internal Medicine Medical Oncology
DX: D50.9 Iron deficiency anemia, unspecified (principal); D46.C 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; D50.8 Other iron deficiency anemias; Z79.899 Other long term (current) drug therapy
CPT/HCPCS: 36415; 80053; 82728; 83540; 83550; 85025; 99215

== ENCOUNTER 2023-05-21 11:50 | Outpatient (CLI) | payer MEDICARE, OTHER, SELFPAY ==
--- NOTE | 2023-05-21 12:15 | CT_ITS ---
WS: [id number] LDCT LUNG CANCER SCREENING HISTORY: nicotine dependence TECHNIQUE: Axial imaging performed from the apices to 1 cm below the costophrenic angles. Coronal and sagittal reformats are submitted with axial MIP series. All CT scans at [facility] use at least one of these dose optimization techniques: automated exposure control; mA and/or kV adjustment per patient size (includes targeted exams where dose is matched to clinical indication); or iterativ e reconstruction. DLP: 44.69 mGy.cm DIvol: Mean CTDIvol: 0.70 (mGy) COMPARISON: 04/20/2022 Diagnostic quality: Satisfactory Lungs: Hyperinflated lungs. Bullous emphysema. No mass or nodules are identified. No endobronchial le sions. Heart: Very mild cardiomegaly. No pericardial effusion.. Other findings: Extensive calcification in the thoracic aorta extending into the great vessels. Pulmo nary artery size is also mildly prominent. IMPRESSION: CT/CT lung screening [id number] LUNG-RADS: 1-Negative FOLLOW UP: 12 Month: Continue annual screening with LDCT OTHER FINDINGS (S MODIFIER): None.
== END 2023-05-21 11:51 | disposition home or self-care (01) ==
LOC: RAD 11:50
PROVIDERS: PCP Family Medicine; Visit Provider Internal Medicine
DX: Z12.2 Encounter for screening for malignant neoplasm of respiratory organs (principal); F17.219 Nicotine dependence, cigarettes, with unspecified nicotine-induced disorders
CPT/HCPCS: 71271

== ENCOUNTER 2023-06-17 13:08 | Oncology outpatient (recurring) (ONCR) | payer MEDICARE, OTHER, SELFPAY ==
[2023-06-17 13:20] VITALS: BP 120/70; PULSE 74; RESP 16; TEMP 36.4; O2SAT 94
[2023-06-17 13:33] LABS: Basophils # 0.1 10^3/uL (0.0-0.1); Basophils % 1.8 %; Eosinophils # 0.1 10^3/uL (0.0-0.8); Eosinophils % 1.6 %; Hematocrit 39.6 % (36-47); Lymphocytes # 2.2 10^3/uL (0.8-4.8); Lymphocytes % 48.6 %; Mean Corpuscular HGB Conc 32.8 g/dL (30-55); Mean Corpuscular Hemoglobin 32.5 pg (27-33); Mean Platelet Volume 9.9 fL (7.4-10.4); Monocytes # 0.6 10^3/uL (0.2-0.9); Monocytes % 12.4 %; Neutrophils # 1.57 10^3/uL (1.8-7.7); Neutrophils % 35.4 %; Nucleated Red Blood Cells % 0 %; Platelet Count 144 10^3/cmm (157-399); Red Cell Distribution Width 17.5 % (12.1-15.1); White Blood Count 4.44 10^3/uL (3.29-11.43)
[2023-06-17 13:50] LABS: Alanine Aminotransferase 6 U/L (0-33); Albumin Level 4.1 g/dL (3.5-5.2); Alkaline Phosphatase 90 U/L (35-105); Anion Gap 11.1 (5-19); Aspartate Amino Transferase 21 U/L (0-32); Blood Urea Nitrogen 10 mg/dL (8-23); Calcium 9.3 mg/dL (8.5-10.5); Carbon Dioxide 26 mmol/L (22-29); Chloride 101 mmol/L (98-107); Globulin 3.1 g/dL (1.3-4.6); Glucose 74 mg/dL (65-115); Osmolality Calculated 276 mOsm/kg (285-295); Potassium 4.1 mmol/L (3.5-5.1); Sodium 134 mmol/L (136-145); Total Bilirubin 0.2 mg/dL (0.15-1.2); Total Protein 7.2 g/dL (6.6-8.7)
== END 2023-06-30 23:59 | disposition home or self-care (01) ==
LOC: ONCMED 13:09
PROVIDERS: Internal Medicine; PCP Family Medicine; Visit Provider Internal Medicine Medical Oncology
DX: D50.9 Iron deficiency anemia, unspecified (principal)
CPT/HCPCS: 36415; 80053; 85025

== ENCOUNTER 2023-07-15 10:49 | Oncology outpatient (recurring) (ONCR) | payer MEDICARE, OTHER, SELFPAY ==
[2023-07-15 11:25] VITALS: BP 130/73; PULSE 67; RESP 17; TEMP 35.6; O2SAT 97
[2023-07-15 11:45] LABS: Basophils # 0.1 10^3/uL (0.0-0.1); Basophils % 1.3 %; Eosinophils # 0.1 10^3/uL (0.0-0.8); Eosinophils % 2.2 %; Hematocrit 37.7 % (36-47); Lymphocytes # 1.7 10^3/uL (0.8-4.8); Lymphocytes % 36.6 %; Mean Corpuscular HGB Conc 32.6 g/dL (30-55); Mean Corpuscular Hemoglobin 32.7 pg (27-33); Mean Corpuscular Volume 100.3 fl (85-98); Mean Platelet Volume 11.3 fL (7.4-10.4); Monocytes # 0.5 10^3/uL (0.2-0.9); Monocytes % 11.5 %; Neutrophils # 2.18 10^3/uL (1.8-7.7); Neutrophils % 48.2 %; Nucleated Red Blood Cells % 0 %; Platelet Count 174 10^3/cmm (157-399); Red Blood Count 3.76 10^6/uL (3.85-5.65); Red Cell Distribution Width 14.6 % (12.1-15.1); White Blood Count 4.53 10^3/uL (3.29-11.43)
[2023-07-15 12:00] LABS: Alanine Aminotransferase 10 U/L (0-33); Albumin Level 3.9 g/dL (3.5-5.2); Alkaline Phosphatase 109 U/L (35-105); Aspartate Amino Transferase 20 U/L (0-32); Blood Urea Nitrogen 11 mg/dL (8-23); Calcium 9.5 mg/dL (8.5-10.5); Carbon Dioxide 28 mmol/L (22-29); Chloride 101 mmol/L (98-107); Creatinine Clr Calc Pharmacy 49.9276; Globulin 3.6 g/dL (1.3-4.6); Glucose 98 mg/dL (65-115); Osmolality Calculated 285 mOsm/kg (285-295); Sodium 138 mmol/L (136-145); Total Bilirubin 0.3 mg/dL (0.15-1.2); Total Protein 7.5 g/dL (6.6-8.7)
== END 2023-07-31 23:59 | disposition home or self-care (01) ==
PROVIDERS: Internal Medicine; PCP Family Medicine; Visit Provider Internal Medicine Medical Oncology
DX: D50.9 Iron deficiency anemia, unspecified (principal); D46.C 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; D50.8 Other iron deficiency anemias; Z79.899 Other long term (current) drug therapy
CPT/HCPCS: 36415; 80053; 85025; 99214

== ENCOUNTER 2023-08-08 07:35 | Outpatient (CLI) | payer MEDICARE, OTHER, SELFPAY ==
--- NOTE | 2023-08-08 07:40 | CTR_ITS ---
PROCEDURE INFORMATION: Exam: CT Neck With Contrast Exam date and time: 08/08/2023 8:13 AM Age: 78 years old Clinical indication: Mass, lump, or swelling in neck; Prior surgery; Surgery date: 6+ months; Surgery type: Cyst from right side of neck; Patient HX: Chronic sialoadentitis, pain on left side of the neck into ear and throat x 2 months; Additional info: Chronic sialoadenitis/localized swelling, mass lump, neck TECHNIQUE: Imaging protocol: Computed tomography of the neck with contrast. Radiation optimization: All CT scans at this facility use at least one of these dose optimization techniques: automated exposure control; mA and/or kV adjustment per patient size (includes targeted exams where dose is matched to clinical indication); or iterative reconstruction. Contrast material: OMNI 350; Contrast volume: 95 ml; Contrast route: INTRAVENOUS (IV); COMPARISON: CT lung screening [id number] 05/21/2023 12:13 PM RADIATION DOSE METRICS: Total DLP (mGy-cm): 123.09 FINDINGS: Pharynx: Unremarkable. No significant tonsillar enlargement. Larynx: Unremarkable. Epiglottis is normal. Prevertebral and retropharyngeal spaces: Unremarkable. Salivary glands: Normal. Glands are normal in size. Thyroid: Normal. No enlarged or calcified nodules. Lymph nodes: Unremarkable. No lymphadenopathy. Trachea: Visualized trachea is unremarkable. Lungs: Unremarkable as visualized. Bones/joints: Unremarkable. No acute fracture. Soft tissues: Unremarkable. No significant soft tissue swelling. CT/CT neck w con* [id number] IMPRESSION: No acute findings.
[2023-08-08] MEDS: iohexol 350 mg/mL 500 mL Btl (per mL) IV (08:24)
== END 2023-08-08 07:36 | disposition home or self-care (01) ==
PROVIDERS: PCP Family Medicine; Visit Provider Otolaryngology
DX: K11.23 Chronic sialoadenitis (principal); J30.0 Vasomotor rhinitis; R22.1 Localized swelling, mass and lump, neck
CPT/HCPCS: 70491; Q9967

== ENCOUNTER 2023-09-19 10:20 | Oncology outpatient (recurring) (ONCR) | payer MEDICARE, OTHER, SELFPAY ==
[2023-09-19 10:47] LABS: Basophils # 0.1 10^3/uL (0.0-0.1); Basophils % 2.1 %; Eosinophils # 0.2 10^3/uL (0.0-0.8); Eosinophils % 4.5 %; Hematocrit 37.6 % (36-47); Lymphocytes # 1.3 10^3/uL (0.8-4.8); Lymphocytes % 31.5 %; Mean Corpuscular HGB Conc 31.1 g/dL (30-55); Mean Corpuscular Volume 102.7 fl (85-98); Mean Platelet Volume 11.6 fL (7.4-10.4); Monocytes # 0.4 10^3/uL (0.2-0.9); Monocytes % 9.1 %; Neutrophils # 2.19 10^3/uL (1.8-7.7); Neutrophils % 52.3 %; Nucleated Red Blood Cells % 0 %; Platelet Count 159 10^3/cmm (157-399); Red Blood Count 3.66 10^6/uL (3.85-5.65); Red Cell Distribution Width 14.5 % (12.1-15.1); White Blood Count 4.19 10^3/uL (3.29-11.43)
[2023-09-19 11:02] LABS: Alanine Aminotransferase 8 U/L (0-33); Albumin Level 3.8 g/dL (3.5-5.2); Alkaline Phosphatase 93 U/L (35-105); Anion Gap 13.8 (5-19); Aspartate Amino Transferase 14 U/L (0-32); Blood Urea Nitrogen 18 mg/dL (8-23); Carbon Dioxide 25 mmol/L (22-29); Chloride 103 mmol/L (98-107); Globulin 3.2 g/dL (1.3-4.6); Glucose 131 mg/dL (65-115); Osmolality Calculated 290 mOsm/kg (285-295); Potassium 3.8 mmol/L (3.5-5.1); Sodium 138 mmol/L (136-145); Total Bilirubin 0.3 mg/dL (0.15-1.2)
[2023-09-19 11:24] LABS: Folate Level 10.8 ng/mL (4.8-37.3)
== END 2023-09-29 23:59 | disposition home or self-care (01) ==
PROVIDERS: Nurse Practitioner Family; PCP Family Medicine; Visit Provider Internal Medicine Medical Oncology
DX: D50.9 Iron deficiency anemia, unspecified (principal); D46.C 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; D50.8 Other iron deficiency anemias; Z79.899 Other long term (current) drug therapy
CPT/HCPCS: 36415; 80053; 82746; 85025; 99214

== ENCOUNTER → 2023-11-26 15:24 | Outpatient (BNVA) | payer MEDICARE, OTHER, SELFPAY | PROVIDERS: PCP Family Medicine; Visit Provider Podiatrist Foot & Ankle Surgery | DX: M76.821 Posterior tibial tendinitis, right leg; M19.071 Primary osteoarthritis, right ankle and foot; M77.31 Calcaneal spur, right foot | CPT/HCPCS: 73630; 99213 ==

== ENCOUNTER 2023-12-10 14:32 | Emergency (ER) | payer MEDICARE, OTHER, SELFPAY ==
[2023-12-10] VITALS (7 sets, daily range): BP systolic 103–142; BP diastolic 53–58; PULSE 70–76; RESP 15–21; TEMP 36.6; O2SAT 92–96
--- NOTE | 2023-12-10 14:40 | ECG_ITS ---
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 Measurements Intervals [place] Rate: 76 P: 76 MN: 149 QRS: -11 QRSD: 93 T: 81 QT: 365 QTc: 411 Interpretive Statements SINUS RHYTHM POSSIBLE LEFT ATRIAL ENLARGEMENT [-0.1mV P-WAVE IN V1/V2] NONSPECIFIC ST & T-WAVE ABNORMALITY Compared to ECG 12/19/2020 17:16:29 T-wave abnormality now present Electronically Signed On 12-10-2023 17:19:05 CDT by Rodney Jiang M.D. [id number] f
--- NOTE | 2023-12-10 14:55 | XRR_ITS ---
PROCEDURE INFORMATION: Exam: XR Chest Exam date and time: 12/10/2023 2:58 PM Age: 78 years old Clinical indication: Cough and dyspnea; Additional info: Dyspnea/cough TECHNIQUE: Imaging protocol: Radiologic exam of the chest. Views: 1 view. COMPARISON: CT lung screening [id number] 05/21/2023 12:13 PM FINDINGS: Lungs: Unremarkable. No consolidation. Pleural spaces: Unremarkable. No pleural effusion. No pneumothorax. Heart/Mediastinum: Unremarkable. No cardiomegaly. Bones/joints: Unremarkable. XR/XR chest 1V portable [id number] IMPRESSION: No acute findings.
--- NOTE | 2023-12-10 15:13 | ED_ITS ---
HPI - Syncope 2 General: Chief Complaint: Syncope Stated Complaint: Blacking out--Dr. Chand sent over. Time Seen by Provider: 12/10/23 14:54 Source: patient Mode of arrival: ambulatory History of Present Illness: 78-year-old female presents emergency ro om with complaints of lightheaded and dizziness near syncopal episodes. She has a history of mild dysplasia she was on some oral chemotherapy agents its were stopped yesterday. She had a couple episodes while she was up not doing anything exertional such as being in the kitchen she got lightheaded dizzy felt like she was getting only passed out and had to sit. She denies any abdominal pain denies any cough or shortness of breath or chest pain. He never did fall. MD complaint: felt faint and almost passed out Onset (ago): day(s) Prodromal symptoms: lightheaded Context: standing up Associated symptoms: Deny abdominal pain, chest pain, fever(s), headache(s), lightheadedness, nausea, short of breath, vertigo or weakness Treatments prior to arrival: none Review of Systems 2 Const: Denies: fever(s) or chills Card: Reports: pre-syncope; Denies: chest pain, palpitations, irregular heart rhythm or lightheadedness Resp: Denies: dyspnea GI: Denies: abdominal pain, nausea, vomiting or diarrhea : Denies: dysuria, urinary frequency or urinary urgency Musc: Denies: neck pain or back pain Skin/Breast: Denies: rash Neuro: Denies: headache(s) or vertigo PFSH ED 2 PFSH: Medical History Myelodysplastic syndrome Hypothyroidism GERD (gastroesophageal reflux disease) History of iron deficiency Chronic low back pain DDD (degenerative disc disease) Osteoarthritis involving multiple joints on both sides of body Hypertension Hypercholesterolemia Surgical History History of superficial parotidectomy (2005) 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) Status post right breast lumpectomy History of colonoscopy Status post total knee replacement, left (2008) Family History Brother Cancer Throat Sister Cancer 2 sisters with lung cancer, 1 sister with colon cancer Other Lung disease Denies family history of Diabetes CAD (coronary artery disease) Clotting disorder Dementia Hyperlipidemia Psychiatric illness Chronic kidney disease (CKD) Suicide Anesthesia complication Bleeding disorder Hypertension Stroke Social History Smoking and tobacco/nicotine status: former use of tobacco/nicotine Quit status (tobacco/nicotine): has quit using Year quit tobacco: 2022 Former quit date comment: tobacco use 45-50 years Alcohol intake: never Substance/Drug Use: never Physical Exam 2 Const: COMMON NORMALS: no acute distress GENERAL APPEARANCE: cooperative and comfortable ORIENTATION/CONSCIOUSNESS: Yes awake, Yes oriented to person, Yes oriented to place and Yes oriented to time HENMT: COMMON NORMALS: normocephalic, atraumatic and hearing grossly normal bilaterally HEAD & SCALP: normocephalic and atraumatic Resp: COMMON NORMALS: normal respiratory effort, No retractions, No use of accessory muscles and clear to auscultation bilaterally AUSCULTATION: clear to auscultation bilaterally Cardio: COMMON NORMALS: regular rate, regular rhythm and No murmurs present (Cardio) RATE: regular rate RHYTHM: regular rhythm GI: COMMON NORMALS: Soft to palpation and No hepatosplenomegaly present A USCULTATION: Yes normoactive bowel sounds PALPATION: Yes Soft to palpation, No Tenderness to palpation present (GI), No Guarding due to palpation present (GI) and Yes No hepatosplenomegaly present Extremity: COMMON NORMALS: normal to inspection, capillary refill normal, no clubbing, cyanosis or edema, no calf tenderness and no pedal edema Neuro: SENSORIUM/ORIENTATION: Yes oriented to person, Yes oriented to place and Yes oriented to time Skin: COMMON NORMALS: no rashes or lesions noted GENERAL SKIN EXAM: no rashes or lesions noted Course 2 Vital Signs: Vital signs: Vital Signs Temperature 97.9 F 12/10/23 14:44 Pulse Rate 73 12/10/23 17:35 Respiratory Rate 18 12/10/23 17:35 Blood Pressure 133/57 12/10/23 18:05 Pulse Oximetry 93 12/10/23 18:05 MDM - Syncope Medical Decision Making Patient is mildly anemic recently hemoglobin decreased, stabilized now. Suspect this is due to her myelodysplasia. She has not had any hematemesis coffee- ground emesis no melena or hematochezia. Labs reviewed. Orthostatics unremarkable she is feeling better. Patient ambulated without difficulty. Will discharge patient home to continue to hold on the Remlivid. Set up outpatient echocardiogram and follow-up with Dr. Chand. Medical Records I reviewed the patient's medical records. Lab Data I reviewed the patient's lab results. 12/10/23 15:20 12/10/23 15:20 Radiology Impressions Chest X-Ray 12/10/23 14:55 IMPRESSION: No acute findings. Laboratory Results WBC 7.00 10^3/uL (3.29-11.43) 12/10/23 15:20 RBC 3.34 10^6/uL (3.85-5.65) L 12/10/23 15:20 Hgb 9.20 g/dL (11.27-16.99) L 12/10/23 15:20 Hct 31.2 % (36-47) L 12/10/23 15:20 MCV 93.4 fl (85-98) 12/10/23 15:20 MCH 27.5 pg (27-33) 12/10/23 15:20 MCHC 29.5 g/dL (30-55) L 12/10/23 15:20 RDW 17.2 % (12.1-15.1) H 12/10/23 15:20 Plt Count 436 10^3/cmm (157-399) H 12/10/23 15:20 MPV 10.5 fL (7.4-10.4) H 12/10/23 15:20 Neut % (Auto) 69.9 % 12/10/23 15:20 Lymph % (Auto) 15.6 % 12/10/23 15:20 [place] % (Auto) 10.9 % 12/10/23 15:20 Eos % (Auto) 1.3 % 12/10/23 15:20 Baso % (Auto) 1.6 % 12/10/23 15:20 Neut # (Auto) 4.90 10^3/uL (1.8-7.7) 12/10/23 15:20 Lymph # (Auto) 1.1 10^3/uL (0.8-4.8) 12/10/23 15:20 [place] # (Auto) 0.8 10^3/uL (0.2-0.9) 12/10/23 15:20 Eos # (Auto) 0.1 10^3/uL (0.0-0.8) 12/10/23 15:20 Baso # (Auto) 0.1 10^3/uL (0.0-0.1) 12/10/23 15:20 Nucleated RBC % (auto) 0 % 12/10/23 15:20 Nucleated RBCs # 0.0 /100WBC 12/10/23 15:20 PT 12.40 SECONDS (12.1-14.9) 12/10/23 15:20 INR 0.90 (0.8-1.2) 12/10/23 15:20 Sodium 135 mmol/L (136-145) L 12/10/23 15:20 Potassium 4.4 mmol/L (3.5-5.1) 12/10/23 15:20 Chloride 101 mmol/L (98-107) 12/10/23 15:20 Carbon Dioxide 23 mmol/L (22-29) 12/10/23 15:20 Anion Gap 15.4 (5-19) 12/10/23 15:20 BUN 22 mg/dL (8-23) 12/10/23 15:20 Creatinine 0.9 mg/dL (0.5-0.9) 12/10/23 15:20 GFR Calculation Not Reportable 12/10/23 15:20 Glucose 118 mg/dL (65-115) H 12/10/23 15:20 Calculated Osmolality 284 mOsm/kg (285-295) L 12/10/23 15:20 Calcium 9.1 mg/dL (8.5-10.5) 12/10/23 15:20 Total Bilirubin 0.3 mg/dL (0.15-1.2) 12/10/23 15:20 AST 9 U/L (0-32) 12/10/23 15:20 ALT 7 U/L (0-33) 12/10/23 15:20 Alkaline Phosphatase 148 U/L (35-105) H 12/10/23 15:20 Total Protein 7.5 g/dL (6.6-8.7) 12/10/23 15:20 Albumin 3.6 g/dL (3.5-5.2) 12/10/23 15:20 Globulin 3.9 g/dL (1.3-4.6) 12/10/23 15:20 Urine Color Yellow (Yellow) 12/10/23 18:08 Urine Appearance Clear (CLEAR) 12/10/23 18:08 Urine pH 6 (5-7) 12/10/23 18:08 Ur Specific [place] 1.010 (1.005-1.030) 12/10/23 18:08 Urine Protein Neg (Negative) 12/10/23 18:08 Urine Glucose (UA) Norm (Normal) 12/10/23 18:08 Urine Ketones Negative (Negative) 12/10/23 18:08 Urine Blood Neg (Negative) 12/10/23 18:08 Urine Nitrate Negative (Negative) 12/10/23 18:08 Urine Bilirubin Neg (Negative) 12/10/23 18:08 Urine Urobilinogen Norm mg/dL (Negative) 12/10/23 18:08 Ur Leukocyte Esterase Negative (Negative) 12/10/23 18:08 All radiology interpretation(s) finalized by discharge Discharge Plan Discharge Patient Disposition: Home Clinical Impression: 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, Iron deficiency anemia, Near syncope Condition: Stable Prescriptions: No Action tramadol 50 mg tablet 50 mg PO Q8H PRN (Reason: Pain) ascorbate calcium (vitamin C) 500 mg tablet 500 mg PO DAILY atorvastatin 20 mg tablet 20 mg PO DAILY levothyroxine 112 mcg capsule 100 mcg PO DAILY diclofenac sodium [Voltaren Arthritis Pain] 1 % gel 4 g topical QID Rx Instructions: apply to single knee, ankle, foot; for foot includes sole/toes/top of foot (DME) foot care products Pad See Rx Instructions .Route Patient Comments: insoles for both feet Rx Instructions: As directed varenicline [Chantix Starting Month Box] 0.5 mg (11)- 1 mg (42) tablets,dose pack See Rx Instructions PO PER PKG DIR Qty: 53 0RF Rx Instructions: PO PER PKG DIR varenicline [Chantix Continuing Month Box] 1 mg tablet 1 mg PO BID Qty: 60 0RF prednisone 10 mg tablet 10 mg PO omeprazole 20 mg capsule,delayed release(DR/EC) 20 mg PO lenalidomide 2.5 mg capsule 2.5 mg PO DAILY Qty: 21 0RF Rx Instructions: swallow whole with glass of water; do not open, crush, chew , break, or dissolve calcium carbonate-vitamin D3 600 mg(1,500mg) -200 unit Tablet 1 tab PO DAILY Discharge Orders: Discharge ED (Routine); Ordered 12/10/23 Ordered By: Ariel Frances Referrals: Navid Bourne MD [Primary Care Provider] - Discharge Diet: Usual diet Discharge Activity: Increase activity as tolerated Patient Instructions: Opioid Safety, Pain Management Activity Restrictions/Additional Instructions: Thank you for choosing [facility] for your healthcare needs today. It is very important that you follow up as instructed or that you return to the Emergency Department should you have concerns or if your condition changes or worsens in any way. You were seen today for lightheadedness and near syncopal episode. Your laboratory studies showed some mild anemia which has been stable it had decreased recently. You improved after the fluids. Recommend that you continue to follow-up with Dr. Chand will set you up for an outpatient echocardiogram which can also follow-up with results with Dr. Chand. Continue to hold the Revlimid until Dr. Chand sees you next and gives you further instructions. Coding Level of Care Code ED Philosophy Lecturer for Xi Kline
[2023-12-10 15:27] LABS: Basophils # 0.1 10^3/uL (0.0-0.1); Basophils % 1.6 %; Eosinophils # 0.1 10^3/uL (0.0-0.8); Eosinophils % 1.3 %; Hematocrit 31.2 % (36-47); Lymphocytes # 1.1 10^3/uL (0.8-4.8); Lymphocytes % 15.6 %; Mean Corpuscular HGB Conc 29.5 g/dL (30-55); Mean Corpuscular Hemoglobin 27.5 pg (27-33); Mean Corpuscular Volume 93.4 fl (85-98); Mean Platelet Volume 10.5 fL (7.4-10.4); Monocytes # 0.8 10^3/uL (0.2-0.9); Monocytes % 10.9 %; Neutrophils % 69.9 %; Nucleated Red Blood Cells % 0 %; Platelet Count 436 10^3/cmm (157-399); Red Blood Count 3.34 10^6/uL (3.85-5.65); Red Cell Distribution Width 17.2 % (12.1-15.1)
[2023-12-10] MEDS: sodium chloride 0.9% 1,000 ML 999 ML IV (15:37)
[2023-12-10 16:00] LABS: Alanine Aminotransferase 7 U/L (0-33); Albumin Level 3.6 g/dL (3.5-5.2); Alkaline Phosphatase 148 U/L (35-105); Anion Gap 15.4 (5-19); Aspartate Amino Transferase 9 U/L (0-32); Blood Urea Nitrogen 22 mg/dL (8-23); Calcium 9.1 mg/dL (8.5-10.5); Carbon Dioxide 23 mmol/L (22-29); Chloride 101 mmol/L (98-107); Creatinine Clr Calc Pharmacy 44.6921; Globulin 3.9 g/dL (1.3-4.6); Glucose 118 mg/dL (65-115); Osmolality Calculated 284 mOsm/kg (285-295); Potassium 4.4 mmol/L (3.5-5.1); Sodium 135 mmol/L (136-145); Total Bilirubin 0.3 mg/dL (0.15-1.2); Total Protein 7.5 g/dL (6.6-8.7)
[2023-12-10 18:30] LABS: Add Urine Microscopic? NO; Charge for UA Resulting for Rev
[2023-12-10 18:43] LABS: Bilirubin Urine Neg (Negative); Blood Urine Neg (Negative); Glucose Urine UA Norm (Normal); Ketones Urine Negative (Negative); Leukocyte Esterase Urine Negative (Negative); Nitrate Urine Negative (Negative); Protein Urine Neg (Negative); Urine Appearance Clear (CLEAR); Urine Color Yellow (Yellow); Urobilinogen Urine Norm (Negative); pH Urine 6 (5-7)
== END 2023-12-10 18:36 | disposition home or self-care (01) ==
PROVIDERS: Emergency Medicine; Emergency Provider Family Medicine; PCP Family Medicine
DX: R55 Syncope and collapse (principal); D46.C 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; D63.0 Anemia in neoplastic disease; D50.9 Iron deficiency anemia, unspecified; I10 Essential (primary) hypertension; E78.00 Pure hypercholesterolemia, unspecified; E03.9 Hypothyroidism, unspecified; Z79.899 Other long term (current) drug therapy; Z87.891 Personal history of nicotine dependence
CPT/HCPCS: 71045; 80053; 81003; 85025; 85610; 93005; 99285; J7030

== ENCOUNTER 2023-12-24 08:00 | Oncology outpatient (recurring) (ONCR) | payer MEDICARE, OTHER, SELFPAY ==
[2023-12-09 12:55] LABS: Basophils # 0.2 10^3/uL (0.0-0.1); Basophils % 1.6 %; Eosinophils # 0.1 10^3/uL (0.0-0.8); Eosinophils % 1.5 %; Hematocrit 30.5 % (36-47); Lymphocytes # 2.2 10^3/uL (0.8-4.8); Mean Corpuscular HGB Conc 29.5 g/dL (30-55); Mean Corpuscular Hemoglobin 27.9 pg (27-33); Mean Corpuscular Volume 94.4 fl (85-98); Mean Platelet Volume 11.3 fL (7.4-10.4); Monocytes # 1.2 10^3/uL (0.2-0.9); Monocytes % 13.4 %; Neutrophils # 5.47 10^3/uL (1.8-7.7); Nucleated Red Blood Cells % 0.4 %; Platelet Count 409 10^3/cmm (157-399); Red Blood Count 3.23 10^6/uL (3.85-5.65); Red Cell Distribution Width 17.4 % (12.1-15.1); White Blood Count 9.28 10^3/uL (3.29-11.43)
[2023-12-09 13:03] LABS: Erythrocyte Sedimentation Rate 44 mm/hr (0-15)
[2023-12-09 13:16] LABS: Alanine Aminotransferase < 5 U/L (0-33); Albumin Level 3.7 g/dL (3.5-5.2); Alkaline Phosphatase 146 U/L (35-105); Aspartate Amino Transferase 13 U/L (0-32); Blood Urea Nitrogen 28 mg/dL (8-23); Calcium 9.3 mg/dL (8.5-10.5); Carbon Dioxide 21 mmol/L (22-29); Chloride 99 mmol/L (98-107); Globulin 3.9 g/dL (1.3-4.6); Glucose 97 mg/dL (65-115); Osmolality Calculated 281 mOsm/kg (285-295); Sodium 133 mmol/L (136-145); Total Bilirubin 0.2 mg/dL (0.15-1.2); Total Protein 7.6 g/dL (6.6-8.7)
[2023-12-09 17:20] LABS: Iron 20 ug/dL (37-145); Percent Saturation 4.3 % (20-50); Total Iron Binding Capacity 455 mcg/dl; Unsaturated Iron Binding 435 ug/dL (112-347)
[2023-12-09 17:35] LABS: Vitamin B12 354 pg/mL (232-1245)
[2023-12-12 15:01] VITALS: BP 120/59; PULSE 58; RESP 17; TEMP 36.6; O2SAT 98
[2023-12-12] MEDS: sodium chloride 0.9% 250 ML 150 ML IV (15:04)
[2023-12-12] MEDS: ferric carboxy (IVPB) 750 MG in sodium chloride 0.9% (100 ml) 100 ML 345 MG IV (15:05)
[2023-12-12 15:41] VITALS: BP 127/67; PULSE 68; RESP 18; TEMP 36.6; O2SAT 98
[2023-12-19 13:10] LABS: Basophils # 0.1 10^3/uL (0.0-0.1); Basophils % 1.3 %; Eosinophils # 0.1 10^3/uL (0.0-0.8); Eosinophils % 1.8 %; Hematocrit 30.5 % (36-47); Lymphocytes # 1.5 10^3/uL (0.8-4.8); Lymphocytes % 25.2 %; Mean Corpuscular HGB Conc 29.2 g/dL (30-55); Mean Corpuscular Hemoglobin 27.6 pg (27-33); Mean Corpuscular Volume 94.7 fl (85-98); Mean Platelet Volume 11.1 fL (7.4-10.4); Monocytes # 0.5 10^3/uL (0.2-0.9); Monocytes % 8.9 %; Neutrophils # 3.79 10^3/uL (1.8-7.7); Neutrophils % 62.5 %; Nucleated Red Blood Cells % 0 %; Platelet Count 251 10^3/cmm (157-399); Red Blood Count 3.22 10^6/uL (3.85-5.65); White Blood Count 6.07 10^3/uL (3.29-11.43)
[2023-12-24 08:02] VITALS: BP 154/67; PULSE 86; RESP 16; TEMP 36.4; O2SAT 96
[2023-12-24] MEDS: ferric carboxy (IVPB) 750 MG in sodium chloride 0.9% (100 ml) 100 ML 345 MG IV (08:44)
[2023-12-24 09:18] VITALS: BP 134/66; PULSE 71; RESP 16; TEMP 36.4; O2SAT 93
== END 2023-12-29 23:59 | disposition home or self-care (01) ==
PROVIDERS: PCP Family Medicine; Visit Provider Internal Medicine Medical Oncology
DX: D50.9 Iron deficiency anemia, unspecified (principal); Z53.9 Procedure and treatment not carried out, unspecified reason
CPT/HCPCS: 36415; 80053; 82607; 83540; 83550; 85025; 85651; 86140; 96365; 99214; J1439; J7050

== ENCOUNTER 2024-01-10 11:02 | Emergency (ER) | payer MEDICARE, OTHER, SELFPAY ==
[2024-01-10 11:14] VITALS: BP 133/63; PULSE 93; RESP 18; TEMP 36.4; O2SAT 100; BMI 26.4
--- NOTE | 2024-01-10 12:19 | CTR_ITS ---
PROCEDURE INFORMATION: Exam: CT Abdomen And Pelvis With Contrast Exam date and time: 01/10/2024 12:42 PM Age: 78 years old Clinical indication: Abdominal pain; Generalized; Additional info: Eval gi bleed and bowel obstruction TECHNIQUE: Imaging protocol: Computed tomography of the abdomen and pelvis with contrast. Contrast material: OMNIPAQUE 350; Contrast volume: 100 ml; Contrast route: INTRAVENOUS (IV); COMPARISON: CT lung screening [id number] 05/21/2023 12:13 PM RADIATION DOSE METRICS: Total DLP (mGy-cm): 483.44 FINDINGS: Liver: Normal appearance of the liver. Gallbladder and biliary ducts: No calcified stones or ductal dilation. Pancreas: No ductal dilation. Spleen: Unremarkable. Adrenal glands: Unremarkable. Kidneys and ureters: No hydronephrosis. Simple left renal cysts, requiring no further follow-up. Few areas cortical scarring in the bilateral kidneys. Stomach and bowel: No obstruction. No mucosal thickening. Appendix: No evidence of appendicitis. Intraperitoneal space: No free air. No significant fluid collection. Vasculature: Moderate atherosclerotic calcifications. Lymph nodes: No enlarged lymph nodes. Urinary bladder: Unremarkable as visualized. Reproductive: Unremarkable as visualized. Bones/joints: Unremarkable. No acute fracture. Soft tissues: Unremarkable. CT/CT abdomen pelvis w con* [id number] IMPRESSION: No acute findings in the abdomen or pelvis. COMMENTS: Consistent with the [employer]'s Incidental Findings Committee white paper (J Am Becky Radiol 2018): Any incidental renal lesion less than 1 cm or classified as too small to characterize, or any incidental cystic renal lesion characterized as simple-appearing, is likely benign. No follow-up imaging is recommended for these lesions per consensus recommendations based on imaging criteria.
--- NOTE | 2024-01-10 12:26 | W.ED.ABDPA2 ---
HPI - Abdominal Pain General: Chief Complaint: Abdominal Pain Stated Complaint: abd pain Time Seen by Provider: 01/10/24 12:04 History of Present Illness: HPI: Patient with over a month of abdominal pain. Described as aching, epigastric in nature, occasionally accompanied with nausea without emesis. Has also been having small caliber and difficult stooling over the same timeframe. Has tried senna and MiraLAX prescribed by PCM with minimal relief. Last colonoscopy over 8 years ago with normal findings. No previous abdominal surgical history. Has been treated for iron deficiency anemia recently as well. ROS: 10 systems reviewed and otherwise unremarkable except for those noted in HPI. Physical Exam: Triage vital signs reviewed General: No acute distress, cooperative and comfortable HEENT: Normocephalic, atraumatic, external ears normal, moist mucous membranes, PERRLA. Chest: Normal inspection, equal rise and fall, no edema Respiratory: Normal respiratory effort, no atypical respiratory sounds GI: Minimal epigastric tenderness palpation, negative Castellanos sign, no lower abdominal tenderness, no overlying skin changes or bruising. Extremities: Moving all 4 extremities easily, no deformities Neuro: No meningeal signs, motor function in the room without abnormalities, sensation intact Skin: No rashes, bruising, warm, dry Procedures: N/A MDM: Considered diagnoses include intra-abdominal surgical or infectious emergency, gastric ulcer, duodenal ulcer, pancreatitis, constipation, bowel obstruction, malignancy. Vital signs nonactionable. Based on history, exam, and any results with persistent epigastric pain and tenderness on examination. Will pursue CT for possible malignancy versus bleeding GI ulcer. Provided Maalox meantime for symptomatic relief. CT and labs nonemergent findings. Advised continued MiraLAX 3 times daily and placed referral for gastroenterology follow-up. Patient educated about reasons to return to the emergency department including signs of ongoing or changing condition. Advised to make an appointment with primary care or to establish care with a primary care provider to review all results from this encounter. This note was written with assistance of dictation software. Contact author for any clarification of typos. 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) Status post right breast lumpectomy History of colonoscopy Status post total knee replacement, left (2008) Family History Brother Cancer Throat Sister Cancer 2 sisters with lung cancer, 1 sister with colon cancer Other Lung disease Denies family history of Diabetes CAD (coronary artery disease) Clotting disorder Dementia Hyperlipidemia Psychiatric illness Chronic kidney disease (CKD) Suicide Anesthesia complication Bleeding disorder Hypertension Stroke Social History Smoking and tobacco/nicotine status: former use of tobacco/nicotine Quit status (tobacco/nicotine): has quit using Year quit tobacco: 2022 Former quit date comment: tobacco use 45-50 years Alcohol intake: never Substance/Drug Use: never Course Vital Signs: Vital signs: Vital Signs Temperature 97.5 F L 01/10/24 11:14 Pulse Rate 91 01/10/24 13:55 Respiratory Rate 16 01/10/24 13:55 Blood Pressure 132/71 01/10/24 13:55 Pulse Oximetry 96 01/10/24 13:55 Oxygen Delivery Me thod Room Air 01/10/24 13:55 MDM - Abdominal Pain Medical Decision Making see [facility] Lab Data 01/10/24 12:24 01/10/24 12:24 Labs/Radiology: Radiology Impressions Abdomen/Pelvis CT 01/10/24 12:19 IMPRESSION: No acute findings in the abdomen or pelvis. COMMENTS: Consistent with the [employer]'s Incidental Findings Committee white paper (J Am Becky Radiol 2018): Any incidental renal lesion less than 1 cm or classified as too small to characterize, or any incidental cystic renal lesion characterized as simple-appearing, is likely benign. No follow-up imaging is recommended for these lesions per consensus recommendations based on imaging criteria. Laboratory Results WBC 7.39 10^3/uL (3.29-11.43) 01/10/24 12:24 RBC 3.21 10^6/uL (3.85-5.65) L 01/10/24 12:24 Hgb 10.00 g/dL (11.27-16.99) L 01/10/24 12:24 Hct 32.6 % (36-47) L 01/10/24 12:24 MCV 101.6 fl (85-98) H 01/10/24 12:24 MCH 31.2 pg (27-33) 01/10/24 12:24 MCHC 30.7 g/dL (30-55) 01/10/24 12:24 RDW 26.3 % (12.1-15.1) H 01/10/24 12:24 Plt Count 273 10^3/cmm (157-399) 01/10/24 12:24 MPV 11.3 fL (7.4-10.4) H 01/10/24 12:24 Neut % (Auto) 66.5 % 01/10/24 12: Lymph % (Auto) 18.8 % 01/10/24 12:24 [place] % (Auto) 12.7 % 01/10/24 12:24 Eos % (Auto) 0.8 % 01/10/24 12: Baso % (Auto) 0.5 % 01/10/24 12:24 Neut # (Auto) 4.91 10^3/uL (1.8-7.7) 01/10/24 12: Lymph # (Auto) 1.4 10^3/uL (0.8-4.8) 01/10/24 12:24 [place] # (Auto) 0.9 10^3/uL (0.2-0.9) 01/10/24 12:24 Eos # (Auto) 0.1 10^3/uL (0.0-0.8) 01/10/24 12:24 Baso # (Auto) 0.0 10^3/uL (0.0-0.1) 01/10/24 12:24 Nucleated RBC % (auto) 0 % 01/10/24: Nucleated RBCs # 0.0 /100WBC 01/10/24 12:24 Sodium 133 mmol/L (136-145) L 01/10/24 12:24 Potassium 4.2 mmol/L (3.5-5.1) 01/10/24 12:24 Chloride 98 mmol/L (98-107) 01/10/24 12:24 Carbon Dioxide 24 mmol/L (22-29) 01/10/24 12:24 Anion Gap 15.2 (5-19) 01/10/24 12:24 BUN 15 mg/dL (8-23) 01/10/24 12:24 Creatinine 0.7 mg/dL (0.5-0.9) 01/10/24 12:24 GFR Calculation Not Reportable 01/10/24 12:24 Glucose 124 mg/dL (65-115) H 01/10/24 12:24 Calculated Osmolality 278 mOsm/kg (285-295) L 01/10/24 12:24 Calcium 8.8 mg/dL (8.5-10.5) 01/10/24 12:24 Total Bilirubin 0.2 mg/dL (0.15-1.2) 01/10/24 12:24 AST 13 U/L (0-32) 01/10/24 12:24 ALT 16 U/L (0-33) 01/10/24 12:24 Alkaline Phosphatase 196 U/L (35-105) H 01/10/24 12:24 Total Protein 7.7 g/dL (6.6-8.7) 01/10/24 12:24 Albumin 3.6 g/dL (3.5-5.2) 01/10/24 12:24 Globulin 4.1 g/dL (1.3-4.6) 01/10/24 12:24 Lipase 13 U/L (13-60) 01/10/24 12:24 Urine Color Yellow (Yellow) 01/10/24 13:40 Urine Appearance Clear (CLEAR) 01/10/24 13:40 Urine pH 6.5 (5-7) 01/10/24 13:40 Ur Specific [place] 1.005 (1.005-1.030) 01/10/24 13:40 Urine Protein Neg (Negative) 01/10/24 13:40 Urine Glucose (UA) Norm (Normal) 01/10/24 13:40 Urine Ketones Negative (Negative) 01/10/24 13:40 Urine Blood Neg (Negative) 01/10/24 13:40 Urine Nitrate Negative (Negative) 01/10/24 13:40 Urine Bilirubin Neg (Negative) 01/10/24 13:40 Urine Urobilinogen Neg mg/dL (Negative) 01/10/24 13:40 Ur Leukocyte Esterase Negative (Negative) 01/10/24 13:40 All radiology interpretation(s) finalized by discharge Discharge Plan Discharge Patient Disposition: Home Clinical Impression: Abdominal pain Qualifiers: Abdominal location: upper abdomen, unspecified Qualified Code(s): R10.10 - Upper abdominal pain, unspecified Constipation Qualifiers: Constipation type: unspecified constipation type Qualified Code(s): K59.00 - Constipation, unspecified Condition: Stable Prescriptions: New Miralax 17 gram/dose powder 4 g PO DAILY Qty: 238 0RF No Action tramadol 50 mg tablet 50 mg PO Q8H PRN (Reason: Pain) ascorbate calcium (vitamin C) 500 mg tablet 500 mg PO QPM atorvastatin 20 mg tablet 20 mg PO QPM diclofenac sodium [Voltaren Arthritis Pain] 1 % gel 4 g topical QID PRN (Reason: Pain) Rx Instructions: apply to single knee, ankle, foot; for foot includes sole/toes/top of foot (DME) foot care products Pad See Rx Instructions .Route Patient Comments: insoles for both feet Rx Instructions: As directed omeprazole 20 mg capsule,delayed release(DR/EC) 20 mg PO QPM donepezil 10 mg tablet 10 mg PO QPM ondansetron HCl 4 mg tablet 0.4 mg PO Q6H PRN (Reason: Nausea And Vomiting) levothyroxine 100 mcg tablet 100 mcg PO QPM lenalidomide 2.5 mg capsule 2.5 mg PO QAM Rx Instructions: swallow whole with glass of water; do not open, crush, chew , break, or dissolve Discharge Orders: Discharge ED (Routine); Ordered 01/10/24 Ordered By: Rome Husain Referrals: Navid Bourne MD [Primary Care Provider] - Discharge Diet: Advance as tolerated Discharge Activity: Resume usual activity Patient Instructions: Abdominal Pain (ED), Opioid Safety, Pain Management Activity Restrictions/Additional Instructions: It has been a pleasure caring for you in the emergency department. Please ensure that you follow-up with your primary care physician for review of all data obtained during this encounter including any incidental findings and laboratory values. Keep in mind that if your condition changes in any way I recommend that you return to the emergency department for repeat evaluation. Take 1 scoop of MiraLAX and 1 full glass of water at breakfast lunch and dinner for constipation. Follow-up with your PCM for gastroenterology referral. Coding Level of Care Code ED Private Equity Associate for Xi Kline
[2024-01-10] MEDS: alum-mag-hydroxide-sime 30 mL UDC PO (12:29)
[2024-01-10 12:32] LABS: Basophils % 0.5 %; Eosinophils # 0.1 10^3/uL (0.0-0.8); Eosinophils % 0.8 %; Hematocrit 32.6 % (36-47); Lymphocytes # 1.4 10^3/uL (0.8-4.8); Lymphocytes % 18.8 %; Mean Corpuscular HGB Conc 30.7 g/dL (30-55); Mean Corpuscular Hemoglobin 31.2 pg (27-33); Mean Corpuscular Volume 101.6 fl (85-98); Mean Platelet Volume 11.3 fL (7.4-10.4); Monocytes # 0.9 10^3/uL (0.2-0.9); Monocytes % 12.7 %; Neutrophils # 4.91 10^3/uL (1.8-7.7); Neutrophils % 66.5 %; Nucleated Red Blood Cells % 0 %; Platelet Count 273 10^3/cmm (157-399); Red Blood Count 3.21 10^6/uL (3.85-5.65); Red Cell Distribution Width 26.3 % (12.1-15.1); White Blood Count 7.39 10^3/uL (3.29-11.43)
[2024-01-10] MEDS: iohexol 350 mg/mL 500 mL Btl (per mL) IV (12:44)
[2024-01-10 12:52] LABS: Alanine Aminotransferase 16 U/L (0-33); Albumin Level 3.6 g/dL (3.5-5.2); Alkaline Phosphatase 196 U/L (35-105); Anion Gap 15.2 (5-19); Aspartate Amino Transferase 13 U/L (0-32); Blood Urea Nitrogen 15 mg/dL (8-23); Calcium 8.8 mg/dL (8.5-10.5); Carbon Dioxide 24 mmol/L (22-29); Chloride 98 mmol/L (98-107); Creatinine Clr Calc Pharmacy 50.2786; Globulin 4.1 g/dL (1.3-4.6); Glucose 124 mg/dL (65-115); Lipase 13 U/L (13-60); Osmolality Calculated 278 mOsm/kg (285-295); Potassium 4.2 mmol/L (3.5-5.1); Sodium 133 mmol/L (136-145); Total Bilirubin 0.2 mg/dL (0.15-1.2); Total Protein 7.7 g/dL (6.6-8.7)
[2024-01-10 13:42] LABS: Add Urine Microscopic? NO; Charge for UA Resulting for Rev
[2024-01-10 13:55] VITALS: BP 132/71; PULSE 91; RESP 16; O2SAT 96
[2024-01-10 13:58] LABS: Bilirubin Urine Neg (Negative); Blood Urine Neg (Negative); Glucose Urine UA Norm (Normal); Ketones Urine Negative (Negative); Leukocyte Esterase Urine Negative (Negative); Nitrate Urine Negative (Negative); Protein Urine Neg (Negative); Specific Gravity, Urine 1.005 (1.005-1.030); Urine Appearance Clear (CLEAR); Urine Color Yellow (Yellow); Urobilinogen Urine Neg (Negative); pH Urine 6.5 (5-7)
[2024-01-10 14:45] VITALS: BP 128/73; PULSE 89; RESP 16; TEMP 36.4; O2SAT 98
== END 2024-01-10 14:46 | disposition home or self-care (01) ==
PROVIDERS: Emergency Provider General Practice; PCP Family Medicine
DX: R10.10 Upper abdominal pain, unspecified (principal); K59.00 Constipation, unspecified; Z87.891 Personal history of nicotine dependence; I10 Essential (primary) hypertension
CPT/HCPCS: 36415; 74177; 80053; 81003; 83690; 85025; 99285; Q9967

== ENCOUNTER 2024-01-20 09:15 | Oncology outpatient (recurring) (ONCR) | payer MEDICARE, OTHER, SELFPAY ==
[2023-12-30 09:30] LABS: Basophils % 0.3 %; Eosinophils # 0.1 10^3/uL (0.0-0.8); Eosinophils % 2.3 %; Hematocrit 38.3 % (36-47); Lymphocytes # 1.5 10^3/uL (0.8-4.8); Lymphocytes % 26.1 %; Mean Corpuscular HGB Conc 29.2 g/dL (30-55); Mean Corpuscular Hemoglobin 29.7 pg (27-33); Mean Corpuscular Volume 101.6 fl (85-98); Mean Platelet Volume 11.4 fL (7.4-10.4); Monocytes # 0.5 10^3/uL (0.2-0.9); Monocytes % 9.4 %; Neutrophils # 3.53 10^3/uL (1.8-7.7); Neutrophils % 61.4 %; Nucleated Red Blood Cells % 0 %; Platelet Count 235 10^3/cmm (157-399); Red Blood Count 3.77 10^6/uL (3.85-5.65); Red Cell Distribution Width 25.5 % (12.1-15.1); White Blood Count 5.75 10^3/uL (3.29-11.43)
[2024-01-07 08:54] LABS: Basophils % 0.5 %; Eosinophils # 0.1 10^3/uL (0.0-0.8); Eosinophils % 1.3 %; Hematocrit 32.5 % (36-47); Lymphocytes % 16.3 %; Mean Corpuscular HGB Conc 30.8 g/dL (30-55); Mean Corpuscular Hemoglobin 31.3 pg (27-33); Mean Corpuscular Volume 101.6 fl (85-98); Mean Platelet Volume 10.8 fL (7.4-10.4); Monocytes # 0.5 10^3/uL (0.2-0.9); Neutrophils # 4.63 10^3/uL (1.8-7.7); Neutrophils % 72.6 %; Nucleated Red Blood Cells % 0 %; Platelet Count 200 10^3/cmm (157-399); Red Cell Distribution Width 25.9 % (12.1-15.1); White Blood Count 6.37 10^3/uL (3.29-11.43)
[2024-01-13 09:20] LABS: Basophils % 0.6 %; Eosinophils # 0.1 10^3/uL (0.0-0.8); Eosinophils % 1.2 %; Hematocrit 30.3 % (36-47); Lymphocytes # 1.4 10^3/uL (0.8-4.8); Lymphocytes % 20.3 %; Mean Corpuscular Hemoglobin 31.4 pg (27-33); Mean Corpuscular Volume 101.3 fl (85-98); Mean Platelet Volume 11.4 fL (7.4-10.4); Monocytes # 0.9 10^3/uL (0.2-0.9); Neutrophils # 4.25 10^3/uL (1.8-7.7); Neutrophils % 63.3 %; Nucleated Red Blood Cells % 0 %; Platelet Count 325 10^3/cmm (157-399); Red Blood Count 2.99 10^6/uL (3.85-5.65); Red Cell Distribution Width 26.5 % (12.1-15.1); White Blood Count 6.71 10^3/uL (3.29-11.43)
[2024-01-20 09:08] LABS: Basophils % 0.8 %; Eosinophils # 0.1 10^3/uL (0.0-0.8); Eosinophils % 1.2 %; Hematocrit 29.4 % (36-47); Lymphocytes # 0.9 10^3/uL (0.8-4.8); Lymphocytes % 18.4 %; Mean Corpuscular HGB Conc 30.6 g/dL (30-55); Mean Corpuscular Hemoglobin 31.4 pg (27-33); Mean Corpuscular Volume 102.4 fl (85-98); Mean Platelet Volume 10.8 fL (7.4-10.4); Monocytes # 0.9 10^3/uL (0.2-0.9); Monocytes % 16.8 %; Neutrophils # 3.12 10^3/uL (1.8-7.7); Neutrophils % 61.6 %; Nucleated Red Blood Cells % 0 %; Platelet Count 224 10^3/cmm (157-399); Red Blood Count 2.87 10^6/uL (3.85-5.65); Red Cell Distribution Width 25.2 % (12.1-15.1); White Blood Count 5.06 10^3/uL (3.29-11.43)
== END 2024-01-29 23:59 | disposition home or self-care (01) ==
PROVIDERS: PCP Family Medicine; Visit Provider Internal Medicine Medical Oncology
DX: D46.C 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 (principal); Z53.9 Procedure and treatment not carried out, unspecified reason; D50.9 Iron deficiency anemia, unspecified
CPT/HCPCS: 36415; 85025

== ENCOUNTER 2024-01-30 07:47 | Oncology outpatient (recurring) (ONCR) | payer MEDICARE, OTHER, SELFPAY ==
[2024-01-30 08:15] LABS: Basophils # 0.1 10^3/uL (0.0-0.1); Basophils % 0.8 %; Eosinophils # 0.1 10^3/uL (0.0-0.8); Eosinophils % 1.3 %; Hematocrit 34.8 % (36-47); Lymphocytes # 1.2 10^3/uL (0.8-4.8); Lymphocytes % 16.3 %; Mean Corpuscular HGB Conc 30.7 g/dL (30-55); Mean Corpuscular Volume 107.4 fl (85-98); Mean Platelet Volume 11.3 fL (7.4-10.4); Monocytes # 0.8 10^3/uL (0.2-0.9); Neutrophils % 69.5 %; Nucleated Red Blood Cells % 0.6 %; Platelet Count 303 10^3/cmm (157-399); Red Blood Count 3.24 10^6/uL (3.85-5.65); Red Cell Distribution Width 25.2 % (12.1-15.1); White Blood Count 7.06 10^3/uL (3.29-11.43)
[2024-01-30 08:39] LABS: Alanine Aminotransferase 8 U/L (0-33); Albumin Level 3.8 g/dL (3.5-5.2); Alkaline Phosphatase 102 U/L (35-105); Anion Gap 16.7 (5-19); Aspartate Amino Transferase 9 U/L (0-32); Blood Urea Nitrogen 14 mg/dL (8-23); Calcium 9.4 mg/dL (8.5-10.5); Carbon Dioxide 23 mmol/L (22-29); Chloride 101 mmol/L (98-107); Globulin 3.4 g/dL (1.3-4.6); Glucose 120 mg/dL (65-115); Iron 61 ug/dL (37-145); Osmolality Calculated 286 mOsm/kg (285-295); Percent Saturation 20.7 % (20-50); Potassium 3.7 mmol/L (3.5-5.1); Sodium 137 mmol/L (136-145); Total Bilirubin 0.2 mg/dL (0.15-1.2); Total Iron Binding Capacity 294 mcg/dl; Total Protein 7.2 g/dL (6.6-8.7); Unsaturated Iron Binding 233 ug/dL (112-347)
== END 2024-03-05 09:08 | disposition home or self-care (01) ==
PROVIDERS: PCP Family Medicine; Visit Provider Internal Medicine Medical Oncology
DX: D46.C 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; D50.9 Iron deficiency anemia, unspecified
CPT/HCPCS: 36415; 80053; 83540; 83550; 85025; 99214

== ENCOUNTER 2024-03-06 08:32 | Oncology outpatient (recurring) (ONCR) | payer MEDICARE, OTHER, SELFPAY ==
[2024-03-06 09:40] LABS: Basophils # 0.1 10^3/uL (0.0-0.1); Eosinophils # 0.1 10^3/uL (0.0-0.8); Hematocrit 30.4 % (36-47); Lymphocytes # 1.1 10^3/uL (0.8-4.8); Lymphocytes % 21.5 %; Mean Corpuscular HGB Conc 30.9 g/dL (30-55); Mean Corpuscular Hemoglobin 33.6 pg (27-33); Mean Corpuscular Volume 108.6 fl (85-98); Mean Platelet Volume 11.5 fL (7.4-10.4); Monocytes # 0.6 10^3/uL (0.2-0.9); Neutrophils # 3.16 10^3/uL (1.8-7.7); Neutrophils % 62.3 %; Nucleated Red Blood Cells % 0 %; Platelet Count 339 10^3/cmm (157-399); Red Cell Distribution Width 17.6 % (12.1-15.1); White Blood Count 5.07 10^3/uL (3.29-11.43)
[2024-03-06 10:00] LABS: Alanine Aminotransferase 10 U/L (0-33); Albumin Level 3.6 g/dL (3.5-5.2); Alkaline Phosphatase 73 U/L (35-105); Anion Gap 15.8 (5-19); Aspartate Amino Transferase 13 U/L (0-32); Blood Urea Nitrogen 12 mg/dL (8-23); Calcium 9.5 mg/dL (8.5-10.5); Carbon Dioxide 24 mmol/L (22-29); Chloride 97 mmol/L (98-107); Globulin 3.3 g/dL (1.3-4.6); Glucose 112 mg/dL (65-115); Iron 55 ug/dL (37-145); Lactate Dehydrogenase 184 U/L (135-214); Osmolality Calculated 277 mOsm/kg (285-295); Percent Saturation 20.4 % (20-50); Potassium 3.8 mmol/L (3.5-5.1); Sodium 133 mmol/L (136-145); Total Bilirubin 0.2 mg/dL (0.15-1.2); Total Iron Binding Capacity 269 mcg/dl; Total Protein 6.9 g/dL (6.6-8.7); Unsaturated Iron Binding 214 ug/dL (112-347)
== END 2024-03-30 23:59 | disposition home or self-care (01) ==
PROVIDERS: PCP Family Medicine; Visit Provider Internal Medicine Medical Oncology
DX: D46.C 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 (principal); D50.9 Iron deficiency anemia, unspecified
CPT/HCPCS: 36415; 80053; 83540; 83550; 83615; 85025; 99214

== ENCOUNTER → 2024-03-12 10:39 | Outpatient (BNVA) | payer MEDICARE, OTHER, SELFPAY | PROVIDERS: PCP Family Medicine; Visit Provider Internal Medicine Cardiovascular Disease | DX: R55 Syncope and collapse (principal); I49.1 Atrial premature depolarization; I49.3 Ventricular premature depolarization; I47.10 Supraventricular tachycardia, unspecified | CPT/HCPCS: 93242 ==

== ENCOUNTER 2024-04-27 10:00 | Oncology outpatient (recurring) (ONCR) | payer MEDICARE, OTHER, SELFPAY ==
[2024-04-17 07:45] LABS: Basophils # 0.1 10^3/uL (0.0-0.1); Basophils % 1.3 %; Eosinophils # 0.4 10^3/uL (0.0-0.8); Eosinophils % 5.2 %; Hematocrit 29.9 % (36-47); Lymphocytes # 1.3 10^3/uL (0.8-4.8); Mean Corpuscular HGB Conc 28.8 g/dL (30-55); Mean Corpuscular Hemoglobin 31.4 pg (27-33); Mean Corpuscular Volume 109.1 fl (85-98); Mean Platelet Volume 11.8 fL (7.4-10.4); Monocytes # 0.9 10^3/uL (0.2-0.9); Monocytes % 10.3 %; Neutrophils # 5.55 10^3/uL (1.8-7.7); Neutrophils % 66.9 %; Nucleated Red Blood Cells % 0 %; Platelet Count 328 10^3/cmm (157-399); Red Blood Count 2.74 10^6/uL (3.85-5.65); Red Cell Distribution Width 18.3 % (12.1-15.1); White Blood Count 8.31 10^3/uL (3.29-11.43)
[2024-04-17 08:08] LABS: Alanine Aminotransferase 8 U/L (0-33); Albumin Level 3.7 g/dL (3.5-5.2); Alkaline Phosphatase 84 U/L (35-105); Anion Gap 14.3 (5-19); Aspartate Amino Transferase 16 U/L (0-32); Blood Urea Nitrogen 9 mg/dL (8-23); Calcium 8.8 mg/dL (8.5-10.5); Carbon Dioxide 24 mmol/L (22-29); Chloride 105 mmol/L (98-107); Globulin 3.3 g/dL (1.3-4.6); Glucose 120 mg/dL (65-115); Iron 24 ug/dL (37-145); Osmolality Calculated 290 mOsm/kg (285-295); Percent Saturation 6.6 % (20-50); Potassium 3.3 mmol/L (3.5-5.1); Sodium 140 mmol/L (136-145); Total Bilirubin 0.2 mg/dL (0.15-1.2); Total Iron Binding Capacity 361 mcg/dl; Unsaturated Iron Binding 337 ug/dL (112-347)
[2024-04-20 08:52] VITALS: BP 121/53; PULSE 86; RESP 16; TEMP 36.6; O2SAT 92
[2024-04-20] MEDS: ferric carboxy (PYXIS) 750 MG in sodium chloride 0.9% (100 ml) 100 ML 345 MG IV (09:14)
[2024-04-20 09:37] VITALS: BP 139/80; PULSE 83; RESP 16; TEMP 36.7; O2SAT 90
[2024-04-24 09:26] LABS: Anion Gap 13.8 (5-19); Blood Urea Nitrogen 12 mg/dL (8-23); Calcium 8.7 mg/dL (8.5-10.5); Carbon Dioxide 26 mmol/L (22-29); Chloride 103 mmol/L (98-107); Creatinine Clr Calc Pharmacy 48.9825; Glucose 103 mg/dL (65-115); Osmolality Calculated 288 mOsm/kg (285-295); Potassium 3.8 mmol/L (3.5-5.1); Sodium 139 mmol/L (136-145)
[2024-04-27 08:45] VITALS: BP 159/65; PULSE 94; RESP 16; TEMP 37.1; O2SAT 93
[2024-04-27] MEDS: ferric carboxy (PYXIS) 750 MG in sodium chloride 0.9% (100 ml) 100 ML 345 MG IV (08:52)
[2024-04-27 09:15] VITALS: BP 151/75; PULSE 75; RESP 16; TEMP 36.3; O2SAT 96
== END 2024-04-30 23:59 | disposition home or self-care (01) ==
PROVIDERS: Nurse Practitioner Family; PCP Family Medicine; Visit Provider Internal Medicine Hematology & Oncology
DX: Z53.9 Procedure and treatment not carried out, unspecified reason (principal); Z79.899 Other long term (current) drug therapy; D50.9 Iron deficiency anemia, unspecified
CPT/HCPCS: 36415; 80048; 80053; 83540; 83550; 85025; 96365; 99214; J1439

== ENCOUNTER 2024-05-27 07:26 | Oncology outpatient (recurring) (ONCR) | payer MEDICARE, OTHER, SELFPAY ==
[2024-05-27] VITALS (10 sets, daily range): BP systolic 121–166; BP diastolic 56–78; PULSE 68–88; RESP 16–17; TEMP 36.5–36.8; O2SAT 93–98
[2024-05-27 07:40] LABS: Basophils # 0.1 10^3/uL (0.0-0.1); Basophils % 1.3 %; Eosinophils # 0.2 10^3/uL (0.0-0.8); Eosinophils % 5.3 %; Lymphocytes # 0.8 10^3/uL (0.8-4.8); Lymphocytes % 21.1 %; Mean Corpuscular Hemoglobin 35.2 pg (27-33); Mean Corpuscular Volume 117.3 fl (85-98); Mean Platelet Volume 11.9 fL (7.4-10.4); Monocytes # 0.4 10^3/uL (0.2-0.9); Monocytes % 11.8 %; Neutrophils # 2.22 10^3/uL (1.8-7.7); Neutrophils % 59.4 %; Nucleated Red Blood Cells % 0 %; Platelet Count 225 10^3/cmm (157-399); Red Blood Count 1.96 10^6/uL (3.85-5.65); Red Cell Distribution Width 21.5 % (12.1-15.1); White Blood Count 3.74 10^3/uL (3.29-11.43)
[2024-05-27 08:01] LABS: Anion Gap 12.4 (5-19); Blood Urea Nitrogen 8 mg/dL (8-23); Calcium 9.1 mg/dL (8.5-10.5); Carbon Dioxide 25 mmol/L (22-29); Chloride 99 mmol/L (98-107); Creatinine Clr Calc Pharmacy 48.4017; Glucose 129 mg/dL (65-115); Iron 44 ug/dL (37-145); Osmolality Calculated 276 mOsm/kg (285-295); Potassium 3.4 mmol/L (3.5-5.1); Sodium 133 mmol/L (136-145); Unsaturated Iron Binding 190 ug/dL (112-347)
[2024-05-27 08:02] LABS: Alanine Aminotransferase 8 U/L (0-33); Albumin Level 3.4 g/dL (3.5-5.2); Alkaline Phosphatase 90 U/L (35-105); Aspartate Amino Transferase 15 U/L (0-32); Ferritin 155 ng/mL (15-150); Globulin 2.7 g/dL (1.3-4.6); Percent Saturation 18.8 % (20-50); Total Bilirubin 0.2 mg/dL (0.15-1.2); Total Iron Binding Capacity 234 mcg/dl; Total Protein 6.1 g/dL (6.6-8.7)
[2024-05-27] MEDS: diphenhydrAMINE 25 mg Capsule PO (09:33)
[2024-05-27] MEDS: sodium chloride 0.9% 250 mL Bag IV (09:33)
[2024-05-27] MEDS: acetaminophen 325 mg Tablet 650 MG PO (09:33)
== END 2024-05-30 23:59 | disposition home or self-care (01) ==
PROVIDERS: Nurse Practitioner Family; PCP Family Medicine; Visit Provider Internal Medicine
DX: D46.C 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 (principal); E87.6 Hypokalemia; D50.9 Iron deficiency anemia, unspecified; Z79.899 Other long term (current) drug therapy
CPT/HCPCS: 36415; 36430; 80053; 82728; 83540; 83550; 85025; 86850; 86900; 86920; 99214; J7050; P9016

== ENCOUNTER 2024-06-17 07:48 | Oncology outpatient (recurring) (ONCR) | payer MEDICARE, OTHER, SELFPAY ==
[2024-06-17] VITALS (8 sets, daily range): BP systolic 115–144; BP diastolic 58–78; PULSE 74–87; RESP 16–18; TEMP 36.1–36.8; O2SAT 92–95
[2024-06-17 08:22] LABS: Basophils # 0.1 10^3/uL (0.0-0.1); Basophils % 1.3 %; Eosinophils # 0.3 10^3/uL (0.0-0.8); Eosinophils % 3.1 %; Hematocrit 24.7 % (36-47); Lymphocytes # 0.8 10^3/uL (0.8-4.8); Lymphocytes % 9.3 %; Mean Corpuscular HGB Conc 31.6 g/dL (30-55); Mean Corpuscular Hemoglobin 33.6 pg (27-33); Mean Corpuscular Volume 106.5 fl (85-98); Mean Platelet Volume 12.5 fL (7.4-10.4); Monocytes # 0.7 10^3/uL (0.2-0.9); Monocytes % 8.2 %; Neutrophils # 5.91 10^3/uL (1.8-7.7); Neutrophils % 70.7 %; Nucleated Red Blood Cells % 0 %; Platelet Count 334 10^3/cmm (157-399); Red Blood Count 2.32 10^6/uL (3.85-5.65); Red Cell Distribution Width 21.2 % (12.1-15.1); White Blood Count 8.37 10^3/uL (3.29-11.43)
[2024-06-17 08:41] LABS: Alanine Aminotransferase 13 U/L (0-33); Albumin Level 3.5 g/dL (3.5-5.2); Alkaline Phosphatase 94 U/L (35-105); Aspartate Amino Transferase 13 U/L (0-32); Blood Urea Nitrogen 19 mg/dL (8-23); Calcium 9.9 mg/dL (8.5-10.5); Carbon Dioxide 23 mmol/L (22-29); Chloride 106 mmol/L (98-107); Globulin 3.3 g/dL (1.3-4.6); Glucose 123 mg/dL (65-115); Osmolality Calculated 288 mOsm/kg (285-295); Sodium 137 mmol/L (136-145); Total Bilirubin 0.2 mg/dL (0.15-1.2); Total Protein 6.8 g/dL (6.6-8.7)
[2024-06-17 09:17] LABS: Slide Review Slide Review Perform
[2024-06-17] MEDS: acetaminophen 325 mg Tablet 650 MG PO (10:14)
[2024-06-17] MEDS: diphenhydrAMINE 25 mg Capsule PO (10:14)
[2024-06-17] MEDS: sodium chloride 0.9% 250 mL Bag IV (10:16)
== END 2024-06-30 23:59 | disposition home or self-care (01) ==
LOC: ONCMED 07:49
PROVIDERS: Nurse Practitioner Family; PCP Family Medicine; Visit Provider Internal Medicine
DX: D46.C 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
CPT/HCPCS: 36415; 36430; 80053; 85025; 86850; 86900; 86920; J7050; P9016

== ENCOUNTER 2024-07-29 08:00 | Oncology outpatient (recurring) (ONCR) | payer MEDICARE, OTHER, SELFPAY ==
[2024-07-08] VITALS (11 sets, daily range): BP systolic 120–163; BP diastolic 62–81; PULSE 60–99; RESP 16–18; TEMP 35.9–37.2; O2SAT 91–97
[2024-07-08 07:49] LABS: Basophils # 0.1 10^3/uL (0.0-0.1); Basophils % 1.3 %; Eosinophils # 0.2 10^3/uL (0.0-0.8); Eosinophils % 5.1 %; Hematocrit 24.4 % (36-47); Lymphocytes # 0.6 10^3/uL (0.8-4.8); Lymphocytes % 15.4 %; Mean Corpuscular HGB Conc 29.5 g/dL (30-55); Mean Corpuscular Hemoglobin 32.4 pg (27-33); Mean Corpuscular Volume 109.9 fl (85-98); Mean Platelet Volume 11.8 fL (7.4-10.4); Monocytes # 0.4 10^3/uL (0.2-0.9); Monocytes % 11.1 %; Neutrophils # 2.59 10^3/uL (1.8-7.7); Neutrophils % 65.3 %; Nucleated Red Blood Cells % 0 %; Platelet Count 228 10^3/cmm (157-399); Red Blood Count 2.22 10^6/uL (3.85-5.65); Red Cell Distribution Width 22.5 % (12.1-15.1); White Blood Count 3.96 10^3/uL (3.29-11.43)
[2024-07-08 08:13] LABS: Alanine Aminotransferase 6 U/L (0-33); Albumin Level 3.7 g/dL (3.5-5.2); Alkaline Phosphatase 86 U/L (35-105); Anion Gap 13.8 (5-19); Aspartate Amino Transferase 13 U/L (0-32); Blood Urea Nitrogen 16 mg/dL (8-23); Calcium 9.7 mg/dL (8.5-10.5); Carbon Dioxide 23 mmol/L (22-29); Chloride 102 mmol/L (98-107); Creatinine Clr Calc Pharmacy 47.4886; Ferritin 71 ng/mL (15-150); Globulin 3.2 g/dL (1.3-4.6); Glucose 87 mg/dL (65-115); Iron 55 ug/dL (37-145); Osmolality Calculated 281 mOsm/kg (285-295); Potassium 3.8 mmol/L (3.5-5.1); Sodium 135 mmol/L (136-145); Total Bilirubin 0.2 mg/dL (0.15-1.2); Total Iron Binding Capacity 289 mcg/dl; Total Protein 6.9 g/dL (6.6-8.7); Unsaturated Iron Binding 234 ug/dL (112-347)
[2024-07-08] MEDS: diphenhydrAMINE 25 mg Capsule PO (09:01)
[2024-07-08] MEDS: acetaminophen 325 mg Tablet 650 MG PO (09:01)
[2024-07-08 09:48] LABS: Reticulocyte % 5.8 % (0.5-2.0)
[2024-07-08 10:16] LABS: Uric Acid 4.3 mg/dL (2.4-5.7)
[2024-07-08] MEDS: sodium chloride 0.9% 250 mL Bag IV (10:25)
[2024-07-08 10:28] LABS: Lactate Dehydrogenase 197 U/L (135-214)
[2024-07-08 10:31] LABS: Vitamin B12 242 pg/mL (232-1245)
[2024-07-08 11:02] LABS: Folate Level 14.8 ng/mL (4.8-37.3)
[2024-07-29] VITALS (9 sets, daily range): BP systolic 119–157; BP diastolic 62–78; PULSE 72–99; RESP 16–18; TEMP 36.2–37.2; O2SAT 94–97
[2024-07-29 08:10] LABS: Basophils # 0.1 10^3/uL (0.0-0.1); Basophils % 1.6 %; Eosinophils # 0.1 10^3/uL (0.0-0.8); Eosinophils % 1.6 %; Hematocrit 24.1 % (36-47); Lymphocytes # 0.7 10^3/uL (0.8-4.8); Lymphocytes % 13.1 %; Mean Corpuscular HGB Conc 29.5 g/dL (30-55); Mean Corpuscular Hemoglobin 32.7 pg (27-33); Mean Corpuscular Volume 111.1 fl (85-98); Mean Platelet Volume 11.9 fL (7.4-10.4); Monocytes # 0.5 10^3/uL (0.2-0.9); Monocytes % 8.4 %; Neutrophils # 3.85 10^3/uL (1.8-7.7); Neutrophils % 70.4 %; Nucleated Red Blood Cells % 0 %; Platelet Count 297 10^3/cmm (157-399); Red Blood Count 2.17 10^6/uL (3.85-5.65); Red Cell Distribution Width 22.5 % (12.1-15.1); White Blood Count 5.48 10^3/uL (3.29-11.43)
[2024-07-29 08:33] LABS: Alanine Aminotransferase 33 U/L (0-33); Albumin Level 3.5 g/dL (3.5-5.2); Alkaline Phosphatase 96 U/L (35-105); Anion Gap 14.9 (5-19); Aspartate Amino Transferase 31 U/L (0-32); Blood Urea Nitrogen 15 mg/dL (8-23); Calcium 8.8 mg/dL (8.5-10.5); Carbon Dioxide 22 mmol/L (22-29); Chloride 100 mmol/L (98-107); Creatinine Clr Calc Pharmacy 47.4886; Globulin 2.6 g/dL (1.3-4.6); Glucose 119 mg/dL (65-115); Osmolality Calculated 278 mOsm/kg (285-295); Potassium 3.9 mmol/L (3.5-5.1); Sodium 133 mmol/L (136-145); Total Bilirubin 0.2 mg/dL (0.15-1.2); Total Protein 6.1 g/dL (6.6-8.7)
[2024-07-29] MEDS: sodium chloride 0.9% 250 mL Bag IV (09:39)
[2024-07-29] MEDS: acetaminophen 325 mg Tablet 650 MG PO (09:40)
[2024-07-29] MEDS: diphenhydrAMINE 25 mg Capsule PO (09:40)
[2024-07-29] MEDS: ferric carboxy (PYXIS) 750 MG in sodium chloride 0.9% (100 ml) 100 ML 345 MG IV (14:00)
== END 2024-07-31 23:59 | disposition home or self-care (01) ==
PROVIDERS: Nurse Practitioner Family; PCP Family Medicine; Visit Provider Internal Medicine
DX: Z53.9 Procedure and treatment not carried out, unspecified reason; Z79.899 Other long term (current) drug therapy; D46.C 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; Z87.891 Personal history of nicotine dependence; D50.9 Iron deficiency anemia, unspecified
CPT/HCPCS: 36415; 36430; 80053; 82607; 82728; 82746; 83010; 83540; 83550; 83615; 84550; 85025; 85045; 86850; 86900; 86920; 96365; 99214; J1439; J7050; P9016

== ENCOUNTER 2024-07-30 11:34 | Outpatient (CLI) | payer MEDICARE, OTHER, SELFPAY | END 2024-07-30 11:35 | disposition home or self-care (01) | LOC: LAB 11:37 | PROVIDERS: PCP Family Medicine; Visit Provider Nurse Practitioner Family | DX: D50.9 Iron deficiency anemia, unspecified (principal) | CPT/HCPCS: 82274 ==

== ENCOUNTER 2024-08-27 09:44 | Oncology outpatient (recurring) (ONCR) | payer MEDICARE, OTHER, SELFPAY ==
[2024-08-27] VITALS (8 sets, daily range): BP systolic 120–165; BP diastolic 67–78; PULSE 77–86; RESP 16–17; TEMP 36.3–37.2; O2SAT 92–98
[2024-08-27 10:18] LABS: Basophils # 0.1 10^3/uL (0.0-0.1); Basophils % 1.5 %; Eosinophils # 0.1 10^3/uL (0.0-0.8); Eosinophils % 2.4 %; Hematocrit 22.3 % (36-47); Lymphocytes # 0.8 10^3/uL (0.8-4.8); Lymphocytes % 23.8 %; Mean Corpuscular HGB Conc 29.6 g/dL (30-55); Mean Corpuscular Hemoglobin 33.5 pg (27-33); Mean Corpuscular Volume 113.2 fl (85-98); Mean Platelet Volume 11.2 fL (7.4-10.4); Monocytes # 0.5 10^3/uL (0.2-0.9); Monocytes % 16.2 %; Neutrophils # 1.74 10^3/uL (1.8-7.7); Neutrophils % 53.1 %; Nucleated Red Blood Cells % 0.6 %; Platelet Count 338 10^3/cmm (157-399); Red Blood Count 1.97 10^6/uL (3.85-5.65); Red Cell Distribution Width 22.7 % (12.1-15.1); White Blood Count 3.28 10^3/uL (3.29-11.43)
[2024-08-27 10:34] LABS: Alanine Aminotransferase 19 U/L (0-33); Albumin Level 3.4 g/dL (3.5-5.2); Alkaline Phosphatase 230 U/L (35-105); Anion Gap 15.2 (5-19); Aspartate Amino Transferase 16 U/L (0-32); Blood Urea Nitrogen 14 mg/dL (8-23); Calcium 9.2 mg/dL (8.5-10.5); Carbon Dioxide 22 mmol/L (22-29); Chloride 101 mmol/L (98-107); Globulin 3.6 g/dL (1.3-4.6); Glucose 122 mg/dL (65-115); Lactate Dehydrogenase 262 U/L (135-214); Osmolality Calculated 280 mOsm/kg (285-295); Potassium 4.2 mmol/L (3.5-5.1); Sodium 134 mmol/L (136-145); Total Bilirubin 0.2 mg/dL (0.15-1.2)
[2024-08-27 11:40] LABS: Ferritin 294 ng/mL (15-150); Iron 88 ug/dL (37-145); Percent Saturation 34.2 % (20-50); Total Iron Binding Capacity 257 mcg/dl; Unsaturated Iron Binding 169 ug/dL (112-347)
[2024-08-27 11:56] LABS: Vitamin B12 263 pg/mL (232-1245)
[2024-08-31 03:41] LABS: Methylmalonic Acid 326 nmol/L (69-390)
== END 2024-08-28 23:59 | disposition home or self-care (01) ==
PROVIDERS: Nurse Practitioner Family; PCP Family Medicine; Visit Provider Internal Medicine
DX: D46.C 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 (principal); D50.9 Iron deficiency anemia, unspecified; Z87.891 Personal history of nicotine dependence; Z79.899 Other long term (current) drug therapy
CPT/HCPCS: 36415; 36430; 80053; 82607; 82728; 83540; 83550; 83615; 83921; 85025; 86850; 86900; 86920; 99213; P9016; P9058

== ENCOUNTER 2024-09-24 14:41 | Oncology outpatient (recurring) (ONCR) | payer MEDICARE, OTHER, SELFPAY ==
[2024-09-24 15:31] LABS: Basophils % 0.3 %; Eosinophils # 0.1 10^3/uL (0.0-0.8); Eosinophils % 1.6 %; Hematocrit 32.1 % (36-47); Lymphocytes # 1.2 10^3/uL (0.8-4.8); Lymphocytes % 20.4 %; Mean Corpuscular HGB Conc 31.2 g/dL (30-55); Mean Corpuscular Hemoglobin 34.8 pg (27-33); Mean Corpuscular Volume 111.8 fl (85-98); Mean Platelet Volume 11.4 fL (7.4-10.4); Monocytes # 0.6 10^3/uL (0.2-0.9); Monocytes % 10.2 %; Neutrophils # 3.81 10^3/uL (1.8-7.7); Neutrophils % 65.9 %; Nucleated Red Blood Cells # 0.1 /100WBC; Nucleated Red Blood Cells % 0.9 %; Platelet Count 302 10^3/cmm (157-399); Red Blood Count 2.87 10^6/uL (3.85-5.65); White Blood Count 5.78 10^3/uL (3.29-11.43)
[2024-09-24 15:35] LABS: Reticulocyte % 5.3 % (0.5-2.0)
[2024-09-24 15:49] LABS: Alanine Aminotransferase 20 U/L (0-33); Albumin Level 4.2 g/dL (3.5-5.2); Alkaline Phosphatase 162 U/L (35-105); Anion Gap 16.2 (5-19); Aspartate Amino Transferase 16 U/L (0-32); Blood Urea Nitrogen 20 mg/dL (8-23); Calcium 9.5 mg/dL (8.5-10.5); Carbon Dioxide 23 mmol/L (22-29); Chloride 100 mmol/L (98-107); Creatinine Clr Calc Pharmacy 47.8205; Ferritin 188 ng/mL (15-150); Globulin 3.5 g/dL (1.3-4.6); Glucose 115 mg/dL (65-115); Iron 373 ug/dL (37-145); Lactate Dehydrogenase 224 U/L (135-214); Osmolality Calculated 284 mOsm/kg (285-295); Potassium 4.2 mmol/L (3.5-5.1); Sodium 135 mmol/L (136-145); Total Bilirubin 0.3 mg/dL (0.15-1.2); Total Protein 7.7 g/dL (6.6-8.7)
[2024-09-24 16:02] LABS: Vitamin B12 281 pg/mL (232-1245)
[2024-09-24 16:41] LABS: Folate Level > 20.0 ng/mL (4.8-37.3)
[2024-09-24 16:42] LABS: Unsaturated Iron Binding < 20 ug/dL (112-347)
== END 2024-09-28 23:59 | disposition home or self-care (01) ==
PROVIDERS: PCP Family Medicine; Visit Provider Internal Medicine
DX: Z53.9 Procedure and treatment not carried out, unspecified reason (principal); D46.C 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; D50.9 Iron deficiency anemia, unspecified; Z79.899 Other long term (current) drug therapy; Z87.891 Personal history of nicotine dependence
CPT/HCPCS: 36415; 80053; 82607; 82728; 82746; 83010; 83540; 83550; 83615; 85025; 85045; 86880; 99213

== ENCOUNTER 2024-10-28 09:00 | Oncology outpatient (recurring) (ONCR) | payer MEDICARE, OTHER, SELFPAY ==
[2024-10-08 14:39] LABS: Basophils % 0.4 %; Eosinophils # 0.1 10^3/uL (0.0-0.8); Eosinophils % 2.8 %; Hematocrit 30.2 % (36-47); Lymphocytes # 1.1 10^3/uL (0.8-4.8); Lymphocytes % 22.4 %; Mean Corpuscular HGB Conc 31.5 g/dL (30-55); Mean Corpuscular Volume 117.5 fl (85-98); Monocytes # 0.3 10^3/uL (0.2-0.9); Neutrophils # 3.01 10^3/uL (1.8-7.7); Neutrophils % 64.2 %; Nucleated Red Blood Cells % 0.4 %; Platelet Count 186 10^3/cmm (157-399); Red Blood Count 2.57 10^6/uL (3.85-5.65); Red Cell Distribution Width 21.5 % (12.1-15.1); Reticulocyte % 1.8 % (0.5-2.0); White Blood Count 4.69 10^3/uL (3.29-11.43)
[2024-10-08 14:51] LABS: Erythrocyte Sedimentation Rate 17 mm/hr (0-15)
[2024-10-08 14:58] LABS: Alanine Aminotransferase 20 U/L (0-33); Albumin Level 4.1 g/dL (3.5-5.2); Alkaline Phosphatase 115 U/L (35-105); Anion Gap 14.3 (5-19); Aspartate Amino Transferase 22 U/L (0-32); Blood Urea Nitrogen 21 mg/dL (8-23); Calcium 9.6 mg/dL (8.5-10.5); Carbon Dioxide 22 mmol/L (22-29); Chloride 104 mmol/L (98-107); Globulin 3.4 g/dL (1.3-4.6); Glucose 92 mg/dL (65-115); Lactate Dehydrogenase 287 U/L (135-214); Osmolality Calculated 285 mOsm/kg (285-295); Phosphorus 2.8 mg/dL (2.5-4.5); Potassium 4.3 mmol/L (3.5-5.1); Sodium 136 mmol/L (136-145); Total Bilirubin 0.2 mg/dL (0.15-1.2); Total Protein 7.5 g/dL (6.6-8.7); Uric Acid 3.9 mg/dL (2.4-5.7)
[2024-10-22 13:46] LABS: Basophils % 0.5 %; Eosinophils # 0.1 10^3/uL (0.0-0.8); Hematocrit 25.3 % (36-47); Lymphocytes # 0.7 10^3/uL (0.8-4.8); Lymphocytes % 15.4 %; Mean Corpuscular HGB Conc 30.8 g/dL (30-55); Mean Corpuscular Hemoglobin 36.6 pg (27-33); Mean Corpuscular Volume 118.8 fl (85-98); Mean Platelet Volume 12.1 fL (7.4-10.4); Monocytes # 0.6 10^3/uL (0.2-0.9); Monocytes % 14.5 %; Neutrophils # 2.78 10^3/uL (1.8-7.7); Nucleated Red Blood Cells % 0 %; Platelet Count 197 10^3/cmm (157-399); Red Blood Count 2.13 10^6/uL (3.85-5.65); Red Cell Distribution Width 20.8 % (12.1-15.1); White Blood Count 4.28 10^3/uL (3.29-11.43)
[2024-10-22 14:00] LABS: Alanine Aminotransferase 19 U/L (0-33); Albumin Level 3.8 g/dL (3.5-5.2); Alkaline Phosphatase 139 U/L (35-105); Anion Gap 13.1 (5-19); Aspartate Amino Transferase 21 U/L (0-32); Blood Urea Nitrogen 13 mg/dL (8-23); Calcium 9.3 mg/dL (8.5-10.5); Carbon Dioxide 23 mmol/L (22-29); Chloride 100 mmol/L (98-107); Creatinine Clr Calc Pharmacy 2.1007; Globulin 3.3 g/dL (1.3-4.6); Glucose 98 mg/dL (65-115); Lactate Dehydrogenase 233 U/L (135-214); Osmolality Calculated 274 mOsm/kg (285-295); Potassium 4.1 mmol/L (3.5-5.1); Sodium 132 mmol/L (136-145); Total Bilirubin 0.2 mg/dL (0.15-1.2); Total Protein 7.1 g/dL (6.6-8.7)
[2024-10-23] VITALS (7 sets, daily range): BP systolic 114–136; BP diastolic 45–73; PULSE 60–82; RESP 17; TEMP 36.3–36.9; O2SAT 90–96
[2024-10-28 09:20] LABS: Hematocrit 25.5 % (36-47); Mean Corpuscular HGB Conc 30.6 g/dL (30-55); Mean Corpuscular Hemoglobin 35.1 pg (27-33); Mean Corpuscular Volume 114.9 fl (85-98); Mean Platelet Volume 11.7 fL (7.4-10.4); Platelet Count 263 10^3/cmm (157-399); Red Blood Count 2.22 10^6/uL (3.85-5.65); Red Cell Distribution Width 21.4 % (12.1-15.1)
[2024-10-28 09:36] LABS: Alanine Aminotransferase 14 U/L (0-33); Albumin Level 3.4 g/dL (3.5-5.2); Alkaline Phosphatase 135 U/L (35-105); Anion Gap 15.8 (5-19); Aspartate Amino Transferase 14 U/L (0-32); Blood Urea Nitrogen 15 mg/dL (8-23); Carbon Dioxide 19 mmol/L (22-29); Chloride 104 mmol/L (98-107); Creatinine Clr Calc Pharmacy 2.1007; Ferritin 157 ng/mL (15-150); Globulin 3.1 g/dL (1.3-4.6); Glucose 108 mg/dL (65-115); Iron 41 ug/dL (37-145); Osmolality Calculated 281 mOsm/kg (285-295); Potassium 3.8 mmol/L (3.5-5.1); Sodium 135 mmol/L (136-145); Total Bilirubin 0.2 mg/dL (0.15-1.2); Total Iron Binding Capacity 255 mcg/dl; Total Protein 6.5 g/dL (6.6-8.7); Unsaturated Iron Binding 214 ug/dL (112-347)
[2024-10-28 09:59] LABS: Slide Review Slide Review Perform
[2024-10-28 10:00] LABS: Absolute Neutrophil 4.1 10^3/cmm (1.4-6.5); Absolute Segmented Neutrophil 3.7 10/cmm (1.6-7.1); Band Neutrophils Absolute 0.4 10^3/cmm (0.0-1.2); Eosinophils 1 %; Giant Platelets Trace; Lymphocytes 6 %; Lymphocytes Absolute 0.5 10^3/cmm (1.2-3.4); Macrocytosis 1+; Platelet Estimate Normal (Normal); Polychromasia Trace; Segmented Neutrophils 77 %; Total Cells Counted 100 (0-100)
== END 2024-10-28 23:59 | disposition home or self-care (01) ==
PROVIDERS: Nurse Practitioner Family; PCP Family Medicine; Visit Provider Internal Medicine
DX: Z53.9 Procedure and treatment not carried out, unspecified reason; D46.C 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; D50.9 Iron deficiency anemia, unspecified; Z87.891 Personal history of nicotine dependence; Z79.899 Other long term (current) drug therapy
CPT/HCPCS: 36415; 36430; 80053; 82728; 83010; 83540; 83550; 83615; 84100; 84550; 85007; 85025; 85045; 85651; 86140; 86850; 86880; 86900; 86920; 99213; 99214; P9016

== ENCOUNTER 2024-11-11 07:30 | Oncology outpatient (recurring) (ONCR) | payer MEDICARE, OTHER, SELFPAY ==
[2024-11-04 12:00] VITALS: BP 112/62; PULSE 89; RESP 18; TEMP 36.8; O2SAT 94
[2024-11-04 12:20] LABS: Mean Corpuscular HGB Conc 31.4 g/dL (30-55); Mean Corpuscular Hemoglobin 36.1 pg (27-33); Mean Corpuscular Volume 115.2 fl (85-98); Mean Platelet Volume 12.2 fL (7.4-10.4); Platelet Count 229 10^3/cmm (157-399); Red Blood Count 1.91 10^6/uL (3.85-5.65); Red Cell Distribution Width 20.9 % (12.1-15.1); White Blood Count 2.73 10^3/uL (3.29-11.43)
[2024-11-04] MEDS: ferric carboxy (PYXIS) 750 MG in sodium chloride 0.9% (100 ml) 100 ML 240 MG IV (12:20)
[2024-11-04 12:37] LABS: Alanine Aminotransferase 17 U/L (0-33); Alkaline Phosphatase 171 U/L (35-105); Anion Gap 14.8 (5-19); Aspartate Amino Transferase 14 U/L (0-32); Blood Urea Nitrogen 11 mg/dL (8-23); Calcium 8.8 mg/dL (8.5-10.5); Carbon Dioxide 21 mmol/L (22-29); Chloride 105 mmol/L (98-107); Globulin 3.5 g/dL (1.3-4.6); Glucose 95 mg/dL (65-115); Lactate Dehydrogenase 229 U/L (135-214); Osmolality Calculated 283 mOsm/kg (285-295); Potassium 3.8 mmol/L (3.5-5.1); Sodium 137 mmol/L (136-145); Total Bilirubin 0.2 mg/dL (0.15-1.2); Total Protein 6.5 g/dL (6.6-8.7)
[2024-11-04 13:07] LABS: Absolute Eosinophils 0.1 10^3/cmm (0.0-0.7); Absolute Neutrophil 1.4 10^3/cmm (1.4-6.5); Absolute Segmented Neutrophil 1.1 10/cmm (1.6-7.1); Band Neutrophils Absolute 0.2 10^3/cmm (0.0-1.2); Eosinophils 2 %; Lymphocytes 27 %; Lymphocytes Absolute 1.1 10^3/cmm (1.2-3.4); Platelet Estimate Normal (Normal); Segmented Neutrophils 42 %; Slide Review Slide Review Perform; Total Cells Counted 100 (0-100)
[2024-11-04 13:08] LABS: Macrocytosis 1+
[2024-11-04] MEDS: diphenhydrAMINE 25 mg Capsule PO (13:08)
[2024-11-04] MEDS: acetaminophen 325 mg Tablet 650 MG PO (13:08)
[2024-11-04] MEDS: sodium chloride 0.9% 250 ML 75 ML IV (13:10)
[2024-11-04 14:33] VITALS: BP 147/77; PULSE 72; RESP 17; TEMP 36.6; O2SAT 96
[2024-11-04 14:54] VITALS: BP 136/60; PULSE 69; RESP 17; TEMP 36.7; O2SAT 89
[2024-11-04 15:14] VITALS: BP 107/46; PULSE 71; RESP 16; TEMP 36.6; O2SAT 96
[2024-11-04 16:11] VITALS: BP 147/66; PULSE 69; RESP 17; TEMP 36.7; O2SAT 94
[2024-11-04 17:06] VITALS: BP 166/81; PULSE 89; RESP 17; TEMP 36.6; O2SAT 96
[2024-11-05] MEDS: acetaminophen 325 mg Tablet 650 MG PO (08:09)
[2024-11-05] MEDS: diphenhydrAMINE 25 mg Capsule PO (08:09)
[2024-11-05] MEDS: sodium chloride 0.9% 250 ML IV (08:10)
[2024-11-05 08:51] VITALS: BP 152/75; PULSE 70; RESP 16; TEMP 36.6; O2SAT 98
[2024-11-05 09:07] VITALS: BP 149/77; PULSE 80; RESP 16; TEMP 36.5; O2SAT 97
[2024-11-05 09:22] VITALS: BP 155/70; PULSE 94; RESP 16; TEMP 36.4; O2SAT 99
[2024-11-05 09:52] VITALS: BP 145/62; PULSE 95; RESP 16; TEMP 36.3; O2SAT 95
[2024-11-05 10:42] VITALS: BP 130/75; PULSE 76; RESP 16; TEMP 36.6; O2SAT 95
[2024-11-11 08:04] LABS: Basophils % 1.4 %; Eosinophils # 0.1 10^3/uL (0.0-0.8); Eosinophils % 2.8 %; Lymphocytes % 36.9 %; Mean Corpuscular HGB Conc 30.3 g/dL (30-55); Mean Corpuscular Volume 105.7 fl (85-98); Mean Platelet Volume 11.9 fL (7.4-10.4); Monocytes # 0.3 10^3/uL (0.2-0.9); Monocytes % 11.3 %; Neutrophils # 1.31 10^3/uL (1.8-7.7); Neutrophils % 46.5 %; Nucleated Red Blood Cells % 0 %; Platelet Count 299 10^3/cmm (157-399); Red Cell Distribution Width 22.1 % (12.1-15.1); White Blood Count 2.82 10^3/uL (3.29-11.43)
[2024-11-11 08:23] LABS: Alanine Aminotransferase 11 U/L (0-33); Albumin Level 3.4 g/dL (3.5-5.2); Alkaline Phosphatase 131 U/L (35-105); Anion Gap 14.8 (5-19); Aspartate Amino Transferase 16 U/L (0-32); Blood Urea Nitrogen 13 mg/dL (8-23); Calcium 9.1 mg/dL (8.5-10.5); Carbon Dioxide 22 mmol/L (22-29); Chloride 103 mmol/L (98-107); Globulin 3.6 g/dL (1.3-4.6); Glucose 110 mg/dL (65-115); Iron 141 ug/dL (37-145); Lactate Dehydrogenase 258 U/L (135-214); Osmolality Calculated 283 mOsm/kg (285-295); Percent Saturation 56.1 % (20-50); Potassium 3.8 mmol/L (3.5-5.1); Sodium 136 mmol/L (136-145); Total Bilirubin 0.2 mg/dL (0.15-1.2); Total Iron Binding Capacity 251 mcg/dl; Unsaturated Iron Binding 110 ug/dL (112-347); Uric Acid 4.9 mg/dL (2.4-5.7)
[2024-11-11 08:36] LABS: Ferritin 1050 ng/mL (15-150)
[2024-11-11] MEDS: ferric carboxy (PYXIS) 750 MG in sodium chloride 0.9% (100 ml) 100 ML 345 MG IV (09:16)
[2024-11-11 09:32] VITALS: BP 137/77; PULSE 72; RESP 18; TEMP 37; O2SAT 94
== END 2024-11-28 23:59 | disposition home or self-care (01) ==
PROVIDERS: Internal Medicine; Nurse Practitioner Family; PCP Family Medicine; Visit Provider Internal Medicine Medical Oncology
DX: Z53.9 Procedure and treatment not carried out, unspecified reason; D46.C 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; D50.9 Iron deficiency anemia, unspecified; D70.1 Agranulocytosis secondary to cancer chemotherapy; R03.0 Elevated blood-pressure reading, without diagnosis of hypertension; Z79.899 Other long term (current) drug therapy; Z87.891 Personal history of nicotine dependence
CPT/HCPCS: 36430; 80053; 82728; 83010; 83540; 83550; 83615; 84550; 85007; 85025; 86850; 86900; 86920; 96365; 99214; J1439; J7050; J9999; P9016

== ENCOUNTER 2024-11-23 17:19 | Emergency (ER) | payer MEDICARE, OTHER, SELFPAY ==
[2024-11-23 17:29] VITALS: BP 165/45; PULSE 96; TEMP 36.3; O2SAT 98
--- NOTE | 2024-11-23 17:49 | W.ED.EPISTAX ---
HPI - Epistaxis General: Chief complaint: Epistaxis Stated complaint: nose bleed for 5 hours, takes asprin Time Seen by Provider: 11/23/24 17:33 Source: patient Mode of arrival: ambulatory Limitations: no limitations History of Present Illness: 79-year-old female states she has had a nosebleed to her right nare over the last 4 hours states she has had nosebleeds in the past but has not had a hard time stopping it like this 1. She denies any worsening or improving factors. Associated symptoms: Deny fever(s), headache(s) or vomiting Related Data Home Medications ?Medication ?Instructions ?Recorded ?Confirmed atorvastatin 20 mg tablet 20 mg PO QPM 12/21/19 11/11/24 tramadol 50 mg tablet 50 mg PO Q8H PRN Pain 12/21/19 11/11/24 diclofenac sodium 1 % topical gel 4 g topical QID PRN Pain 04/01/23 11/11/24 (Voltaren Arthritis Pain) foot care products 04/01/23 11/11/24 omeprazole 20 mg capsule,delayed 20 mg PO QPM 12/09/23 11/11/24 release donepezil 10 mg tablet 10 mg PO QPM 01/10/24 11/11/24 ondansetron HCl 4 mg tablet 0.4 mg PO Q6H PRN Nausea And 01/10/24 11/11/24 Vomiting ipratropium bromide 42 mcg (0.06 intranasal 01/30/24 11/11/24 %) nasal spray prednisone 5 mg tablet mg PO 01/30/24 11/11/24 sulfasalazine 500 mg tablet PO 03/06/24 11/11/24 folic acid 1 mg tablet 1 mg PO DAILY 05/27/24 11/11/24 methotrexate sodium 2.5 mg tablet 2.5 mg PO DAILY 05/27/24 11/11/24 alendronate 70 mg tablet mg PO 07/29/24 11/11/24 levothyroxine 125 mcg tablet mcg PO 09/24/24 11/11/24 Previous Rx's ?Medication ?Instructions ?Recorded polyethylene glycol 3350 17 4 g PO DAILY #238 grams 01/10/24 gram/dose oral powder (Miralax) sucralfate 1 gram tablet (Carafate) 1 g PO DAILY #30 tabs 12/06/24 potassium chloride 10 mEq 10 meq PO BID #60 tabs 10/30/24 tablet,extended release lenalidomide 2.5 mg capsule See Rx Instructions .Route 11/05/24 .COMPLEX #21 caps Allergies Allergy/AdvReac Type Severity Reaction Status Date / Time penicillin V Allergy [place] Verified 11/23/24 17:35 Review of Systems Const: Denies: fever(s), chills, body aches or change in appetite ENMT: Reports: epistaxis; Denies: throat pain or dental pain Card: Denies: chest pain Resp: Denies: dyspnea GI: Denies: abdominal pain, nausea, vomiting or diarrhea Musc: Denies: neck pain or back pain Skin/Breast: Denies: rash Neuro: Denies: headache(s) PFSH ED PFSH: Medical History Myelodysplastic syndrome Hypothyroidism GERD (gastroesophageal reflux disease) History of iron deficiency Chronic low back pain DDD (degenerative disc disease) Osteoarthritis involving multiple joints on both sides of body Hypertension Hypercholesterolemia Surgical History History of superficial parotidectomy (2005) 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) Status post right breast lumpectomy History of colonoscopy Status post total knee replacement, left (2008) Family History Brother Cancer Throat Sister Cancer 2 sisters with lung cancer, 1 sister with colon cancer Other Lung disease Denies family history of Diabetes CAD (coronary artery disease) Clotting disorder Dementia Hyperlipidemia Psychiatric illness Chronic kidney disease (CKD) Suicide Anesthesia complication Bleeding disorder Hypertension Stroke Social History Smoking and tobacco/nicotine status: former use of tobacco/nicotine Quit status (tobacco/nicotine): has quit using Year quit tobacco: 2022 Former quit date comment: tobacco use 45-50 years Alcohol intake: never Substance/Drug Use: never Physical Exam Const: COMMON NORMALS: no acute distress, patient oriented x3 and healthy appearing HENMT: COMMON NORMALS: normocephalic and atraumatic HEAD & SCALP: normocephalic and atraumatic OTHER: Slight bleeding from right nare Eye: COMMON NORMALS: conjunctivae normal CONJUNCTIVA: Yes conjunctivae normal Neck/C-Spine: COMMON NORMALS: full ROM and supple Chest: COMMONS NORMALS: normal inspection of the chest Resp: COMMON NORMALS: normal respiratory effort Extremity: COMMON NORMALS: normal to inspection and full ROM Neuro: COMMON NORMALS: patient oriented x3, moves all extremities and no focal motor deficits Psych: COMMON NORMALS: mental status grossly normal, Normal thought process present and cooperative THOUGHT PROCESS: Normal thought process present Skin: COMMON NORMALS: no rashes or lesions noted and no wounds GENERAL SKIN EXAM: no rashes or lesions noted Course Vital Signs: Vital signs: Vital Signs Temperature 97.3 F L 11/23/24 17:29 Pulse Rate 88 11/23/24 19:40 Respiratory Rate 17 11/23/24 19:40 Blood Pressure 149/61 11/23/24 19:40 Pulse Oximetry 98 11/23/24 19:40 Oxygen Delivery Me thod Room Air 11/23/24 17:29 MDM - Epistaxis Medical Decision Making Patient presents here with nosebleed was able to stop it after nasal clamp she stable for discharge follow-up with PCP return if worsening. Medical Records I reviewed the patient's medical records. Lab Data I reviewed the patient's lab results. 11/23/24 18:03 Laboratory Results Hgb 8.60 g/dL (11.27-16.99) L 11/23/24 18:03 Hct 28.8 % (36-47) L 11/23/24 18:03 No radiology studies performed this visit Discharge Plan Discharge Patient Disposition: Home Clinical Impression: Epistaxis Condition: Stable Prescriptions: No Action tramadol 50 mg tablet 50 mg PO Q8H PRN (Reason: Pain) atorvastatin 20 mg tablet 20 mg PO QPM folic acid 1 mg tablet 1 mg PO DAILY Patient Comments: 5 daily methotrexate sodium 2.5 mg tablet 2.5 mg PO DAILY levothyroxine 125 mcg tablet PO diclofenac sodium [Voltaren Arthritis Pain] 1 % gel 4 g topical QID PRN (Reason: Pain) Rx Instructions: apply to single knee, ankle, foot; for foot includes sole/toes/top of foot (DME) foot care products Pad See Rx Instructions .Route Patient Comments: insoles for both feet Rx Instructions: As directed omeprazole 20 mg capsule,delayed release(DR/EC) 20 mg PO QPM prednisone 5 mg tablet PO ipratropium bromide 42 mcg (0.06 %) spray,non-aerosol intranasal sulfasalazine 500 mg tablet PO alendronate 70 mg tablet PO sucralfate [Carafate] 1 gram tablet 1 g PO DAILY Qty: 30 0RF Rx Instructions: Take 30 minutes prior to medications daily potassium chloride 10 mEq tablet extended release 10 meq PO BID Qty: 60 2RF lenalidomide 2.5 mg capsule See Rx Instructions .ROUTE .COMPLEX Qty: 21 0RF Dose Instruction: TAKE 1 CAPSULE BY MOUTH EVERY MORNING FOR 21 DAYS, THEN 7 DAYS OFF OF A 28 DAY CYCLE. Rx Instructions: TAKE 1 CAPSULE BY MOUTH EVERY MORNING FOR 21 DAYS, THEN 7 DAYS OFF OF A 28 DAY CYCLE. [id number] Miralax 17 gram/dose powder 4 g PO DAILY Qty: 238 0RF donepezil 10 mg tablet 10 mg PO QPM ondansetron HCl 4 mg tablet 0.4 mg PO Q6H PRN (Reason: Nausea And Vomiting) Discharge Orders: Discharge ED (Routine); Ordered 11/23/24 Ordered By: Mohamud Mcdowell Referrals: Navid Bourne MD [Primary Care Provider, Family Practice] - 4-7 days Discharge Diet: Advance as tolerated Discharge Activity: Resume usual activity Patient Instructions: Nosebleed (ED) Print Language: Uzbek Coding Level of Care Code ED [employer] for Xi Kline
[2024-11-23 18:08] LABS: Hematocrit 28.8 % (36-47)
[2024-11-23 18:29] VITALS: BP 141/91
[2024-11-23 19:13] VITALS: BP 145/61; O2SAT 97
[2024-11-23 19:40] VITALS: BP 149/61; PULSE 88; RESP 17; O2SAT 98
== END 2024-11-23 19:41 | disposition home or self-care (01) ==
PROVIDERS: Emergency Provider Emergency Medicine; PCP Family Medicine
DX: R04.0 Epistaxis (principal)
CPT/HCPCS: 85014; 85018; 99283

== ENCOUNTER 2024-12-23 08:17 | Oncology outpatient (recurring) (ONCR) | payer MEDICARE, OTHER, SELFPAY ==
[2024-12-02] VITALS (10 sets, daily range): BP systolic 104–156; BP diastolic 54–78; PULSE 69–97; RESP 16–18; TEMP 36.3–37; O2SAT 91–99
[2024-12-02 11:30] LABS: Basophils % 1.4 %; Eosinophils # 0.3 10^3/uL (0.0-0.8); Eosinophils % 9.8 %; Hematocrit 22.1 % (36-47); Lymphocytes # 0.6 10^3/uL (0.8-4.8); Lymphocytes % 22.1 %; Mean Corpuscular HGB Conc 29.4 g/dL (30-55); Mean Corpuscular Hemoglobin 34.2 pg (27-33); Mean Corpuscular Volume 116.3 fl (85-98); Mean Platelet Volume 12.5 fL (7.4-10.4); Monocytes # 0.4 10^3/uL (0.2-0.9); Monocytes % 15.6 %; Neutrophils # 1.24 10^3/uL (1.8-7.7); Neutrophils % 44.9 %; Nucleated Red Blood Cells % 0 %; Platelet Count 178 10^3/cmm (157-399); White Blood Count 2.76 10^3/uL (3.29-11.43)
[2024-12-02 11:46] LABS: Alanine Aminotransferase 26 U/L (0-33); Albumin Level 3.2 g/dL (3.5-5.2); Alkaline Phosphatase 267 U/L (35-105); Anion Gap 13.7 (5-19); Aspartate Amino Transferase 19 U/L (0-32); Blood Urea Nitrogen 12 mg/dL (8-23); Calcium 8.5 mg/dL (8.5-10.5); Carbon Dioxide 20 mmol/L (22-29); Chloride 108 mmol/L (98-107); Creatinine Clr Calc Pharmacy 48.4844; Ferritin 848 ng/mL (15-150); Globulin 3.4 g/dL (1.3-4.6); Glucose 95 mg/dL (65-115); Iron 60 ug/dL (37-145); Lactate Dehydrogenase 195 U/L (135-214); Osmolality Calculated 286 mOsm/kg (285-295); Percent Saturation 25.4 % (20-50); Potassium 3.7 mmol/L (3.5-5.1); Sodium 138 mmol/L (136-145); Total Bilirubin 0.2 mg/dL (0.15-1.2); Total Iron Binding Capacity 236 mcg/dl; Total Protein 6.6 g/dL (6.6-8.7); Unsaturated Iron Binding 176 ug/dL (112-347)
[2024-12-02 11:51] LABS: Slide Review Slide Review Perform
[2024-12-22 16:30] LABS: Basophils # 0.1 10^3/uL (0.0-0.1); Basophils % 1.8 %; Eosinophils # 0.2 10^3/uL (0.0-0.8); Eosinophils % 5.3 %; Hematocrit 26.8 % (36-47); Lymphocytes # 0.8 10^3/uL (0.8-4.8); Lymphocytes % 22.7 %; Mean Corpuscular HGB Conc 29.5 g/dL (30-55); Mean Corpuscular Hemoglobin 32.9 pg (27-33); Mean Corpuscular Volume 111.7 fl (85-98); Mean Platelet Volume 11.7 fL (7.4-10.4); Monocytes # 0.4 10^3/uL (0.2-0.9); Monocytes % 12.1 %; Neutrophils # 1.93 10^3/uL (1.8-7.7); Neutrophils % 56.9 %; Nucleated Red Blood Cells % 0 %; Platelet Count 263 10^3/cmm (157-399); Red Cell Distribution Width 23.6 % (12.1-15.1); White Blood Count 3.39 10^3/uL (3.29-11.43)
[2024-12-22 16:44] LABS: Albumin Level 3.5 g/dL (3.5-5.2); Alkaline Phosphatase 258 U/L (35-105); Aspartate Amino Transferase 23 U/L (0-32); Blood Urea Nitrogen 14 mg/dL (8-23); Carbon Dioxide 22 mmol/L (22-29); Chloride 103 mmol/L (98-107); Creatinine Clr Calc Pharmacy 47.8725; Globulin 3.9 g/dL (1.3-4.6); Glucose 137 mg/dL (65-115); Osmolality Calculated 283 mOsm/kg (285-295); Sodium 135 mmol/L (136-145); Total Bilirubin 0.2 mg/dL (0.15-1.2); Total Protein 7.4 g/dL (6.6-8.7)
[2024-12-22 16:56] LABS: Alanine Aminotransferase 15 U/L (0-33)
[2024-12-23] VITALS (8 sets, daily range): BP systolic 121–158; BP diastolic 51–74; PULSE 68–85; RESP 16; TEMP 36.2–36.4; O2SAT 93–99
[2024-12-23] MEDS: acetaminophen 325 mg Tablet 650 MG PO (09:09)
[2024-12-23] MEDS: diphenhydrAMINE 25 mg Capsule PO (09:10)
[2024-12-23] MEDS: sodium chloride 0.9% 250 mL Bag IV (09:10)
[2024-12-23] MEDS: FUROsemide 10 mg/mL SDV 2mL 20 MG IVP (12:56)
== END 2024-12-28 23:59 | disposition home or self-care (01) ==
PROVIDERS: Nurse Practitioner; Nurse Practitioner Family; PCP Family Medicine; Visit Provider Internal Medicine
DX: Z53.9 Procedure and treatment not carried out, unspecified reason; D46.C 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; Z79.899 Other long term (current) drug therapy
CPT/HCPCS: 36415; 36430; 80053; 82728; 83540; 83550; 83615; 85025; 86850; 86900; 86920; 99213; J1938; J7050; J9999; P9016

== ENCOUNTER 2025-01-06 23:07 | Emergency (ER) | payer MEDICARE, OTHER, SELFPAY ==
--- OUTSIDE RECORDS SUMMARY | 2024-12-31 10:00 | XMS_ITS | Encounter Summary ---
Author Organization [facility] Address [address] [place] [address] Care Team Providers Care Social Work Program Coordinator Name Role Phone Unavailable Primary Care Provider Unavailabl e Reason for Visit * Reason Comments Follow Up Encounter Details Date Type Department Care Team (Late st Contact Info) Description 12/31/2024 10:00 AM CDT Office Visit [facility] Rheumatology- [place] Robyn [address] [place] [address] Chris Witt MD [address] [place] [address] Tendinopathy of rotator cuff, left (Primary Dx); Tendinopathy of right rotator cuff; Chronic pain of right knee; Synovitis of left wrist Social History Tobacco Use Types Packs/Day Years Used Date Smoking Tobacco: Former Cigarettes Passive Smoke Exposure: Past Smokeless Tobacco: Never Tobacco Cessation:Counseling Given: Not Answered Alcohol Use Standard Drinks/Week Comments Never 0 (1 standard drink = 0.6 oz pur e alcohol) Comments No Sex and Gender Information Value Date Recorded Sex Assigned at Not on file Legal Sex Female 9:20 PM [employer] Gender Identity Not on file Sexual Orientation Not on file documented as of this encounter Last Filed Vital Signs Vital Sign Reading Time Taken Comments Blood Pressure 124/58 12/31/2024 9:53 AM CDT Pulse 82 12/31/2024 9:53 AM CDT Temperature - - Respiratory Rate - - Oxygen Saturation 93% 12/31/2024 9:53 AM CDT Inhaled Oxygen Concentration - - Weight 58 kg (127 lb 12.8 oz) 12/31/2024 9:53 AM CDT Height 154.9 cm (5' 1 ) 12/31/2024 9:53 AM CDT Body Mass Index 24.15 12/31/2024 9:53 AM CDT documented in this encounter Progress Notes * Chris Witt MD - 12/31/2024 10:00 AM CDT Department of Rheumatology Referred by: Dr Navid Bourne MD ([place]) Referral reason: Pos WOLFGANG CC: Dr Artur Lockett - Hematology/Oncology [address] [facility] [address] Fax - [phone] Tel - [phone] Navid Bourne MD - [facility] ([place]) [address] [facility] [address] [phone] Interval 02/11/24 She has has significant improvement on the steroids. Now down to 5 mg daily. Still has some pain in the writs when she has to range at the joint. Morning stiffness has also improved. Still on the Hydroxychloroquine. No issues so far. 03/23/24 Called office last week to report intolerance to Sulfasalazine. She took it daily for approximately 4 weeks. She had mild nausea while on 500 bid. She had worsening symptoms after she increased dose to 1 g bid.G.I symptoms are also associated with headaches, dizziness and lightheadedness. She has not had any syncope. Symptoms have since resolved with discontinuation No chest pain or palpitations. She has not had any infections since starting the medication Both wrists, right knee and right foot have been slowing swelling with associated stiffness since going off the Sulfasalazine a week ago. 05/13/24 She increased sulfasalazine dose to 2g daily approximately 3 weeks ago. She has only mild stomach upset and thinks she is able to continue to tolerate 2 g daily. No infections. Since last encounter she has continued to have swelling of the wrists. Pain and stiffness predominantly in the right. She has also noticed right knee pain. Not sure of the swelling. Has some stiffness in the mornings for an hour or less. Other joints are okay. No chest pain, dyspnea or chronic cough. Denies any fevers, chills, anorexia or unintentional weight loss. 07/13/24 She was given 2 units of blood transfusion 3 weeks prior to 06/21/24 and most recently was 5 days ago. This was ordered by her Legal Cashier as hemoglobin was trending down to below 8 with associated generalized weakness. She has continued with the sulfasalazine 2 g daily and has been on the methotrexate 15 mg weekly that was started in May. She continues to have persistent pain and swelling in the wrists. Several hours of stiffness in thehands in the morning. She is also noticing some numbness and tingling's in the hands especially on the left. Chronic right knee pain that is worse with getting up from a seated position. Stiffness is usually less than an hour. No inflammatory eye symptoms. No skin rash. No chest pain, dyspnea or chronic cough. Denies any fevers, chills, anorexia or unintentional weight loss. No issues with the sulfasalazine and methotrexate. No infections. 09/07/24 Has been tolerating Sulfasalazine and Methotrexate so far. She continues to have intermittent swelling and pain of the left wrist. Completed a prednisone taper at the end of July. Stiffness in other joints. She is not keen on any more prednisone tapers as she has associated them with increased bowel movements. She is now seeing a new Legal Cashier and was advised to hold the Revlimid for 5 weeks. Last blood transfusion was end of August. No inflammatory eye symptoms. No skin rash. No chest pain, dyspnea or chronic cough. Denies any fevers, chills, anorexia or unintentional weight loss. No infections. 09/17/24 The author of this note, patient (or authorized compliance representative), and all other persons present consent to the audio recording of this visit for charting documentation purposes. Here for steroid injections of bilateral shoulders. She is however today requesting injections of the right knee as well. Having pain with ambulation on lateral aspect of the joint. Also has intermittent buckling. No falls. 12/08/24 The author of this note, patient (or authorized compliance representative), and all other persons present consent to the audio recording of this visit for charting documentation purposes. She reports a decrease in ankle and wrist swelling following her last visit, during which she received injections in both shoulders and the knee. However, she has noticed a recurrence of the wrist swelling over the past 1 to 2 weeks. All 3 injections were beneficial. She is now noticing gradual recurrence of the knee pain and discomfort in the left shoulder. She is however today requesting injections of the right knee as well. Having pain with ambulation on lateral aspect of the joint. Also has intermittent buckling. No falls. Despite an overall improvement in her joint condition, she acknowledges a reduction in her lifting capacity compared to her previous state. She has been performing shoulder stretches, although not asfrequently as recommended. Currently, she is on a regimen of sulfasalazine, taking 2 tablets in the morning and 2 in the evening with her weekly methotrexate, 10 tablets. She is currently on a weekly dose of Fosamax for osteoporosis and has 3 weeks' supply left with 1 refill remaining. Her guest service manager has advised to stay on the Revlimid. Had blood transfusion 6 days ago. PAST SURGICAL HISTORY: Knee replacement surgery. 12/31/24 The author of this note, patient (or authorized compliance representative), and all other persons present consent to the audio recording of this visit for charting documentation purposes. History of Present Illness Here for joint injections. She has not had any recent RA flares. Both wrists still chronically swollen. The right did improve after she had knee and shoulder injection the last time. HPI: 01/15/24 Shazia Vaca is a pleasant 79 y.o. female who is being seen for the above. Shazia reports that she has been having worsening gradual pain pain in several joints that started around October of this year. She initially had pain and swelling starting in the left wrist extending to the MCP joints associated with prolonged morning stiffness. Subsequently had similar symptoms in the the left shoulder, right wrist but not the right MCP joints. Last month she also noted swelling and pain to the right foot and ankle. There was no aSSCOAIED She was given steroid taper by her PCP in October which improved with swelling and pain. She did not complete the taper as she was concerned that it was causing worsening of dyspeptic symptoms and constipation that she has been experiencing for some time now. She has continued to have dyspeptic symptoms despite discontinuation of steroids. Wrists and right foot still swollen and painful. No raynaud's. Recently seen in the emergency room in [place] for the G.I symptoms and had a CT abdomen which she states was reported as having no significant findings. ED physician was concerned for a possible peptic ulcer and recommended referral for upper endoscopyas well as a colonoscopy. She also has Myelodysplastic syndrome diagnosed 2 years ago in [place] by Legal Cashier - Dr Chand. She has been on Revlimid. Has had 2 recent iron infusion for anemia. Has chronic fatigue. No skin rash or ulcers No inflammatory eye symptoms No chest pain, dyspnea or leg swelling Denies any fever, chills, anorexia or unintentional weight loss. Review of PCP notes: Notes - 12/10/23 Persistent pain in left wrist, left knee, right foot and ankle Swelling in the joints Intermittent abd pain 3 weeks prior to onset of joint pain ? had tick bite in October Problems: Hypothyroidism HTN Hypercholoesterolemia COPD Dementia - 07/24 Anemia - 07/24 Former tobacco use Chart review from both Epic notes and scanned notes completed and summarized. Social History Socioeconomic History Marital status: Spouse name: Not on file Number of children: Not on file Years of education: Not on file Highest education level: Not on file Occupational History Not on file Tobacco Use Smoking status: Former Types: Cigarettes Passive exposure: Past Smokeless tobacco: Never Vaping Use Vaping status: Never Used Substance and Sexual Activity Alcohol use: Never Drug use: Never Sexual activity: Not Currently Other Topics Concern Not on file Social History Narrative Not on file Social Drivers of Health Food Insecurity: Not on file Transportation Needs: Not on file Feeling Safe: Not on file Housing Stability: Not on file No family history on file. ROS: Review of Systems Constitutional: Negative for activity change, appetite change, chills, fatigue, fever and unexpected weight change. HENT: Negative for congestion, dental problem, ear discharge, ear pain, hearing loss, mouth sores, nosebleeds, sinus pain, tinnitus and trouble swallowing. Eyes: Negative. Negative for photophobia, pain, discharge, redness, itching and visual disturbance. Respiratory: Negative for cough, shortness of breath and wheezing. Cardiovascular: Negative for chest pain, palpitations and leg swelling. Gastrointestinal: Negative for abdominal distention, abdominal pain, constipation, diarrhea and nausea. Endocrine: Negative for cold intolerance and heat intolerance. Musculoskeletal: Positive for arthralgias and joint swelling. Negative for back pain, gait problem,myalgias, neck pain and neck stiffness. Skin: Negative for color change, pallor and rash. Neurological: Negative for tremors, seizures, speech difficulty, weakness, numbness and headaches. Hematological: Negative for adenopathy. Does not bruise/bleed easily. Psychiatric/Behavioral: Negative for confusion and sleep disturbance. Objective: Vitals: 12/31/24 0953 BP: 124/58 Pulse: 82 SpO2: 93% Physical Exam: General: Well-developed, well nourished, in no acute distress. Skin/Hair/Nails: No rashes,nodules,thickening,telangiectasias, or livedoid changes. Capillaroscopy performed using ophthalmoscope Eyes: Extra-ocular movements intact, pupils equal round and reactive to light. Sclera anicteric, without injection. Conjunctiva pink. Tear film adequate. Mouth: Moist mucous membranes. No oral gingival ulcers. Tongue with normal palpillae. Adequate salivary pooling Neck: Supple, trachea midline. Chest: Clear to auscultation bilaterally without wheezes, rales, or stridor. Chest expands symmetrically. CV: Regular rate and rhythm with no murmurs, rubs or gallops. Extremities: Warm and well perfused. No edema. Musculoskeletal: No rheumatoid nodules Hands: Slight bilateral ulnar deviation at the MCP joints No synovitis noted at 1-5 MCP joints, first IP joint, 2-5 PIP joints, 2-5, DIP joints Wrist: Persistent b/l wrist synovitis - L > R Elbow: No synovitis or TTP. Has full range of flexion, extension, pronation and supination Shoulders: No effusion or synovitis Pos empty can bilaterally - L>R Hips: Has normal flexion, extension, adduction, abduction, external rotation and internal rotation Knees: Mild right knee effusion Joint line tenderness Has normal flexion, extension with crepitus Ankles: No effusion or synovitis Feet: No tenosynovitis Normal 1-5 MTP joints with no synovitis or tenderness - bilaterally Labs: WOLFGANG - 1:80 nuclear homogenous Ds DNA - neg Sm & Sm/CARBONIZER TESTER - neg CARBONIZER TESTER - neg SSA/SSB - neg Connie-1 - neg Scl70 - neg Chromatin - neg Centromere - neg Ribosomal P - neg RF - neg CCP - neg Mutated citrulinated vimentin - neg CRP - 119 (<8) ESR - 57 Screening labs - 01/16/24 Quant - neg Hepatitis panel - non-reactive Uric acid - 5.8 Esr - 128 Crp - 83 Imaging: Assessment Assessment & Plan: 1. Tendinopathy of rotator cuff, left 2. Tendinopathy of right rotator cuff 3. Chronic pain of right knee 4. Synovitis of left wrist Chronic right knee pain and bilateral shoulder impingement Had benefit with glucocorticoid injections Will plan to do repeat injections after December 18 which would be approximately 3 months since her last shot Left subacromial and right knee cortisone injections : The procedure of joint/bursa injection and the associated risks, benefits, and alternative treatments were discussed with the patient. Verbal informed consent was obtained. I verified that the patient had no allergies to local anesthetic. A procedural pause was conducted to verify the correct patient identity, procedure to be performed,side, site, and patient position. After verification, each area for injection was marked and prepped in the usual sterile fashion using betadine solution and then local anesthetic spray applied. A 22gauge needle was used to deliver 1 ml of 1% lidocaine and 1 ml (40 mg) of Kenalog separately into each subacromial bursa and right knee joint. Following aspiration a sterile dressing was applied. The patient tolerated the procedure well. Aftercare was discussed with the patient. It may be more painful for the first 1-2 days after a joint injection. You can take analgesics suchas Ibuprofen, Alleve or Tylenol. Application of a cool compress may also help. Try to avoid any excessive activity of the joint in the next 24 to 48 hours. Watch for fever, redness, increased swelling or worsening pain in the joint. Call or return to clinic if such symptoms occur or there is failure to improve as anticipated. Left wrist injection: The procedure of joint/bursa injection and the associated risks, benefits, and alternative treatments were discussed with the patient. Verbal informed consent was obtained. I verified that the patient had no allergies to local anesthetic. A procedural pause was conducted to verify the correct patient identity, procedure to be performed,side, site, and patient position. After verification, each area for injection was marked and prepped in the usual sterile fashion using betadine solution and then local anesthetic spray applied. A 22gauge needle was used to deliver 1 ml of 1% lidocaine and 1 ml (40 mg) of Kenalog separately into each subacromial bursa and right knee joint. Following aspiration a sterile dressing was applied. The patient tolerated the procedure well. Aftercare was discussed with the patient. It may be more painful for the first 1-2 days after a joint injection. You can take analgesics suchas Ibuprofen, Alleve or Tylenol. Application of a cool compress may also help. Try to avoid any excessive activity of the joint in the next 24 to 48 hours. Watch for fever, redness, increased swelling or worsening pain in the joint. Call or return to clinic if such symptoms occur or there is failure to improve as anticipated. - Routine follow-up for RA in 3 mths Patient will follow up with their primary care physician in regards to any non- rheumatological symptoms listed under review of systems Patient was advised to contact our office if there are any change in their symptoms Procedures I have reviewed and discussed with with the patient the recent symptoms, past medical history, review of systems (pertinent rheumatology), diagnosis, medication (risk and benefits) and the plan. I have also reviewed the patient's relevant previous office visits notes, relevant outside records from other physicians involved in the patient's management, previous procedures and relevant labs/images images related to this visit. This note was automatically generated by a [employer] AI technology ([employer]), reviewed, edited, and finalized by Chris Chino MD. Dictation software [employer] services used, which may contain error for similar sounding words even after review. Please do not hesitate to contact me for any clarification. Chris Witt MD [facility] documented in this encounter Miscellaneous Notes * Patient Instructions - Chris Witt MD - 12/31/2024 10:37 AM CDT Instruction for injections: It may be more painful for the first 1-2 days after a joint injection. You can take analgesics suchas Ibuprofen, Alleve or Tylenol. Application of a cool compress may also help. Try to avoid any excessive activity of the joint in the next 24 to 48 hours. Watch for fever, redness, increased swelling or worsening pain in the joint. Call or return to clinic if such symptoms occur or there is failure to improve as anticipated. 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 03/10/2025 10:40 AM CDT Office Visit [facility] Rheumatology- [place] Lefty Carlson [address] [place] [address] Chris Wolfe MD [address] [place] [address] documented as of this encounter Visit Diagnoses Diagnosis Tendinopathy of rotator cuff, left- Primary Tendinopathy of right rotator cuff Chronic pain of right knee Synovitis of left wrist Rheumatoid arthritis of multiple sites with negative rheumatoid factor ([facility]/HCC) Encounter for monitoring sulfasalazine therapy Encounter for therapeutic drug monitoring 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 documented in this encounter Administered Medications Inactive Administered Medications - up to 3 most recent administrations Medication Order MAR Action Action Date Dose Rate Site triamcinolone acetonide (KENALOG-40) injectable suspension 20 mg 20 mg, Intra-arTICular, ONE TIME ONLY, 1 dose, On Deborah 12/31/24 at 1100, RoutineIndications:Synovitis of left wrist Given 12/31/2024 10:52 AM CDT 20 mg triamcinolone acetonide (KENALOG-40) injectable suspension 40 mg 40 mg, Intra-arTICular, ONE TIME ONLY, 1 dose, On Deborah 12/31/24 at 1100, RoutineIndications:Tendinopathy of rotator cuff, left Given 12/31/2024 10:53 AM CDT 40 mg triamcinolone acetonide (KENALOG-40) injectable suspension 40 mg 40 mg, Intra-arTICular, ONE TIME ONLY, 1 dose, On Deborah 12/31/24 at 1100, RoutineIndications:Chronic pain of right knee Given 12/31/2024 10:52 AM CDT 40 mg documented in this encounter
[2025-01-06 23:12] VITALS: BP 143/80; PULSE 88; RESP 20; TEMP 36.4; O2SAT 98; BMI 24.0
--- OUTSIDE RECORDS SUMMARY | 2025-01-06 23:16 | XMS_ITS | Clinical Summary ---
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 Active atorvastatin (LIPITOR) 20 mg tablet Take 20 mg by mouth daily. Active traMADoL (ULTRAM) 50 mg tablet Take by mouth every 6 hours as needed for Pain. Active diclofenac sodium (VOLTAREN) 1 % gel Apply to affected area 4 times daily. Active omeprazole (PriLOSEC) 20 mg Capsule, Delayed Release(E.C.) Take 20 mg by mouth daily. Active donepeziL (ARICEPT) 5 mg tablet Take 10 mg by mouth daily at bedtime. Active levothyroxine 100 mcg tablet Take 100 mcg by mouth daily in the morning. Active polyethylene glycol 3350 (MIRALAX) 17 gram/dose Powder Take by mouth daily. Dissolve in 8 ounces of fluid and drink entire liquid Active ondansetron (ZOFRAN ODT) 4 mg Tablet, Rapid Dissolve Take 4 mg by mouth every 8 hours as needed for Nausea/Emesi s. Dissolve tablet on top of tongue, then swallow with saliva. Active lenalidomide (REVLIMID) 2.5 mg capsule Take by mouth daily. Active cholecalcifero l, vitamin D3, (VITAMIN D3 ORAL) Take 2,000 mg by mouth daily. Active VITAMIN E-400 ORAL Take 400 mg by mouth daily. Active folic acid (FOLVITE) 1 mg tablet Take 5 Tablets (5 mg) by mouth daily. 450 Tablet 2 5 02/01/ 025 Active alendronate (Fosamax) 70 mg tablet Take 1 Tablet (70 mg) by mouth every 7 days. empty stomach before other meds,with 8oz of water, stay upright 30 min 4 Tablet 2 5 025 Active methotrexate (RHEUMATREX) 2.5 mg Tablet TAKE 10 TABLETS BY MOUTH A SPLIT DOSING ONCE WEEKLY, 5 TABS IN THE MORNING AND 5 TABS IN EVENING ON THE SAME DAY 80 Tablet 5 Active sulfaSALAzine (AZULFIDINE) 500 mg tablet Take 2 tablets by mouth twice daily 240 Tablet 5 Active sulfaSALAzine (AZULFIDINE) 500 mg tablet Take 2 tablets by mouth twice daily 240 Tablet 5 025 Discontinued methotrexate (RHEUMATREX) 2.5 mg Tablet Take 10 Tablets (25 mg) by mouth every 7 days. Take as split dosing, 5 tablets in the morning and 5 tablets in the evening on the same day 80 Tablet 5 025 Discontinued Hospital, Clinic, or Other Facility Administered Medication Ordered Dose Route Frequency Start Date End Date Status lidocaine 1 % (XYLOCAINE) injection 10 mgIndications:Tendi nopathy of rotator cuff, left 10 mg Ifil ONE TIME ONLY 09/18/2024 Active lidocaine 1 % (XYLOCAINE) injection 10 mgIndications:Tendi nopathy of right rotator cuff 10 mg Ifil ONE TIME ONLY 09/18/2024 Active lidocaine 1 % (XYLOCAINE) injection 10 mgIndications:Chron ic pain of right knee 10 mg Ifil ONE TIME ONLY 09/18/2024 Active lidocaine 1 % (XYLOCAINE) injection 10 mgIndications:Synov itis of left wrist 10 mg Ifil ONE TIME ONLY 12/31/2024 Act briana lidocaine 1 % (XYLOCAINE) injection 10 mgIndications:Tendi nopathy of rotator cuff, left 10 mg Ifil ONE TIME ONLY 12/31/2024 Active lidocaine 1 % (XYLOCAINE) injection 10 mgIndications:Chron ic pain of right knee 10 mg Ifil ONE TIME ONLY 12/31/2024 Active triamcinolone acetonide (KENALOG-40) injectable suspension 20 mgIndications:Synov itis of left wrist 20 mg Intra-arTIC u ONE TIME ONLY 12/31/2024 12/31/2024 Ended triamcinolone acetonide (KENALOG-40) injectable suspension 40 mgIndications:Tendi nopathy of rotator cuff, left 40 mg Intra-arTIC u ONE TIME ONLY 12/31/2024 12/31/2024 Ended triamcinolone acetonide (KENALOG-40) injectable suspension 40 mgIndications:Chron ic pain of right knee 40 mg Intra-arTIC u ONE TIME ONLY 12/31/2024 12/31/2024 Ended Active Problems No known active problems Encounters Date Type Department Care Team Description 12/31/2024 10:00 AM CDT Office Visit [facility] Rheumatology- [facility] [address] [place] [address] Chris Wolfe MD Tendinopathy of rotator cuff, left (Primary Dx); Tendinopathy of right rotator cuff; Chronic pain of right knee; Synovitis of left wrist 12/29/2024 Refill [facility] [address] [place] [address] Chris Wolfe MD 12/28/2024 Refill [facility] [address] [place] [phone] Chris Wolfe MD 12/16/2024 External Device Data STL ABSTRACTION Provider, Abstract 12/15/2024 External Device Data STL ABSTRACTION Provider, Abstract 12/08/2024 10:40 AM CDT [facility] [address] [place] [address] Chris Wolfe MD Rheumatoid arthritis of multiple sites with negative rheumatoid factor (CMS/HCC) (Primary Dx); Tendinopathy of rotator cuff, left; Tendinopathy of right rotator cuff; Chronic pain of right knee; Age-related osteoporosis without current pathological fracture; Encounter for monitoring of methotrexate therapy; prison (current) use of systemic steroids; Encounter for monitoring sulfasalazine therapy; 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 [address] Provider, Abstract 11/03/2024 Telephone [facility] Rheumatology- [facility] [address] [place] [address] Chris Wolfe MD Advice Only 11/02/2024 Telephone [facility] Rheumatology- [place] [facility] [address] [place] [address] Chris Wolfe MD Referral 11/01/2024 Refill [facility] Rheumatology- [place] [facility] [address] [place] [phone] Chris Wolfe MD 10/30/2024 Refill [facility] Rheumatology- [place] [facility] [address] [place] [phone] Chris Wolfe MD 10/26/2024 Telephone [facility] Rheumatology- [place] [facility] [address] [place] [phone] Chris Wolfe MD Medication Refill from Last 3 Months Social History Tobacco Use Types Packs/Day Years Used Date Smoking Tobacco: Former Cigarettes Passive Smoke Exposure: Past Smokeless Tobacco: Never Tobacco Cessation:Counseling Given: Not Answered Alcohol Use Standard Drinks/Week Comments Never 0 (1 standard drink = 0.6 oz pur e alcohol) Comments No Sex and Gender Information Value Date Recorded Sex Assigned at Not on file 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 Gender Identity Not on file Sexual Orientation Not on file Last Filed Vital Signs Vital Sign Reading [...] Mass Index 24.15 12/31/2024 9:53 AM CDT Plan of Treatment Upcoming Encounters Date Type Department Care Team (Latest Contact Info) Description 01/18/2025 Orders Only [facility] Rheumatology- [facility] [address] [place] [address] Chris Wolfe MD [address] [place] [phone] Rheumatoid arthritis of multiple sites with negative rheumatoid factor ([facility]); Encounter for monitoring sulfasalazine therapy; 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 03/10/2025 10:40 AM CDT Office Visit [facility] Rheumatology- [place] [facility] [address] [place] [phone] Chris Wolfe MD [address] [place] [phone] Health Maintenance Due Date Last Done Comments RSV VACCINE (60+ or ) (1 - 1-dose 75+ series) 2021 ZOSTER VACCINE (2 of 2) 05/27/2023 04/01/2023 COVID-19 Vaccine (7 - Pfizer risk 2023- season) 2024 03/28/2024, 07/17/2023, 05/24/2021, Additional history exists INFLUENZA VACCINE (#1) 2025 , 04/01/2023, 04/21/2022, Additional history exists OSTEOPOROSIS SCREENING 05/13/2029 05/13/2024 DTAP/TDAP/TD VACCINES (2 - T d or Tdap) 03/28/2034 03/28/2024 COLORECTAL SCREENING Discontinued 02/06/2024 Colorectal Cancer Screening Discontinued PNEUMOCOCCAL VACCINE 50+ YEARS Completed 08/31/2024 , 11/14/2012 FIT-DNA Q 3 years Discontinued FIT/FOBT Q 1 year Discontinued Flex Sig/CT Colonography Q 5 years Discontinued Procedures Procedure Name Priority Date/Time Associated Diagnosis Comments CBC WITH DIFFERENTIAL Routine 11/16/2024 11:50 AM CDT Rheumatoid arthritis of multiple sites with negative rheumatoid factor (CMS/HCC) Encounter for monitoring sulfasalazine therapy 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 ALT Routine 11/16/2024 11:50 AM CDT Rheumatoid arthritis of multiple sites with negative rheumatoid factor (CMS/HCC) Encounter for monitoring sulfasalazine therapy 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 AST Routine 11/16/2024 11:50 AM CDT Rheumatoid arthritis of multiple sites with negative rheumatoid factor (CMS/HCC) Encounter for monitoring sulfasalazine therapy 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 CREATININE Routine 11/16/2024 11:50 AM CDT Rheumatoid arthritis of multiple sites with negative rheumatoid factor (CMS/HCC) Encounter for monitoring sulfasalazine therapy 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 COMPREHENSIVE METABOLIC PANEL Routine 10/28/2024 12:14 PM CDT COMPREHENSIVE METABOLIC PANEL Routine 10/22/2024 12:15 PM CDT XR DEXA BONE DENSITY AXIAL 1 OR MORE SITES Routine 05/13/2024 2:16 PM ADDING MACHINE OPERATOR Rheumatoid arthritis of multiple sites with negative rheumatoid factor (CMS/HCC) prison (current) use of systemic steroids from Last 3 Months or Most Recently Relevant to Health Maintenance Results * (ABNORMAL) CBC WITH DIFFERENTIAL (11/16/2024 11:50 AM CDT) WBC 3.3(L) 3.8 - 10.8 Thousand/u L [facility] RBC 3.12(L) 3.80 - 5.10 Million/uL [facility] HEMOGLOBIN 10.2(L) 11.7 - 15.5 g/dL [facility] HEMATOCRIT 33.4(L) 35.0 - 45.0 % [facility] MCV 107.1(H) 80.0 - 100.0 fL [facility] MCH 32.7 27.0 - 33.0 pg [facility] MCHC 30.5(L) 32.0 - 36.0 g/dL [facility] Comment: For adults, a slight decrease in the calculated MCHC value (in the range of 30 to 32 g/dL) is most likely not clinically significant; however, it should be interpreted with caution in correlation with other red cell parameters and the patient's clinical condition. RDW 20.1(H) 11.0 - 15.0 % [facility] PLATELETS 200 140 - 400 Thousand/u L [facility] MPV 12.7(H) 7.5 - 12.5 fL [facility] NEUTROPHIL ABSOLUTE 1,927 1,500 - 7,800 cells/uL [facility] LYMPHOCYTE ABSOLUTE 766(L) 850 - 3,900 cells/uL [facility] MONOCYTE ABSOLUTE 304 200 - 950 cells/uL [facility] EOSINOPHIL ABSOLUTE 211 15 - 500 cells/uL [facility] BASOPHILS ABSOLUTE 92 0 - 200 cells/uL [facility] NEUTROPHIL 58.4 % [facility] LYMPHOCYTES 23.2 % [facility] MONOCYTE 9.2 % [facility] EOSINOPHILS 6.4 % [facility] BASOPHILS 2.8 % [facility] Comment: Test Performed at: [facility] [address] [phone] Frantz Do MD Blood 11/16/2024 11:5 0 AM CDT 11/16/2024 11:50 AM CDT Chris Witt MD HEMATOLOGY O RDERABLES Final Result Performing Organization Address City/[facility]/ZIP Co de Phone Number [facility] [phone] [facility] [address] [place] [phone] * ALT (11/16/2024 11:50 AM CDT) ALT 15 6 - 29 U/L [facility] Comment: Test Performed at: [facility] [address] [place] [phone] Frantz Do MD Blood 11/16/2024 11:5 0 AM CDT 11/16/2024 11:50 AM CDT Chris Witt MD CHEMISTRY OR DERABLES Final Result Performing Organization Address [facility] Co de Phone Number [facility] [phone] [facility] [address] [place] [phone] * AST (11/16/2024 11:50 AM CDT) AST 21 10 - 35 U/L [facility] Comment: Test Performed at: [facility] [address] [place] [phone] Frantz Do MD Blood 11/16/2024 11:5 0 AM CDT 11/16/2024 11:50 AM CDT Chris Witt MD CHEMISTRY OR DERABLES Final Result Performing Organization Address City/[facility]/ZIP Co de Phone Number [facility] [phone] [facility] [address] [place] [phone] * CREATININE (11/16/2024 11:50 AM CDT) CREATININE 0.73 0.60 - 1.00 mg/dL [facility] GFR 84 > OR = 60 mL/min/1.7 3m2 [facility] Comment: Test Performed at: [facility] [address] [facility] [place] [address] Frantz Do MD Blood 11/16/2024 11:5 0 AM CDT 11/16/2024 11:50 AM CDT hCris Witt MD CHEMISTRY OR DERABLES Final Result [facility] [phone] [facility] [address] [facility] [place] [address] * COMPREHENSIVE METABOLIC PANEL (10/28/2024 12:14 PM CDT) Only the most recent of2 resultswithin the time period is included. Blood us Abstract Provider CHEMISTRY ORDERABLES Final Res ult * XR DEXA BONE DENSITY AXIAL 1 OR MORE SITES (05/13/2024 2:16 PM ADDING MACHINE OPERATOR) Anatomical Region Laterality Modality Nuclear Medicine 05/13/2024 2:16 PM ADDING MACHINE OPERATOR Impressions 05/13/2024 2:37 PM ADDING MACHINE OPERATOR IMPRESSION: Osteoporosis NOF guidelines recommend consideration of FDA-approved medical therapies in patients with FRAX determined 10-year probabilities of hip/major osteoporosis-related fractures equal or greater than 3%/20% respectively. Consider assessing fracture risk using the FRAX analysis tool for guidance of clinical management available online at www.shef.ac.uk/FRAX/. [employer] for Select DXA and the Femoral Neck BMD value. Narrative 05/13/2024 2:37 PM ADDING MACHINE OPERATOR DEXA Evaluation of the Lumbar Spine and Left Proximal Femur Reason for Consultation: Osteoporosis screening.Evaluation of bone mineral density. The following absorptiometry data were obtained. The quality of this examination is acceptable with regards to count density, processed images, data display and lack of important artifacts (including but not limited to motion and attenuation artifacts). Comparison: None L1-L4 BMD (g/cm2): 0.93 Adult T-score: -2.1 Left Femoral Neck BMD (g/cm2): 0.65 Adult T-score: -2.8 Left Total Hip BMD (g/cm2): 0.66 Adult T-score: -2.8 N.B. Changes in density of <=0.05 g/cm2 are not statistically significant. Definitions: T-score > -0.99 = Normal T-score -1.00 to -1.49 = mild osteopenia T-score -1.50 to -1.99 = moderate osteopenia T-score -2.00 to -2.49 = severe osteopenia T-score < -2.50 = osteoporosis RECOMMENDATIONS: Normal: Low risk for fracture - f/u in 2 years Mild/Mod osteopenia: Moderate risk for fracture - f/u in 1 year Severe osteopenia: Moderate/high risk for fracture - f/u in 1 year Osteoporosis: High risk for fracture - f/u in 1 year Procedure Note Sahil Velasquez MD - 05/13/2024 DEXA Evaluation of the Lumbar Spine and Left Proximal Femur Reason for Consultation: Osteoporosis screening.Evaluation of bone mineral density. The following absorptiometry data were obtained. The quality of this examination is acceptable with regards to count density, processed images, data display and lack of important artifacts (including but not limited to motion and attenuation artifacts). Comparison: None L1-L4 BMD (g/cm2): 0.93 Adult T-score: -2.1 Left Femoral Neck BMD (g/cm2): 0.65 Adult T-score: -2.8 Left Total Hip BMD (g/cm2): 0.66 Adult T-score: -2.8 N.B. Changes in density of <=0.05 g/cm2 are not statistically significant. Definitions: T-score > -0.99 = Normal T-score -1.00 to -1.49 = mild osteopenia T-score -1.50 to -1.99 = moderate osteopenia T-score -2.00 to -2.49 = severe osteopenia T-score < -2.50 = osteoporosis RECOMMENDATIONS: Normal: Low risk for fracture - f/u in 2 years Mild/Mod osteopenia: Moderate risk for fracture - f/u in 1 year Severe osteopenia: Moderate/high risk for fracture - f/u in 1 year Osteoporosis: High risk for fracture - f/u in 1 year IMPRESSION: Osteoporosis NOF guidelines recommend consideration of FDA-approved medical therapies in patients with FRAX determined 10-year probabilities of hip/major osteoporosis-related fractures equal or greater than 3%/20% respectively. Consider assessing fracture risk using the FRAX analysis tool for guidance of clinical management available online at www.shef.ac.uk/FRAX/. [employer] for Select DXA and the Femoral Neck BMD value. Chris Witt MD DIAGNOSTIC I MAGING ORDERABLES Final Result from Last 3 Months or Most Recently Relevant to Health Maintenance Insurance [address] [place] [address] MEDICARE PART A AND B [facility]
--- OUTSIDE RECORDS SUMMARY | 2025-01-06 23:16 | XMS_ITS | Patient Health Record ---
Author Organization [facility] Address [address] [place], [place] [id number] Care Team Providers Care Case Briefer Name Role Phone Tayla LOTT, Jez Primary Care Provider Lauryn LOTT, Demetrio Unavailable [phone] Se Clay DO Unavailable Unavailable [facility] [phone] Allergies Allergen (clinical drug ingredient) Drug/Non Drug Allergy documented on EMR Reaction Allergy Type Onset Date Status penicillin Unknown Drug Allergy Active Results Component Value Reference Range Notes Urine tox screen / MS if ind icated Reviewed date:08/16/2024 02:27:59 PM Interpretation:Consistent Performing Lab: Notes/Report: Consistent Urine tox screen / MS if ind icated Reviewed date:08/16/2024 02:27:59 PM Interpretation:Consistent Performing Lab: Notes/Report: Consistent Embedded PDF Reviewed date:08/16/2024 02:27:37 PM Interpretation: Performing Lab: Notes/Report: Acetyl fentanyl: Fentanyl Negative. Acetyl norfentanyl: Fentanyl Negative. Acry l fentanyl: Fentanyl Negative. Carfentanil: Fentanyl Negative. Para-fluorofentan yl: Fentanyl Negative. [facility], [address] [employer], [facility] [address], [place] [address], , L ab Director: Lay Gan MD, CLIA ID# [id number] [facility] Results Reviewed date:08/16/2024 02:27:25 PM Interpretation: Performing Lab:[id number] [facility], [address] [employer] [place] [id number] Lay Gan MD Notes/Report: [facility], [address], [place] [address], , L ab Director: Lay Gan MD, CLIA ID# [id number] OPIATES SCREEN negative 300 ng/mL Codeine Quantification negative 50 ng/mL Morphine Quantification negative 50 ng/mL Hydrocodone Quantification negative 50 ng/mL Norhydrocodone Quantification negative 50 ng/mL Hydromorphone Quantification negative 50 ng/mL OXYCODONE SCREEN negative 100 ng/mL Oxycodone Quantification negative 50 ng/mL Noroxycodone Quantification negative 50 ng/mL Oxymorphone Quantification negative 50 ng/mL BUPRENORPHINE SCREEN negative 10 ng/mL Buprenorphine Quantification negative 5 ng/mL Norbuprenorphine Quantification negative 20 ng/mL FENTANYL SCREEN negative 2 ng/mL Fentanyl Quantification negative 1 ng/mL Norfentanyl Quantification negative 8 ng/mL METHADONE SCREEN negative 300 ng/mL Methadone Quantification negative 100 ng/mL EDDP (Methadone metabolite) Quantification negative 100 ng/mL TRAMADOL SCREEN positive 200 ng/mL Tramadol Quantification positive-00619.742 100 ng/mL V-cbhryvsdl-zurbeoby Quantification positive-> 66809 1 00 ng/mL H-Aunjldezu-Jvxikldm Quantification positive-2755.215 100 ng/mL Tapentadol Quantification negative 50 ng/mL BENZODIAZEPINES SCREEN negative 200 ng/mL Alpha-Hydroxyalprazolam Quantification negative 20 ng/mL 5-Szhuq-Ocqoignzmp Quantification negative 20 ng/m L Lorazepam Quantification negative 40 ng/mL Nordiazepam Quantification negative 40 ng/mL Temazepam Quantification negative 50 ng/mL Oxazepam Quantification negative 40 ng/mL AMPHETAMINES SCREEN negative 500 ng/mL Amphetamine Quantification negative 100 ng/mL Gabapentin Quantification negative 1000 ng/mL Pregabalin Quantification negative 400 ng/mL Naltrexone Quantification negative 10 ng/mL Naltrexol Quantification negative 10 ng/mL Naloxone Quantification negative 20 ng/mL Carisoprodol Quantification negative 100 ng/mL Meprobamate Quantification negative 100 ng/mL BARBITURATES SCREEN negative 200 ng/mL Pentobarbital Quantification negative 200 ng/mL Phenobarbital Quantification negative 200 ng/mL Secobarbital Quantification negative 200 ng/mL Butalbital Quantification negative 200 ng/mL Cyclobenzaprine Quantification negative 50 ng/mL Methamphetamine Quantification negative 100 ng/mL COCAINE METABOLITE SCREEN negative 150 ng/mL Cocaine metabolite Quantification negative 50 ng/m L CANNABINOIDS (cTHC) SCREEN negative 50 ng/mL cTHC (Marijuana metabolite) Quantification negative 15 ng/mL MDMA SCREEN negative 500 ng/mL MDMA Quantification negative 100 ng/mL HEROIN METABOLITE SCREEN negative 10 ng/mL 6-DEREK (Heroin metabolite) Quantification negative 10 ng/mL PHENCYCLIDINE SCREEN negative 25 ng/mL Phencyclidine Quantification negative 10 ng/mL Acetyl fentanyl Quantification Fen Neg 2 ng/mL Acetyl norfentanyl Quantification Fen Neg 5 ng/mL Acryl fentanyl Quantification Fen Neg 1 ng/mL Carfentanil Quantification Fen Neg 2 ng/mL Para-fluorofentanyl Quantification Fen Neg 1 ng/m L CREATININE normal-66.9 >20 mg/dL mg/dL OXIDANT normal-0 <200 ug/mL ug/mL PH normal-5.7 4.5 - 9.5 SPECIFIC GRAVITY normal-1.012 1.003 - 1.035 Reason For Referral No Information Medications Medication SIG (Take, Route, Frequency, Duration) Notes Start Date End Date Status aspirin 81 mg 1 tab orally once a day Active One Daily with Minerals 1 tab orally onc e a day Active omeprazole 20 mg 1 cap orally once a day Active naproxen 500 mg 1 tab orally 2 times a day Active levothyroxine 125 mcg (0.125 mg) 1 tab orally once a day Active amLODIPine 5 mg 1 tab orally once a day Active sulfaSALAzine 500 mg 1 tab(s) orally 2 times a day for 30 days 04/15/2024 Active traMADol 50 mg 1 tab orally Q4H prn pain (max 4/day; hold within 4H of planned sleep) for 28 days ICD-10: G89.29 10/15/2024 Active Revlimid 2.5 mg 1 cap(s) orally once a day 10/09/2023 Active predniSONE 5 mg 1 tab(s) orally once a day for 30 day(s) 02/12/2024 Active Osteo BiFlex 1 tab PO as directed Active donepezil 10 mg 1 tab orally once a day (at bedtime) 10/27/2019 Active vitamin E 400 intl units 1 cap orally once a day Active atorvastatin 20 mg 1 tab orally once a day (at bedtime) Active Tylenol Extra Strength 500 mg 2 tabs orally every 8-12 hours Active Social History Tobacco Use: Social History Observation Description Date Details (start date - stop date) Former Smoker NA - NA Tobacco use: Question Answer Notes : former smoker - quit in 2013 AUDIT-C (Standard) Question Answer Notes Did you have a drink containing alcohol in the p ast year? No Points 0 Interpretation Negative Problems Problem Type SNOMED Code ICD Code Onset Dates Problem Status W/U Status Risk Notes Problem Spasm (33038961) Muscle spasm (728.85) Active confirmed Problem Hypersomnia (56254458) Hypersomnia (780.54) Active confirmed Problem Limb pain (86881645) Limb pain (729.5) Active confirmed Problem Displacement of lumbar intervertebral disc without myelopathy (58375761) Lumbar (w/out myelopathy) intervertebral disc disorder (722.10) Active confirmed Problem Long-term drug therapy (337967025) LONG-TERM USE MEDS NEC (V58.69) Active confirmed r/o substance abuse Problem Spondylolisthesis (423798234) Spondylolisthesis (738.4) Active confirmed Problem Anxiety state (244046659) Anxiety State, other, specified: procedure related (300.09) Active confirmed Problem Solitary sacroiliitis (150444632) Sacroiliitis (720.2) Active confirmed Problem Lumbosacral spondylosis without myelopathy (98097497) Lumbosacral spondylosis without myelopathy (721.3) Active confirmed Problem Low back pain (396627518) Low back pain (724.2) Active confirmed Problem Solitary sacroiliitis (636406238) Sacroiliitis, not elsewhere classified (M46.1) Active confirmed Problem Low back pain (387684371) Low back pain (M54.5) Active confirmed Problem Lumbosacral spondylosis without myelopathy (56249001) Spondylosis without myelopathy or radiculopathy, lumbar region (M47.816) Active confirmed Problem High risk drug monitoring status (338047187) assisted (current) use of opiate analgesic (Z79.891) Active confirmed Problem Anxiety disorder (670716297) Other specified anxiety disorders (F41.8) Active confirmed Problem Hypersomnia (02462682) Hypersomnia, unspecified (G47.10) Active confirmed Problem Sleep apnea (71203757) Sleep apnea, unspecified (G47.30) Active confirmed Problem Obstructive sleep apnea syndrome (77839908) Obstructive sleep apnea (adult) (pediatric) (G47.33) Active confirmed Problem Chronic pain (71562666) Other chronic pain (G89.29) Active confirmed Problem Acquired spondylolisthesis (647424800) Spondylolisthesis, lumbar region (M43.16) Active confirmed Problem Radiculopathy due to lumbar intervertebral disc disorder (846700128060715) Intervertebral disc disorders with radiculopathy, lumbar region (M51.16) Active confirmed Problem Myalgia (56373322) Myalgia (M79.1) Active confi rmed Problem Pain in left leg (264047584) Pain in left leg (M79.605) Active confirmed Problem Muscle pain (37546005) Myalgia, other site (M79.18) Active confirmed Problem Pain in lumbar spine (032199221) Vertebrogenic low back pain (M54.51) Active confirmed Vital Signs Temperature 97.2 degrees Fahrenheit 10/15/2024 Blood pressure diastolic 49 mm Hg 10/15/2024 Oximetry 95 % 10/15/2024 Height 62 in 10/15/2024 Blood pressure systolic 117 mm Hg 10/15/2024 Weight 132 lbs 10/15/2024 BMI 24.14 kg/m2 10/15/2024 Encounters Encounter Location Date Provider Diagnosis [facility] [address] [place], [place] [id number] 02/12/2024 Shell Oleg Vertebrogenic low ba ck pain M54.51 ; Other chronic pain G89.29 and Sleep apnea, unspecified G47.30 [facility] [address] [place], [place] [id number] 04/15/2024 Demetrio Combs Vertebrogenic low ba ck pain M54.51 ; Other chronic pain G89.29 and Sleep apnea, unspecified G47.30 [facility] [address] [place], [place] [id number] 06/11/2024 Demetrio Combs Vertebrogenic low ba ck pain M54.51 ; Other chronic pain G89.29 and Sleep apnea, unspecified G47.30 [facility] [address] [place], [place] [id number] 08/13/2024 Demetrio Combs Vertebrogenic low ba ck pain M54.51 ; Other chronic pain G89.29 ; Sleep apnea, unspecified G47.30 and assisted (current) use of opiate analgesic Z79.891 [facility] [address] [place], [place] [id number] 10/15/2024 Demetrio Combs Vertebrogenic low ba ck pain M54.51 ; Other chronic pain G89.29 and Sleep apnea, unspecified G47.30 Assessments Encounter Date Diagnosis (ICD Code) Assessment Notes Treatment Notes Treatment Clinical Notes Section Notes 10/15/2024 Other chronic pain (ICD-10 - G89.29) Patient reports that taking her pain medication allows her to provide care for her diabetic grandson and complete her daily back sewer. Plan to continue oral opioid medication. 10/15/2024 Vertebrogenic low back pain (ICD-10 - M54.51) Chronic axial lumbosacral spine pain. 08/13/2024 Vertebrogenic low back pain (ICD-10 - M54.51) Chronic axial lumbosacral spine pain. 02/12/2024 Vertebrogenic low back pain (ICD-10 - M54.51) Chronic axial lumbosacral spine pain. 04/15/2024 Other chronic pain (ICD-10 - G89.29) Patient reports that taking her pain medication allows her to do her shopping and housework. Plan to continue oral opioid medication management. 04/15/2024 Vertebrogenic low back pain (ICD-10 - M54.51) Chronic axial lumbosacral spine pain. 06/11/2024 Vertebrogenic low back pain (ICD-10 - M54.51) Chronic axial lumbosacral spine pain. 06/11/2024 Other chronic pain (ICD-10 - G89.29) Patient reports that most days she could use an additional pain tablet. She feels that once rheumatology finds a medication that works well for her joint pain, she may be able to taper back to her current dosing. Plan to continue oral opioid medication management. 04/15/2024 Sleep apnea, unspecified (ICD-10 - G47.30) Untreated sleep apnea. Plan to continue to restrict opioid use in relation to sleep for safety concerns. 08/13/2024 Other chronic pain (ICD-10 - G89.29) Patient reports that taking her pain medication allows her to provide care for her diabetic grandson. Plan to continue oral opioid medication management. 02/12/2024 Sleep apnea, unspecified (ICD-10 - G47.30) Untreated sleep apnea - plan to continue to restrict opioid use in relation to sleep for safety concerns. 02/12/2024 Other chronic pain (ICD-10 - G89.29) Patient reports that taking her pain medication allows her to do light housework. Plan to continue oral opioid medication management. 10/15/2024 Sleep apnea, unspecified (ICD-10 - G47.30) Plan to continue to restrict opioid use in relation to sleep for safety concerns. 08/13/2024 Sleep apnea, unspecified (ICD-10 - G47.30) Untreated sleep apnea. Plan to continue to restrict opioid use in relation to sleep for safety concerns. 06/11/2024 Sleep apnea, unspecified (ICD-10 - G47.30) Untreated sleep apnea. Plan to continue to restrict opioid use in relation to sleep for safety concerns. 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 This places the patient in the low risk category. [facility] to monitor for presence of any unprescribed or illicit controlled substance(s), as well as prescribed tramadol (unable to test for tramadol in-office). 04/15/2024 Other The service was provided by SEFERINO Ames, as part of the ongoing care plan established by Demetrio Combs MD, who was present in the office for direct supervision during the encounter. 10/15/2024 Other The service was provided by SEFERINO Ames, as part of the ongoing care plan established by Demetrio Combs MD, who was present in the office for direct supervision during the encounter. Patient was provided with a letter at today's visit informing patient that this clinic is closing due to Dr. Combs's fdc; see scanned document. Terminal prescriptions were given to the patient along with tapering instructions. 06/11/2024 Other The service was provided by SEFERINO Ames, as part of the ongoing care plan established by Demetrio Combs MD, who was present in the office for direct supervision during the encounter. 08/13/2024 Other The service was provided by SEFERINO Amse, as part of the ongoing care plan established by Demetrio Combs MD, who was present in the office for direct supervision during the encounter. 02/12/2024 Other Patient reports she has been diagnosed with Inflammatory Arthritis and will be seeing Dr. Zeke West, a healthcare applications analyst in [place]. Plan Of Treatment No Information Insurance Providers Payer Name Payer Address Payer Phone Subscriber Number Group Number Insured Name Patient Relationship to Insured Coverage Start Date Coverage End Date WPS Medicare Part B Claims Department [address] [address] [place] [address] [id number] Nola Shazia Self - patient is the insured [employer] [address] [place] [phone] [id number] Nola Shazia Self - patient is the insured Medical (General) History Medical History History ICD Code Chronic pain Low back pain Lumbar spondylosis and spondylolisthesis Lumbar radiculopathy Sciatica Sacroiliitis Knee pain Foot pain Arthritis Thyroid disease Hearing loss Dyspnea on exertion Hemorrhoids Heartburn Hypercholesterolemia Anemia 09/2019 History of tobacco use, possible COPD Sleep apnea, untreated Inflammatory arthritis Surgical History Surgery Date(Month/Year) Colon polyp removal Left arthroscopic knee surgery, 08/31/14 Leg surgery Lumpectomy Left total knee arthroplasty, performed at [facility] by Dr. Rosario, 09/23/18 Cataract surgery, left, 12/2018 Cataract surgery, right, 01/2019 Hospitalization History Reason Date(Month/Year)
--- OUTSIDE RECORDS SUMMARY | 2025-01-06 23:16 | XMS_ITS | Encounter Summary ---
Author Organization [facility] Address [address] [place] [address] Care Team Providers Care Salesforce Specialist Name Role Phone Unavailable Primary Care Provider Unavailabl e Reason for Visit * Reason Comments Med Refill Encounter Details Date Type Department Care Team (Late st Contact Info) Description 12/29/2024 Refill [facility] [place] [address] [place] [address] Chris Witt MD [address] [place] [address] Social History Tobacco Use Types Packs/Day Years Used Date Smoking Tobacco: Former Cigarettes Passive Smoke Exposure: Past Smokeless Tobacco: Never Alcohol Use Standard Drinks/Week Comments Never 0 (1 standard drink = 0.6 oz pur e alcohol) Comments No Sex and Gender Information Value Date Recorded Sex Assigned at Not on file Legal Sex Female 9:20 PM CNP Gender Identity Not on file Sexual Orientation Not on file documented as of this encounter Miscellaneous Notes * Telephone Encounter - Berkley Guerra LPN - 12/29/2024 11:11 AM CDT Lab 11/16/24 ov 12/08/24 documented in this encounter Plan of Treatment Upcoming Encounters Date Type Department Care Team (Latest Contact Info) Description 01/18/2025 [facility] [address] [place] [address] Chris Wolfe MD [address] [place] [address] Rheumatoid arthritis of multiple sites with negative rheumatoid factor ([facility]); Encounter for monitoring sulfasalazine therapy; 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
--- NOTE | 2025-01-06 23:33 | W.ED.WEAKNES ---
HPI - Weakness General: Chief complaint: Weakness Stated complaint: suddenly legs too weak to hold her. FELL Time Seen by Provider: 01/06/25 23:32 Source: patient Mode of arrival: wheelchair Limitations: no limitations History of Present Illness: 79yo female presents with significant other for evaluation of weakness. Patient states she went to the restroom at approximately 2200 and when she stood up off of the toilet, her upper legs gave out. States it feels as if they will not hold her. Patient reports that her back will sometimes give out on her, but she has not had any recent issues. Patient reports she does have blood cancer and averages a blood transfusion every 3 weeks. States that her last transfusion was 12/18/2024. She denies recent illness, vomiting, diarrhea, fever, any other concerns at this time. Associated symptoms: Denies chest pain, chills, fever(s) or vomiting Related Data Home Medications ?Medication ?Instructions ?Recorded ?Confirmed atorvastatin 20 mg tablet 20 mg PO QPM 12/21/19 12/30/24 tramadol 50 mg tablet 50 mg PO Q8H PRN Pain 12/21/19 12/30/24 diclofenac sodium 1 % topical gel 4 g topical QID PRN Pain 04/01/23 12/30/24 (Voltaren Arthritis Pain) foot care products 04/01/23 12/30/24 omeprazole 20 mg capsule,delayed 20 mg PO QPM 12/09/23 12/30/24 release donepezil 10 mg tablet 10 mg PO QPM 01/10/24 12/30/24 ondansetron HCl 4 mg tablet 0.4 mg PO Q6H PRN Nausea And 01/10/24 12/30/24 Vomiting ipratropium bromide 42 mcg (0.06 intranasal 01/30/24 12/30/24 %) nasal spray prednisone 5 mg tablet mg PO 01/30/24 12/30/24 sulfasalazine 500 mg tablet PO 03/06/24 12/30/24 folic acid 1 mg tablet 1 mg PO DAILY 05/27/24 12/30/24 methotrexate sodium 2.5 mg tablet 2.5 mg PO DAILY 05/27/24 12/30/24 alendronate 70 mg tablet mg PO 07/29/24 12/30/24 levothyroxine 125 mcg tablet mcg PO 09/24/24 12/30/24 Previous Rx's ?Medication ?Instructions ?Recorded polyethylene glycol 3350 17 4 g PO DAILY #238 grams 01/10/24 gram/dose oral powder (Miralax) sucralfate 1 gram tablet (Carafate) 1 g PO DAILY #30 tabs 06/05/24 potassium chloride 10 mEq 10 meq PO BID #60 tabs 10/30/24 tablet,extended release lenalidomide 2.5 mg capsule See Rx Instructions .Route 12/18/24 .COMPLEX #21 caps Allergies Allergy/AdvReac Type Severity Reaction Status Date / Time penicillin V Allergy UKNOWN Verified 01/06/25 23:15 Review of Systems Const: Denies: fever(s), chills or body aches Card: Denies: chest pain Resp: Denies: dyspnea GI: Denies: vomiting or diarrhea Neuro: Reports: weakness in extremities (kralo upper legs) PFSH ED PFSH: Medical History Myelodysplastic syndrome Hypothyroidism GERD (gastroesophageal reflux disease) History of iron deficiency Chronic low back pain DDD (degenerative disc disease) Osteoarthritis involving multiple joints on both sides of body Hypertension Hypercholesterolemia Surgical History History of superficial parotidectomy (2005) 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) Status post right breast lumpectomy History of colonoscopy Status post total knee replacement, left (2008) Family History Brother Cancer Throat Sister Cancer 2 sisters with lung cancer, 1 sister with colon cancer Other Lung disease Denies family history of Diabetes CAD (coronary artery disease) Clotting disorder Dementia Hyperlipidemia Psychiatric illness Chronic kidney disease (CKD) Suicide Anesthesia complication Bleeding disorder Hypertension Stroke Social History Smoking and tobacco/nicotine status: former use of tobacco/nicotine Quit status (tobacco/nicotine): has quit using Year quit tobacco: 2022 Former quit date comment: tobacco use 45-50 years Alcohol intake: never Substance/Drug Use: never Physical Exam Const: COMMON NORMALS: no acute distress, patient oriented x3, healthy appearing and alert GENERAL APPEARANCE: cooperative ORIENTATION/CONSCIOUSNESS: Yes awake OTHER: Patient is sitting upright on the stretcher no acute distress. She is able to give history with no difficulty. She is interactive with exam appropriately. Family is at bedside HENMT: COMMON NORMALS: normocephalic and atraumatic HEAD & SCALP: normocephalic and atraumatic Chest: CHEST: Yes Symmetrical chest wall rise Resp: COMMON NORMALS: normal respiratory effort EFFORT & INSPECTION: Yes able to speak in complete sentences Extremity: COMMON NORMALS: full ROM RIGHT LOWER EXTREMITY: Yes upper leg Right upper leg: Yes neurovascular exam (sensation intact, FROM) LEFT LOWER EXTREMITY: Yes upper leg (sensation intact, FROM) Left upper leg: Yes neurovascular exam Neuro: COMMON NORMALS: patient oriented x3 SENSORIUM/ORIENTATION: Yes alert Psych: COMMON NORMALS: cooperative Course Vital Signs: Vital signs: Vital Signs Temperature 97.5 F L 01/06/25 23:12 Pulse Rate 86 01/07/25 00:32 Respiratory Rate 20 H 01/06/25 23:12 Blood Pressure 178/81 01/07/25 00:32 Pulse Oximetry 91 01/07/25 00:32 Oxygen Delivery Me thod Room Air 01/07/25 00:32 MDM - Weakness Medical Decision Making 79yo female with a history of myelodysplastic syndrome, iron deficiency anemia, chronic low back pain here with family for evaluation following a fall while getting up from the toilet this evening. Patient reports her upper legs gave out on her as she was standing up after voiding. She reports states they just will not hold her. Patient reports that she still has sensation and is able to move her legs. She denies groin numbness/tingling, incontinence, any other concerns at this time. Patient is nontoxic in appearance. Vital signs are stable. UA is grossly unremarkable. Awaiting labs. Dr. Terry to assume care due to change of shift. Medical Records I reviewed the patient's medical records. Lab Data I reviewed the patient's lab results. Laboratory Results Urine Color Yellow (Yellow) 01/06/25 23:35 Urine Appearance Clear (CLEAR) 01/06/25 23:35 Urine pH 6.5 (5-7) 01/06/25 23:35 Ur Specific [place] 1.007 (1.005-1.030) 01/06/25 23:35 Urine Protein Negative (Negative) 01/06/25 23:35 Urine Glucose (UA) Negative (Normal) 01/06/25 23:35 Urine Ketones Negative (Negative) 01/06/25 23:35 Urine Blood Negative (Negative) 01/06/25 23:35 Urine Nitrate Negative (Negative) 01/06/25 23:35 Urine Bilirubin Negative (Negative) 01/06/25 23:35 Urine Urobilinogen 0.2 mg/dL (Negative) 01/06/25 23:35 Ur Leukocyte Esterase Negative (Negative) 01/06/25 23:35 Urine RBC 0-2 /hpf (0-2) 01/06/25 23:35 Urine WBC 0-5 /hpf (0-5) 01/06/25 23:35 Ur Squamous Epith Cells 0-5 /hpf (0-5) 01/06/25 23:35 Urine Bacteria None seen /hpf (NONE) 01/06/25 23:35 Hyaline Casts 0.40 /lpf 01/06/25 23:35 No radiology studies performed this visit Discharge Plan Discharge Condition: Stable Prescriptions: No Action tramadol 50 mg tablet 50 mg PO Q8H PRN (Reason: Pain) atorvastatin 20 mg tablet 20 mg PO QPM folic acid 1 mg tablet 1 mg PO DAILY Patient Comments: 5 daily methotrexate sodium 2.5 mg tablet 2.5 mg PO DAILY levothyroxine 125 mcg tablet PO diclofenac sodium [Voltaren Arthritis Pain] 1 % gel 4 g topical QID PRN (Reason: Pain) Rx Instructions: apply to single knee, ankle, foot; for foot includes sole/toes/top of foot (DME) foot care products Pad See Rx Instructions .Route Patient Comments: insoles for both feet Rx Instructions: As directed omeprazole 20 mg capsule,delayed release(DR/EC) 20 mg PO QPM prednisone 5 mg tablet PO ipratropium bromide 42 mcg (0.06 %) spray,non-aerosol intranasal sulfasalazine 500 mg tablet PO alendronate 70 mg tablet PO sucralfate [Carafate] 1 gram tablet 1 g PO DAILY Qty: 30 0RF Rx Instructions: Take 30 minutes prior to medications daily potassium chloride 10 mEq tablet extended release 10 meq PO BID Qty: 60 2RF lenalidomide 2.5 mg capsule See Rx Instructions .ROUTE .COMPLEX Qty: 21 0RF Dose Instruction: TAKE 1 CAPSULE BY MOUTH EVERY MORNING FOR 21 DAYS, THEN 7 DAYS OFF OF A 28 DAY CYCLE. Rx Instructions: TAKE 1 CAPSULE BY MOUTH EVERY MORNING FOR 21 DAYS, THEN 7 DAYS OFF OF A 28 DAY CYCLE. [id number] Miralax 17 gram/dose powder 4 g PO DAILY Qty: 238 0RF donepezil 10 mg tablet 10 mg PO QPM ondansetron HCl 4 mg tablet 0.4 mg PO Q6H PRN (Reason: Nausea And Vomiting) Referrals: Navid Bourne MD [Primary Care Provider, Family Practice] Print Language: Angolan Coding Level of Care Code ED Assistant Auditor for Marquesg Raisa
[2025-01-07 00:14] LABS: Glucose Urine UA Negative (Normal); Nitrate Urine Negative (Negative); Specific Gravity, Urine 1.007 (1.005-1.030)
[2025-01-07 00:25] LABS: Add Urine Microscopic? YES
[2025-01-07 00:32] VITALS: BP 178/81; PULSE 86; O2SAT 91
[2025-01-07 00:50] LABS: Hematocrit 31.1 % (36-47); Hemoglobin 9.70 g/dL (11.27-16.99); Mean Corpuscular HGB Conc 31.2 g/dL (30-55); Mean Corpuscular Hemoglobin 33.1 pg (27-33); Mean Corpuscular Volume 106.1 fl (85-98); Nucleated Red Blood Cells % 0.7 %; Platelet Count 269 10^3/cmm (157-399); Red Blood Count 2.93 10^6/uL (3.85-5.65); White Blood Count 4.43 10^3/uL (3.29-11.43)
[2025-01-07 01:22] LABS: Alanine Aminotransferase 11 U/L (0-33); Albumin Level 3.7 g/dL (3.5-5.2); Alkaline Phosphatase 165 U/L (35-105); Anion Gap 16.8 (5-19); Aspartate Amino Transferase 14 U/L (0-32); Blood Urea Nitrogen 11 mg/dL (8-23); Calcium 9.6 mg/dL (8.5-10.5); Carbon Dioxide 21 mmol/L (22-29); Chloride 96 mmol/L (98-107); Creatinine Clr Calc Pharmacy 47.3224; Globulin 3.6 g/dL (1.3-4.6); Glucose 96 mg/dL (65-115); Magnesium 1.9 mg/dL (1.7-2.3); Osmolality Calculated 269 mOsm/kg (285-295); Potassium 3.8 mmol/L (3.5-5.1); Sodium 130 mmol/L (136-145); Thyroid Stimulating Hormone 3.10 uIU/mL (0.27-4.20); Total Protein 7.3 g/dL (6.6-8.7)
[2025-01-07 02:05] VITALS: BP 161/68; PULSE 76; O2SAT 95
[2025-01-07 02:39] VITALS: BP 159/72; PULSE 74; O2SAT 95
--- NOTE | 2025-01-07 02:39 | W.ED.WEAKNES ---
HPI - Weakness General: Chief complaint: Weakness Stated complaint: suddenly legs too weak to hold her. FELL Time Seen by Provider: 01/06/25 23:32 Source: patient Mode of arrival: wheelchair Limitations: no limitations History of Present Illness: Please see previous note Related Data Home Medications ?Medication ?Instructions ?Recorded ?Confirmed atorvastatin 20 mg tablet 20 mg PO QPM 12/21/19 12/30/24 tramadol 50 mg tablet 50 mg PO Q8H PRN Pain 12/21/19 12/30/24 diclofenac sodium 1 % topical gel 4 g topical QID PRN Pain 04/01/23 12/30/24 (Voltaren Arthritis Pain) foot care products 04/01/23 12/30/24 omeprazole 20 mg capsule,delayed 20 mg PO QPM 12/09/23 12/30/24 release donepezil 10 mg tablet 10 mg PO QPM 01/10/24 12/30/24 ondansetron HCl 4 mg tablet 0.4 mg PO Q6H PRN Nausea And 01/10/24 12/30/24 Vomiting ipratropium bromide 42 mcg (0.06 intranasal 01/30/24 12/30/24 %) nasal spray prednisone 5 mg tablet mg PO 01/30/24 12/30/24 sulfasalazine 500 mg tablet PO 03/06/24 12/30/24 folic acid 1 mg tablet 1 mg PO DAILY 05/27/24 12/30/24 methotrexate sodium 2.5 mg tablet 2.5 mg PO DAILY 05/27/24 12/30/24 alendronate 70 mg tablet mg PO 07/29/24 12/30/24 levothyroxine 125 mcg tablet mcg PO 09/24/24 12/30/24 Previous Rx's ?Medication ?Instructions ?Recorded polyethylene glycol 3350 17 4 g PO DAILY #238 grams 01/10/24 gram/dose oral powder (Miralax) sucralfate 1 gram tablet (Carafate) 1 g PO DAILY #30 tabs 06/05/24 potassium chloride 10 mEq 10 meq PO BID #60 tabs 10/30/24 tablet,extended release lenalidomide 2.5 mg capsule See Rx Instructions .Route 12/18/24 .COMPLEX #21 caps Allergies Allergy/AdvReac Type Severity Reaction Status Date / Time penicillin V Allergy UKNOWN Verified 01/06/25 23:15 PFSH ED PFSH: Medical History (Updated 01/07/25 @ 02:28 by Sky Terry DO) Myelodysplastic syndrome Hypothyroidism GERD (gastroesophageal reflux disease) History of iron deficiency Chronic low back pain DDD (degenerative disc disease) Osteoarthritis involving multiple joints on both sides of body Hypertension Hypercholesterolemia Surgical History History of superficial parotidectomy (2005) 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) Status post right breast lumpectomy History of colonoscopy Status post total knee replacement, left (2008) Family History Brother Cancer Throat Sister Cancer 2 sisters with lung cancer, 1 sister with colon cancer Other Lung disease Denies family history of Diabetes CAD (coronary artery disease) Clotting disorder Dementia Hyperlipidemia Psychiatric illness Chronic kidney disease (CKD) Suicide Anesthesia complication Bleeding disorder Hypertension Stroke Social History Smoking and tobacco/nicotine status: former use of tobacco/nicotine Quit status (tobacco/nicotine): has quit using Year quit tobacco: 2022 Former quit date comment: tobacco use 45-50 years Alcohol intake: never Substance/Drug Use: never Course Vital Signs: Vital signs: Vital Signs Temperature 97.5 F L 01/06/25 23:12 Pulse Rate 76 01/07/25 02:05 Respiratory Rate 20 H 01/06/25 23:12 Blood Pressure 161/68 01/07/25 02:05 Pulse Oximetry 95 01/07/25 02:05 Oxygen Delivery Me thod Room Air 01/07/25 02:05 MDM - Weakness Medical Decision Making Patient's care was assumed at shift change with labs pending. It does show some mild decrease in her sodium otherwise her hemoglobin other labs are stable on her baseline. Patient was given some IV fluids and she felt little better. Patient reports she been drinking a lot of water so it may be delusional. Patient will follow-up with her primary care provider early next week for recheck. She is requesting to be discharged home and is stable upon discharge Lab Data 01/07/25 00:47 01/07/25 00:47 Laboratory Results WBC 4.43 10^3/uL (3.29-11.43) 01/07/25 00:47 RBC 2.93 10^6/uL (3.85-5.65) L 01/07/25 00:47 Hgb 9.70 g/dL (11.27-16.99) L 01/07/25 00:47 Hct 31.1 % (36-47) L 01/07/25 00:47 MCV 106.1 fl (85-98) H 01/07/25 00:47 MCH 33.1 pg (27-33) H 01/07/25 00:47 MCHC 31.2 g/dL (30-55) 01/07/25 00:47 RDW 21.9 % (12.1-15.1) H 01/07/25 00:47 Plt Count 269 10^3/cmm (157-399) 01/07/25 00:47 MPV 11.6 fL (7.4-10.4) H 01/07/25 00:47 Neut % (Auto) 48.0 % 01/07/25 00:47 Lymph % (Auto) 29.6 % 01/07/25 00:47 [place]Brien % (Auto) 18.7 % 01/07/25 00:47 Eos % (Auto) 1.6 % 01/07/25 00:47 Baso % (Auto) 1.4 % 01/07/25 00:47 Neut # (Auto) 2.13 10^3/uL (1.8-7.7) 01/07/25 00:47 Lymph # (Auto) 1.3 10^3/uL (0.8-4.8) 01/07/25 00:47 [place]Brien # (Auto) 0.8 10^3/uL (0.2-0.9) 01/07/25 00:47 Eos # (Auto) 0.1 10^3/uL (0.0-0.8) 01/07/25 00:47 Baso # (Auto) 0.1 10^3/uL (0.0-0.1) 01/07/25 00:47 Nucleated RBC % (auto) 0.7 % 01/07/25 00:47 Nucleated RBCs # 0.0 /100WBC 01/07/25 00:47 Sodium 130 mmol/L (136-145) L 07/10/25 00:47 Potassium 3.8 mmol/L (3.5-5.1) 01/07/25 00:47 Chloride 96 mmol/L (98-107) L 01/07/25 00:47 Carbon Dioxide 21 mmol/L (22-29) L 01/07/25 00:47 Anion Gap 16.8 (5-19) 01/07/25 00:47 BUN 11 mg/dL (8-23) 01/07/25 00:47 Creatinine 0.6 mg/dL (0.5-0.9) 01/07/25 00:47 GFR Calculation Not Reportable 01/07/25 00:47 Glucose 96 mg/dL (65-115) 01/07/25 00:47 Calculated Osmolality 269 mOsm/kg (285-295) L 01/07/25 00:47 Calcium 9.6 mg/dL (8.5-10.5) 01/07/25 00:47 Magnesium 1.9 mg/dL (1.7-2.3) 01/07/25 00:47 Total Bilirubin 0.3 mg/dL (0.15-1.2) 01/07/25 00:47 AST 14 U/L (0-32) 01/07/25 00:47 ALT 11 U/L (0-33) 01/07/25 00:47 Alkaline Phosphatase 165 U/L (35-105) H 01/07/25 00:47 Total Protein 7.3 g/dL (6.6-8.7) 01/07/25 00:47 Albumin 3.7 g/dL (3.5-5.2) 01/07/25 00:47 Globulin 3.6 g/dL (1.3-4.6) 01/07/25 00:47 TSH 3.10 uIU/mL (0.27-4.20) 01/07/25 00:47 Urine Color Yellow (Yellow) 01/06/25 23:35 Urine Appearance Clear (CLEAR) 01/06/25 23:35 Urine pH 6.5 (5-7) 01/06/25 23:35 Ur Specific [place] 1.007 (1.005-1.030) 01/06/25 23:35 Urine Protein Negative (Negative) 01/06/25 23:35 Urine Glucose (UA) Negative (Normal) 01/06/25 23:35 Urine Ketones Negative (Negative) 01/06/25 23:35 Urine Blood Negative (Negative) 01/06/25 23:35 Urine Nitrate Negative (Negative) 01/06/25 23:35 Urine Bilirubin Negative (Negative) 01/06/25 23:35 Urine Urobilinogen 0.2 mg/dL (Negative) 01/06/25 23:35 Ur Leukocyte Esterase Negative (Negative) 01/06/25 23:35 Urine RBC 0-2 /hpf (0-2) 01/06/25 23:35 Urine WBC 0-5 /hpf (0-5) 01/06/25 23:35 Ur Squamous Epith Cells 0-5 /hpf (0-5) 01/06/25 23:35 Urine Bacteria None seen /hpf (NONE) 01/06/25 23:35 Hyaline Casts 0.40 /lpf 01/06/25 23:35 No radiology studies performed this visit Discharge Plan Discharge Patient Disposition: Home Clinical Impression: Hyponatremia, Weakness of both legs Condition: Stable Prescriptions: No Action tramadol 50 mg tablet 50 mg PO Q8H PRN (Reason: Pain) atorvastatin 20 mg tablet 20 mg PO QPM folic acid 1 mg tablet 1 mg PO DAILY Patient Comments: 5 daily methotrexate sodium 2.5 mg tablet 2.5 mg PO DAILY levothyroxine 125 mcg tablet PO diclofenac sodium [Voltaren Arthritis Pain] 1 % gel 4 g topical QID PRN (Reason: Pain) Rx Instructions: apply to single knee, ankle, foot; for foot includes sole/toes/top of foot (DME) foot care products Pad See Rx Instructions .Route Patient Comments: insoles for both feet Rx Instructions: As directed omeprazole 20 mg capsule,delayed release(DR/EC) 20 mg PO QPM prednisone 5 mg tablet PO ipratropium bromide 42 mcg (0.06 %) spray,non-aerosol intranasal sulfasalazine 500 mg tablet PO alendronate 70 mg tablet PO sucralfate [Carafate] 1 gram tablet 1 g PO DAILY Qty: 30 0RF Rx Instructions: Take 30 minutes prior to medications daily potassium chloride 10 mEq tablet extended release 10 meq PO BID Qty: 60 2RF lenalidomide 2.5 mg capsule See Rx Instructions .ROUTE .COMPLEX Qty: 21 0RF Dose Instruction: TAKE 1 CAPSULE BY MOUTH EVERY MORNING FOR 21 DAYS, THEN 7 DAYS OFF OF A 28 DAY CYCLE. Rx Instructions: TAKE 1 CAPSULE BY MOUTH EVERY MORNING FOR 21 DAYS, THEN 7 DAYS OFF OF A 28 DAY CYCLE. [id number] Miralax 17 gram/dose powder 4 g PO DAILY Qty: 238 0RF donepezil 10 mg tablet 10 mg PO QPM ondansetron HCl 4 mg tablet 0.4 mg PO Q6H PRN (Reason: Nausea And Vomiting) Discharge Orders: Discharge ED (Routine); Ordered 01/07/25 Ordered By: Sky Terry Referrals: Navid Bourne MD [Primary Care Provider, Family Practice] Discharge Diet: Usual diet Discharge Activity: Increase activity as tolerated Patient Instructions: Opioid Safety, Pain Management, Patient Portal & [place] Instructions Activity Restrictions/Additional Instructions: Please follow-up with your primary care provider on Saturday for recheck of your symptoms. Return to the ER over the weekend as needed for symptoms that worsen. Print Language: Faroese Coding Level of Care Code ED Supervisor Looping for Xi Kline
== END 2025-01-07 02:59 | disposition home or self-care (01) ==
PROVIDERS: Emergency Provider Nurse Practitioner; PCP Family Medicine
DX: E87.1 Hypo-osmolality and hyponatremia (principal); R53.1 Weakness; E03.9 Hypothyroidism, unspecified; K21.9 Gastro-esophageal reflux disease without esophagitis; C95.90 Leukemia, unspecified not having achieved remission; I10 Essential (primary) hypertension; Z79.899 Other long term (current) drug therapy; Z79.890 Hormone replacement therapy; Z88.0 Allergy status to penicillin; Z87.891 Personal history of nicotine dependence
CPT/HCPCS: 36415; 80053; 81001; 83735; 84443; 85025; 99283; J7040

== ENCOUNTER 2025-01-27 08:00 | Oncology outpatient (recurring) (ONCR) | payer MEDICARE, OTHER, SELFPAY ==
[2024-12-30 08:25] LABS: Hematocrit 31.8 % (36-47); Hemoglobin 9.60 g/dL (11.27-16.99); Mean Corpuscular HGB Conc 30.2 g/dL (30-55); Mean Corpuscular Hemoglobin 32.2 pg (27-33); Mean Corpuscular Volume 106.7 fl (85-98); Nucleated Red Blood Cells % 0 %; Platelet Count 198 10^3/cmm (157-399); Red Blood Count 2.98 10^6/uL (3.85-5.65); White Blood Count 3.53 10^3/uL (3.29-11.43)
[2024-12-30 08:48] LABS: Alanine Aminotransferase 22 U/L (0-33); Albumin Level 3.3 g/dL (3.5-5.2); Alkaline Phosphatase 266 U/L (35-105); Anion Gap 15.9 (5-19); Aspartate Amino Transferase 28 U/L (0-32); Blood Urea Nitrogen 12 mg/dL (8-23); Calcium 8.9 mg/dL (8.5-10.5); Carbon Dioxide 19 mmol/L (22-29); Chloride 107 mmol/L (98-107); Creatinine Clr Calc Pharmacy 47.6543; Ferritin 726 ng/mL (15-150); Globulin 3.6 g/dL (1.3-4.6); Glucose 130 mg/dL (65-115); Iron 50 ug/dL (37-145); Osmolality Calculated 288 mOsm/kg (285-295); Potassium 3.9 mmol/L (3.5-5.1); Sodium 138 mmol/L (136-145); Total Iron Binding Capacity 214 mcg/dl; Total Protein 6.9 g/dL (6.6-8.7); Unsaturated Iron Binding 164 ug/dL (112-347)
[2024-12-30 09:02] LABS: Vitamin B12 290 pg/mL (232-1245)
[2025-01-27 08:42] LABS: Hematocrit 24.9 % (36-47); Hemoglobin 7.60 g/dL (11.27-16.99); Mean Corpuscular HGB Conc 30.5 g/dL (30-55); Mean Corpuscular Hemoglobin 36.0 pg (27-33); Mean Corpuscular Volume 118.0 fl (85-98); Nucleated Red Blood Cells % 0.6 %; Platelet Count 231 10^3/cmm (157-399); Red Blood Count 2.11 10^6/uL (3.85-5.65); White Blood Count 3.32 10^3/uL (3.29-11.43)
[2025-01-27 09:06] LABS: Alanine Aminotransferase 13 U/L (0-33); Albumin Level 3.6 g/dL (3.5-5.2); Alkaline Phosphatase 145 U/L (35-105); Anion Gap 17.0 (5-19); Aspartate Amino Transferase 15 U/L (0-32); Blood Urea Nitrogen 17 mg/dL (8-23); Calcium 9.3 mg/dL (8.5-10.5); Carbon Dioxide 21 mmol/L (22-29); Chloride 104 mmol/L (98-107); Creatinine Clr Calc Pharmacy 47.4886; Globulin 2.9 g/dL (1.3-4.6); Glucose 115 mg/dL (65-115); Osmolality Calculated 288 mOsm/kg (285-295); Potassium 4.0 mmol/L (3.5-5.1); Sodium 138 mmol/L (136-145); Total Protein 6.5 g/dL (6.6-8.7)
== END 2025-01-28 23:59 | disposition home or self-care (01) ==
PROVIDERS: PCP Family Medicine; Visit Provider Internal Medicine
DX: D46.C 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; D50.9 Iron deficiency anemia, unspecified; R03.0 Elevated blood-pressure reading, without diagnosis of hypertension; Z87.891 Personal history of nicotine dependence; Z79.899 Other long term (current) drug therapy; Z53.9 Procedure and treatment not carried out, unspecified reason
CPT/HCPCS: 36415; 80053; 82607; 82728; 82746; 83010; 83540; 83550; 83615; 85025; 85045; 86850; 86900; 99213

== ENCOUNTER 2025-02-12 11:59 | Emergency (ER) | payer MEDICARE, OTHER, SELFPAY ==
[2025-02-12 11:59] VITALS: BP 111/51; PULSE 85; RESP 17; TEMP 36.6; O2SAT 95; BMI 23.2
--- NOTE | 2025-02-12 12:06 | ECG_ITS ---
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 Measurements Intervals [place] Rate: 80 P: 145 CT: 171 QRS: -18 QRSD: 102 T: 121 QT: 375 QTc: 433 Interpretive Statements ECTOPIC ATRIAL RHYTHM POSSIBLE LEFT ATRIAL ENLARGEMENT [-0.1mV P-WAVE IN V1/V2] LEFT VENTRICULAR HYPERTROPHY AND ST-T CHANGE [VOLTAGE CRITERIA PLUS ST/T ABNORMALITY] PROBABLE LATERAL MYOCARDIAL INFARCTION , OF INDETERMINATE AGE [35 ms Q WAVE IN I/aVL/V5/V6] Compared to ECG 12/10/2023 14:37:44 Ectopic atrial rhythm now present Left ventricular hypertrophy now present ST (T wave) deviation now present Myocardial infarct finding now present Electronically Signed On 02-12-2025 14:02:00 CDT by Diomedes George M.D. [email or web address]
--- NOTE | 2025-02-12 12:12 | W.ED.SYNCOPE ---
HPI - Syncope General: Chief Complaint: Syncope Stated Complaint: WEAKNESS Source: patient and EMS Mode of arrival: EMS Limitations: no limitations History of Present Illness: 79-year-old female has a history of myelodysplastic syndrome along with iron deficiency anemia. She states that she was at [facility] today and felt lightheaded and tried to sit down but did have a syncopal event. She states she has had a history of multiple syncopal events in the past. She denies headache she denies any chest pain states she does feel improved currently. Denies any vomiting or diarrhea. Related Data Home Medications ?Medication ?Instructions ?Recorded ?Confirmed atorvastatin 20 mg tablet 20 mg PO QPM 12/21/19 01/27/25 tramadol 50 mg tablet 50 mg PO Q8H PRN Pain 12/21/19 01/27/25 diclofenac sodium 1 % topical gel 4 g topical QID PRN Pain 04/01/23 01/27/25 (Voltaren Arthritis Pain) foot care products 04/01/23 01/27/25 omeprazole 20 mg capsule,delayed 20 mg PO QPM 12/09/23 01/27/25 release donepezil 10 mg tablet 10 mg PO QPM 01/10/24 01/27/25 ondansetron HCl 4 mg tablet 0.4 mg PO Q6H PRN Nausea And 01/10/24 01/27/25 Vomiting ipratropium bromide 42 mcg (0.06 intranasal 01/30/24 01/27/25 %) nasal spray prednisone 5 mg tablet mg PO 01/30/24 01/27/25 sulfasalazine 500 mg tablet PO 03/06/24 01/27/25 folic acid 1 mg tablet 1 mg PO DAILY 05/27/24 01/27/25 methotrexate sodium 2.5 mg tablet 2.5 mg PO DAILY 05/27/24 01/27/25 alendronate 70 mg tablet mg PO 07/29/24 01/27/25 levothyroxine 125 mcg tablet mcg PO 09/24/24 01/27/25 Previous Rx's ?Medication ?Instructions ?Recorded polyethylene glycol 3350 17 4 g PO DAILY #238 grams 01/10/24 gram/dose oral powder (Miralax) sucralfate 1 gram tablet (Carafate) 1 g PO DAILY #30 tabs 06/05/24 potassium chloride 10 mEq 10 meq PO BID #60 tabs 05/02/25 tablet,extended release lenalidomide 2.5 mg capsule See Rx Instructions .Route 01/19/25 .COMPLEX #21 caps Allergies Allergy/AdvReac Type Severity Reaction Status Date / Time penicillin V Allergy [place] Verified 01/27/25 08:24 PFS ED PFSH: Medical History (Updated 02/12/25 @ 12:53 by Mohamud Mcdowell MD) Myelodysplastic syndrome Hypothyroidism GERD (gastroesophageal reflux disease) History of iron deficiency Chronic low back pain DDD (degenerative disc disease) Osteoarthritis involving multiple joints on both sides of body Hypertension Hypercholesterolemia Surgical History History of superficial parotidectomy (2005) 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) Status post right breast lumpectomy History of colonoscopy Status post total knee replacement, left (2008) Family History Brother Cancer Throat Sister Cancer 2 sisters with lung cancer, 1 sister with colon cancer Other Lung disease Denies family history of Diabetes CAD (coronary artery disease) Clotting disorder Dementia Hyperlipidemia Psychiatric illness Chronic kidney disease (CKD) Suicide Anesthesia complication Bleeding disorder Hypertension Stroke Social History Smoking and tobacco/nicotine status: former use of tobacco/nicotine Quit status (tobacco/nicotine): has quit using Year quit tobacco: 2022 Former quit date comment: tobacco use 45-50 years Alcohol intake: never Substance/Drug Use: never Course Vital Signs: Vital signs: Vital Signs Temperature 97.8 F 02/12/25 11:59 Pulse Rate 82 02/12/25 12:35 Respiratory Rate 17 02/12/25 11:59 Blood Pressure 120/47 02/12/25 12:35 Pulse Oximetry 95 02/12/25 11:59 Oxygen Delivery Me thod Room Air 02/12/25 11:59 MDM - Syncope Medical Decision Making Patient presents for syncopal events had history of syncope in the past she has been well-appearing here has normal orthostatics blood works at her baseline she stable for discharge follow-up PCP return if worsening. Medical Records I reviewed the patient's medical records. Lab Data I reviewed the patient's lab results. 02/12/25 11:42 02/12/25 11:42 Laboratory Results WBC 4.33 10^3/uL (3.29-11.43) 02/12/25 11:42 RBC 2.29 10^6/uL (3.85-5.65) L 02/12/25 11:42 Hgb 8.10 g/dL (11.27-16.99) L 02/12/25 11:42 Hct 27.0 % (36-47) L 02/12/25 11:42 MCV 117.9 fl (85-98) H 02/12/25 11:42 MCH 35.4 pg (27-33) H 02/12/25 11:42 MCHC 30.0 g/dL (30-55) 02/12/25 11:42 RDW 16.2 % (12.1-15.1) H 02/12/25 11:42 Plt Count 250 10^3/cmm (157-399) 02/12/25 11:42 MPV 12.1 fL (7.4-10.4) H 02/12/25 11:42 Neut % (Auto) 59.1 % 02/12/25 11:42 Lymph % (Auto) 22.4 % 02/12/25 11:42 Hemphill % (Auto) 12.0 % 02/12/25 11:42 Eos % (Auto) 4.4 % 02/12/25 11:42 Baso % (Auto) 1.2 % 02/12/25 11:42 Neut # (Auto) 2.56 10^3/uL (1.8-7.7) 02/12/25 11:42 Lymph # (Auto) 1.0 10^3/uL (0.8-4.8) 02/12/25 11:42 Hemphill # (Auto) 0.5 10^3/uL (0.2-0.9) 02/12/25 11:42 Eos # (Auto) 0.2 10^3/uL (0.0-0.8) 02/12/25 11:42 Baso # (Auto) 0.1 10^3/uL (0.0-0.1) 02/12/25 11:42 Nucleated RBC % (auto) 0 % 02/12/25 11:42 Nucleated RBCs # 0.0 /100WBC 02/12/25 11:42 Sodium 132 mmol/L (136-145) L 02/12/25 11:42 Potassium 4.1 mmol/L (3.5-5.1) 02/12/25 11:42 Chloride 98 mmol/L (98-107) 02/12/25 11:42 Carbon Dioxide 19 mmol/L (22-29) L 02/12/25 11:42 Anion Gap 19.1 (5-19) H 02/12/25 11:42 BUN 17 mg/dL (8-23) 02/12/25 11:42 Creatinine 0.8 mg/dL (0.5-0.9) 02/12/25 11:42 GFR Calculation Not Reportable 02/12/25 11:42 Glucose 142 mg/dL (65-115) H 02/12/25 11:42 Calculated Osmolality 278 mOsm/kg (285-295) L 02/12/25 11:42 Calcium 9.9 mg/dL (8.5-10.5) 02/12/25 11:42 Total Bilirubin 0.2 mg/dL (0.15-1.2) 02/12/25 11:42 AST 30 U/L (0-32) 02/12/25 11:42 ALT 21 U/L (0-33) 02/12/25 11:42 Alkaline Phosphatase 153 U/L (35-105) H 02/12/25 11:42 Total Protein 7.4 g/dL (6.6-8.7) 02/12/25 11:42 Albumin 4.0 g/dL (3.5-5.2) 02/12/25 11:42 Globulin 3.4 g/dL (1.3-4.6) 02/12/25 11:42 All radiology interpretation(s) finalized by discharge EKG Data EKG 1: I personally reviewed and interpreted this EKG as follows: EKG interpretation date: 02/12/25 EKG interpretation time: 12:13 Interpretation: nsr hr [address] elevation qrs 102 qtc 410 Discharge Plan Discharge Patient Disposition: Home Clinical Impression: Syncope Condition: Stable Prescriptions: No Action tramadol 50 mg tablet 50 mg PO Q8H PRN (Reason: Pain) atorvastatin 20 mg tablet 20 mg PO QPM folic acid 1 mg tablet 1 mg PO DAILY Patient Comments: 5 daily methotrexate sodium 2.5 mg tablet 2.5 mg PO DAILY levothyroxine 125 mcg tablet PO diclofenac sodium [Voltaren Arthritis Pain] 1 % gel 4 g topical QID PRN (Reason: Pain) Rx Instructions: apply to single knee, ankle, foot; for foot includes sole/toes/top of foot (DME) foot care products Pad See Rx Instructions .Route Patient Comments: insoles for both feet Rx Instructions: As directed omeprazole 20 mg capsule,delayed release(DR/EC) 20 mg PO QPM prednisone 5 mg tablet PO ipratropium bromide 42 mcg (0.06 %) spray,non-aerosol intranasal sulfasalazine 500 mg tablet PO alendronate 70 mg tablet PO sucralfate [Carafate] 1 gram tablet 1 g PO DAILY Qty: 30 0RF Rx Instructions: Take 30 minutes prior to medications daily potassium chloride 10 mEq tablet extended release 10 meq PO BID Qty: 60 2RF lenalidomide 2.5 mg capsule See Rx Instructions .ROUTE .COMPLEX Qty: 21 0RF Dose Instruction: TAKE 1 CAPSULE BY MOUTH EVERY MORNING FOR 21 DAYS, THEN 7 DAYS OFF OF A 28 DAY CYCLE. Rx Instructions: TAKE 1 CAPSULE BY MOUTH EVERY MORNING FOR 21 DAYS, THEN 7 DAYS OFF OF A 28 DAY CYCLE. [id number] Miralax 17 gram/dose powder 4 g PO DAILY Qty: 238 0RF donepezil 10 mg tablet 10 mg PO QPM ondansetron HCl 4 mg tablet 0.4 mg PO Q6H PRN (Reason: Nausea And Vomiting) Discharge Orders: Discharge ED (Routine); Ordered 02/12/25 Ordered By: Mohamud Mcdowell Referrals: Navid Bourne MD [Primary Care Provider, Family Practice] Discharge Diet: Advance as tolerated Discharge Activity: Resume usual activity Patient Instructions: Syncope (ED) Print Language: Greek Coding Level of Care Code ED Ward Secretary for Xi Kline
--- OUTSIDE RECORDS SUMMARY | 2025-02-12 12:14 | XMS_ITS | Clinical Summary ---
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 Active cholecalciferol , vitamin D3, (VITAMIN D3 ORAL) Take 2,000 mg by mouth daily. Active VITAMIN E-400 ORAL Take 400 mg by mouth daily. Active methotrexate (RHEUMATREX) 2.5 mg Tablet TAKE 10 TABLETS BY MOUTH A SPLIT DOSING ONCE WEEKLY, 5 TABS IN THE MORNING AND 5 TABS IN EVENING ON THE SAME DAY 80 Tablet 5 Active sulfaSALAzine (AZULFIDINE) 500 mg tablet Take 2 tablets by mouth twice daily 240 Tablet 5 Active alendronate (Fosamax) 70 mg tablet Take 1 Tablet (70 mg) by mouth every 7 days. empty stomach before other meds,with 8oz of water, stay upright 30 min 12 Tablet 2 5 Active folic acid (FOLVITE) 1 mg tablet Take 5 Tablets (5 mg) by mouth daily. 450 Tablet 2 5 02/02/20 25 alendronate (Fosamax) 70 mg tablet Take 1 Tablet (70 mg) by mouth every 7 days. empty stomach before other meds,with 8oz of water, stay upright 30 min 4 Tablet 2 5 01/27/20 25 Discontinue d(Reorder) Hospital, Clinic, or Other Facility Administered Medication Ordered Dose Route Frequency Start Date End Date Status lidocaine 1 % (XYLOCAINE) injection 10 mgIndications:Tendinopath y of rotator cuff, left 10 mg Ifil ONE TIME ONLY 09/18/2024 Active lidocaine 1 % (XYLOCAINE) injection 10 mgIndications:Tendinopath y of right rotator cuff 10 mg Ifil ONE TIME ONLY 09/18/2024 Active lidocaine 1 % (XYLOCAINE) injection 10 mgIndications:Chronic pain of right knee 10 mg Ifil ONE TIME ONLY 09/18/2024 Act briana lidocaine 1 % (XYLOCAINE) injection 10 mgIndications:Synovitis of left wrist 10 mg Ifil ONE TIME ONLY 12/31/2024 Active lidocaine 1 % (XYLOCAINE) injection 10 mgIndications:Tendinopath y of rotator cuff, left 10 mg Ifil ONE TIME ONLY 12/31/2024 Active lidocaine 1 % (XYLOCAINE) injection 10 mgIndications:Chronic pain of right knee 10 mg Ifil ONE TIME ONLY 12/31/2024 Act briana Active Problems No known active problems Encounters Date Type Department Care Team Description 01/26/2025 Refill [facility] Rheumatology- [facility] [address] [place] [phone] Chris Wolfe MD 01/18/2025 Orders Only [facility] [address] [place] [address] Chris Wolfe MD Rheumatoid arthritis of multiple sites with negative rheumatoid factor ([facility]); Encounter for monitoring sulfasalazine therapy; 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 01/13/2025 External Device Data [facility] ABSTRACTION Provider, Abstract 01/13/2025 External Device Data [facility] ABSTRACTION Provider, Abstract 01/12/2025 External Device Data [facility] ABSTRACTION Provider, Abstract 12/31/2024 10:00 AM CDT Office Visit [facility] Rheumatology- [facility] [address] [place] [address] Chris Wolfe MD Tendinopathy of rotator cuff, left (Primary Dx); Tendinopathy of right rotator cuff; Chronic pain of right knee; Synovitis of left wrist 12/29/2024 Refill [facility]- [facility] [address] [place] [address] Chris Wolfe MD 12/28/2024 Refill [facility] [address] [place] [address] Chris Wolfe MD 12/16/2024 External Device Data [facility] ABSTRACTION Provider, Abstract 12/15/2024 External Device Data [facility] ABSTRACTION Provider, Abstract 12/08/2024 10:40 AM CDT Office Visit [facility] Rheumatology- [facility] [address] [place] [address] Chris Wolfe MD Rheumatoid arthritis of multiple sites with negative rheumatoid factor ([facility]) (Primary Dx); Tendinopathy of rotator cuff, left; Tendinopathy of right rotator cuff; Chronic pain of right knee; Age-related osteoporosis without current pathological fracture; Encounter for monitoring of methotrexate therapy; 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; Encounter for monitoring sulfasalazine therapy; 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; High risk medication use 11/19/2024 External Device Data [facility] ABSTRACTION Provider, Abstract 11/18/2024 External Device Data [place] ABSTRACTION Provider, Abstract 11/17/2024 External Device Data [place] ABSTRACTION Provider, Abstract 11/12/2024 Orders Only [facility] [address] [place] [address] Provider, Abstract from Last 3 Months Social History Tobacco [...] on file Legal Sex Female 9:20 PM [employer] Gender Identity Not on file Sexual Orientation [...] Upcoming Encounters Date Type Department Care Team (Late st Contact Info) Description 03/10/2025 10:40 AM CDT Office Visit [facility] Rheumatology- [facility] Carlson [address] [place] [address] Chris Witt MD [address] [facility] [address] [place] [address] Health Maintenance Due Date Last Done Comments RSV VACCINE (60+ or ) (1 - 1-dose 75+ series) 2021 ZOSTER VACCINE (2 of 2) 05/27/2023 04/01/2023 COVID-19 Vaccine (7 - Pfizer risk season) 2024 03/28/2024, 07/17/2023, 05/24/2021, Additional history [...] for monitoring sulfasalazine therapy 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 ALT Routine 11/16/2024 11:50 AM CDT Rheumatoid arthritis of multiple sites with negative rheumatoid factor (CMS/HCC) Encounter for monitoring sulfasalazine therapy 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 AST Routine 11/16/2024 11:50 AM CDT Rheumatoid arthritis of multiple sites with negative rheumatoid factor (CMS/HCC) Encounter for monitoring sulfasalazine therapy 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 CREATININE Routine 11/16/2024 11:50 AM CDT Rheumatoid arthritis of multiple sites with negative rheumatoid factor (CMS/HCC) Encounter for monitoring sulfasalazine therapy 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 XR DEXA BONE DENSITY AXIAL 1 OR MORE SITES Routine 05/13/2024 2:16 PM [employer] Rheumatoid arthritis of multiple sites with negative rheumatoid factor (CMS/HCC) 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 from Last 3 Months or Most Recently Relevant to Health Maintenance Results * (ABNORMAL) CBC WITH DIFFERENTIAL (11/16/2024 11:50 AM CDT) Pathologist [facility] WBC 3.3(L) 3.8 - 10.8 Thousand/u L [...] [facility] Comment: Test Performed at: [facility] [address] [place] [address] Frantz Do MD Blood 11/16/2024 11:5 0 AM CDT 11/16/2024 11:50 AM CDT Chris Witt MD HEMATOLOGY O RDERABLES Final Result Performing Organization Address City/[facility]/ZIP Co de Phone Number [facility] [phone] [facility] [address] [facility] [place] [address] * ALT (11/16/2024 11:50 AM CDT) ALT 15 6 - 29 U/L [facility] Comment: Test Performed at: [facility] [address] [facility] [place] [address] Frantz Do MD Blood 11/16/2024 11:5 0 AM CDT 11/16/2024 11:50 AM CDT Chris Witt MD CHEMISTRY OR DERABLES Final Result Performing Organization Address [facility] Co de Phone Number [facility] [phone] [facility] [address] [place] [address] * AST (11/16/2024 11:50 AM CDT) AST 21 10 - 35 U/L [facility] Comment: Test Performed at: [facility] [address] [facility] [place] [address] Frantz Do MD Blood 11/16/2024 11:5 0 AM CDT 11/16/2024 11:50 AM CDT Chris Witt MD CHEMISTRY OR DERABLES Final Result Performing Organization Address City/[facility]/ZIP Co de Phone Number [facility] [phone] [facility] [address] [place] [address] * CREATININE (11/16/2024 11:50 AM CDT) CREATININE 0.73 0.60 - 1.00 mg/dL [facility] GFR 84 > OR = 60 mL/min/1.7 3m2 [facility] Comment: Test Performed at: [facility] [address] [place] [address] Frantz Do MD Blood 11/16/2024 11:5 0 AM CDT 11/16/2024 11:50 AM CDT us Chris Witt MD CHEMISTRY OR DERABLES Final Result [facility] [phone] [facility] [address] [place] [address] * XR DEXA BONE DENSITY AXIAL 1 OR MORE SITES (05/13/2024 2:16 PM [employer] MARKET[employer] INTERN) Anatomical Region Laterality Modality Nuclear Medicine 05/13/2024 2:16 PM [employer] INTER[employer] Impressions 05/13/2024 2:37 PM [employer] INTER[employer] IMPRESSION: Osteoporosis NOF guidelines recommend consideration of FDA-approved medical therapies in patients with FRAX determined 10-year probabilities of hip/major osteoporosis-related fractures equal or greater than 3%/20% respectively. Consider assessing fracture risk using the FRAX analysis tool for guidance of clinical management available online at www.shef.ac.uk/FRAX/. Enter [employer] for Select DXA and the Femoral Neck BMD value. Narrative 05/13/2024 2:37 PM INTERNET MARKET[employer] INTERN DEXA Evaluation of the Lumbar Spine and [...] clinical management available online at www.shef.ac.uk/FRAX/. Enter [employer]br for Select DXA and the Femoral Neck BMD value. Chris Witt MD DIAGNOSTIC I MAGING ORDERABLES Final Result from Last 3 Months or Most Recently Relevant to Health Maintenance Insurance MEDICARE PART A AND B [facility]
--- OUTSIDE RECORDS SUMMARY | 2025-02-12 12:14 | XMS_ITS | Patient Health Record ---
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 Acetyl norfentanyl: Fentanyl Negative. Acry l fentanyl: Fentanyl Negative. Carfentanil: Fentanyl Negative. Para-fluorofentan yl: Fentanyl Negative. [place], [address] [address] [employer] [facility] [address] [address], , L ab Director: Lay Gan MD, CLIA ID# [id number] NJOY Results Reviewed date:08/16/2024 02:27:25 PM Interpretation: Performing Lab:[id number] [place], [address] [address] [facility] [id number] Lay Gan MD Notes/Report: [place], [address] [address] [employer] [facility] [address] [address], , L ab Director: Lay Gan MD, CLIA ID# [id number] OPIATES SCREEN negative 300 ng/mL Codeine Quantification [...] TRAMADOL SCREEN positive 200 ng/mL Tramadol Quantification positive-39310.742 100 ng/mL F-ichadpkda-nzgqyjro Quantification positive-> 45157 1 00 ng/mL D-Gpktonwyn-Malddrdu Quantification positive-2755.215 100 ng/mL Tapentadol Quantification negative 50 ng/mL BENZODIAZEPINES SCREEN negative 200 ng/mL Alpha-Hydroxyalprazolam Quantification negative 20 ng/mL 5-Dvqjs-Lmgwtcdngg Quantification negative 20 ng/m L Lorazepam Quantification [...] 9.5 SPECIFIC GRAVITY normal-1.012 1.003 - 1.035 Urine tox screen / MS if ind icated Reviewed date:08/16/2024 02:27:59 PM Interpretation:Consistent Performing Lab: Notes/Report: Consistent Urine tox screen / MS if ind icated Reviewed date:08/16/2024 02:27:59 PM Interpretation:Consistent Performing Lab: Notes/Report: Consistent Reason For Referral No Information Medications Medication [...] mg 1 tab(s) orally 2 times a day; Duration: 30 days 04/15/2024 Active traMADol 50 mg 1 tab orally Q4H prn pain (max 4/day; hold within 4H of planned sleep); Duration: 28 days ICD-10: G89.29 10/15/2024 Active Revlimid 2.5 mg 1 cap(s) orally once a day 10/09/2023 Active predniSONE 5 mg 1 tab(s) orally once a day; Duration: 30 day(s) 02/12/2024 Active Osteo BiFlex 1 [...] Status W/U Status Risk Notes Problem Spasm (55143739) Muscle spasm (728.85) Active confirmed Problem Hypersomnia (31983172) Hypersomnia (780.54) Active confirmed Problem Limb pain (93935234) Limb pain (729.5) Active confirmed Problem Displacement of lumbar intervertebral disc without myelopathy (74971868) Lumbar (w/out myelopathy) intervertebral disc disorder (722.10) Active confirmed Problem Long-term drug therapy (450733910) LONG-TERM USE MEDS NEC (V58.69) Active confirmed r/o substance abuse Problem Spondylolisthesis (456959687) Spondylolisthesis (738.4) Active confirmed Problem Anxiety state (566110530) Anxiety State, other, specified: procedure related (300.09) Active confirmed Problem Sacroiliitis (89809333) Sacroiliitis (720.2) Active confirmed Problem Lumbosacral spondylosis without myelopathy (77758306) Lumbosacral spondylosis without myelopathy (721.3) Active confirmed Problem Low back pain (248725627) Low back pain (724.2) Active confirmed Problem Solitary sacroiliitis (070085673) Sacroiliitis, not elsewhere classified (M46.1) Active confirmed Problem Low back pain (868061258) Low back pain (M54.5) Active confirmed Problem Lumbosacral spondylosis without myelopathy (22275000) Spondylosis without myelopathy or radiculopathy, lumbar region (M47.816) Active confirmed Problem High risk drug monitoring status (436448271) [facility] (current) use of opiate analgesic (Z79.891) Active confirmed Problem Anxiety disorder (183544504) Other specified anxiety disorders (F41.8) Active confirmed Problem Hypersomnia (83659581) Hypersomnia, unspecified (G47.10) Active confirmed Problem Sleep apnea (41141932) Sleep apnea, unspecified (G47.30) Active confirmed Problem Obstructive sleep apnea syndrome (96906583) Obstructive sleep apnea (adult) (pediatric) (G47.33) Active confirmed Problem Chronic pain (24386061) Other chronic pain (G89.29) Active confirmed Problem Acquired spondylolisthesis (987094881) Spondylolisthesis, lumbar region (M43.16) Active confirmed Problem Radiculopathy due to lumbar intervertebral disc disorder (339873780679903) Intervertebral disc disorders with radiculopathy, lumbar region (M51.16) Active confirmed Problem Myalgia (92769247) Myalgia (M79.1) Active confi rmed Problem Pain in left leg (274215555) Pain in left leg (M79.605) Active confirmed Problem Muscle pain (45003231) Myalgia, other site (M79.18) Active confirmed Problem Pain in lumbar spine (673950252) Vertebrogenic low back pain (M54.51) Active confirmed Vital Signs Temperature 97.2 degrees Fahrenheit 10/15/2024 Oximetry 95 % 10/15/2024 Blood pressure diastolic 49 mm Hg 10/15/2024 Height 62 in 10/15/2024 Blood pressure systolic 117 mm Hg 10/15/2024 Weight 132 lbs 10/15/2024 BMI 24.14 kg/m2 10/15/2024 Encounters Encounter Location Date Provider Diagnosis [facility] [address] [place], [place] [id number] 04/15/2024 Demetrio Combs Vertebrogenic low ba ck pain M54.51 ; Other chronic pain G89.29 and Sleep apnea, unspecified G47.30 [facility] [address] [place], [place] [id number] 06/11/2024 Demetrio Combs Vertebrogenic low ba ck pain M54.51 ; Other chronic pain G89.29 and Sleep apnea, unspecified G47.30 [facility], 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 [address] [place], [place] [id number] 10/15/2024 Demetrio Combs Vertebrogenic low ba ck pain M54.51 ; Other chronic pain G89.29 and Sleep apnea, unspecified G47.30 Assessments Encounter Date Diagnosis (ICD Code) Assessment Notes Treatment Notes Treatment Clinical Notes Section Notes 04/15/2024 Other chronic pain (ICD-10 - G89.29) Patient reports that taking her pain medication allows her to do her shopping and housework. Plan to continue oral opioid medication management. 04/15/2024 Vertebrogenic low back pain (ICD-10 - M54.51) Chronic axial lumbosacral spine pain. 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 Plan to continue oral opioid medication. 10/15/2024 Vertebrogenic low back pain (ICD-10 - M54.51) Chronic axial lumbosacral spine pain. 08/13/2024 Vertebrogenic low back pain (ICD-10 - M54.51) Chronic axial lumbosacral spine pain. 06/11/2024 Vertebrogenic low back pain (ICD-10 - M54.51) Chronic axial lumbosacral spine pain. 08/13/2024 Other chronic pain (ICD-10 - G89.29) Patient reports that taking her pain medication allows her to provide care for her diabetic grandson. Plan to continue oral opioid medication management. 06/11/2024 Other chronic pain (ICD-10 - G89.29) [...] in relation to sleep for safety concerns. 04/15/2024 Sleep apnea, unspecified (ICD-10 - G47.30) [...] relation to sleep for safety concerns. 08/13/2024 [facility] (current) use of opiate analgesic (ICD-10 - Z79.891) 2022 opioid (OUD) risk tool score = 2. This places the patient in the low risk category. Plan urine toxicology screen today with [facility] to monitor for presence of any unprescribed [...] clinic is closing due to Dr. Combs's residential; see scanned document. Terminal prescriptions were given [...] office for direct supervision during the encounter. Plan Of Treatment No Information Insurance Providers Payer Name Payer Address Payer Phone Subscriber Number Group Number Insured Name Patient Relationship to Insured Coverage Start Date Coverage End Date [employer] Medicare Part B Claims Department [address] [address] [place] [address] [id number] Shazia Vaca Self - patient is the insured [employer] [address] [place] [address] [id number] Shazia Vaca Self - patient is the insured Medical [...] Lumpectomy Left total knee arthroplasty, performed at [facility] by Dr. Rosario, 09/23/18 Cataract surgery, left, 12/2018 Cataract surgery, right, 01/2019 Hospitalization History Reason Date(Month/Year)
[2025-02-12 12:15] LABS: Hematocrit 27.0 % (36-47); Hemoglobin 8.10 g/dL (11.27-16.99); Mean Corpuscular HGB Conc 30.0 g/dL (30-55); Mean Corpuscular Hemoglobin 35.4 pg (27-33); Mean Corpuscular Volume 117.9 fl (85-98); Nucleated Red Blood Cells % 0 %; Platelet Count 250 10^3/cmm (157-399); Red Blood Count 2.29 10^6/uL (3.85-5.65); White Blood Count 4.33 10^3/uL (3.29-11.43)
[2025-02-12 12:33] LABS: Alanine Aminotransferase 21 U/L (0-33); Albumin Level 4.0 g/dL (3.5-5.2); Alkaline Phosphatase 153 U/L (35-105); Anion Gap 19.1 (5-19); Aspartate Amino Transferase 30 U/L (0-32); Blood Urea Nitrogen 17 mg/dL (8-23); Calcium 9.9 mg/dL (8.5-10.5); Carbon Dioxide 19 mmol/L (22-29); Chloride 98 mmol/L (98-107); Creatinine Clr Calc Pharmacy 48.5850; Globulin 3.4 g/dL (1.3-4.6); Glucose 142 mg/dL (65-115); Osmolality Calculated 278 mOsm/kg (285-295); Potassium 4.1 mmol/L (3.5-5.1); Sodium 132 mmol/L (136-145); Total Protein 7.4 g/dL (6.6-8.7)
[2025-02-12 12:35] VITALS: BP 106/45; BP 108/43; BP 120/47; PULSE 82; PULSE 85; PULSE 91
[2025-02-12 13:00] VITALS: BP 108/43; PULSE 84; O2SAT 95
== END 2025-02-12 13:10 | disposition home or self-care (01) ==
PROVIDERS: Emergency Provider Emergency Medicine; PCP Family Medicine
DX: R55 Syncope and collapse (principal); Z87.891 Personal history of nicotine dependence; I10 Essential (primary) hypertension
CPT/HCPCS: 80053; 85025; 93005; 99284; J7030

== ENCOUNTER 2025-02-25 14:30 | Oncology outpatient (recurring) (ONCR) | payer MEDICARE, OTHER, SELFPAY ==
[2025-02-24] VITALS (11 sets, daily range): BP systolic 127–154; BP diastolic 51–95; PULSE 75–98; RESP 16–17; TEMP 36.2–36.9; O2SAT 96–98
[2025-02-24 10:11] LABS: Mean Corpuscular HGB Conc 30.6 g/dL (30-55); Mean Corpuscular Hemoglobin 37.7 pg (27-33); Mean Corpuscular Volume 123.2 fl (85-98); Nucleated Red Blood Cells % 0.9 %; Platelet Count 255 10^3/cmm (157-399); Red Blood Count 1.38 10^6/uL (3.85-5.65); White Blood Count 3.45 10^3/uL (3.29-11.43)
[2025-02-24 10:31] LABS: Hematocrit 17.0 % (36-47); Hemoglobin 5.20 g/dL (11.27-16.99)
[2025-02-24 10:34] LABS: Alanine Aminotransferase 13 U/L (0-33); Albumin Level 3.6 g/dL (3.5-5.2); Alkaline Phosphatase 124 U/L (35-105); Anion Gap 14.6 (5-19); Aspartate Amino Transferase 16 U/L (0-32); Blood Urea Nitrogen 28 mg/dL (8-23); Calcium 9.4 mg/dL (8.5-10.5); Carbon Dioxide 20 mmol/L (22-29); Chloride 101 mmol/L (98-107); Creatinine Clr Calc Pharmacy 42.8916; Ferritin 152 ng/mL (15-150); Globulin 3.1 g/dL (1.3-4.6); Glucose 113 mg/dL (65-115); Iron 50 ug/dL (37-145); Osmolality Calculated 278 mOsm/kg (285-295); Potassium 4.6 mmol/L (3.5-5.1); Sodium 131 mmol/L (136-145); Total Iron Binding Capacity 328 mcg/dl; Total Protein 6.7 g/dL (6.6-8.7); Unsaturated Iron Binding 278 ug/dL (112-347); Uric Acid 5.1 mg/dL (2.4-5.7)
[2025-02-24 10:49] LABS: Vitamin B12 253 pg/mL (232-1245)
[2025-02-25] MEDS: ferric carboxy (PYXIS) 750 MG in sodium chloride 0.9% (100 ml) 100 ML 345 MG IV (14:34)
[2025-02-25 15:54] VITALS: BP 121/77; PULSE 67; RESP 16; TEMP 36.3; O2SAT 99
== END 2025-02-28 23:59 | disposition home or self-care (01) ==
PROVIDERS: PCP Family Medicine; Visit Provider Internal Medicine
DX: D50.9 Iron deficiency anemia, unspecified; Z79.899 Other long term (current) drug therapy; Z53.9 Procedure and treatment not carried out, unspecified reason
CPT/HCPCS: 36430; 80053; 82607; 82728; 82746; 83010; 83540; 83550; 83615; 84550; 85025; 85045; 85651; 86140; 86850; 86900; 86920; 96365; 99214; J1439; J7050; J9999; P9016

== ENCOUNTER 2025-03-19 06:04 | Outpatient (CLI) | payer MEDICARE, OTHER, SELFPAY ==
--- NOTE | 2025-03-19 06:09 | USCV_ITS ---
Romero Vacatte Age: 79 Gender: F : 1945 Exam Date: 03/19/2025 06:18 Ordering Phys: Navid Bourne MD Technologist: EARLENE Exam Location: [facility] Indication: murmur BP: 120 / 47 HR: 75 Rhythm: Sinus Technical Quality: Adequate MEASUREMENTS (Male / Female) Normal Values 2D ECHO LV Diastolic Diameter PLAX 4.9 cm 4.2 - 5.9 / 3.9 - 5.3 cm IVS Diastolic Thickness 1.0 cm 0.6 - 1.0 / 0.6 - 0.9 cm IVS Systolic Thickness 1.3 cm LVPW Diastolic Thickness 1.1 cm 0.6 - 1.0 / 0.6 - 0.9 cm LVPW Systolic Thickness 1.8 cm LVOT Diameter 2.0 cm LV Ejection Fraction 2D Teich 65.5 % LV Ejection Fraction MOD 4C 61.1 % LV Ejection Fraction MOD 2C 64.1 % LV Ejection Fraction 2C AL 63.2 % LA Diameter 4.4 cm RA Systolic Volume 4C AL 29.1 ml RA Systolic Volume 4C MOD 27.9 ml LA Sys Volume AL 79.2 cm cubed LA Sys Volume Index AL 50.1 cm cubed/m squared Aorta at Sinotubular Diameter 2.2 cm IVC Diameter 1.7 cm M-MODE LA Ao Ratio MM 1.8 AV Cusp Separation MM 1.4 cm DOPPLER AV Peak Velocity 234.0 cm/s LVOT Peak Velocity 85.0 cm/s AV Area Cont Eq vti 1.2 cm squared AV Area Cont Eq pk 1.2 cm squared MV Peak Velocity 167.0 cm/s MV Area PHT 3.8 cm squared Mitral E to A Ratio 0.8 TV Peak Velocity 372.0 cm/s TR Peak Velocity 385.0 cm/s TR Peak Gradient 59.3 mmHg TR Mean Velocity 322.0 cm/s TR Mean Gradient 43.5 mmHg TR Velocity Time Integral 112.6 cm PV Peak Velocity 123.0 cm/s RV Ejection Time 0.3 s FINDINGS Left Ventricle Normal LV size and ejection fraction of 63%. Mild concentric left ventricular hypertrophy.no regional wall motion abnormalities. Grade I/IV diastolic dysfunction (abnormal relaxation filling pattern), normal to mildly elevated filling pressures. Right Ventricle The right ventricle is normal in size and function. Right Atrium The right atrium is normal in size. Left Atrium Moderately increased left atrial size. Mitral Valve Thickened mitral valve. Mild mitral annular calcification. Moderate moderately severe eccentric mitral regurgitation. Aortic Valve Trace to mild aortic valve regurgitation. Low gradient, moderate, normal flow aortic valve stenosis Tricuspid Valve Estimated pulmonary artery peak systolic pressure 47 mmHg Moderate tricuspid valve regurgitation. Pulmonic Valve No gross abnormalities noted Pericardium Normal pericardium without effusion. Aorta Normal size aortic root and proximal ascending aorta. IVC Normal inferior vena cava. CONCLUSIONS Normal LV size and ejection fraction of 63%. Mild concentric left ventricular hypertrophy.no regional wall motion abnormalities. Grade I/IV diastolic dysfunction (abnormal relaxation filling pattern), normal to mildly elevated filling pressures. Moderately increased left atrial size. Thickened mitral valve. Mild mitral annular calcification. Moderate moderately severe eccentric mitral regurgitation. Trace to mild aortic valve regurgitation. Low gradient, moderate, normal flow aortic valve stenosis, with a valve area 1.2 cm squared Moderate tricuspid valve regurgitation. Estimated pulmonary artery peak systolic pressure 47 mmHg There is no pericardial effusion. There are no intracardiac masses. No similar previous studies are available for comparison Dr Anisa Landry MD [facility] (Electronically Signed) Final Date: 20 March 2025 12:31 S
== END 2025-03-19 06:05 | disposition home or self-care (01) ==
LOC: RAD 06:05
PROVIDERS: PCP Family Medicine; Visit Provider Family Medicine
DX: R01.1 Cardiac murmur, unspecified (principal); I35.1 Nonrheumatic aortic (valve) insufficiency; I42.1 Obstructive hypertrophic cardiomyopathy; I50.30 Unspecified diastolic (congestive) heart failure; I51.7 Cardiomegaly; I34.0 Nonrheumatic mitral (valve) insufficiency; I34.81 Nonrheumatic mitral (valve) annulus calcification; I35.0 Nonrheumatic aortic (valve) stenosis; I36.1 Nonrheumatic tricuspid (valve) insufficiency; I27.20 Pulmonary hypertension, unspecified
CPT/HCPCS: 93306

== ENCOUNTER 2025-03-29 08:00 | Oncology outpatient (recurring) (ONCR) | payer MEDICARE, OTHER, SELFPAY ==
[2025-03-04 08:50] VITALS: BP 125/65; PULSE 81; RESP 16; TEMP 36.8; O2SAT 94
[2025-03-04 08:55] LABS: Hematocrit 32.5 % (36-47); Hemoglobin 10.00 g/dL (11.27-16.99); Mean Corpuscular HGB Conc 30.8 g/dL (30-55); Mean Corpuscular Hemoglobin 35.1 pg (27-33); Mean Corpuscular Volume 114.0 fl (85-98); Nucleated Red Blood Cells % 0 %; Platelet Count 212 10^3/cmm (157-399); Red Blood Count 2.85 10^6/uL (3.85-5.65); White Blood Count 4.14 10^3/uL (3.29-11.43)
[2025-03-04] MEDS: ferric carboxy (PYXIS) 750 MG in sodium chloride 0.9% (100 ml) 100 ML 345 MG IV (08:58)
[2025-03-04 09:11] LABS: Alanine Aminotransferase 14 U/L (0-33); Albumin Level 4.0 g/dL (3.5-5.2); Alkaline Phosphatase 130 U/L (35-105); Anion Gap 15.1 (5-19); Aspartate Amino Transferase 18 U/L (0-32); Blood Urea Nitrogen 11 mg/dL (8-23); Calcium 9.2 mg/dL (8.5-10.5); Carbon Dioxide 20 mmol/L (22-29); Chloride 102 mmol/L (98-107); Globulin 3.4 g/dL (1.3-4.6); Glucose 85 mg/dL (65-115); Osmolality Calculated 275 mOsm/kg (285-295); Potassium 4.1 mmol/L (3.5-5.1); Sodium 133 mmol/L (136-145); Total Protein 7.4 g/dL (6.6-8.7)
[2025-03-04 09:27] VITALS: BP 135/68; PULSE 86; RESP 16; TEMP 36.4; O2SAT 95
[2025-03-11 11:01] LABS: Hematocrit 26.6 % (36-47); Hemoglobin 8.10 g/dL (11.27-16.99); Mean Corpuscular HGB Conc 30.5 g/dL (30-55); Mean Corpuscular Hemoglobin 36.2 pg (27-33); Mean Corpuscular Volume 118.8 fl (85-98); Nucleated Red Blood Cells % 0 %; Platelet Count 196 10^3/cmm (157-399); Red Blood Count 2.24 10^6/uL (3.85-5.65); White Blood Count 4.00 10^3/uL (3.29-11.43)
[2025-03-12 07:58] VITALS: BP 136/65; PULSE 70; RESP 17; TEMP 36.8; O2SAT 96
[2025-03-12 08:14] VITALS: BP 133/77; PULSE 83; RESP 17; TEMP 36.9; O2SAT 95
[2025-03-12 08:28] VITALS: BP 126/56; PULSE 77; RESP 17; TEMP 36.4; O2SAT 94
[2025-03-12 09:00] VITALS: BP 137/82; PULSE 68; RESP 17; TEMP 36.8; O2SAT 94
[2025-03-12 09:51] VITALS: BP 166/70; PULSE 81; RESP 17; TEMP 36.2; O2SAT 97
[2025-03-12 10:00] VITALS: BP 166/70; PULSE 81; RESP 16; TEMP 36.2; O2SAT 97
[2025-03-17 11:14] LABS: Hematocrit 30.9 % (36-47); Hemoglobin 9.40 g/dL (11.27-16.99); Mean Corpuscular HGB Conc 30.4 g/dL (30-55); Mean Corpuscular Hemoglobin 34.8 pg (27-33); Mean Corpuscular Volume 114.4 fl (85-98); Nucleated Red Blood Cells % 0 %; Platelet Count 280 10^3/cmm (157-399); Red Blood Count 2.70 10^6/uL (3.85-5.65); White Blood Count 4.41 10^3/uL (3.29-11.43)
[2025-03-24 10:39] LABS: Hematocrit 27.6 % (36-47); Hemoglobin 8.60 g/dL (11.27-16.99); Mean Corpuscular HGB Conc 31.2 g/dL (30-55); Mean Corpuscular Hemoglobin 35.7 pg (27-33); Mean Corpuscular Volume 114.5 fl (85-98); Platelet Count 215 10^3/cmm (157-399); Red Blood Count 2.41 10^6/uL (3.85-5.65); White Blood Count 2.89 10^3/uL (3.29-11.43)
[2025-03-24 11:02] LABS: Alanine Aminotransferase 27 U/L (0-33); Albumin Level 3.7 g/dL (3.5-5.2); Alkaline Phosphatase 223 U/L (35-105); Anion Gap 14.6 (5-19); Aspartate Amino Transferase 21 U/L (0-32); Blood Urea Nitrogen 19 mg/dL (8-23); Calcium 9.2 mg/dL (8.5-10.5); Carbon Dioxide 21 mmol/L (22-29); Chloride 102 mmol/L (98-107); Creatinine Clr Calc Pharmacy 49.4150; Ferritin 892 ng/mL (15-150); Globulin 3.6 g/dL (1.3-4.6); Glucose 90 mg/dL (65-115); Iron 89 ug/dL (37-145); Osmolality Calculated 278 mOsm/kg (285-295); Potassium 4.6 mmol/L (3.5-5.1); Sodium 133 mmol/L (136-145); Total Iron Binding Capacity 264 mcg/dl; Total Protein 7.3 g/dL (6.6-8.7); Unsaturated Iron Binding 175 ug/dL (112-347)
[2025-03-24 11:07] LABS: Slide Review Slide Review Perform
[2025-03-24 11:08] LABS: Absolute Segmented Neutrophil 1.6 10/cmm (1.6-7.1); Atypical Lymphs 0.0 % (0-5); Band Neutrophils Absolute 0.0 10^3/cmm (0.0-1.2); Giant Platelets 1+; Polychromasia Trace; Total Cells Counted 100 (0-100)
[2025-03-24 11:10] LABS: Anisocytosis 1+; Macrocytosis 1+; Smudge Cells Trace
[2025-03-29 08:28] LABS: Hematocrit 29.5 % (36-47); Hemoglobin 9.00 g/dL (11.27-16.99); Mean Corpuscular HGB Conc 30.5 g/dL (30-55); Mean Corpuscular Hemoglobin 36.0 pg (27-33); Mean Corpuscular Volume 118.0 fl (85-98); Nucleated Red Blood Cells % 0 %; Platelet Count 254 10^3/cmm (157-399); Red Blood Count 2.50 10^6/uL (3.85-5.65); White Blood Count 3.72 10^3/uL (3.29-11.43)
[2025-03-29 08:55] LABS: Alanine Aminotransferase 17 U/L (0-33); Albumin Level 3.7 g/dL (3.5-5.2); Alkaline Phosphatase 173 U/L (35-105); Anion Gap 14.1 (5-19); Aspartate Amino Transferase 18 U/L (0-32); Blood Urea Nitrogen 14 mg/dL (8-23); Calcium 9.3 mg/dL (8.5-10.5); Carbon Dioxide 22 mmol/L (22-29); Chloride 106 mmol/L (98-107); Creatinine Clr Calc Pharmacy 49.6332; Globulin 3.5 g/dL (1.3-4.6); Glucose 100 mg/dL (65-115); Osmolality Calculated 287 mOsm/kg (285-295); Potassium 4.1 mmol/L (3.5-5.1); Sodium 138 mmol/L (136-145); Total Protein 7.2 g/dL (6.6-8.7)
== END 2025-03-30 23:59 | disposition home or self-care (01) ==
PROVIDERS: Internal Medicine; Nurse Practitioner Family; PCP Family Medicine; Visit Provider Internal Medicine Medical Oncology
DX: Z53.9 Procedure and treatment not carried out, unspecified reason; D46.C 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; D50.9 Iron deficiency anemia, unspecified; R03.0 Elevated blood-pressure reading, without diagnosis of hypertension; Z87.891 Personal history of nicotine dependence; Z79.899 Other long term (current) drug therapy
CPT/HCPCS: 36415; 36430; 80053; 82728; 83540; 83550; 85007; 85025; 86850; 86900; 86920; 96365; 99204; 99213; 99214; J1439; J7050; J9999; P9040

== ENCOUNTER 2025-04-28 10:15 | Oncology outpatient (recurring) (ONCR) | payer MEDICARE, OTHER, SELFPAY ==
[2025-04-05 09:18] LABS: Hematocrit 28.2 % (36-47); Hemoglobin 8.60 g/dL (11.27-16.99); Mean Corpuscular HGB Conc 30.5 g/dL (30-55); Mean Corpuscular Hemoglobin 36.9 pg (27-33); Mean Corpuscular Volume 121.0 fl (85-98); Nucleated Red Blood Cells % 0 %; Platelet Count 220 10^3/cmm (157-399); Red Blood Count 2.33 10^6/uL (3.85-5.65); White Blood Count 4.44 10^3/uL (3.29-11.43)
[2025-04-05 09:54] LABS: Slide Review Slide Review Perform
--- NOTE | 2025-04-05 10:17 | PC.NURSE ---
Called pt, notified of HGB level. Pt does not need PRBC today.
[2025-04-12 08:07] LABS: Hematocrit 27.9 % (36-47); Hemoglobin 8.20 g/dL (11.27-16.99); Mean Corpuscular HGB Conc 29.4 g/dL (30-55); Mean Corpuscular Hemoglobin 38.3 pg (27-33); Mean Corpuscular Volume 130.4 fl (85-98); Nucleated Red Blood Cells % 0.5 %; Platelet Count 295 10^3/cmm (157-399); Red Blood Count 2.14 10^6/uL (3.85-5.65); White Blood Count 6.19 10^3/uL (3.29-11.43)
[2025-04-12 08:51] LABS: Slide Review Slide Review Perform
[2025-04-13] VITALS (10 sets, daily range): BP systolic 116–154; BP diastolic 58–89; PULSE 68–80; RESP 16–17; TEMP 36.7–37.4; O2SAT 93–98
[2025-04-19 08:47] LABS: Hematocrit 35.5 % (36-47); Hemoglobin 11.20 g/dL (11.27-16.99); Mean Corpuscular HGB Conc 31.5 g/dL (30-55); Mean Corpuscular Hemoglobin 34.8 pg (27-33); Mean Corpuscular Volume 110.2 fl (85-98); Nucleated Red Blood Cells % 0 %; Platelet Count 184 10^3/cmm (157-399); Red Blood Count 3.22 10^6/uL (3.85-5.65); White Blood Count 5.32 10^3/uL (3.29-11.43)
[2025-04-19 09:06] LABS: Alanine Aminotransferase 13 U/L (0-33); Albumin Level 3.9 g/dL (3.5-5.2); Alkaline Phosphatase 109 U/L (35-105); Aspartate Amino Transferase 17 U/L (0-32); Globulin 3.2 g/dL (1.3-4.6); Total Protein 7.1 g/dL (6.6-8.7)
[2025-04-19 09:30] LABS: Slide Review Slide Review Perform
[2025-04-28 10:29] LABS: Hematocrit 35.6 % (36-47); Hemoglobin 11.00 g/dL (11.27-16.99); Mean Corpuscular HGB Conc 30.9 g/dL (30-55); Mean Corpuscular Hemoglobin 34.9 pg (27-33); Mean Corpuscular Volume 113.0 fl (85-98); Nucleated Red Blood Cells % 0 %; Platelet Count 158 10^3/cmm (157-399); Red Blood Count 3.15 10^6/uL (3.85-5.65); White Blood Count 3.24 10^3/uL (3.29-11.43)
[2025-04-28 10:46] LABS: Alanine Aminotransferase 11 U/L (0-33); Albumin Level 4.0 g/dL (3.5-5.2); Alkaline Phosphatase 96 U/L (35-105); Anion Gap 13.9 (5-19); Aspartate Amino Transferase 15 U/L (0-32); Blood Urea Nitrogen 18 mg/dL (8-23); Calcium 9.7 mg/dL (8.5-10.5); Carbon Dioxide 21 mmol/L (22-29); Chloride 103 mmol/L (98-107); Ferritin 416 ng/mL (15-150); Globulin 3.1 g/dL (1.3-4.6); Glucose 112 mg/dL (65-115); Iron 103 ug/dL (37-145); Osmolality Calculated 281 mOsm/kg (285-295); Potassium 3.9 mmol/L (3.5-5.1); Sodium 134 mmol/L (136-145); Total Iron Binding Capacity 290 mcg/dl; Total Protein 7.1 g/dL (6.6-8.7); Unsaturated Iron Binding 187 ug/dL (112-347)
== END 2025-04-30 23:59 | disposition home or self-care (01) ==
PROVIDERS: Internal Medicine Rheumatology; Nurse Practitioner; PCP Family Medicine; Visit Provider Internal Medicine Medical Oncology
DX: D46.C 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; D50.9 Iron deficiency anemia, unspecified; M06.00 Rheumatoid arthritis without rheumatoid factor, unspecified site; Z87.891 Personal history of nicotine dependence; Z79.899 Other long term (current) drug therapy; Z53.9 Procedure and treatment not carried out, unspecified reason
CPT/HCPCS: 36415; 36430; 80053; 80076; 82306; 82565; 82728; 83540; 83550; 85025; 85651; 86140; 86480; 86850; 86900; 86920; 99213; J7050; J9999; P9016

== ENCOUNTER 2025-05-26 11:37 | Oncology outpatient (recurring) (ONCR) | payer MEDICARE, OTHER, SELFPAY ==
[2025-05-26 12:30] LABS: Hematocrit 28.5 % (36-47); Hemoglobin 8.50 g/dL (11.27-16.99); Mean Corpuscular HGB Conc 29.8 g/dL (30-55); Mean Corpuscular Hemoglobin 35.9 pg (27-33); Mean Corpuscular Volume 120.3 fl (85-98); Nucleated Red Blood Cells % 0 %; Platelet Count 188 10^3/cmm (157-399); Red Blood Count 2.37 10^6/uL (3.85-5.65); White Blood Count 4.80 10^3/uL (3.29-11.43)
[2025-05-26 12:47] LABS: Slide Review Slide Review Perform
[2025-05-26 12:48] LABS: Alanine Aminotransferase 9 U/L (0-33); Albumin Level 4.1 g/dL (3.5-5.2); Alkaline Phosphatase 95 U/L (35-105); Anion Gap 15.1 (5-19); Aspartate Amino Transferase 14 U/L (0-32); Blood Urea Nitrogen 13 mg/dL (8-23); Calcium 9.3 mg/dL (8.5-10.5); Carbon Dioxide 22 mmol/L (22-29); Chloride 106 mmol/L (98-107); Ferritin 151 ng/mL (15-150); Globulin 3.1 g/dL (1.3-4.6); Glucose 100 mg/dL (65-115); Iron 51 ug/dL (37-145); Osmolality Calculated 288 mOsm/kg (285-295); Potassium 4.1 mmol/L (3.5-5.1); Sodium 139 mmol/L (136-145); Total Iron Binding Capacity 316 mcg/dl; Total Protein 7.2 g/dL (6.6-8.7); Unsaturated Iron Binding 265 ug/dL (112-347)
[2025-05-26 14:38] VITALS: BP 144/74; PULSE 67; RESP 16; TEMP 36.6; O2SAT 99
[2025-05-26 14:53] VITALS: BP 145/79; PULSE 84; RESP 16; TEMP 36.7; O2SAT 94
[2025-05-26 15:08] VITALS: BP 157/79; PULSE 78; RESP 16; TEMP 36.6; O2SAT 95
[2025-05-26 15:38] VITALS: BP 166/75; PULSE 72; RESP 16; TEMP 36.9; O2SAT 96
--- NOTE | 2025-05-26 16:24 | PC.NURSE ---
Patient's blood pressure is 183/79 after receiving 1 unit of blood. Patient is not short of breath or exhibiting any symptoms. Megan Song NP and Shell Dejesus NP notified and stated it is okay to send patient home as long as she is not symptomatic and to have patient go to the ED if she becomes symptomatic over the weekend. This nurse informed patient of Justyn's recommendation. Patient confirmed understanding and agreed.
[2025-05-26 16:28] VITALS: BP 183/79; PULSE 70; RESP 16; TEMP 37.2; O2SAT 99
[2025-05-26 16:32] VITALS: BP 183/79; PULSE 70; RESP 16; TEMP 37.2; O2SAT 99
== END 2025-05-30 23:59 | disposition home or self-care (01) ==
PROVIDERS: Internal Medicine; PCP Family Medicine; Visit Provider Internal Medicine Medical Oncology
DX: D46.C 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 (principal); D50.9 Iron deficiency anemia, unspecified; D75.9 Disease of blood and blood-forming organs, unspecified; Z87.891 Personal history of nicotine dependence; Z79.899 Other long term (current) drug therapy
CPT/HCPCS: 36415; 36430; 80053; 82728; 82746; 83010; 83540; 83550; 83615; 85025; 85045; 86850; 86900; 86920; 99214; J7050; J9999; P9016

== ENCOUNTER → 2025-06-08 08:40 | Outpatient (BNVA) | payer MEDICARE, OTHER, SELFPAY | PROVIDERS: PCP Family Medicine; Visit Provider Nurse Practitioner Family | DX: L72.0 Epidermal cyst (principal); L81.4 Other melanin hyperpigmentation; L82.1 Other seborrheic keratosis; L60.8 Other nail disorders; L57.8 Other skin changes due to chronic exposure to nonionizing radiation | CPT/HCPCS: 11102; 99203 ==

== ENCOUNTER 2025-06-30 11:00 | Oncology outpatient (recurring) (ONCR) | payer MEDICARE, SELFPAY ==
[2025-06-09 08:26] LABS: Hematocrit 31.5 % (36-47); Hemoglobin 9.50 g/dL (11.27-16.99); Mean Corpuscular HGB Conc 30.2 g/dL (30-55); Mean Corpuscular Hemoglobin 35.3 pg (27-33); Mean Corpuscular Volume 117.1 fl (85-98); Nucleated Red Blood Cells % 0 %; Platelet Count 242 10^3/cmm (157-399); Red Blood Count 2.69 10^6/uL (3.85-5.65); White Blood Count 6.13 10^3/uL (3.29-11.43)
--- NOTE | 2025-06-09 08:45 | PC.NURSE ---
Patient notified by phone that she did not need blood transfusion today.
[2025-06-30 11:31] LABS: Hematocrit 31.1 % (36-47); Hemoglobin 9.40 g/dL (11.27-16.99); Mean Corpuscular HGB Conc 30.2 g/dL (30-55); Mean Corpuscular Hemoglobin 35.5 pg (27-33); Mean Corpuscular Volume 117.4 fl (85-98); Nucleated Red Blood Cells % 0 %; Platelet Count 145 10^3/cmm (157-399); Red Blood Count 2.65 10^6/uL (3.85-5.65); White Blood Count 3.32 10^3/uL (3.29-11.43)
[2025-06-30 11:46] LABS: Alanine Aminotransferase 13 U/L (0-33); Albumin Level 4.0 g/dL (3.5-5.2); Alkaline Phosphatase 96 U/L (35-105); Anion Gap 17.8 (5-19); Aspartate Amino Transferase 20 U/L (0-32); Blood Urea Nitrogen 13 mg/dL (8-23); Calcium 9.0 mg/dL (8.5-10.5); Carbon Dioxide 21 mmol/L (22-29); Chloride 105 mmol/L (98-107); Ferritin 96 ng/mL (15-150); Globulin 2.6 g/dL (1.3-4.6); Glucose 96 mg/dL (65-115); Iron 80 ug/dL (37-145); Osmolality Calculated 290 mOsm/kg (285-295); Potassium 3.8 mmol/L (3.5-5.1); Sodium 140 mmol/L (136-145); Total Iron Binding Capacity 310 mcg/dl; Total Protein 6.6 g/dL (6.6-8.7); Unsaturated Iron Binding 230 ug/dL (112-347)
== END 2025-06-30 23:59 | disposition home or self-care (01) ==
PROVIDERS: Nurse Practitioner; PCP Family Medicine; Visit Provider Internal Medicine Medical Oncology
DX: Z53.9 Procedure and treatment not carried out, unspecified reason; D46.C 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; D50.9 Iron deficiency anemia, unspecified; Z87.891 Personal history of nicotine dependence
CPT/HCPCS: 36415; 80053; 82728; 82746; 83010; 83540; 83550; 83615; 85025; 85045; 99213